=== PATIENT | female | born 1935 | race Caucasian/White ===

== ENCOUNTER 2017-06-12 19:43 | Emergency (ER) | payer MEDICARE, OTHER ==
[2017-06-12 20:36] LABS: #Lymphocytes 1.5 thou/uL (1.20-3.40); #Monocytes 0.6 thou/uL (0.11-0.59); #Neutrophils 10.8 thou/uL (1.40-6.50); %Basophils 0.1 % (0.0-1.0); %Eosinophils 0.3 % (0.0-10.0); %Lymphocytes 11.3 % (21.0-51.0); %Monocytes 4.5 % (0.0-10.0); Hematocrit 43.8 % (36.0-47.0); Mean Platelet Volume 6.4 fL (7.4-10.4); Red Blood Cell (RBC) Count 4.53 mill/uL (4.20-5.40); White Blood Cell (WBC) Count 12.9 thou/uL (4.8-10.8)
[2017-06-12 21:00] LABS: ALT (SGPT) 16 U/L (8-55); AST (SGOT) 16 U/L (5-34); Alkaline Phosphatase 45 U/L (40-150); Anion Gap 13 mmol/L (10-20); BUN (Urea Nitrogen) 22 mg/dL (9.8-20.1); Bilirubin, Total 0.4 mg/dL (0.2-1.2); Calc. Creatinine Clearance 0 mL/min (70-130); Calcium 9.1 mg/dL (7.8-10.44); Carbon Dioxide 25 mmol/L (23-31); Chloride 100 mmol/L (98-107); Estimated GFR-MDRD 70; Globulin 3.4 g/dL (2.4-3.5); Protein, Total 6.5 g/dL (6.0-8.3)
--- NOTE | 2017-06-12 21:33 | RAD ---
PORTABLE CHEST ONE VIEW: Date: 06-12-17 Time: 7:48 p.m. History: Shortness of breath. FINDINGS: Comparison made with exam of 05-11-17. The heart size is prominent and stable. There is continued elevation of the right hemidiaphragm. Chr onic changes in the lung diez are again seen bilaterally. No lobar consolidation, pneumothoraces, edgar pleural edema or large effusions are seen. Dorsal column stimulators leads are again noted. IMPRESSION: No acute process. POS: [facility]
[2017-06-12 22:26] LABS: Bilirubin Negative (Negative); Blood, Urine Negative (Negative); Glucose, Urine (Dipstick) Negative (Negative); Ketone, Urine Negative (Negative); Nitrite Negative (Negative); Protein, Urine (Dipstick) Negative (Neg-Trace); Urobilinogen 0.2 mg/dL (0.2-1.0)
[2017-06-12 22:28] LABS: Bacteria/HPF 4+ HPF (None Seen); Hyaline Casts/LPF 0-3 HYALINE CAST LPF (0-3 Hyaline); RBC/HPF 0-3 HPF (0-3); Squamous Epithelial None Seen HPF (0-3)
[2017-06-12] MEDS ORDERED: Nitrofurantoin Monohyd/M-Cryst 100 MG CAP PO SCH (23:45)
--- NOTE | 2017-06-12 23:48 | CT ---
CT CHEST WITHOUT CONTRAST: History: Dyspnea. Wheezing. FINDINGS: Absence of IV contrast reduces the sensitivity of the exam particularly for evaluation of mediastina l, hilar, and vascular structures. There are vascular calcifications without evidence of aneurysmal dilatation of the thoracic aorta. N o pleural or parenchymal effusions are seen. A hiatal hernia is noted. There are chronic interstitia l changes which are also seen on the exam of 03-01-17. No pneumothorax, focal areas of consolidation, or lung masses identified. The esophagus appears distended. Dorsal stimulator leads are present in the thoracic spinal canal. There are degenerative changes in the spine. There is elevation of the ri ght hemidiaphragm. IMPRESSION: No CT evidence of pneumonia. POS: [facility]
[2017-06-13] MEDS ORDERED: Nitrofurantoin Monohyd/M-Cryst 100 MG CAP PO SCH (00:15)
== END 2017-06-13 01:52 | disposition home or self-care (01) ==
LOC: ERS 19:43
DX: N39.0 Urinary tract infection, site not specified (principal); K21.9 Gastro-esophageal reflux disease without esophagitis; I95.9 Hypotension, unspecified; M19.90 Unspecified osteoarthritis, unspecified site; Z86.711 Personal history of pulmonary embolism; Z86.718 Personal history of other venous thrombosis and embolism; Z87.442 Personal history of urinary calculi
CPT/HCPCS: 36415; 51701; 71010; 71250; 80053; 81003; 81015; 85025; 93005; 96360; A4353

== ENCOUNTER 2017-06-22 13:42 | Outpatient (CLI) | payer MEDICARE, OTHER ==
--- NOTE | 2017-06-22 15:59 | RAD ---
CERVICAL SPINE: History: Follow up cervical spine fracture. Comparison: CT 04-21-17. That exam revealed a right C3 lamina fracture with anterolisthesis. Also com pared to the plain films of 05-19-17. FINDINGS: On the true lateral projection the anterolisthesis at C3-4 is again demonstrated. The degree of list hesis appears to have progressed when compared to 05-19-17. There is anterolisthesis measured up to 9 mm today. Previous measurements were in the 7 mm range. The fusion at C4, C5, and C6 not well evaluated. IMPRESSION: Anterolisthesis at C3-4 appears to have increased when compared to 05-19-17 exam. POS: [facility]
== END 2017-06-22 13:43 | disposition home or self-care (01) ==
LOC: TBSIIMAG 13:42
PROVIDERS: ATTEND Neurological Surgery
DX: S12.9XXD Fracture of neck, unspecified, subsequent encounter (principal)
CPT/HCPCS: 72040

== ENCOUNTER 2017-07-05 11:49 | Inpatient (IN) | payer MEDICARE, OTHER ==
[2017-07-05 12:33] LABS: #Eosinphils 0.1 thou/uL (0.0-0.7); #Lymphocytes 1.8 thou/uL (1.20-3.40); #Monocytes 1.2 thou/uL (0.11-0.59); #Neutrophils 13.7 thou/uL (1.40-6.50); %Basophils 0.1 % (0.0-1.0); %Eosinophils 0.6 % (0.0-10.0); %Lymphocytes 10.7 % (21.0-51.0); %Monocytes 6.9 % (0.0-10.0); Hematocrit 39.1 % (36.0-47.0); Mean Platelet Volume 6.1 fL (7.4-10.4); Red Blood Cell (RBC) Count 3.98 mill/uL (4.20-5.40); White Blood Cell (WBC) Count 16.8 thou/uL (4.8-10.8)
[2017-07-05 12:42] LABS: Prothrombin Time 16.7 SEC (12.0-14.7)
[2017-07-05] MEDS ORDERED: Acetaminophen 500 MG TAB ONE (12:48)
[2017-07-05 12:59] LABS: ALT (SGPT) 10 U/L (8-55); AST (SGOT) 18 U/L (5-34); Alkaline Phosphatase 34 U/L (40-150); Anion Gap 12 mmol/L (10-20); BUN (Urea Nitrogen) 13 mg/dL (9.8-20.1); Bilirubin, Total 0.5 mg/dL (0.2-1.2); Calc. Creatinine Clearance 0 mL/min (70-130); Calcium 7.7 mg/dL (7.8-10.44); Carbon Dioxide 21 mmol/L (23-31); Chloride 109 mmol/L (98-107); Estimated GFR-MDRD Greater than 90; Globulin 2.4 g/dL (2.4-3.5); Protein, Total 4.7 g/dL (6.0-8.3)
--- NOTE | 2017-07-05 13:09 | RAD ---
PORTABLE AP CHEST: Date: 07-05-17 History: Altered mental status, hypotension. Comparison: 06-12-17 FINDINGS: There is persistent elevation of the right hemidiaphragm. Dorsal column stimulator leads overlie the thoracic spine. There is increased interstitial densities bilaterally, overall similar to the prior exam and likely related to chronic interstitial fibrotic lung changes. Cardiac silhouette is magnif ied by projection. There has been no interval change compared to the prior study. IMPRESSION: 1. Stable chest with findings most likely attributable to chronic interstitial fibrotic lung changes . 2. Stable elevation right hemidiaphragm. POS: [facility]
[2017-07-05] MEDS ORDERED: Potassium Chloride 20 MEQ TAB ONE ×2 (13:27→13:37)
[2017-07-05 13:30] LABS: Bilirubin Negative (Negative); Blood, Urine Small (Negative); Glucose, Urine (Dipstick) Negative (Negative); Ketone, Urine Negative (Negative); Nitrite Negative (Negative); Protein, Urine (Dipstick) Trace mg/dL (Neg-Trace)
[2017-07-05 13:33] LABS: Bacteria/HPF 4+ HPF (None Seen); Hyaline Casts/LPF 4-6 HYALINE CAST LPF (0-3 Hyaline); Squamous Epithelial 0-3 HPF (0-3)
[2017-07-05] MEDS ORDERED: Potassium Chloride 40 MEQ, Admixture Fee 1 EACH in Sodium Chloride 0.9% 250 ML 250 ML IVPB SCH (13:45)
--- NOTE | 2017-07-05 13:59 | PDOC.EVN ---
Event Note - Event Note Event Note: [id number] H&P DICTATED 1. Sepsis secondary to UTI 2. Acute diarrhea 3. Hypotension 4. Hypokalemia Plan: see orders
[2017-07-05] MEDS ORDERED: Acetaminophen 325 MG TAB PO PRN (14:00)
[2017-07-05] MEDS ORDERED: Ondansetron HCl/PF 4 MG/2 ML Vial IVP PRN (14:00)
[2017-07-05] MEDS ORDERED: HYDROcodone/Acetaminophen 5/325 mg Tablet PO PRN (14:00)
[2017-07-05] MEDS ORDERED: Potassium Chloride 20 MEQ/100 ML PREMIX BAG ONE (14:26)
[2017-07-05] MEDS ORDERED: cefOXitin Sodium 1 GM, Admixture Fee 1 EACH in Sodium Chloride 0.9% 100 ML IVPB SCH (14:30)
--- NOTE | 2017-07-05 15:22 | HP ---
CHIEF COMPLAINT: Fever, chills, hypotension, and diarrhea. HISTORY OF PRESENT ILLNESS: The patient is an 82-year-old female with past medical history of chron ic recurrent UTIs, hypotension, history of multiple sclerosis, chronic pain, now came to the ER comp laining of low blood pressure and the patient is currently in the [facility] facility. Patient was having diarrhea, intermittent, for the last 1 week and patient was also having foul smelling ur ine. Today, the patient was found to be hypotensive with blood pressures around 70s and also having fever, so patient was brought to the ER. Upon ER, the patient was hypotensive, so patient was give n 2 liters of fluid bolus and blood pressure currently improved to systolic 106. Patient denies any chest pain, denies any nausea, denies any vomiting. Complains of diarrhea, cramping kind, intermit tent, foul smelling, complains of foul smelling urine also, denies any cough, denies any sputum prod uction. Denies any chest pain, denies any trouble breathing, dizziness, or lightheadedness. PAST MEDICAL HISTORY: As per HPI. PAST SURGICAL HISTORY: Hysterectomy, tonsillectomy, cholecystectomy, spinal stimulator. SOCIAL HISTORY: Denies smoking, denies alcohol, denies any drugs. FAMILY HISTORY: Positive for heart problems. REVIEW OF SYSTEMS: CONSTITUTIONAL: Positive for fever and chills. Positive for fatigue. EYES: No vision problems. EARS: No hearing loss. NECK: Denies any neck pain. CARDIOVASCULAR SYSTEM: Denies any chest pain, denies any palpitations. RESPIRATORY SYSTEM: Denies any cough or sputum production. GASTROINTESTINAL: Denies any nausea. Denies any vomiting. GENITOURINARY: Positive for foul-smelling urine. GASTROINTESTINAL: Positive for diarrhea. INTEGUMENTARY: Denies any rash. All other review of systems are reviewed and are negative. PHYSICAL EXAMINATION: CONSTITUTIONAL/VITAL SIGNS: At the time of H\T\P performed, blood pressure is 106/50, heart rate 85 , respiration rate 18. GENERAL: Patient appears tired. HEENT: Anterior naris patent. Nose, normal. Tongue appears dry. NECK: Supple, no JVD. CARDIOVASCULAR SYSTEM: S1, S2 present. Regular rate and rhythm, no murmurs, no rubs, no gallops. RESPIRATORY SYSTEM: Diminished breath sounds present bilaterally. No wheezing, no rhonchi. Normal effort. GASTROINTESTINAL: Abdomen is nontender to palpate. No guarding, no organomegaly, distended. MUSCULOSKELETAL: No edema. CRANIAL NERVE SYSTEM: Cranial nerves intact. Follows commands. Strength intact, sensory intact. PSYCHIATRIC: Mood is appropriate at this time. LABORATORY DATA: At the time of H\T\P performed, urine positive for greater than 52 numerous to cou nt wbcs, 4+ bacteria. CBC showed white count 16.8, hemoglobin 11.9, platelet count 274. PT 6.7, IN R 1.3. BMP showed sodium 140, potassium 2.4, chloride 109, CO2 21, BUN of 13, creatinine 0.59. ASSESSMENT AND PLAN: The patient is an 82-year-old female. 1. Sepsis secondary to urinary tract infection. Plan to start patient on broad spectrum antibiotic s. Plan to do blood cultures and urine culture and sensitivity. We will monitor the patient closel y. 2. Acute diarrhea plus history of clostridium difficile. Plan to start patient on Flagyl 500 mg IV q.8 h. Plan to monitor the patient closely. Plan to consult ID to evaluate the patient. 3. Hypokalemia, severe. We will go ahead and give total of 100 mEq potassium. We will check magne sium level. We will recheck potassium level again this evening. 4. Hypovolemia. Start IV fluids, monitor blood pressure closely. We will get another liter of nor mal saline bolus now. 5. History of multiple sclerosis, stable at this time. The case was discussed in detail with the patient and patient's daughter also and carrier. THE [facility] IS FULL CODE.
[2017-07-05] MEDS: Hydrocortisone Sod Succ/PF 100 mg/2 ml Vial IVP SCH ×2 (16:49→21:38)
[2017-07-05] MEDS: Heparin 5,000 UNITS/ML VIAL SC SCH ×2 (16:49→21:40)
[2017-07-05] MEDS: metroNIDAZOLE 500 MG in Premix Bag 1 BAG IVPB SCH ×2 (16:50→22:15)
--- NOTE | 2017-07-05 17:00 | CT ---
CT ABDOMEN AND PELVIS WITHOUT CONTRAST 07/05/17 HISTORY: Fever, bodyaches, chills, weakness and cough. COMPARISON: None. FINDINGS: There is extensive fibrotic changes in the lung bases. No pericardial effusion. There is abnormal wall thickening of the greater curvature of the stomach. Moderate sized sliding hi atal hernia. There is abnormal air fluid level within the urinary bladder. There appears to be some enhancing tis buddy along the posterolateral right side of the urinary bladder. There is gas within the right superi or renal collecting system. There are numerous calculi throughout the right side of the renal collec ting system. IVC filter is present. There is abnormal stranding of the descending colon and along th e left kidney. There is extensive fecal material throughout the colon. There is a 3 mm calculus in t he distal left ureter with moderate left sided hydronephrosis. Left sided calculus measuring 3 x 4 m m in the left renal pelvis. There is a 5 mm calculus in the right renal pelvis. No definite pneumato sis is appreciated. There is lack of normal haustrations of the transverse colon. Large degenerative change of both hips. Dorsal column stimulator is present. IMPRESSION: 1. 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 2. Left sided perinephric stranding with calculi within the distal left ureter and left renal c ollecting system with mild obstructive uropathy. 3. Abnormal soft dense material within the urinary bladder may represent a mass, hematoma or de bris. Direct visualization recommended. CODE: T POS: [facility]
--- NOTE | 2017-07-05 17:49 | CON ---
DATE OF CONSULTATION: 07/05/2017 REASON FOR CONSULTATION: Diarrhea and possible urinary tract infection. HISTORY OF PRESENT ILLNESS: An 82-year-old with a history of multiple sclerosis , recurrent episodes of urinary tract infection as well as prior episodes of C. difficile colitis, whom I had treated in 2013 for cough and abnormal chest x- ray. At that time, we were not sure that her symptoms were due to a urinary tract infection. Basically, she was then switched to oral Vantin. After that, I saw her until 06/2014, and when I had last seen her, she had only 0-3 wbc's in her urine, but still had colonization and we decided to give her Vantin suppressive therapy to try to decrease the frequency of readmissions for invasive UTIs. She never followed with me after the 06/2014 visit in the clinic and then there was 1 admission in 06/2015 and she was then admitted for \\ \\"pneumonia\\\\" right middle lobe, the organism was unspecified, and she was given Rocephin and Zithromax and then discharged back to the [facility], and Levaquin for 5 days, and then she gets admitted again in 04/2017. This time, she presents with a fall and had a fracture of the cervical spine and tibiofibular fracture. She was managed by Neurosurgery, Dr. hGosh, and Dr. Santillan. The patient underwent open reduction internal fixation of the right tibial plateau fracture, which went uneventful, and she has completely recovered from that. Now, she presents admitted from the long-term at [facility] with intermittent diarrhea, some abdominal distention, and some dysuria like she used to have before. She was found to be hypotensive in the unit with systolics in the 70s with fever, and therefore, she was admitted through the emergency room. She was given IV fluid bolus and broad-spectrum coverage. Currently, she is very pleasant, awake, alert, oriented. No headaches, visual symptoms, sore throat, odynophagia, dysphagia; no cough or sputum production; no chest pain; no abdominal pain. She does have some abdominal cramps and a sensation of dysuria as well as pressure and some mild-to -moderate pain in the suprapubic area. No joint symptoms. She does have some neck pain associated with the recent injury. PAST MEDICAL HISTORY: Includes multiple sclerosis; prior pulmonary embolism with IVC filter; chronic low back pain, treated with opioid medications and then more recently with a spinal cord stimulator; recurrent UTIs; and recurrent C. difficile infection. SOCIAL HISTORY: Never smoker. FAMILY HISTORY: Noncontributory. PAST SURGICAL HISTORY: Includes hysterectomy, tonsillectomy, cholecystectomy, spinal stimulator placement. PHYSICAL EXAMINATION: VITAL SIGNS: T-max 98, blood pressure 98/40, pulse 75, respirations 20, O2 sat 99% on 2 liters nasal cannula. She has no areas of skin breakdown. No Robles catheter, peripheral IV access. No lymphadenopathy. HEENT: Ocular movements are conjugate. Sclerae white. Pupils are 2 mm and reactive. Oral cavity moist. NECK: Supple. She has some stiffness of the neck and some tenderness on mobilization. LUNGS: Clear to auscultation and percussion. HEART: S1, S2, regular rate. ABDOMEN: No abdominal tenderness, but she has some moderate distention. Bowel sounds are present but normal. Some suprapubic tenderness. EXTREMITIES: No joint inflammatory activity. The operative site of the tib/ fib fracture is healed without any inflammatory changes. Pulses are 1+ in dorsalis pedis. Plantar responses are flexure. She moves all extremities equally. NEUROLOGIC: Cognitive function appears to be intact. LABORATORY DATA: White cell count 16.8, hemoglobin 11, platelets 274 with 81% neutrophils. INR 1.3. Sodium 140 with a potassium 2.4 and creatinine 0.59, AST 18, ALT 10, and albumin 2.3. Urinalysis greater than 50 wbcs. Patient has C. difficile antigen and toxin from June, which showed positive antigen, negative toxin. There is an abdomen and pelvis CT done this time, which showed dilated loops of bowel including colon with what appears to be a thickened colon wall. This is yet to be confirmed by the radiologist. She has a chest x- ray from 07/05/2017, which showed stable chest, elevation of right hemidiaphragm. ASSESSMENT: 1. Multiple sclerosis. 2. Recurrent urinary tract infections associated with some element of neurogenic bladder. 3. Previous multiple admissions for the above with prior utilization of suppressive antimicrobial therapy. 4. Episodes of Clostridium difficile in the past. 5. Diarrhea with some abdominal distention and abnormal CT of abdomen findings , which were suggestive of Clostridium difficile colitis. 6. Abnormal urinalysis. DISCUSSION: Differential diagnosis includes a C. difficile colitis with sepsis associated with it versus an invasive UTI. She could also have cystitis without an actual invasive UTI. As in previous encounters, she could have both. We do not have yet an updated urine culture, and she is currently receiving meropenem and vancomycin. She is also on Flagyl q.8 hours. At this point, we will switch her to oral vancomycin. Repeat the C. difficile test and stool, and wait on the results of the CT scan or at least on the report and discontinue Flagyl. Depending on the results of the urine culture, then transition her to a different antimicrobial rather than meropenem, potentially Azactam. She does have an ESBL E. coli from May this year. In view of the sepsis syndrome, we will continue on meropenem for the time being. [facility]
[2017-07-05 18:17] LABS: Anion Gap 12 mmol/L (10-20); BUN (Urea Nitrogen) 12 mg/dL (9.8-20.1); Calc. Creatinine Clearance 57 mL/min (70-130); Calcium 7.7 mg/dL (7.8-10.44); Carbon Dioxide 18 mmol/L (23-31); Chloride 111 mmol/L (98-107); Estimated GFR-MDRD 85
[2017-07-05] MEDS: Atorvastatin Calcium 20 MG TAB PO SCH (21:38)
[2017-07-05] MEDS: Vancomycin HCl 25 MG/ML Oral PO SCH (21:38)
[2017-07-05] MEDS: Oxybutynin 5 MG TAB PO SCH (21:39)
[2017-07-05] MEDS ORDERED: Meropenem 1 GM, Admixture Fee 1 EACH in Sodium Chloride 0.9% 100 ML IVPB SCH (22:00)
[2017-07-05] MEDS: Meropenem 1 GM, Admixture Fee 1 EACH in Sterile Water 20 ML SLOW IVP SCH (22:13)
--- NOTE | 2017-07-06 01:22 | PDOC.EVN ---
Event Note - Event Note Event Note: RN called for low BP, Will start IV fluids after 500 ml bolus
[2017-07-06] MEDS ORDERED: Sodium Chloride 0.9% 500 ML IV SCH (01:30)
[2017-07-06] MEDS: Vancomycin HCl 1.25 GM, Admixture Fee 1 EACH in Sodium Chloride 0.9% 250 ML 250 ML IVPB SCH ×2 (02:00→13:35)
[2017-07-06] MEDS: Sodium Chloride 0.9% 1,000 ML IV SCH ×2 (02:02→19:30)
[2017-07-06] MEDS: Hydrocortisone Sod Succ/PF 100 mg/2 ml Vial IVP SCH ×4 (03:06→21:37)
[2017-07-06 05:37] LABS: #Lymphocytes 1.1 thou/uL (1.20-3.40); #Monocytes 0.4 thou/uL (0.11-0.59); #Neutrophils 14.4 thou/uL (1.40-6.50); %Basophils 0.2 % (0.0-1.0); %Eosinophils 0.3 % (0.0-10.0); %Lymphocytes 6.9 % (21.0-51.0); %Monocytes 2.8 % (0.0-10.0); Hematocrit 36.2 % (36.0-47.0); Mean Platelet Volume 6.5 fL (7.4-10.4); Red Blood Cell (RBC) Count 3.62 mill/uL (4.20-5.40)
[2017-07-06 06:00] LABS: Anion Gap 10 mmol/L (10-20); BUN (Urea Nitrogen) 11 mg/dL (9.8-20.1); Calc. Creatinine Clearance 70 mL/min (70-130); Calcium 7.9 mg/dL (7.8-10.44); Carbon Dioxide 19 mmol/L (23-31); Chloride 114 mmol/L (98-107); Estimated GFR-MDRD Greater than 90; Magnesium 1.3 mg/dL (1.6-2.6); Phosphorus 2.2 mg/dL (2.3-4.7)
[2017-07-06] MEDS: Meropenem 1 GM, Admixture Fee 1 EACH in Sterile Water 20 ML SLOW IVP SCH ×3 (06:18→22:21)
[2017-07-06] MEDS: metroNIDAZOLE 500 MG in Premix Bag 1 BAG IVPB SCH ×2 (06:21→13:34)
[2017-07-06] MEDS ORDERED: Fluticasone Propionate Nasal Spray 16 gm Bottle NASAL SCH (09:00)
[2017-07-06] MEDS ORDERED: Non-Formulary Item 1 EACH (Dexlansoprazole [Dexilant] 60 MG) PO SCH (09:00)
[2017-07-06] MEDS ORDERED: Non-Formulary Item 1 EACH (Fexofenadine Hcl [Allegra Allergy] 180 MG) PO SCH (09:00)
[2017-07-06] MEDS ORDERED: Non-Formulary Item 1 EACH (Fluticasone Propionate [Flonase Allergy Relief] 1 SPRAY) EA NARE SCH ×2 (09:00)
[2017-07-06] MEDS ORDERED: Multivit, Therapeutic 1 TAB PO SCH (09:00)
[2017-07-06] MEDS ORDERED: Non-Formulary Item 1 EACH (Pravastatin Sodium [Pravachol] 80 MG) PO SCH (09:00)
[2017-07-06] MEDS ORDERED: MULTIVITAMINS THERAPEUTIC PO SCH (09:00)
[2017-07-06] MEDS ORDERED: Enoxaparin Sodium 30 MG/0.3 ML SYRINGE SC SCH (09:00)
[2017-07-06] MEDS: Fenofibrate Nanocrystallized 145 MG TAB PO SCH (09:39)
[2017-07-06] MEDS: Heparin 5,000 UNITS/ML VIAL SC SCH ×3 (09:39→21:52)
[2017-07-06] MEDS: Vancomycin HCl 25 MG/ML Oral PO SCH ×4 (09:41→21:37)
[2017-07-06] MEDS: Loratadine 10 MG TAB PO SCH (09:41)
[2017-07-06] MEDS: Oxybutynin 5 MG TAB PO SCH ×2 (09:41→21:40)
--- NOTE | 2017-07-06 12:29 | CON ---
REASON FOR CONSULTATION: 07/06/2017 REASON FOR CONSULTATION: IMCU placement. HISTORY OF PRESENT ILLNESS: This is an 82-year-old female with a long medical history, who was brou ght in yesterday with lethargy, diarrhea, and sepsis syndrome. She was initially found to a have lo w blood pressure, which has been corrected. She was also tachycardic, which has resolved. Symptoms have been present for at least a couple of days. PAST MEDICAL HISTORY: 1. Multiple sclerosis. 2. Pulmonary embolism, requiring inferior vena cava filter placement. 3. Low back pain. 4. Urinary tract infection. 5. C. difficile colitis. SOCIAL HISTORY: Never smoker. Does not consume alcohol. PAST SURGICAL HISTORY: Hysterectomy, tonsillectomy, cholecystectomy, spinal stimulator placement. FAMILY MEDICAL HISTORY: Unremarkable. MEDICATIONS: Prior to admission, prednisone 20 mg b.i.d., sertraline 50 mg daily, Florastor 250 mg b.i.d., Imitrex 100 mg every 12 hours as needed, Pravachol 80 mg daily, potassium chloride 10 mEq b. i.d., Ditropan 5 mg b.i.d., Macrodantin 50 mg daily, morphine, MS Contin 60 mg b.i.d., lidocaine pat ch p.r.n., DuoNeb every 6 hours as needed, Neurontin 800 mg q.i.d., Lasix 40 mg b.i.d., fluticasone nasal spray as needed, Berta 180 mg daily, fenofibrate 145 mg daily, estrogen 0.625 mg daily, Lomo til 1 tablet every 4 hours as needed, Voltaren 2 grams every 6 hours as needed, Dexilant 60 mg daily , colestipol 1 gram b.i.d., Limbrel 500 mg b.i.d. PHYSICAL EXAMINATION: VITAL SIGNS: Temperature 97.5, pulse 53, respirations 20, O2 sat 100% on 2 liters, blood pressure 1 14/47. GENERAL: She is awake and alert, very quiet. HEENT EXAM: Unremarkable. NECK: Without adenopathy or JVD. LUNGS: Clear to auscultation without wheezing. CARDIAC EXAM: Slightly bradycardic without murmur. ABDOMEN: Soft, nontender to palpation. EXTREMITIES: No clubbing or cyanosis. She has severe muscle wasting. LABORATORY DATA: White blood cell count 16, hematocrit 36.2, platelet count 220. Sodium 140, potas sium 3.4, chloride 114, CO2 of 19, BUN 11, creatinine 0.5, glucose 120. Cultures are growing out gr am-negative rods from her urine and her blood. ASSESSMENT: 1. Gram-negative sepsis, likely originating in her urine. 2. Multiple sclerosis. 3. Recent Clostridium difficile colitis. PLAN: 1. She is currently on meropenem and vancomycin for coverage. She is also on Flagyl. Dr. Buchanan is following her antibiotics. 2. She is receiving hydration. 3. We can probably move out to the medical floor at any time from my standpoint. 4. Dr. Grissom has seen her before. I will notify him of her admission.
--- NOTE | 2017-07-06 14:43 | PDOC.PN ---
- Subjective Encounter Start Date: 07/06/17 Encounter Start Time: 14:20 Subjective: f/u for sepsis from E. coli likely bowel source. Hx of c. diff colitis with -: current c. diff negative. c/o multiple bouts of diarrhea. Feels weak and -: tired. - Objective MAR Reviewed: Yes Vital Signs & Weight: Vital Signs (12 hours) Temp Pulse Resp BP Pulse Ox 07/06/17 11:14 97.5 F L 53 L 20 114/47 L 100 07/06/17 08:00 97.5 F L 53 L 20 100 07/06/17 07:20 97.9 F 48 L 20 92/40 L 100 07/06/17 04:00 98.8 F 50 L 20 90/40 L 100 Weight Weight 126 lb 6.4 oz I&O: 07/05/17 07/06/17 07/07/17 06:59 06:59 06:59 Intake Total 1390 Balance 1390 Result Diagrams: 07/06/17 04:54 07/06/17 04:54 Additional Labs: Microbiology 07/05/17 17:45 Stool C. difficile GDH Antigen & Toxins - Final 07/05/17 12:11 Nasal swab Influenza Types A,B Direct EIA - Final 07/05/17 13:11 Urine Straight Catheter Urine Culture - Preliminary Gram Negative Georgi 07/05/17 12:26 Venous blood - Right Hand Blood Culture - Preliminary Escherichia coli 07/05/17 12:26 Venous blood - Left Arm Blood Culture - Preliminary Gram Negative Georgi Laboratory Tests 07/05/17 07/05/17 07/05/17 12:26 12:26 17:57 WBC 16.8 H Neutrophils % 81.8 H Potassium 2.4 L* 3.3 L Magnesium 07/06/17 04:54 WBC Neutrophils % Potassium Magnesium 1.3 L Radiology Reviewed by me: Yes (CT abd/pel - gas/tissue in urinary system, descend colon stranding) EKG Reviewed by me: Yes (Tele - sinus bradycardia in 50's) Phys Exam - Physical Examination ill-appearing, responsive HEENT: PERRLA, oral pharynx no lesions Neck: no JVD, supple Respiratory: no wheezing, clear to auscultation bilateral Cardiovascular: RRR mild, diffuse TTP Gastrointestinal: soft, no distention, positive bowel sounds Musculoskeletal: no edema, pulses present Neurological: normal sensation, moves all 4 limbs Psychiatric: A&O x 3 Skin: normal turgor, cap refill <2 seconds Dx/Plan (1) Sepsis Code(s): A41.9 - SEPSIS, UNSPECIFIED ORGANISM Status: Acute Qualifiers: Sepsis type: Escherichia coli Qualified Code(s): A41.51 - Sepsis due to Escherichia coli [E. coli] Comment: Continue Meropenem and Vancomycin, E. coli in blood/Ucx results, continue sepsis protocol (2) Hypotension Status: Acute Comment: Secondary to sepsis, continue IVF's, avoid antihypertensives (3) Hypokalemia Code(s): E87.6 - HYPOKALEMIA Status: Acute Comment: Improved, continue KCL replacement, repeat K+ level in am (4) E. coli UTI Code(s): N39.0 - URINARY TRACT INFECTION, SITE NOT SPECIFIED; B96.20 - UNSP ESCHERICHIA COLI THE CAUSE OF DISEASES CLASSD ELSWHR Status: Acute Comment: Continue Meropenem 1gm IV q8h, E. coli in blood/Ucx await final sensitivities, continue IVF (5) Clostridium difficile colitis Status: Acute Comment: Continue Vancomycin 125mg po Q6h (6) Lupus (systemic lupus erythematosus) Code(s): M32.9 - SYSTEMIC LUPUS ERYTHEMATOSUS, UNSPECIFIED Status: Chronic (7) Chronic low back pain Code(s): M54.5 - LOW BACK PAIN; G89.29 - OTHER CHRONIC PAIN Status: Chronic Qualifiers: Back pain laterality: bilateral Comment: Resume home Gabapentin and MS contin (8) DVT (deep venous thrombosis) Code(s): I82.409 - ACUTE EMBOLISM AND THOMBOS UNSP DEEP VN UNSP LOWER EXTREMITY Status: Chronic Comment: s/p IVC filter (9) Multiple sclerosis Code(s): G35 - MULTIPLE SCLEROSIS Status: Chronic - Plan continue antibiotics, PT/OT, social work case manager, DVT proph w/SCDs Stable currently -: Continue IVF NS 75ml/h -: Restart home pain medications -: Continue Vancomycin po and Meropenem IV -: KCL 40meq BID * AM lab: BMP, CBC
[2017-07-06] MEDS ORDERED: Saccharomyces boulardii 250 MG CAP PO PRN (14:54)
[2017-07-06] MEDS ORDERED: Lidocaine 2% Jelly 5 ML TUBE TOP PRN (14:54)
[2017-07-06] MEDS ORDERED: Diphenoxylate HCl/Atropine Tablet PO PRN (14:54)
[2017-07-06] MEDS ORDERED: Dicyclomine 20 MG TAB PO PRN (14:54)
[2017-07-06] MEDS: Gabapentin 400 MG CAP PO SCH ×2 (17:35→21:58)
[2017-07-06] MEDS: Potassium Chloride 20 MEQ TAB PO SCH (17:36)
--- NOTE | 2017-07-06 19:41 | PRG ---
DATE OF SERVICE: 07/06/2017 SUBJECTIVE: Ms. Ramos is not as responsive. She opens her eyes, but does not interact nearly as much as she did yesterday, cannot get any replies from her. She did not have much in terms of diarrhea. OBJECTIVE: VITAL SIGNS: The temperature max is 99.7, now 97.7, BP 120/44, pulse 52, respirations 20, O2 sat 100%. SKIN: There is a little bit of periorbital edema. Peripheral IV access. LUNGS: With symmetric clear breath sounds. CARDIOVASCULAR: S1, S2, regular rate. ABDOMEN: Soft and does not have a Robles catheter. LABORATORY DATA: White cell count is 16,000, hemoglobin 11, platelets 220. Creatinine 0.54, sodium 140. 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 Abnormal soft dense material in the urinary bladder. The microbiology with E. coli in 2 sets of blood cultures and urine culture, susceptibility is consistent with extended spectrum beta lactamase resistance marker. ASSESSMENT AND DISCUSSION: Multiple sclerosis and recurrent urinary tract infections with neurogenic bladder, previous various admissions with the above, had been on Vantin and suppressive therapy until 2013 or 2014. Episodes of Clostridium difficile infection in the past, now with sepsis and invasive urinary tract infection again in the similar pattern as previously. This time she has evidence of emphysematous cystitis and right-sided kidney infection. No hydronephrosis. Continue meropenem since this is extended spectrum beta lactamase Escherichia coli. She will need PICC line placement for four weeks of therapy. Discontinue Flagyl. Continue oral vancomycin due to high risk of Clostridium difficile recurrence. [facility]
[2017-07-06] MEDS: Atorvastatin Calcium 20 MG TAB PO SCH (21:40)
[2017-07-06] MEDS: SUMAtriptan Succinate 50 MG TAB PO SCH (22:04)
[2017-07-07 01:48] LABS: Vancomycin, Trough 19.6 ug/mL
[2017-07-07] MEDS: Hydrocortisone Sod Succ/PF 100 mg/2 ml Vial IVP SCH ×2 (03:53→09:59)
[2017-07-07 05:11] LABS: Anion Gap 9 mmol/L (10-20); BUN (Urea Nitrogen) 10 mg/dL (9.8-20.1); Calc. Creatinine Clearance 79 mL/min (70-130); Calcium 8.4 mg/dL (7.8-10.44); Carbon Dioxide 18 mmol/L (23-31); Chloride 117 mmol/L (98-107); Estimated GFR-MDRD Greater than 90
[2017-07-07] MEDS: Gabapentin 400 MG CAP PO SCH ×4 (05:17→21:16)
[2017-07-07] MEDS: Meropenem 1 GM, Admixture Fee 1 EACH in Sterile Water 20 ML SLOW IVP SCH ×3 (05:18→22:05)
[2017-07-07 05:34] LABS: Band 8 % (5-11); Hematocrit 36.2 % (36.0-47.0); Mean Platelet Volume 7.3 fL (7.4-10.4); Neutrophil 81 % (42-75); Red Blood Cell (RBC) Count 3.63 mill/uL (4.20-5.40); White Blood Cell (WBC) Count 14.1 thou/uL (4.8-10.8)
[2017-07-07] MEDS ORDERED: Non-Formulary Item 1 EACH (Dexlansoprazole [Dexilant] 60 MG) PO SCH (09:00)
[2017-07-07] MEDS ORDERED: predniSONE 20 MG TAB PO SCH (09:00)
--- NOTE | 2017-07-07 09:06 | PRG ---
DATE OF SERVICE: 07/07/2017 This morning she is awake, alert, responsive, complaining of neck pain. She says she takes morphine at home, though I do not see anything but [place]. Pulmonary medrano, no shortness of breath, cough. Her urine is growing E. coli sensitive to meropenem. Blood pressure is improved. She presented to the ER with chills, sweats, cough, foul urine odor. This is a recurrent UTI. Her chest x-ray did show a questionable left-sided infiltrate. PHYSICAL EXAMINATION: GENERAL: She is awake, alert, responsive. VITAL SIGNS: Blood pressure is 120/80, pulse 80, O2 saturation 100%, respirations 18. CHEST: Chest reveals decreased breath sounds, no wheezing. CARDIAC: Normal S1, S2, no gallops. ABDOMEN: Unremarkable. Her I's and O's are good. IMPRESSION: 1. Escherichia coli sepsis. 2. Hypertension, resolved. 3. Normal renal function. 4. Chronic pain. PLAN: Infectious Disease has started meropenem and p.o. vancomycin, otherwise I see no evidence of C. diff at this time. Continue PT. Switch over to oral prednisone. It is unclear why she was taking prednisone at home. Continue home pain medication. I will follow.
[2017-07-07] MEDS: SUMAtriptan Succinate 50 MG TAB PO SCH ×2 (09:58→21:17)
[2017-07-07] MEDS: Vancomycin HCl 25 MG/ML Oral PO SCH ×4 (09:59→21:15)
[2017-07-07] MEDS: Heparin 5,000 UNITS/ML VIAL SC SCH ×3 (09:59→21:17)
[2017-07-07] MEDS: Oxybutynin 5 MG TAB PO SCH ×2 (10:00→21:17)
[2017-07-07] MEDS: Potassium Chloride 20 MEQ TAB PO SCH ×2 (10:00→16:39)
[2017-07-07] MEDS: Multivitamin W/ Minerals 1 TAB PO SCH (10:01)
[2017-07-07] MEDS: Fenofibrate Nanocrystallized 145 MG TAB PO SCH (10:02)
[2017-07-07] MEDS: Lidocaine 5% Patch TD SCH (10:02)
[2017-07-07] MEDS: Fluticasone Propionate Nasal Spray 16 gm Bottle NASAL SCH (10:03)
[2017-07-07] MEDS: Loratadine 10 MG TAB PO SCH (10:03)
[2017-07-07] MEDS: Sodium Chloride 0.9% 1,000 ML IV SCH ×2 (10:29→23:21)
--- NOTE | 2017-07-07 11:02 | PDOC.PN ---
- Subjective Encounter Start Date: 07/07/17 Encounter Start Time: 11:00 Ms. Ramos had some concerns about the PICC line. she also says she feels " awful " , mainly due to the diarrhea. - Objective MAR Reviewed: Yes Vital Signs & Weight: Vital Signs (12 hours) Temp Pulse Resp BP Pulse Ox 07/07/17 06:58 97.5 F L 65 18 115/49 L 100 07/07/17 04:00 98.1 F 62 18 136/51 L 99 07/07/17 00:00 98.0 F 56 L 20 113/46 L 100 Weight Weight 124 lb 14.4 oz I&O: 07/06/17 07/07/17 07/08/17 06:59 06:59 06:59 Intake Total 1390 1170 350 Balance 1390 1170 350 Result Diagrams: 07/07/17 04:14 07/07/17 04:14 Phys Exam - Physical Examination HEENT: PERRLA Respiratory: no wheezing, no rales, no rhonchi, clear to auscultation bilateral Cardiovascular: RRR, no significant murmur Gastrointestinal: soft, non-tender, positive bowel sounds Musculoskeletal: no edema Dx/Plan (1) ESBL E. coli carrier Code(s): Z22.39 - CARRIER OF OTHER SPECIFIED BACTERIAL DISEASES Status: Acute (2) E. coli UTI Code(s): N39.0 - URINARY TRACT INFECTION, SITE NOT SPECIFIED; B96.20 - UNSP ESCHERICHIA COLI THE CAUSE OF DISEASES CLASSD ELSWHR Status: Acute Comment: Continue Meropenem 1gm IV q8h, E. coli in blood/Ucx await final sensitivities, continue IVF (3) Sepsis Code(s): A41.9 - SEPSIS, UNSPECIFIED ORGANISM Status: Acute Qualifiers: Sepsis type: Escherichia coli Qualified Code(s): A41.51 - Sepsis due to Escherichia coli [E. coli] Comment: Continue Meropenem and Vancomycin, E. coli in blood/Ucx results, continue sepsis protocol (4) Chronic low back pain Code(s): M54.5 - LOW BACK PAIN; G89.29 - OTHER CHRONIC PAIN Status: Chronic Qualifiers: Back pain laterality: bilateral Comment: Resume home Gabapentin and MS contin (5) HTN (hypertension) Code(s): I10 - ESSENTIAL (PRIMARY) HYPERTENSION Status: Chronic (6) Multiple sclerosis Code(s): G35 - MULTIPLE SCLEROSIS Status: Chronic - Plan * UTI due to ESBL E. Coli- improved- Continue Meropenem. * Diarrhea- C. Diff Antigen and toxin were negative, patient also notes she was on Morpine chronically, and has been taken off on admission due to hypotension. This is likely contributing to her diarrhea * will re-start her Morphine * Multiple Sclerosis- stable * HTN- blood pressure is recovering * Agree with PT
[2017-07-07] MEDS ORDERED: ALPRAZolam 0.25 MG TAB PO SCH (13:00)
[2017-07-07 13:44] VITALS: BMI 22.1
--- NOTE | 2017-07-07 17:12 | SPC ---
SONOGRAPHIC GUIDED LEFT UPPER EXTREMITY PICC PLACEMENT: HISTORY: Sepsis. Urinary tract infection. \H\ \N\FINDINGS: After explaining the procedure and answering all questions, the left upper extremity was prepped and draped in the usual sterile fashion. Sterile technique, buffered local anesthesia, sonographic brijesh dance, and a 22-gauge needle were used to carefully access the left brachial vein. Standard techniq ue was then used to place the tip of a 5-Icelandic single-lumen PICC so that it lies at the level of th e right atrium. The catheter was flushed and secured externally. The patient tolerated the procedu re well and was returned in unchanged condition. Fluoro time = 0 seconds. IMPRESSION: Technically successful left upper extremity PICC placement. Catheter is now ready for use. POS: FARHAN
[2017-07-07] MEDS: Atorvastatin Calcium 20 MG TAB PO SCH (21:16)
[2017-07-07] MEDS: Lidocaine Patch Removal 1 EACH TOP SCH (21:34)
[2017-07-08] MEDS: Meropenem 1 GM, Admixture Fee 1 EACH in Sterile Water 20 ML SLOW IVP SCH ×2 (05:49→13:48)
--- NOTE | 2017-07-08 08:54 | PRG ---
DATE OF SERVICE: 07/08/2017 This morning she is awake, alert, responsive. She is better, less pain. PHYSICAL EXAMINATION: VITAL SIGNS: Sat 100% on 2 liters, respirations 20, temperature 97, blood pressure 95/56. I's and O's have been good. CHEST: Chest reveals decreased breath sounds, no wheezing. CARDIAC: Normal S1, S2. ABDOMEN: Soft, no masses. IMPRESSION: 1. Recurrent urinary tract infection, gram-negative. 2. Advanced age. She is on IV meropenem for urosepsis, vancomycin for presumed C. difficile colitis. PLAN: Continue present treatment and PT. Supportive care. She can probably be transferred out of the [facility].
[2017-07-08] MEDS: Potassium Chloride 20 MEQ TAB PO SCH ×2 (09:26→16:36)
[2017-07-08] MEDS: predniSONE 5 MG TAB PO SCH (09:26)
[2017-07-08] MEDS: Fluticasone Propionate Nasal Spray 16 gm Bottle NASAL SCH (09:27)
[2017-07-08] MEDS: Fenofibrate Nanocrystallized 145 MG TAB PO SCH (09:27)
[2017-07-08] MEDS: Gabapentin 400 MG CAP PO SCH ×4 (09:27→21:30)
[2017-07-08] MEDS: Loratadine 10 MG TAB PO SCH (09:28)
[2017-07-08] MEDS: Heparin 5,000 UNITS/ML VIAL SC SCH ×3 (09:28→21:34)
[2017-07-08] MEDS: Lidocaine 5% Patch TD SCH (09:28)
[2017-07-08] MEDS: Multivitamin W/ Minerals 1 TAB PO SCH (09:29)
[2017-07-08] MEDS: Oxybutynin 5 MG TAB PO SCH ×2 (09:30→21:30)
[2017-07-08] MEDS: SUMAtriptan Succinate 50 MG TAB PO SCH ×2 (09:31→21:34)
[2017-07-08] MEDS: Vancomycin HCl 25 MG/ML Oral PO SCH ×4 (09:31→21:35)
--- NOTE | 2017-07-08 11:22 | PDOC.PN ---
- Subjective Encounter Start Date: 07/08/17 Encounter Start Time: 11:20 Ms. Ramos does not have any complaints this morning. she has not had any diarrhea this morning. - Objective MAR Reviewed: Yes Vital Signs & Weight: Vital Signs (12 hours) Temp Pulse Resp BP Pulse Ox 07/08/17 07:40 97.7 F 55 L 20 99 07/08/17 07:36 97.7 F 55 L 20 95/56 L 100 07/08/17 04:00 98.1 F 66 20 107/55 L 99 07/08/17 00:00 98.7 F 57 L 22 H 110/57 L 100 Weight Admit Weight 126 lb 6.4 oz Weight 125 lb 6.4 oz I&O: 07/07/17 07/08/17 07/09/17 06:59 06:59 06:59 Intake Total 1170 660 Balance 1170 660 Result Diagrams: 07/07/17 04:14 07/07/17 04:14 Phys Exam - Physical Examination HEENT: PERRLA Respiratory: no wheezing, no rales, no rhonchi, clear to auscultation bilateral Cardiovascular: RRR, no significant murmur, no rub Gastrointestinal: soft, non-tender, positive bowel sounds Musculoskeletal: no edema Dx/Plan (1) ESBL E. coli carrier Code(s): Z22.39 - CARRIER OF OTHER SPECIFIED BACTERIAL DISEASES Status: Acute (2) E. coli UTI Code(s): N39.0 - URINARY TRACT INFECTION, SITE NOT SPECIFIED; B96.20 - UNSP ESCHERICHIA COLI THE CAUSE OF DISEASES CLASSD ELSWHR Status: Acute Comment: Continue Meropenem 1gm IV q8h, E. coli in blood/Ucx await final sensitivities, continue IVF (3) Sepsis Code(s): A41.9 - SEPSIS, UNSPECIFIED ORGANISM Status: Acute Qualifiers: Sepsis type: Escherichia coli Qualified Code(s): A41.51 - Sepsis due to Escherichia coli [E. coli] Comment: Continue Meropenem and Vancomycin, E. coli in blood/Ucx results, continue sepsis protocol (4) Chronic low back pain Code(s): M54.5 - LOW BACK PAIN; G89.29 - OTHER CHRONIC PAIN Status: Chronic Qualifiers: Back pain laterality: bilateral Comment: Resume home Gabapentin and MS contin (5) HTN (hypertension) Code(s): I10 - ESSENTIAL (PRIMARY) HYPERTENSION Status: Chronic (6) Multiple sclerosis Code(s): G35 - MULTIPLE SCLEROSIS Status: Chronic - Plan * Sepsis due to E Coli- improving * Discharge recommendations were discussed with Dr. Buchanan * Diarrhea- improved * She can be transitioned out of the IMCU * Need to mobilize with PT * Chronic LBP- stable .
[2017-07-08] MEDS: Sodium Chloride 0.9% 1,000 ML IV SCH ×2 (13:50→23:00)
[2017-07-08 13:58] LABS: #Eosinphils 0.1 thou/uL (0.0-0.7); #Lymphocytes 0.7 thou/uL (1.20-3.40); #Monocytes 0.4 thou/uL (0.11-0.59); #Neutrophils 6.2 thou/uL (1.40-6.50); %Eosinophils 0.9 % (0.0-10.0); %Lymphocytes 9.1 % (21.0-51.0); %Monocytes 5.5 % (0.0-10.0); Hematocrit 37.8 % (36.0-47.0); Mean Platelet Volume 6.6 fL (7.4-10.4); Red Blood Cell (RBC) Count 3.82 mill/uL (4.20-5.40); White Blood Cell (WBC) Count 7.3 thou/uL (4.8-10.8)
[2017-07-08 14:19] LABS: Anion Gap 11 mmol/L (10-20); BUN (Urea Nitrogen) 12 mg/dL (9.8-20.1); Calc. Creatinine Clearance 68 mL/min (70-130); Calcium 9.1 mg/dL (7.8-10.44); Carbon Dioxide 21 mmol/L (23-31); Chloride 111 mmol/L (98-107); Estimated GFR-MDRD Greater than 90; Magnesium 1.6 mg/dL (1.6-2.6)
[2017-07-08] MEDS: Atorvastatin Calcium 20 MG TAB PO SCH (21:30)
[2017-07-08] MEDS: Lidocaine Patch Removal 1 EACH TOP SCH (21:34)
[2017-07-08] MEDS: MEROPENEM 1 GM/50 ML 1 GM in Premix Bag 1 BAG IVPB SCH (22:08)
[2017-07-08] MEDS: [UNRECOGNIZED DRUG - OTHER] PO SCH ×2 (23:52→23:53)
[2017-07-09] MEDS: MEROPENEM 1 GM/50 ML 1 GM in Premix Bag 1 BAG IVPB SCH (06:01)
[2017-07-09] MEDS: Heparin 5,000 UNITS/ML VIAL SC SCH (08:16)
[2017-07-09] MEDS: Vancomycin HCl 25 MG/ML Oral PO SCH (08:17)
[2017-07-09] MEDS: predniSONE 5 MG TAB PO SCH (08:18)
[2017-07-09] MEDS: Gabapentin 400 MG CAP PO SCH (08:18)
[2017-07-09] MEDS: Potassium Chloride 20 MEQ TAB PO SCH (08:18)
[2017-07-09] MEDS: Fenofibrate Nanocrystallized 145 MG TAB PO SCH (08:18)
[2017-07-09] MEDS: Multivitamin W/ Minerals 1 TAB PO SCH (08:18)
[2017-07-09] MEDS: Loratadine 10 MG TAB PO SCH (08:19)
[2017-07-09] MEDS: Oxybutynin 5 MG TAB PO SCH (08:22)
[2017-07-09] MEDS: SUMAtriptan Succinate 50 MG TAB PO SCH (08:23)
[2017-07-09 08:28] VITALS: BP 103/68; TEMP 97.8
[2017-07-09] MEDS ORDERED: Heparin 1,000 UNITS/ML VIAL ONE (08:33)
[2017-07-09] MEDS: Fluticasone Propionate Nasal Spray 16 gm Bottle NASAL SCH (08:34)
[2017-07-09] MEDS: Lidocaine 5% Patch TD SCH (10:34)
--- NOTE | 2017-07-09 12:24 | PRG ---
DATE OF SERVICE: 07/09/2017 She is doing very well today, had no complaints. PHYSICAL EXAMINATION: VITAL SIGNS: Temperature is 97.8, pulse 60, respirations 18, O2 sat 94%, blood pressure 103/68. HEENT: Unremarkable. NECK: No JVD. CHEST: Clear. CARDIAC: S1 and S2 regular. ABDOMEN: Soft. EXTREMITIES: No edema. ASSESSMENT: 1. Recurrent urinary tract infection with Escherichia coli. 2. Advanced age. PLAN: She is likely stable for discharge to home. No further recommendations at this time.
--- NOTE | 2017-07-09 14:42 | DIS ---
DATE OF ADMISISON: 07/05/2017 DATE OF DISCHARGE: 07/09/2017 DISCHARGE DISPOSITION: [facility]. DISCHARGE DIAGNOSES: 1. Urinary tract infection with Escherichia coli with an ESBL susceptibility pattern. 2. Chronic diarrhea. 3. History of multiple sclerosis. 4. History of chronic back pain. DISCHARGE MEDICATIONS: Include prednisone 10 mg daily, vancomycin 125 mg q.i.d. until 08/01/2017, m eropenem 1 gram IV q.8 hours until 08/01/2017, Zoloft 50 mg daily, Florastor 250 mg twice a day as n eeded, Imitrex 100 mg q.12 hours, Pravachol 80 mg at bedtime, potassium chloride 10 mEq twice a day, oxybutynin 5 mg twice a day, multivitamin 1 tablet daily, MS Contin 60 mg twice a day, Lidoderm pat ch to affected area daily, DuoNeb q.i.d. p.r.n., [place] 5/325 q.6 hours as needed, Lasix 40 mg twice daily, Flonase nasal spray daily, Berta 180 mg as needed, TriCor 145 mg daily, Premarin 0.625 mg d aily, dicyclomine 20 mg q.i.d. as needed, diclofenac 2 gram topical as needed, Dexilant 60 mg daily, Colestid 1 tablet twice a day as needed, and Limbrel 500 mg twice a day. PROCEDURES DONE DURING ADMISSION: The patient had a CT scan of the abdomen and pelvis in which ther e was some gas in the urinary bladder, as well as the right renal collecting system concerning for e mphysematous cystitis and pyelonephritis and there is left-sided perinephric stranding. CODE STATUS: FULL CODE. ALLERGIES: To FENTANYL, METHADONE and PENICILLINS. HOSPITAL COURSE: Ms. Ramos is a pleasant 82-year-old female who was sent over from the residential due to hypotension. She was also having diarrhea and cramping abdominal pain and she also did noti ce some foul smelling urine as well. She was admitted to the IMCU and found to be septic, started o n empiric broad spectrum antibiotics and due to the diarrhea and history of previous C. difficile in fection, she was started on oral vancomycin. The patient's urine culture grew E. coli within extend ed beta lactamase producing strain susceptibility profile, she was continued on meropenem. Infectio us Disease was consulted and it was recommended that she continue meropenem for a total of 4 weeks, which would be an end date around about 08/01/2017. Stool studies were negative for C. difficile co litis, but Dr. Buchanan recommended continuing oral vancomycin since she would be on long-term IV antib iotics due to concerns that she would develop recrudescence of the C. difficile infection should the oral vancomycin be stopped. Therefore, she will continue the oral vancomycin until the duration of therapy with the IV meropenem. The patient improved symptomatically. Her diarrhea began to resolv e and she was subsequently discharged to the [facility].
--- NOTE | 2017-07-09 15:20 | EKG ---
Test Reason : Blood Pressure : / mmHG Vent. Rate : 115 BPM Atrial Rate : 115 BPM P-R Int : 142 ms QRS Dur : 082 ms QT Int : 290 ms P-R-T Axes : 031 -39 -14 degrees QTc Int : 401 ms Sinus tachycardia Left axis deviation Possible Anterior infarct , age undetermined Abnormal ECG Confirmed by RAJ MEDINA M.D. ([id number]), editor managing director ZAHEER GOMEZ ([id number]) on 07/09/2017 3:20:37 PM Referred By: Confirmed By:RAJ MEDINA M.D.
--- NOTE | 2017-07-14 13:37 | PQF ---
VERITO RODRIGUES Emery BraxtonMike chandler [id number] [facility]- B04 [id number] CLINICAL DOCUMENTATION CLARIFICATION FORM: POST DISCHARGE Addendum to original discharge summary date: ____ Late entry note date: __ DATE: 07/14/2017 ATTN: DR. FRAZIER Please exercise your independent, professional judgment in responding to the clarification form. Clinical indicators are provided on the bottom of this form for your review Please check appropriate box(s): PLEASE CLARIFY ULCER TYPE [ ] NON-Pressure Ulcer CHECK ALL THAT APPLY Location: [ ] Back [ ] Buttock [ ] Thigh [ ] Lower limb [ ] Calf [ ] Ankle [ ] Heel/ midfoot [ X ] Other SHOULDER 1 Laterality [ ] Left [ X ] Right [ ] Bilateral [ ] Upper [ ] Lower [ ] N/A 2 Depth [ ] Skin only [ ] Fat exposed [ ] Muscle exposed [ ] Bone exposed 3 Type [ ] Diabetic [ ] Vascular due to PVD [ ] Varicose [ ] Atherosclerosis of lower limb [ ] Postphlebitic syndrome [ ] Post thrombotic syndrome [ ] Chronic venous HTN [X ] Other (specify) PARTAL THICKNESS 4 Gangrene [ ] Yes [ X] No [ ] Due to Gas Gangrene [ ] Other (specify) [ ] Other diagnosis [ ] Unable to determine In addition, please specify: Present on Admission (POA): [ X ] Yes [ ] No [ ] Unable to determine For continuity of documentation, please document condition throughout progress notes and discharge summary. Thank You. CLINICAL INDICATORS - SIGNS / SYMPTOMS / LABS 07/06 - WOUND CARE - PARTIAL THICKNESS WOUND R NECK/SHOULDER 07/06 - WOUND CARE - CARE FOR R SUBCLAVIAN, PARTIAL THICKNESS WOUND WOUND FROM C-COLLAR USE 07/07 - WOUND CARE - SLOW BLANCHABLE NURSING ASSESSMENT - STAGE III ULCER R NECK/SHOULDER RISK FACTORS SEPSIS MS C-COLLAR USE TREATMENTS: Wound care consult NURSING CLEANSE WOUND WITH NS AND GAUZE (This form is maintained as a part of the permanent medical record) 2014 [employer]. All Rights Reserved Marina Archiabld, ESTEE, [facility] [email or web address] [phone] MTDD
--- NOTE | 2017-08-07 13:58 | CON ---
DATE OF CONSULTAITON: 08/07/2017 REASON FOR CONSULTATION: Diarrhea, hypotension. HISTORY OF PRESENT ILLNESS: An 82-year-old known to us from prior visits with a history of multiple sclerosis, recurrent UTIs and episodes of C. diff colitis. The last visit to this hospital was in at the end of June, which was diagnosed with ESBL associated pyelonephritis with emphysematous cysti tis and right-sided kidney infection without hydronephrosis. The patient was treated with meropenem and took oral vancomycin during the treatment to prevent recurrence of C. difficile colitis. A C. di ff test was negative at that time. After discharge, she did well until now when she developed fairly rapid onset of diarrhea, which is profuse associated with hypotension and general malaise. No heada ches, visual symptoms, sore throat, odynophagia, dysphagia, a little bit of cough, no dyspnea, no talia st pain, diffuse moderate abdominal tenderness. No dysuria, hematuria, frequency. PAST MEDICAL HISTORY: Multiple sclerosis, recurrent UTIs, C. diff colitis, pulmonary embolism with I VC filter placement, chronic pain. PAST SURGICAL HISTORY: Hysterectomy, IVC filter, tonsillectomy, spinal stimulator placement, cholecy stectomy. ALLERGIES: FENTANYL, METHADONE, PENICILLIN, rashes. MEDICATIONS: Tylenol, DuoNeb, Pepcid, meropenem, Zofran, prednisone 20 mg twice daily, vancomycin or al. FAMILY HISTORY: Noncontributory. SOCIAL HISTORY: Never a smoker. [facility] resident. PHYSICAL EXAMINATION: VITAL SIGNS: Temperature max 98.5, blood pressure 106/51, pulse 57-70, respiratory rate 16, O2 sat 9 4% on 2 liters nasal cannula. GENERAL: Appears awake, oriented, no acute distress. No skin lesions, peripheral IV access. No Fol ey catheter. HEENT: No lymphadenopathy. Ocular movements are conjugate. Oral cavity moist. NECK: Supple. LUNGS: With rhonchi in the right side midlung region anteriorly. HEART: S1, S2, regular rate. No S3 or S4. ABDOMEN: Soft, moderately distended, diffusely tender. Bowel sounds are present. No bladder disten tion. EXTREMITIES: No joint inflammatory activity. Able to move extremities on command. No edema. Pulse s are 1+ in dorsalis pedis. Plantar responses are flexor. Moves all extremities equally. NEUROLOGIC: Cognitive function appears to be intact. LABORATORY DATA AND IMAGING: White cell count 14 and now 11.3, hemoglobin 12, platelets 278, 78% elver trophils down to 69%. INR 1.2. Sodium 138, creatinine 0.55. Urinalysis with 7-10 WBCs. Microbiolo gy with pending C. diff test from this admission. Two sets of blood cultures pending and urine cultu re pending as well. Abdomen and pelvis CT, evidence of colitis, fibrotic changes interstitial area, bronchiectasis in the lung region, right side. ASSESSMENT: 1. Multiple sclerosis. 2. Recurrent urinary tract infections. 3. Recurrent Clostridium difficile colitis. 4. Recent episode of pyelonephritis with emphysematous cystitis, treated to completion. 5. Recurrence of diarrhea. DISCUSSION: At this time, the imaging changes are diagnostic colitis and most likely secondary to Cl ostridium difficile recurrence. Increase dosage of vancomycin to 250 four times daily and monitor cl inical response. Treat for 10 days and if improvement, then taper and then pulse therapy. Discontin ue meropenem.
== END 2017-07-09 11:09 | DRG 872 ==
LOC: ERS 11:49 → IMCU/EMU 14:15 → T4-B 07-08 15:31
PROVIDERS: ADMIT Internal Medicine; ATTEND Internal Medicine
PROC: 02H633Z Insertion of Infusion Device into Right Atrium, Percutaneous Approach (ICD-10-PCS; principal; 2017-07-07)
DX: A41.51 Sepsis due to Escherichia coli [E. coli] (principal); M32.9 Systemic lupus erythematosus, unspecified; G35 Multiple sclerosis; N31.9 Neuromuscular dysfunction of bladder, unspecified; L98.429 Non-pressure chronic ulcer of back with unspecified severity; N39.0 Urinary tract infection, site not specified; E86.1 Hypovolemia; E87.6 Hypokalemia; I10 Essential (primary) hypertension; R19.7 Diarrhea, unspecified; M54.5 Low back pain
CPT/HCPCS: 36415; 36569; 51701; 71010; 74176; 80048; 80053; 80202; 81003; 81015; 83605; 83735; 84100; 85007; 85025; 85027; 85610; 85730; 87040; 87077; 87086; 87149; 87186; 87324; 87449; 93005; 96361; 96365; 96367; A4216; A4353; C1751; G8978-GP-CM; G8979-GP-CL; J0694; J1644; J2185; J2405; J3370; J3480; J7050

== ENCOUNTER 2017-08-03 14:12 | Outpatient (CLI) | payer MEDICARE, OTHER ==
--- NOTE | 2017-08-03 15:14 | RAD ---
RADIOGRAPH CERVICAL SPINE 3 VIEWS: HISTORY: 82-year-old female with S12.9XXD closed fracture or cervical vertebra. TECHNIQUE: Three lateral images in neutral, flexion, and extension performed with patient in wheelchair. COMPARISON: 07-02-17 FINDINGS: The levels inferior to the fused C4-5 level are obscured by the shoulders on 2 of the views. Again no valerie is the grade II anterolisthesis of C3 on C4. Again noted is the multilevel severe degenerative fa cet disease. Mild to moderate disc space narrowing at C2-3, and C3-4. There is no change in the degre e of spondylolisthesis at C3-4 between flexion, extension, and neutral. Mild prevertebral soft tissue swelling. No significant internal change. IMPRESSION: 1. Grade I spondylolisthesis at C3-4. 2. No evidence of instability. 3. 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 JAYLEN POS: FARHAN
--- NOTE | 2017-08-03 15:52 | CT ---
CERVICAL SPINE CT WITHOUT CONTRAST: Date: 08/03/17 HISTORY: Follow-up exam. Evaluate for cervical stability. Patient has a right laminar fracture and extensive s pondylolisthesis. COMPARISON: 04/21/17. TECHNIQUE: Cervical spine CT is performed without contrast. Reformatted images are submitted for interpretation. FINDINGS: Soft tissue neck structures are essentially unchanged. There is mass effect of the posterior hypophar ynx due to medial deviation of both carotid arteries. There is ectasia of the visualized esophagus. Chronic changes in the lung apices are noted. There is stable anterolisthesis and retrolisthesis throughout the lumbar spine. There is stable 6.0 m m of anterolisthesis of C3 upon C4, 3.0 mm of retrolisthesis of C4 upon C5, 3.0 mm of anterolisthesis of C6 upon C7, and 3.0 mm anterolisthesis of C7 upon T1. Acute fractures are not appreciated. Extens sanam degenerative changes throughout the facets are redemonstrated. Previously noted right laminar fra cture at C3 is redemonstrated. Changes of healing are noted. There is still separation of the lamina at this level. Additional fractures are not identified. There are stable degenerative changes. IMPRESSION: 1. Redemonstration of a right laminar fracture at C3. 2. Redemonstration of spondylolisthesis and degenerative changes. POS: HOLLIE
== END 2017-08-03 14:13 | disposition home or self-care (01) ==
LOC: TBSIIMAG 14:12
PROVIDERS: ATTEND Neurological Surgery
DX: M53.2X2 Spinal instabilities, cervical region (principal); M47.892 Other spondylosis, cervical region; M43.22 Fusion of spine, cervical region
CPT/HCPCS: 72040; 72125

== ENCOUNTER 2017-08-06 20:52 | Inpatient (IN) | payer MEDICARE, OTHER ==
[~2017-08-06 20:52] MED LIST: ISOVUE-370 76%-LOCM 1 ML ONE
[2017-08-06 22:25] LABS: #Eosinphils 0.1 thou/uL (0.0-0.7); #Monocytes 0.9 thou/uL (0.11-0.59); %Basophils 0.2 % (0.0-1.0); %Eosinophils 0.8 % (0.0-10.0); %Lymphocytes 14.6 % (21.0-51.0); Hematocrit 36.5 % (36.0-47.0); Mean Platelet Volume 6.8 fL (7.4-10.4); Red Blood Cell (RBC) Count 3.85 mill/uL (4.20-5.40)
--- NOTE | 2017-08-06 22:29 | CT ---
CT OF THE ABDOMEN AND PELVIS WITH IV CONTRAST 08/06/17 INDICATION: History of dizziness, diarrhea, abdominal pain and fever. COMPARISON: Prior CT of the abdomen and pelvis dated 07/05/17. FINDINGS: There is bronchiectasis and interstitial fibrotic change involving both lung bases which appears mindy lar to the comparison. There is mild intrahepatic biliary ductal dilatation which is stable. The gall bladder is surgically absent. There is some fatty atrophy involving the pancreatic head which is mindy lar appearing. There is a small hiatal hernia. The spleen appears within normal limits. Multiple ston es are again seen involving the right renal collecting system with stones present within the right re nal pelvis as seen on the prior exam. The previously seen distal left ureteral calculus is no longer demonstrated. There are numerous calcification and wall thickening involving the posterior aspect of the bladder wall which is new from the prior examination. There is a right ureteral diverticulum whi ch is stable. There is prominent wall thickening involving the rectum and colon suspicious for procto colitis. Small bowel appears within normal limits. No drainable fluid collection is evident. IVC filt er is again seen right of midline at L3. Levoscoliosis is similar. Scattered degenerative and osteoar thritic change is similar. Osteonecrosis of both femoral heads is similar appearing. Dorsal column st imulator is again seen overlying the right lower quadrant of the abdomen. IMPRESSION: 1. Proctocolitis. 2. Interval development of soft tissue density and calcifications involving the posterior aspect of the bladder. This is nonspecific and may reflect sequela of prior infection or inflammation. Sarah gnancy is not entirely excluded. The layered debris seen within the posterior aspect of the bladder o n the prior exam is no longer seen. 3. Right ureteral diverticulum is similar appearing. 4. Stable right nephrolithiasis. Interval passage of the previously seen left distal ureteral ca lculus. 5. Stable bronchiectasis and bibasilar interstitial fibrotic change. 6. Other findings as above. POS: [facility]
[2017-08-06] MEDS ORDERED: Meropenem 1 GM in Sodium Chloride 0.9% 100 ML IVPB SCH (22:30)
[2017-08-06 22:31] LABS: Prothrombin Time 15.9 SEC (12.0-14.7)
--- NOTE | 2017-08-06 22:33 | RAD ---
AP VIEW OF THE CHEST 08/06/17 INDICATION: Sepsis. COMPARISON: Prior exam dated 07/05/17. FINDINGS: Chronic lung changes are similar. Dorsal column stimulator overlies the lower thoracic spine is uncha nged. Heart size is within normal limits. No pleural effusion or pneumothorax is evident. No acute os seous abnormality is evident. IMPRESSION: No acute abnormality. Stable chronic lung changes. POS: [facility]
[2017-08-06 22:41] LABS: Lactic Acid - Sepsis 0.9 mmol/L (0.5-2.2)
[2017-08-06 22:42] LABS: Bilirubin Negative (Negative); Blood, Urine Negative (Negative); Glucose, Urine (Dipstick) Negative (Negative); Ketone, Urine Negative (Negative); Nitrite Negative (Negative); Protein, Urine (Dipstick) Negative (Neg-Trace); Urobilinogen 0.2 mg/dL (0.2-1.0)
[2017-08-06 22:47] LABS: ALT (SGPT) 11 U/L (8-55); AST (SGOT) 19 U/L (5-34); Alkaline Phosphatase 40 U/L (40-150); Anion Gap 9 mmol/L (10-20); BUN (Urea Nitrogen) 14 mg/dL (9.8-20.1); Bilirubin, Total 0.6 mg/dL (0.2-1.2); CK (CPK) Less than 9 U/L (29-168); Calc. Creatinine Clearance 0 mL/min (70-130); Calcium 8.6 mg/dL (7.8-10.44); Carbon Dioxide 25 mmol/L (23-31); Chloride 101 mmol/L (98-107); Estimated GFR-MDRD Greater than 90; Globulin 2.8 g/dL (2.4-3.5); Lipase 4 U/L (8-78); Protein, Total 5.4 g/dL (6.0-8.3)
[2017-08-06 22:50] LABS: Troponin I Less than 0.010 ng/mL (< 0.028)
[2017-08-06 22:53] LABS: Bacteria/HPF 3+ HPF (None Seen); RBC/HPF 0-3 HPF (0-3); Squamous Epithelial 0-3 HPF (0-3)
[2017-08-06 22:54] LABS: Yeast-All Forms 1+ HPF (None Seen)
[2017-08-06 22:58] LABS: Hyaline Casts/LPF NONE SEEN LPF (0-3 Hyaline)
[2017-08-06] MEDS ORDERED: metroNIDAZOLE 500 MG in Premix Bag 1 BAG IVPB SCH (23:15)
[2017-08-07 00:01] LABS: Magnesium 1.7 mg/dL (1.6-2.6); Phosphorus 3.7 mg/dL (2.3-4.7)
[2017-08-07] MEDS ORDERED: Sodium Chloride 0.9% 1,000 ML IV SCH (00:44)
[2017-08-07] MEDS ORDERED: Acetaminophen 325 MG TAB PO PRN (00:44)
[2017-08-07] MEDS ORDERED: Ondansetron ODT 4 MG TAB SL PRN (00:44)
[2017-08-07] MEDS ORDERED: Ondansetron HCl/PF 4 MG/2 ML Vial IVP PRN ×2 (00:44→01:46)
--- NOTE | 2017-08-07 02:26 | HP ---
DATE OF ADMISSION: 08/06/2017 CHIEF COMPLAINT: Fever, nausea, vomiting, diarrhea with abdominal discomfort. CODE STATUS: FULL CODE. SURROGATE DECISION MAKER: The patient's daughter. HISTORY OF PRESENT ILLNESS: The patient is an 82-year-old female with recent Escherichia coli urinar y tract infection with diarrhea, presented to the emergency room from [facility] with above com plaints. The patient was admitted at this facility from 07/05/2017 to 07/09/2017. She was diagnose d with ESBL E. coli. She completed meropenem on 08/01/2017. Due to chronic diarrhea, she was also s tarted on vancomycin 125 mg 4 times daily, which she completed on 08/01/2017. She was, however, nega tive for C. diff colitis. She did well post-discharge. However, over the last couple of days she started feeling generally wea k. She became nauseous and threw up 4 to 5 times in the last 24 hours. She also had several diarrhe a over the last 24 hours. She had generalized abdominal discomfort mainly in the right lower quadran t. She also felt feverish; however, did not record her temperature. She also felt generally weak, l ightheaded, fatigued with some shortness of breath. In the emergency room, initial vital signs showed temperature 99.1, respirations 20, pulse rate of 72 with a blood pressure of 83/67 with O2 saturation of 88% on room air. She received IV fluids with m eropenem and Flagyl in the emergency room. EKG showed sinus rhythm with poor R-wave progression and left axis deviation. Chest x-ray showed chronic findings. CT scan of the abdomen and pelvis was con sistent with proctocolitis. PAST MEDICAL HISTORY: 1. Recent ESBL Escherichia coli urinary tract infection. 2. History of Clostridium difficile colitis. 3. Recurrent urinary tract infections. 4. Multiple sclerosis. 5. History of pulmonary embolism, status post IVC filter. 6. Chronic pain syndrome. 7. Physical deconditioning. PAST SURGICAL HISTORY: 1. Hysterectomy. 2. IVC filter. 3. Tonsillectomy. 4. Spinal stimulator. 5. Cholecystectomy. ALLERGIES: The patient is allergic to FENTANYL, METHADONE, and PENICILLIN. CURRENT HOME MEDICATIONS: To be verified with [facility]. She does not remember any of her [facility]'s [facility] medications. Please note that patient was also on 10 mg of prednisone from review of recent [facility] medications record. SOCIAL HISTORY: Currently, resides at [facility]. No smoking, alcohol or drug use. She is FULL CODE . FAMILY HISTORY: Positive for heart disease. REVIEW OF SYSTEMS: The following complete review of systems was negative, unless otherwise mentioned in the HPI or below: Constitutional: Weight loss or gain, ability to conduct usual activities. Skin: Rash, itching. Eyes: Double vision, pain. ENT/Mouth: Nose bleeding, neck stiffness, pain, tenderness. Cardiovascular: Palpitations, dyspnea on exertion, orthopnea. Respiratory: Shortness of breath, wheezing, cough, hemoptysis, fever or night sweats. Gastrointestinal: Poor appetite, abdominal pain, heartburn, nausea, vomiting, constipation, or diarr hea. Genitourinary: Urgency, frequency, dysuria, nocturia. Musculoskeletal: Pain, swelling. Neurologic/Psychiatric: Anxiety, depression. Allergy/Immunologic: Skin rash, bleeding tendency. PHYSICAL EXAMINATION: VITAL SIGNS: As discussed above. GENERAL: An 82-year-old female, ill appearing, feels somewhat better after IV fluids. HEENT: Head atraumatic, normocephalic. Sclerae are anicteric. Dry mucous membranes. No oral lesio n. NECK: Supple, no JVD appreciated. No carotid bruit. LUNGS: Showed diminished air entry at bases with scattered rales. HEART: S1, S2 present. Regular rate and rhythm. No rubs or gallops appreciated. ABDOMEN: Soft, mild generalized tenderness mainly on the right side. No rebound, guarding, no costo vertebral angle tenderness. EXTREMITIES: No edema or calf tenderness. NEUROLOGIC: Grossly nonfocal, moves all four extremities. PSYCHIATRY: Alert, awake, oriented x3. SKIN: Warm and dry. LYMPH NODES: No palpable lymph nodes in the neck. PERIPHERAL VASCULAR: Radial pulses palpable bilaterally. MUSCULOSKELETAL: No joint swelling or tenderness. LABORATORY FINDINGS: CBC showed WBC of 14,000 with 78.4% neutrophils. Sodium was 132 with potassium 3.4, chloride 101, bicarbonate 25, BUN 14, creatinine 0.55. Lactic acid was normal. Phosphorus, ma gnesium in normal range. Albumin 2.6. Urinalysis showed specific gravity 1.053 with 7 to 10% wbc, 3 + bacteria. Influenza testing was negative. Chest x-ray and EKG by my review as discussed above. Germaine English scan of the abdomen and pelvis as discussed above. IMPRESSION: 1. Severe sepsis with acute organ dysfunction. 2. Proctocolitis suspected secondary to Clostridium difficile. 3. Generalized weakness, multifactorial. 4. Hypotension secondary to dehydration. Other possibility includes relative adrenal insufficiency due to chronic steroid use. 5. Dehydration. 6. Hyponatremia. 7. Hypokalemia. 8. Recent extended-spectrum beta-lactamase urinary tract infection. 9. History of Clostridium difficile colitis. 10. Multiple sclerosis. 11. History of pulmonary embolism, status post inferior vena cava filter. 12. History of recurrent urinary tract infection. Urinalysis is consistent with urinary tract infec tion this admission as well. 13. Chronic pain syndrome, status post spinal stimulator, which is currently turned off per patient report. 14. Chronic diarrhea. 15. PENICILLIN, METHADONE, FENTANYL allergy. 16. Moderate protein calorie malnutrition. PLAN: The patient will be monitored on the telemetry unit. We will continue with gentle IV hydratio n. We will replace electrolytes. We will continue meropenem. We will start her on oral vancomycin. We will increase the steroid dose due to possible relative adrenal insufficiency. We will confirm medications from [facility]. Consult Physical Therapy, Occupation Therapy. We will consult ny haddad for moderate protein calorie malnutrition. We will repeat labs on a daily basis. Plan of care was discussed with the patient. She stated understanding. The patient will require 3 to 4 days for stabilization. Blood and urine cultures have been sent. Stool studies will be ordered.
[2017-08-07 02:37] LABS: #Eosinphils 0.2 thou/uL (0.0-0.7); #Lymphocytes 2.5 thou/uL (1.20-3.40); #Monocytes 0.7 thou/uL (0.11-0.59); #Neutrophils 7.9 thou/uL (1.40-6.50); %Basophils 0.1 % (0.0-1.0); %Eosinophils 1.6 % (0.0-10.0); %Lymphocytes 21.8 % (21.0-51.0); %Monocytes 6.6 % (0.0-10.0); Mean Platelet Volume 6.7 fL (7.4-10.4); Red Blood Cell (RBC) Count 3.87 mill/uL (4.20-5.40); White Blood Cell (WBC) Count 11.3 thou/uL (4.8-10.8)
[2017-08-07] MEDS: NS 0.9% w/ 20 MEQ KCL 1,000 ML IV SCH ×2 (02:53→13:07)
[2017-08-07 03:02] LABS: Troponin I Less than 0.010 ng/mL (< 0.028)
[2017-08-07 03:16] LABS: Anion Gap 9 mmol/L (10-20); BUN (Urea Nitrogen) 12 mg/dL (9.8-20.1); BUN/Creatinine Ratio 21.82; Calc. Creatinine Clearance 63 mL/min (70-130); Calcium 8.6 mg/dL (7.8-10.44); Carbon Dioxide 27 mmol/L (23-31); Chloride 105 mmol/L (98-107); Estimated GFR-MDRD Greater than 90; Phosphorus 3.7 mg/dL (2.3-4.7)
[2017-08-07 05:31] LABS: Troponin I Less than 0.010 ng/mL (< 0.028)
[2017-08-07] MEDS ORDERED: Meropenem 1 GM in Sodium Chloride 0.9% 100 ML IVPB SCH (08:00)
[2017-08-07] MEDS ORDERED: metroNIDAZOLE 500 MG in Premix Bag 1 BAG IVPB SCH (08:00)
[2017-08-07] MEDS: predniSONE 20 MG TAB PO SCH ×2 (09:56→17:43)
[2017-08-07] MEDS: Heparin 5,000 UNITS/ML VIAL SC SCH ×2 (09:56→20:40)
[2017-08-07] MEDS: Famotidine 20 MG TAB PO SCH ×2 (09:56→20:39)
[2017-08-07] MEDS: Vancomycin HCl 25 MG/ML Oral PO SCH ×4 (10:40→20:39)
--- NOTE | 2017-08-07 12:13 | PDOC.PN ---
- Subjective Encounter Start Date: 08/07/17 Encounter Start Time: 12:12 Subjective: feels better, diarrhea improved - Objective Resuscitation Status: Resuscitation Status FULL:Full Resuscitation MAR Reviewed: Yes Vital Signs & Weight: Vital Signs (12 hours) Temp Pulse Resp BP Pulse Ox 08/07/17 01:52 96 08/07/17 01:46 96 08/07/17 00:40 96.8 F L 61 18 96 08/07/17 00:30 96.8 F L 61 18 114/49 L 96 Weight Weight 115 lb 4.8 oz I&O: 08/06/17 08/07/17 08/08/17 06:59 06:59 06:59 Intake Total 700 Balance 700 Result Diagrams: 08/07/17 02:29 08/07/17 02:29 Phys Exam - Physical Examination Constitutional: NAD HEENT: PERRLA, moist MMs Neck: full ROM Respiratory: clear to auscultation bilateral Cardiovascular: RRR Gastrointestinal: soft, non-tender Musculoskeletal: no edema Neurological: moves all 4 limbs Psychiatric: normal affect Dx/Plan (1) E. coli UTI Code(s): N39.0 - URINARY TRACT INFECTION, SITE NOT SPECIFIED; B96.20 - UNSP ESCHERICHIA COLI THE CAUSE OF DISEASES CLASSD ELSWHR Status: Acute Comment: Continue Meropenem 1gm IV q8h, E. coli in blood/Ucx await final sensitivities, continue IVF (2) ESBL E. coli carrier Code(s): Z22.39 - CARRIER OF OTHER SPECIFIED BACTERIAL DISEASES Status: Acute (3) Hypokalemia Code(s): E87.6 - HYPOKALEMIA Status: Acute Comment: Improved, continue KCL replacement, repeat K+ level in am (4) Hypotension Status: Acute Comment: Secondary to sepsis, continue IVF's, avoid antihypertensives (5) Sepsis Code(s): A41.9 - SEPSIS, UNSPECIFIED ORGANISM Status: Acute Qualifiers: Comment: Continue Meropenem and Vancomycin, E. coli in blood/Ucx results, continue sepsis protocol (6) Chronic low back pain Code(s): M54.5 - LOW BACK PAIN; G89.29 - OTHER CHRONIC PAIN Status: Chronic Comment: Resume home Gabapentin and MS contin - Plan cont current plan of care, continue antibiotics * .
--- NOTE | 2017-08-07 15:51 | CON ---
DATE OF CONSULTATION: 08/07/2017 HISTORY OF PRESENT ILLNESS: The patient is an 82-year-old female who was admitted with acu te onset of diarrhea for the last 24 hours. Reviewing the previous records, it looks like she had be en seen by Dr. Sandoval in the past initially in 08/2011. She has chronic diarrhea usually a few loose bowel movements every day up until 24 hours ago when she said became profuse, also with associated a bdominal pain which she does not typically have with her chronic diarrhea. She does report some weig ht loss, but cannot quantify how much. She has had no nausea or vomiting. On reviewing previous sto ol studies, all her C. diffs in the hospital have been negative except for one that was antigen posit sanam and toxin negative. She has been on multiple antibiotics for recurrent urinary tract infections. She denies any fever or chills. PAST MEDICAL HISTORY: Includes C. diff colitis, multiple sclerosis, recurrent urinary tract infectio ns, pulmonary embolism with IVC filter, and chronic pain syndrome. PAST MEDICAL HISTORY: Includes a hysterectomy, IVC filter, spinal cord stimulator, cholecystectomy. ALLERGIES: Include FENTANYL, METHADONE and PENICILLIN. MEDICATIONS: Include Nystatin swish and swallow 5 mL q.i.d., colestipol 1 tablet p.o. b.i.d. p.r.n., fenofibrate 145 mg p.o. daily, Premarin 0.625 mg p.o. daily, Flonase 1 spray each nostril daily, All egra 180 mg p.o. daily p.r.n., gabapentin 800 mg p.o. q.i.d., Lasix 40 mg p.o. b.i.d., morphine 60 mg p.o. b.i.d., Pravastatin 80 mg p.o. at bedtime, potassium chloride 20 mEq p.o. b.i.d., oxybutynin 5 mg p.o. b.i.d., multivitamin 1 p.o. daily, Zoloft 50 mg p.o. daily, prednisone 10 mg p.o. daily. SOCIAL HISTORY: She lives in a nursing facility. FAMILY HISTORY: Negative. REVIEW OF SYSTEMS: Ten systems were reviewed and were negative except for above. PHYSICAL EXAMINATION: GENERAL: Shows an elderly white female in no acute distress. VITAL SIGNS: Temperature 98, pulse of 56, respiratory rate 16, blood pressure 106/51. HEENT: Unremarkable. Mucosa is moist. NECK: Supple. CHEST: Clear. CARDIOVASCULAR: Regular rate and rhythm. ABDOMEN: Soft, nontender, without organomegaly or masses. Bowel sounds are present and normoactive. RECTAL: Deferred. EXTREMITIES: Normal. LABORATORY: Shows a white blood cell count of 11.3, hemoglobin 12.1, hematocrit 37.0. PT is 59 with an INR of 1.2. Chemistries show sodium of 132, potassium 3.4, creatinine 0.55. CK less than 9, tot al protein 5.4, albumin 2.6. Abdominal and pelvic CT showed proctocolitis, interval development of s oft tissue density and calcifications involving the posterior aspect of the bladder, right ureteral d iverticulum, stable right nephrolithiasis, stable bronchiectasis and bibasilar interstitial fibrotic change. ASSESSMENT: 1. Acute exacerbation of chronic diarrhea -- suspect recurrent Clostridium difficile. 2. Recurrent urinary tract infections. 3. Bronchiectasis. 4. Abnormal CT of the urinary bladder. 5. Multiple sclerosis. RECOMMENDATIONS: 1. Stool studies. 2. Consider empiric treatment for Clostridium difficile. 3. We will follow with you.
[2017-08-07] MEDS: Acetaminophen 325 MG TAB PO PRN (20:38)
[2017-08-07] MEDS: Ondansetron ODT 4 MG TAB PO PRN (20:39)
[2017-08-08] MEDS: NS 0.9% w/ 20 MEQ KCL 1,000 ML IV SCH ×3 (01:56→23:27)
[2017-08-08 05:25] LABS: #Lymphocytes 1.2 thou/uL (1.20-3.40); #Monocytes 0.4 thou/uL (0.11-0.59); #Neutrophils 7.5 thou/uL (1.40-6.50); %Basophils 0.4 % (0.0-1.0); %Eosinophils 0.2 % (0.0-10.0); %Monocytes 4.2 % (0.0-10.0); Hematocrit 38.1 % (36.0-47.0); Mean Platelet Volume 7.1 fL (7.4-10.4); Red Blood Cell (RBC) Count 3.95 mill/uL (4.20-5.40); White Blood Cell (WBC) Count 9.1 thou/uL (4.8-10.8)
[2017-08-08 05:42] LABS: Anion Gap 12 mmol/L (10-20); BUN (Urea Nitrogen) 9 mg/dL (9.8-20.1); BUN/Creatinine Ratio 16.98; Calc. Creatinine Clearance 67 mL/min (70-130); Calcium 8.9 mg/dL (7.8-10.44); Carbon Dioxide 19 mmol/L (23-31); Chloride 112 mmol/L (98-107); Estimated GFR-MDRD Greater than 90; Phosphorus 2.1 mg/dL (2.3-4.7)
[2017-08-08] MEDS: Acetaminophen 325 MG TAB PO PRN ×2 (05:42→09:18)
[2017-08-08] MEDS: Ondansetron ODT 4 MG TAB PO PRN (05:43)
[2017-08-08] MEDS: Vancomycin HCl 25 MG/ML Oral PO SCH ×3 (08:25→17:31)
[2017-08-08] MEDS: predniSONE 20 MG TAB PO SCH (08:25)
[2017-08-08] MEDS: Famotidine 20 MG TAB PO SCH ×2 (08:25→22:02)
[2017-08-08] MEDS: Heparin 5,000 UNITS/ML VIAL SC SCH ×2 (08:26→22:02)
[2017-08-08] MEDS ORDERED: Non-Formulary Item 1 EACH (Sumatriptan Succinate [Imitrex] 100 MG) PO PRN (09:18)
[2017-08-08] MEDS ORDERED: Diphenoxylate HCl/Atropine Tablet PO PRN (09:18)
[2017-08-08] MEDS ORDERED: Dicyclomine 20 MG TAB PO PRN (09:18)
[2017-08-08] MEDS ORDERED: Saccharomyces boulardii 250 MG CAP PO PRN (09:18)
[2017-08-08] MEDS ORDERED: Non-Formulary Item 1 EACH (Diclofenac Sodium [Diclofenac Sodium 1% Gel] 2 GM) TOP PRN (09:18)
[2017-08-08] MEDS ORDERED: HYDROcodone/Acetaminophen 5/325 mg Tablet PO PRN (09:18)
[2017-08-08] MEDS ORDERED: Non-Formulary Item 1 EACH (Fexofenadine Hcl [Allegra Allergy] 180 MG) PO PRN (09:18)
[2017-08-08] MEDS ORDERED: Lidocaine 5% Patch TD PRN (09:18)
[2017-08-08] MEDS ORDERED: DICLOFENAC SODIUM 1% TOP PRN (09:40)
[2017-08-08] MEDS ORDERED: Loratadine 10 MG TAB PO PRN (09:41)
--- NOTE | 2017-08-08 09:41 | PDOC.PN ---
- Subjective Encounter Start Date: 08/08/17 Encounter Start Time: 07:20 -: old records requested/rev pt's diarrhoea improving, no fever, asking for her home meds - Objective Resuscitation Status: Resuscitation Status FULL:Full Resuscitation MAR Reviewed: Yes Vital Signs & Weight: Vital Signs (12 hours) Temp Pulse Resp BP Pulse Ox 08/08/17 04:00 97.2 F L 60 18 142/66 H 94 L 08/08/17 01:20 96 08/08/17 00:00 96.7 F L 65 20 143/70 H 96 Weight Weight 118 lb 4.8 oz I&O: 08/07/17 08/08/17 08/09/17 06:59 06:59 06:59 Intake Total 700 2620 Balance 700 2620 Result Diagrams: 08/08/17 05:02 08/08/17 05:02 EKG Reviewed by me: Yes (NSR) Phys Exam - Physical Examination Constitutional: NAD HEENT: PERRLA, moist MMs, sclera anicteric Neck: no JVD, supple Respiratory: no wheezing, no rales, no rhonchi Cardiovascular: RRR, no significant murmur, no rub Gastrointestinal: soft, non-tender, no distention, positive bowel sounds Musculoskeletal: no edema, pulses present Neurological: moves all 4 limbs Lymphatic: no nodes Psychiatric: normal affect, A&O x 3 Skin: no rash, normal turgor Dx/Plan (1) Acute diarrhea Code(s): R19.7 - DIARRHEA, UNSPECIFIED Status: Acute (2) Sepsis Code(s): A41.9 - SEPSIS, UNSPECIFIED ORGANISM Status: Acute Qualifiers: Comment: (3) UTI (urinary tract infection) Status: Suspected (4) Chronic low back pain Code(s): M54.5 - LOW BACK PAIN; G89.29 - OTHER CHRONIC PAIN Status: Chronic Comment: Resume home Gabapentin and MS contin (5) DVT (deep venous thrombosis) Code(s): I82.409 - ACUTE EMBOLISM AND THOMBOS UNSP DEEP VN UNSP LOWER EXTREMITY Status: Chronic Comment: s/p IVC filter (6) GERD (gastroesophageal reflux disease) Code(s): K21.9 - GASTRO-ESOPHAGEAL REFLUX DISEASE WITHOUT ESOPHAGITIS Status: Chronic (7) HTN (hypertension) Code(s): I10 - ESSENTIAL (PRIMARY) HYPERTENSION Status: Chronic (8) Lupus (systemic lupus erythematosus) Code(s): M32.9 - SYSTEMIC LUPUS ERYTHEMATOSUS, UNSPECIFIED Status: Chronic (9) Multiple sclerosis Code(s): G35 - MULTIPLE SCLEROSIS Status: Chronic (10) Protein-calorie malnutrition, moderate Code(s): E44.0 - MODERATE PROTEIN-CALORIE MALNUTRITION Status: Chronic (11) Hypokalemia Code(s): E87.6 - HYPOKALEMIA Status: Resolved (12) Hypotension Status: Resolved - Plan cont current plan of care, continue antibiotics * will resume selected home medication * medication reviewed as below * symptomatic treatment * doubt pt has true UTI, but rather likley colonization, will avoid antibiotics. * will dc tele * transfer to medical * follow culture * GI recommendation noted and ID on case Review of Systems - Review of Systems Constitutional: negative: Fever, Chills, Sweats, Weakness, Malaise, Other Eyes: negative: Pain, Vision Change, Conjunctivae Inflammation, Eyelid Inflammation, Redness, Other ENT: negative: Ear Pain, Ear Discharge, Nose Pain, Nose Discharge, Nose Congestion, Mouth Pain, Mouth Swelling, Throat Pain, Throat Swelling, Other Respiratory: negative: Cough, Dry, Shortness of Breath, Hemoptysis, SOB with Excertion, Pleuritic Pain, Sputum, Wheezing Cardiovascular: negative: Chest Pain, Palpitations, Orthopnea, Paroxysmal Noc. Dyspnea, Edema, Light Headedness, Other Gastrointestinal: Diarrhea. negative: Nausea, Vomiting, Abdominal Pain, Constipation, Melena, Hematochezia, Other Genitourinary: negative: Dysuria, Frequency, Incontinence, Hematuria, Retention , Other Musculoskeletal: negative: Neck Pain, Shoulder Pain, Arm Pain, Back Pain, Hand Pain, Leg Pain, Foot Pain, Other Skin: negative: Rash, Lesions, Aníbal, Bruising, Other - Medications/Allergies Allergies/Adverse Reactions: Allergies Allergy/AdvReac Type Severity Reaction Status Date / Time Penicillins Allergy Intermediate Verified 08/07/17 04:41 fentanyl Allergy Verified 08/07/17 04:41 methadone HCl Allergy Verified 08/07/17 04:41 [From Methadose] Medications: Current Medications Acetaminophen (Tylenol) 650 mg PO Q4H PRN PRN Reason: Headache/Fever or Pain Last Admin: 08/08/17 09:18 Dose: 650 mg Hydrocodone Bitart/Acetaminophen ([place] 5/325) 1 tab PO Q6H PRN PRN Reason: Pain Albuterol/Ipratropium (Duoneb) 3 ml NEB Q4H PRN PRN Reason: SOB &/or Wheezing Albuterol/Ipratropium (Duoneb) 3 ml NEB QIDPRN PRN PRN Reason: Dyspnea Colestipol HCl (Colestid) 1 gm PO BID PRN PRN Reason: loose stools Dicyclomine HCl (Bentyl) 20 mg PO QID PRN PRN Reason: Diarrhea/Loose Stools Diphenoxylate HCl/Atropine (Lomotil) 1 tab PO QID PRN PRN Reason: Loose Stools Estrogens Conjugated (Premarin) 0.625 mg PO DAILY [facility] Famotidine (Pepcid) 20 mg PO BID [facility] Last Admin: 08/08/17 08:25 Dose: 20 mg Fenofibrate (Tricor) 145 mg PO DAILY [facility] Fluticasone Propionate (Flonase Nasal [place]) 0 gm NASAL DAILY [facility] Gabapentin (Neurontin) 800 mg PO QID [facility] Heparin Sodium (Porcine) (Heparin) 5,000 units SC BID [facility] Last Admin: 08/08/17 08:26 Dose: 5,000 units Potassium Chloride/Sodium Chloride (Ns 0.9% W/ 20 Meq Kcl) 1,000 mls @ 100 mls/ hr IV .Q10H [facility] Last Admin: 08/08/17 09:18 Dose: 1,000 mls Iron/Minerals/Multivitamins (Theragran M) 1 tab PO DAILY [facility] Lidocaine (Lidoderm 5% Patch) 1 patch TD Q12H PRN PRN Reason: Pain Lidocaine HCl (Lidocaine Jelly 2%) 5 ml TOP ASDIR PRN PRN Reason: Oral Ulcers Loratadine (Claritin) 10 mg PO DAILYPRN PRN PRN Reason: Allergies Miscellaneous Medication (Pharmacy To Dose) 0 each IVPB PRN PRN PRN Reason: RENAL Pharmacy to dose Morphine Sulfate (Ms Contin) 60 mg PO BID [facility] Non-Formulary Medication (Pravastatin Sodium [Pravachol]) 80 mg PO HS [facility] Non-Formulary Medication (Prednisone [Prednisone]) 10 mg PO DAILY [facility] Non-Formulary Medication (Sertraline Hcl [Sertraline Hcl]) 50 mg PO DAILY [facility] Non-Formulary Medication (Sumatriptan Succinate [Imitrex]) 100 mg PO Q12HR PRN PRN Reason: Headache Nystatin (Nystatin 100,000 Units/Ml) 5 ml SSW QID [facility] Ondansetron HCl (Zofran Odt) 4 mg PO Q6H PRN PRN Reason: Nausea/Vomiting Last Admin: 08/08/17 05:43 Dose: 4 mg Ondansetron HCl (Zofran) 4 mg IVP Q6H PRN PRN Reason: Nausea/Vomiting Oxybutynin Chloride (Ditropan) 5 mg PO BID [facility] Diclofenac Sodium 1% (Gel] 2 Gm) 0 each TOP QIDPRN PRN PRN Reason: KNEE PAIN [Cranberry] 400 Mg 0 each PO BID [facility] Potassium Chloride (K-Dur) 20 meq PO BID [facility] Saccharomyces Boulardii (Florastor) 250 mg PO BID PRN PRN Reason: Diarrhea Sodium Chloride (Flush - Normal Saline) 10 ml IVF Q12HR [facility] Last Admin: 08/08/17 08:26 Dose: Not Given Sodium Chloride (Flush - Normal Saline) 10 ml IVF PRN PRN PRN Reason: Saline Flush Vancomycin HCl (First Vancomycin) 250 mg PO QID [facility] Last Admin: 08/08/17 08:25 Dose: 250 mg
[2017-08-08] MEDS ORDERED: SUMAtriptan Succinate 50 MG TAB PO PRN (09:48)
[2017-08-08] MEDS: Fenofibrate Nanocrystallized 145 MG TAB PO SCH (10:16)
[2017-08-08] MEDS: Nystatin 500,000 UNITS/5 ML UDCUP SSW SCH ×3 (12:23→22:01)
[2017-08-08] MEDS: Gabapentin 400 MG CAP PO SCH ×3 (12:26→22:01)
[2017-08-08] MEDS ORDERED: Non-Formulary Item 1 EACH (Gabapentin [Gabapentin] 800 MG) PO SCH (13:00)
[2017-08-08] MEDS ORDERED: Nystatin 100,000 Units/mL UDCUP SSW SCH (13:00)
[2017-08-08 15:20] VITALS: BMI 20.2
--- NOTE | 2017-08-08 19:11 | PRG ---
DATE OF SERVICE: 08/08/2017 SUBJECTIVE: Still having quite profuse liquid stool usually after eating. No respiratory symptoms. No abdominal pain. OBJECTIVE: VITAL SIGNS: The temperature has been normal. Blood pressure 115/56, pulse 58, respirations 15, O2 sat 92%. Appears to be in no distress. LUNGS: Clear. HEART: S1, S2 with regular rate. GENITOURINARY: Bladder is not distended. GASTROINTESTINAL: Bowel sounds are somewhat increased. LABORATORY DATA: White cell count down to 9.1, hemoglobin 12, platelets 311 and lactic acid 0.9. Mi crobiology with a negative C. diff in stool. There is elevated fecal lactoferrin though. ASSESSMENT AND DISCUSSION: Multiple sclerosis, recurrent urinary tract infections, recurrent Clostri dium difficile colitis, recurrence of diarrhea following a long course of meropenem. Clostridium dif ficile is negative with a PCR test which is very sensitive probably the most sensitive overall of dif ferent tests available and this pretty much rules out Clostridium difficile colitis. We will conside r holding vancomycin orally in view of the negative Clostridium difficile test. The Enterococcus amos cium isolated from the catheter. It is probably colonization rather than an acute infectious process .
[2017-08-08] MEDS ORDERED: Non-Formulary Item 1 EACH (Oxybutynin Chloride [Oxybutynin Chloride] 5 MG) PO SCH (21:00)
[2017-08-08] MEDS ORDERED: Non-Formulary Item 1 EACH (Potassium Chloride [Potassium Chloride] 20 MEQ) PO SCH (21:00)
[2017-08-08] MEDS ORDERED: Non-Formulary Item 1 EACH (Pravastatin Sodium [Pravachol] 80 MG) PO SCH (21:00)
[2017-08-08] MEDS ORDERED: CRANBERRY 400 MG PO SCH ×2 (21:00)
[2017-08-08] MEDS: Potassium Chloride 20 MEQ TAB PO SCH (22:01)
[2017-08-08] MEDS: Atorvastatin Calcium 20 MG TAB PO SCH (22:01)
[2017-08-08] MEDS: Oxybutynin 5 MG TAB PO SCH (23:26)
[2017-08-09 06:09] LABS: #Eosinphils 0.1 thou/uL (0.0-0.7); #Monocytes 0.5 thou/uL (0.11-0.59); #Neutrophils 5.1 thou/uL (1.40-6.50); %Basophils 0.5 % (0.0-1.0); %Eosinophils 1.2 % (0.0-10.0); %Lymphocytes 25.9 % (21.0-51.0); %Monocytes 6.9 % (0.0-10.0); Hematocrit 31.1 % (36.0-47.0); Mean Platelet Volume 6.8 fL (7.4-10.4); Red Blood Cell (RBC) Count 3.22 mill/uL (4.20-5.40); White Blood Cell (WBC) Count 7.8 thou/uL (4.8-10.8)
--- NOTE | 2017-08-09 06:16 | PRG ---
DATE OF SERVICE: 08/08/2017 SUBJECTIVE: Ms. Ramos is still having some diarrhea, although she is not having cramps anymore. She has had some issues with chronic diarrhea in the past which were felt to be related to chronic antib iotic use for recurrent UTIs and also regular NSAID and steroid use. In the past at one time, she kapadia d been on etodolac. She had diclofenac and misoprostol caused quite a bit of diarrhea for her. In a ny event, she was admitted and placed on broad-spectrum antibiotics and p.o. vancomycin for possible recurrent C. diff. She had a CAT scan showing some inflammation of the rectosigmoid colon. However, her stool for C. diff came back negative. Dr. Buchanan stopped her vancomycin earlier today. OBJECTIVE: GENERAL: Presently she feels okay. She is doing a little bit better. VITAL SIGNS: Temperature 98, pulse 58, respirations 15, O2 sat 93%, blood pressure 115/56. LUNGS: Clear. ABDOMEN: Soft, nontender. There is no rebound. There is no guarding. LABORATORY STUDIES: White count 9.1, hemoglobin 12, platelet count 311. Sodium 139, potassium 3.8, chloride is 121, bicarbonate 19, BUN and creatinine are 9 and 0.53. Microbiology: Urine has Enteroc occus, C. diff was negative antigen and toxin, culture negative, Campylobacter negative, lactoferrin positive. ASSESSMENT AND PLAN: 1. Mild colitis, acute onset, this could be viral or bacterial. She has had recurrent urinary tract infections, on recurrent antibiotics, although now she is on cranberry juice and probiotics, which t ry to help her not get any recurrent urinary tract infections, this could be antibiotic associated di arrhea without Clostridium difficile or it could be an acute viral infection. There has been quite a bit of viral gastritis in the past week or so. Overall, she is doing a little bit better. Agree wi th holding antibiotics. We will watch and see how she does. 2. Chronic steroid use, watch for signs of adrenal insufficiency, although she has been rehydrated n ow and is doing better and this is unlikely to occur. 3. History of chronic NSAID use in the past, will minimize if possible. 4. Lactose-free diet. We will follow along with you during this hospitalization. If I can be of any further assistance in patient's care, please do not hesitate to contact me.
[2017-08-09 06:28] LABS: Anion Gap 7 mmol/L (10-20); BUN (Urea Nitrogen) 6 mg/dL (9.8-20.1); Calc. Creatinine Clearance 76 mL/min (70-130); Calcium 8.5 mg/dL (7.8-10.44); Carbon Dioxide 21 mmol/L (23-31); Chloride 116 mmol/L (98-107); Estimated GFR-MDRD Greater than 90
[2017-08-09] MEDS: Heparin 5,000 UNITS/ML VIAL SC SCH ×2 (08:34→20:48)
[2017-08-09] MEDS: Gabapentin 400 MG CAP PO SCH ×4 (08:35→20:47)
[2017-08-09] MEDS: Multivitamin W/ Minerals 1 TAB PO SCH (08:35)
[2017-08-09] MEDS: Nystatin 500,000 UNITS/5 ML UDCUP SSW SCH ×4 (08:35→20:47)
[2017-08-09] MEDS: Oxybutynin 5 MG TAB PO SCH ×2 (08:35→20:47)
[2017-08-09] MEDS: Fenofibrate Nanocrystallized 145 MG TAB PO SCH (08:35)
[2017-08-09] MEDS: Potassium Chloride 20 MEQ TAB PO SCH ×2 (08:36→20:47)
[2017-08-09] MEDS: predniSONE 5 MG TAB PO SCH (08:36)
[2017-08-09] MEDS: Famotidine 20 MG TAB PO SCH ×2 (08:36→20:48)
[2017-08-09] MEDS ORDERED: Non-Formulary Item 1 EACH (Sertraline Hcl [Sertraline Hcl] 50 MG) PO SCH (09:00)
[2017-08-09] MEDS ORDERED: MULTIVITS TH W FE OTHER MIN PO SCH (09:00)
[2017-08-09] MEDS ORDERED: Non-Formulary Item 1 EACH (Fluticasone Propionate [Flonase Allergy Relief] 1 SPRAY) EA NARE SCH (09:00)
[2017-08-09] MEDS ORDERED: Non-Formulary Item 1 EACH (Prednisone [Prednisone] 10 MG) PO SCH (09:00)
[2017-08-09] MEDS: NS 0.9% w/ 20 MEQ KCL 1,000 ML IV SCH ×3 (09:39→18:41)
--- NOTE | 2017-08-09 12:33 | PDOC.PN ---
- Subjective Encounter Start Date: 08/09/17 Encounter Start Time: 09:15 Patient seen and examined. No new complaints. No overnight events, diarrhoea improving - Objective Resuscitation Status: Resuscitation Status FULL:Full Resuscitation MAR Reviewed: Yes Vital Signs & Weight: Vital Signs (12 hours) Temp Pulse Resp BP Pulse Ox 08/09/17 11:18 96.5 F L 70 18 97/62 92 L 08/09/17 08:00 97.3 F L 62 20 104/54 L 94 L 08/09/17 06:00 97.6 F 56 L 16 122/74 97 Weight Admit Weight 115 lb 3.2 oz Weight 129 lb 2 oz I&O: 08/08/17 08/09/17 08/10/17 06:59 06:59 06:59 Intake Total 2620 1350 Balance 2620 1350 Result Diagrams: 08/09/17 05:09 08/09/17 05:09 Phys Exam - Physical Examination Constitutional: NAD HEENT: PERRLA, moist MMs, sclera anicteric Neck: no JVD, supple Respiratory: no wheezing, no rales, no rhonchi Cardiovascular: RRR, no significant murmur, no rub Gastrointestinal: soft, non-tender, no distention, positive bowel sounds Musculoskeletal: no edema, pulses present Neurological: moves all 4 limbs Lymphatic: no nodes Psychiatric: normal affect, A&O x 3 Skin: no rash, normal turgor Dx/Plan (1) Acute diarrhea Code(s): R19.7 - DIARRHEA, UNSPECIFIED Status: Acute (2) Sepsis Code(s): A41.9 - SEPSIS, UNSPECIFIED ORGANISM Status: Acute Qualifiers: Comment: (3) UTI (urinary tract infection) Status: Suspected (4) Chronic low back pain Code(s): M54.5 - LOW BACK PAIN; G89.29 - OTHER CHRONIC PAIN Status: Chronic Comment: Resume home Gabapentin and MS contin (5) DVT (deep venous thrombosis) Code(s): I82.409 - ACUTE EMBOLISM AND THOMBOS UNSP DEEP VN UNSP LOWER EXTREMITY Status: Chronic Comment: s/p IVC filter (6) GERD (gastroesophageal reflux disease) Code(s): K21.9 - GASTRO-ESOPHAGEAL REFLUX DISEASE WITHOUT ESOPHAGITIS Status: Chronic (7) HTN (hypertension) Code(s): I10 - ESSENTIAL (PRIMARY) HYPERTENSION Status: Chronic (8) Lupus (systemic lupus erythematosus) Code(s): M32.9 - SYSTEMIC LUPUS ERYTHEMATOSUS, UNSPECIFIED Status: Chronic (9) Multiple sclerosis Code(s): G35 - MULTIPLE SCLEROSIS Status: Chronic (10) Protein-calorie malnutrition, moderate Code(s): E44.0 - MODERATE PROTEIN-CALORIE MALNUTRITION Status: Chronic (11) Hypokalemia Code(s): E87.6 - HYPOKALEMIA Status: Resolved (12) Hypotension Status: Resolved - Plan cont current plan of care, plan discussed w/ family * medication reviewed as below * symptomatic treatment * today will control diarrhoea with meds * as per ID, no need of antibiotics at this point and agree with colonization rather than true bacteria in urine. Review of Systems - Review of Systems Constitutional: negative: Fever, Chills, Sweats, Weakness, Malaise, Other Eyes: negative: Pain, Vision Change, Conjunctivae Inflammation, Eyelid Inflammation, Redness, Other ENT: negative: Ear Pain, Ear Discharge, Nose Pain, Nose Discharge, Nose Congestion, Mouth Pain, Mouth Swelling, Throat Pain, Throat Swelling, Other Respiratory: negative: Cough, Dry, Shortness of Breath, Hemoptysis, SOB with Excertion, Pleuritic Pain, Sputum, Wheezing Cardiovascular: negative: Chest Pain, Palpitations, Orthopnea, Paroxysmal Noc. Dyspnea, Edema, Light Headedness, Other Gastrointestinal: Diarrhea. negative: Nausea, Vomiting, Abdominal Pain, Constipation, Melena, Hematochezia, Other Genitourinary: negative: Dysuria, Frequency, Incontinence, Hematuria, Retention , Other Musculoskeletal: negative: Neck Pain, Shoulder Pain, Arm Pain, Back Pain, Hand Pain, Leg Pain, Foot Pain, Other Skin: negative: Rash, Lesions, Aníbal, Bruising, Other - Medications/Allergies Allergies/Adverse Reactions: Allergies Allergy/AdvReac Type Severity Reaction Status Date / Time Penicillins Allergy Intermediate Verified 08/07/17 04:41 fentanyl Allergy Verified 08/07/17 04:41 methadone HCl Allergy Verified 08/07/17 04:41 [From Methadose] Medications: Current Medications Acetaminophen (Tylenol) 650 mg PO Q4H PRN PRN Reason: Headache/Fever or Pain Last Admin: 08/08/17 09:18 Dose: 650 mg Hydrocodone Bitart/Acetaminophen (Anderson 5/325) 1 tab PO Q6H PRN PRN Reason: Pain Albuterol/Ipratropium (Duoneb) 3 ml NEB Q4H PRN PRN Reason: SOB &/or Wheezing Albuterol/Ipratropium (Duoneb) 3 ml NEB QIDPRN PRN PRN Reason: Dyspnea Atorvastatin Calcium (Lipitor) 20 mg PO HS [facility] Last Admin: 08/08/17 22:01 Dose: 20 mg Colestipol HCl (Colestid) 1 gm PO BID PRN PRN Reason: loose stools Dicyclomine HCl (Bentyl) 20 mg PO QID PRN PRN Reason: Diarrhea/Loose Stools Diphenoxylate HCl/Atropine (Lomotil) 1 tab PO QID PRN PRN Reason: Loose Stools Last Admin: 08/08/17 12:26 Dose: 1 tab Estrogens Conjugated (Premarin) 0.625 mg PO DAILY [facility] Last Admin: 08/09/17 11:01 Dose: 0.625 mg Famotidine (Pepcid) 20 mg PO BID [facility] Last Admin: 08/09/17 08:36 Dose: 20 mg Fenofibrate (Tricor) 145 mg PO DAILY [facility] Last Admin: 08/09/17 08:35 Dose: 145 mg Fluticasone Propionate (Flonase Nasal [place]) 0 gm NASAL DAILY [facility] Gabapentin (Neurontin) 800 mg PO QID [facility] Last Admin: 08/09/17 08:35 Dose: 800 mg Heparin Sodium (Porcine) (Heparin) 5,000 units SC BID [facility] Last Admin: 08/09/17 08:34 Dose: 5,000 units Potassium Chloride/Sodium Chloride (Ns 0.9% W/ 20 Meq Kcl) 1,000 mls @ 100 mls/ hr IV .Q10H [facility] Last Admin: 08/09/17 09:39 Dose: 1,000 mls Iron/Minerals/Multivitamins (Theragran M) 1 tab PO DAILY [facility] Last Admin: 08/09/17 08:35 Dose: 1 tab Lidocaine (Lidoderm 5% Patch) 1 patch TD Q12H PRN PRN Reason: Pain Lidocaine HCl (Lidocaine Jelly 2%) 5 ml TOP ASDIR PRN PRN Reason: Oral Ulcers Loratadine (Claritin) 10 mg PO DAILYPRN PRN PRN Reason: Allergies Miscellaneous Medication (Pharmacy To Dose) 0 each IVPB PRN PRN PRN Reason: RENAL Pharmacy to dose Morphine Sulfate (Ms Contin) 60 mg PO BID [facility] Last Admin: 08/09/17 09:39 Dose: 60 mg Nystatin (Mycostatin) 500,000 units SSW QID [facility] Last Admin: 08/09/17 08:35 Dose: 500,000 units Ondansetron HCl (Zofran Odt) 4 mg PO Q6H PRN PRN Reason: Nausea/Vomiting Last Admin: 08/08/17 05:43 Dose: 4 mg Ondansetron HCl (Zofran) 4 mg IVP Q6H PRN PRN Reason: Nausea/Vomiting Last Admin: 08/08/17 10:16 Dose: 4 mg Oxybutynin Chloride (Ditropan) 5 mg PO BID [facility] Last Admin: 08/09/17 08:35 Dose: 5 mg Diclofenac Sodium 1% (Gel] 2 Gm) 0 each TOP QIDPRN PRN PRN Reason: KNEE PAIN Potassium Chloride (K-Dur) 20 meq PO BID [facility] Last Admin: 08/09/17 08:36 Dose: 20 meq Prednisone (Prednisone) 10 mg PO DAILY [facility] Last Admin: 08/09/17 08:36 Dose: 10 mg Saccharomyces Boulardii (Florastor) 250 mg PO BID PRN PRN Reason: Diarrhea/Loose Stools Sertraline HCl (Zoloft) 50 mg PO DAILY [facility] Last Admin: 08/09/17 08:35 Dose: 50 mg Sodium Chloride (Flush - Normal Saline) 10 ml IVF Q12HR [facility] Last Admin: 08/09/17 09:43 Dose: Not Given Sodium Chloride (Flush - Normal Saline) 10 ml IVF PRN PRN PRN Reason: Saline Flush Sumatriptan Succinate (Imitrex) 100 mg PO Q12H PRN PRN Reason: Headache
[2017-08-09] MEDS: Fluticasone Propionate Nasal Spray 16 gm Bottle NASAL SCH (15:46)
--- NOTE | 2017-08-09 16:29 | PRG ---
DATE OF SERVICE: 08/09/2017 SUBJECTIVE: She is feeling better. Diarrhea is settling down. No respiratory symptoms or abdominal pain. OBJECTIVE: VITAL SIGNS: T-max 97.3, blood pressure 101/61, pulse 70 and respiration 16. GENERAL: Awake, alert, oriented and appears well. LUNGS: Clear. HEART: S1 and S2, regular rate. ABDOMEN: Soft. Bowel sounds are present and normal. LABORATORY DATA: White cell count 7.8, hemoglobin 9.9 and platelets 283. Creatinine is 0.51. ASSESSMENT AND DISCUSSION: Multiple sclerosis, recurrent urinary tract infections. Recurrent Clostridium difficile, now admission with severe dysarthria, but Clostridium difficile negative. Diarrhea has subsided after discontinuation of all the antimicrobials including vancomycin. He should be able to go home tomorrow off antimicrobial therapy. SUKUMAR
[2017-08-09] MEDS: Atorvastatin Calcium 20 MG TAB PO SCH (20:47)
[2017-08-10] MEDS: NS 0.9% w/ 20 MEQ KCL 1,000 ML IV SCH (03:42)
--- NOTE | 2017-08-10 07:16 | PRG ---
DATE OF SERVICE: 08/09/2017 SUBJECTIVE: Ms. Ramos is having only had 2 bowel movements today. She is eating. She feels much be tter. OBJECTIVE: VITAL SIGNS: Temperature is 97, pulse 56, blood pressure 112/52. ABDOMEN: Soft and nontender. LABORATORY STUDIES: White count 7.8, hemoglobin 9.9, platelet count 283. This is a drop from hemogl obin of 12 when she came in; however, hemoglobin on her last admission in July was around 10.9. Sodium 143, potassium 3.9, BUN and creatinine are 6 and 0.5, phosphorus was 2.1. This has been repla josé miguel. Magnesium is 1.7. Stool antigen toxin negative. ASSESSMENT AND PLAN: 1. Acute diarrheal illness, does not seem to be Clostridium difficile, it could be antibiotic associ ated or more likely viral and is getting better very quickly. Agree with Dr. Buchanan. We will try to avoid further antibiotics and give her probiotic therapy. She seems to be improving and hopefully ca n go home tomorrow. 2. Further drop in hemoglobin, this is probably dilutional, with hydration, she probably had an elev ated hemoglobin 12 in excess her normal hemoglobin based on dehydration from diarrhea on presentation . I would be happy to see her back in a week or so in the office for followup if she cannot get in t o see her PCP.
[2017-08-10 08:23] VITALS: BP 100/58; TEMP 97.3
[2017-08-10] MEDS: predniSONE 5 MG TAB PO SCH (09:30)
[2017-08-10] MEDS: Nystatin 500,000 UNITS/5 ML UDCUP SSW SCH (09:30)
[2017-08-10] MEDS: Oxybutynin 5 MG TAB PO SCH (09:31)
[2017-08-10] MEDS: Gabapentin 400 MG CAP PO SCH (09:31)
[2017-08-10] MEDS: Heparin 5,000 UNITS/ML VIAL SC SCH (09:31)
[2017-08-10] MEDS: Potassium Chloride 20 MEQ TAB PO SCH (09:31)
[2017-08-10] MEDS: Famotidine 20 MG TAB PO SCH (09:31)
[2017-08-10] MEDS: Multivitamin W/ Minerals 1 TAB PO SCH (09:31)
[2017-08-10] MEDS: Fenofibrate Nanocrystallized 145 MG TAB PO SCH (09:31)
[2017-08-10] MEDS: Fluticasone Propionate Nasal Spray 16 gm Bottle NASAL SCH (09:32)
--- NOTE | 2017-08-10 10:54 | DIS ---
DATE OF ADMISISON: 08/06/2017 DATE OF DISCHARGE: 08/10/2017 PRIMARY CARE PHYSICIAN: Dr. Manjeet Pandey. DISCHARGE DISPOSITION: senior care home. PRIMARY DISCHARGE DIAGNOSES: 1. Acute diarrhea noninfectious, resolved. 2. Sepsis, resolved and ruled out. 3. Hypotension, resolved with IV fluid. 4. Hypokalemia, corrected. SECONDARY DISCHARGE DIAGNOSES: 1. Moderate protein calorie malnutrition. 2. Multiple sclerosis. 3. History of lupus. 4. Hypertension. 5. Gastroesophageal reflux disease. 6. History of deep venous thrombosis. 7. Chronic low back pain. PRIMARY PROCEDURE/OPERATION: None. RADIOLOGICAL INVESTIGATION: Abdomen and pelvis CT scan on admission showed proctocolitis, interval d evelopment of soft tissue density and calcification in the posterior aspect of the bladder, right ure teral diverticulum, right nephrolithiasis, bronchiectasis. Chest x-ray on admission showed no acute process. SIGNIFICANT LABORATORY DATA: WBC 7.8, hemoglobin 9.9, platelet 283. INR 1.2. Sodium 140, potassium 3.9, BUN 6, creatinine 0.51, calcium 8.5, phosphorus 2.1, albumin 2.7. Cardiac enzymes negative. R andom cortisol 6.6. Liver enzymes normal. Urinalysis suggestive of UTI. Urine culture grew VRE, wh ich was appeared to be colonized, stool for infection study negative, blood culture negative, influen za negative. DISCHARGE MEDICATIONS: Colestid one tablet p.o. b.i.d. p.r.n., cranberry 400 mg p.o. b.i.d., diclofe nac gel topical application q.i.d. p.r.n., ciclopirox topical application b.i.d., Bentyl 20 mg q.i.d. p.r.n., Lomotil 1 capsule p.o. q.i.d. p.r.n. Premarin 0.625 mg p.o. daily, TriCor 145 mg p.o. daily, Berta 180 mg daily p.r.n., Flonase nasal spray daily, Lasix 40 mg p.o. daily, gabapentin 800 mg p. o. q.i.d., [place] 1 or 2 tablets q.6 hours p.r.n., DuoNeb nebulization q.i.d. p.r.n., Xylocaine topica l application b.i.d. p.r.n., Lidoderm patch q.12 hours p.r.n., MS Contin 60 mg p.o. b.i.d., multivita min 1 tablet p.o. daily, Mycostatin oral suspension q.i.d. p.r.n., oxybutynin 5 mg p.o. b.i.d., potas sium chloride 20 mEq p.o. b.i.d., pravastatin 80 mg p.o. at bedtime, prednisone 10 mg p.o. daily, Clarence rastor 250 mg p.o. b.i.d. p.r.n., Zoloft 50 mg p.o. daily, Imitrex 100 mg p.o. q.12 hourly p.r.n. CONTRAINDICATIONS: None. CODE STATUS: FULL CODE. INPATIENT CONSULTANTS: 1. Dr. Mitchell and Dr. Sandoval was following for diarrhea and they recommended no specific treatment. T he patient's diarrhea improved after stopping antibiotic therapy and infectious etiology ruled out. 2. Dr. Buchanan was consulted for urine culture positive for VRE, but he was attributing that to be the colonized infection rather than true infection and he recommended to stop all antibiotic therapy. TEST RESULTS PENDING ON DISCHARGE: None. ALLERGIES: PENICILLIN, FENTANYL, METHADONE. DISCHARGE PLAN: Post hospital, the patient is discharged back to [facility] where she will follow up with primary care physician. HOSPITAL COURSE: An 82-year-old female who was admitted by Dr. Noel Briceño. Please see his H&P for further detail. [facility] fever, nausea, vomiting, diarrhea, and ab dominal pain. The patient was diagnosed with sepsis with acute organ dysfunction. She had CT of the abdomen and pelvis done, which found proctocolitis. Patient was clinically appeared dehydrated. e was hypotensive. She was hyponatremic and hypokalemic. She required telemetry admission. She was hydrated with IV fluid. Her abnormal electrolytes were replaced. Initially, she was started on bro ad spectrum antibiotic therapy with meropenem as well as oral vancomycin for C. diff, but when we fou nd that her stool study came back negative for all kind of infection, at that point, we discontinued oral vancomycin after Dr. Buchanan consultation. IV antibiotic therapy was making her diarrhea worse and that is why antibiotic therapy was also disco ntinued. She had positive urine culture, but she never had any fever while in hospital and Dr. Buchanan was thinking that this patient has most likely colonized bacteria rather than true infection and mary beth t is why he recommended to discontinue all antibiotic therapy. After stopping all antibiotic therapy , we observed in the hospital for a couple of days and she was doing very well. At this point, her w ishan count improved. She does not have any fever. Abnormal electrolytes were corrected and replaced . Her blood pressure is stabilized. We are not making any change in her previous hospital medicatio n. The patient is seen and examined at bedside today. All review of systems reviewed with her and negat sanam. PHYSICAL EXAMINAITON: VITAL SIGNS: Currently, temperature 97.3, pulse 53, respiratory rate 18, saturation 96%, blood press ure 154/73. Weight 129 pounds. GENERAL: The patient is currently alert, awake, no obvious acute distress. HEAD: Normocephalic, atraumatic. EYES: Pupils round, reactive to light. Extraocular muscles intact. ENT: Oropharynx within normal limits. Moist mucous membranes. No oral lesions. No pharyngeal eryt shelly, no exudate. NECK: Supple, no JVD, no thyromegaly, no carotid bruit. LUNGS: Clear to auscultation. CARDIAC: S1, S2 regular, without any murmurs. ABDOMEN: Soft and benign without any tenderness. EXTREMITIES: No edema. NEUROLOGIC: Nonfocal examination. She is moving all 4 limbs. Paper work for discharge done. Discharge medication reconciliation done. Because the patient's blood pressure runs little bit lower side, so we discontinued Lasix therapy on discharge. She does not need any diuretic therapy. Total time spent on discharge day 31 minutes.
--- NOTE | 2017-08-16 14:08 | PQF ---
VERITO RODRIGUES MALIK MD [id number] CLINICAL DOCUMENTATION CLARIFICATION FORM: POST DISCHARGE VERITO RODRIGUES [id number] LEE BRICEÑO MD PLEASE DOCUMENT YOUR RESPONSE BELOW PLEASE FAX RESPONSE BACK TO YOUR INPUT IS NEEDED TO CORRECTLY CODE A DIAGNOSIS FOR YOUR PATIENT. DATE: 08/16/17 ATTN: Dr. Briceño Please exercise your independent, professional judgment in responding to the clarification form. Clinical indicators are provided on the bottom of this form for your review Please check appropriate box(s) to clarify if the following diagnosis has been ruled in our ruled out: Sepsis (CDI/Coding list diagnosis here) [ ] Ruled in diagnosis [ ] Continue to treat [ ] Resolved [ x ] Ruled out diagnosis [ ] Cannot rule out diagnosis [ ] Other diagnosis [ ] Unable to determine In addition, please specify: Present on Admission (POA): [ x ] Yes [ ] No [ ] Unable to determine For continuity of documentation, please document condition throughout progress notes and discharge summary. Thank You. CLINICAL INDICATORS - SIGNS / SYMPTOMS / LABS Discharge summary states: Sepsis resolved and ruled out. (This form is maintained as a part of the permanent medical record) 2014 [employer] All Rights Reserved Araseli [email or web address] [phone] MTDD
--- NOTE | 2017-08-27 14:20 | EKG ---
Test Reason : NATALIO Blood Pressure : / mmHG Vent. Rate : 071 BPM Atrial Rate : 071 BPM P-R Int : 134 ms QRS Dur : 074 ms QT Int : 398 ms P-R-T Axes : 018 -27 013 degrees QTc Int : 432 ms Normal sinus rhythm Poor precordial transition Confirmed by FRANK PICKERING DO ([id number]), website/blog editor ZAHEER GOMEZ ([id number]) on 08/27/2017 2:20:36 PM Referred By: Confirmed By:FRANK PICKERING DO
== END 2017-08-10 11:40 | DRG 392 ==
LOC: ERS 20:52 → 2NO 23:10 → T4-B 08-08 20:27
PROVIDERS: ADMIT Internal Medicine; ATTEND Internal Medicine
DX: K52.9 Noninfective gastroenteritis and colitis, unspecified (principal); E44.0 Moderate protein-calorie malnutrition; M32.9 Systemic lupus erythematosus, unspecified; G35 Multiple sclerosis; E86.0 Dehydration; E87.1 Hypo-osmolality and hyponatremia; K51.30 Ulcerative (chronic) rectosigmoiditis without complications; Z86.711 Personal history of pulmonary embolism; Z95.828 Presence of other vascular implants and grafts; Z88.5 Allergy status to narcotic agent; Z88.0 Allergy status to penicillin; E87.6 Hypokalemia; Z68.22 Body mass index [BMI] 22.0-22.9, adult; T36.95XA Adverse effect of unspecified systemic antibiotic, initial encounter; Z79.2 Long term (current) use of antibiotics; Z79.52 Long term (current) use of systemic steroids; I10 Essential (primary) hypertension; K21.9 Gastro-esophageal reflux disease without esophagitis; G89.29 Other chronic pain; M54.5 Low back pain; J47.9 Bronchiectasis, uncomplicated; Z22.39 Carrier of other specified bacterial diseases
CPT/HCPCS: 36415; 51701; 71010; 72040; 72125; 74177; 80048; 80053; 80069; 81003; 81015; 82533; 82553; 83605; 83630; 83690; 83735; 84100; 84484; 85025; 85610; 85730; 87015; 87040; 87045; 87046; 87077; 87086; 87186; 87324; 87449; 87899; 93005; 94760; 96361; 96365; A4216; A4353; G8978-GP-CN; G8979-GP-CL; G8987-GO-CL; G8988-GO-CK; J1644; J2185; J2405; J3480; J7050; J7506; Q0162

== ENCOUNTER 2017-08-13 11:31 | Inpatient (IN) | payer MEDICARE, OTHER ==
[2017-08-13 12:19] LABS: Band 20 % (5-11); Hematocrit 41.4 % (36.0-47.0); Mean Platelet Volume 6.8 fL (7.4-10.4); Neutrophil 64 % (42-75); Red Blood Cell (RBC) Count 4.33 mill/uL (4.20-5.40); White Blood Cell (WBC) Count 17.4 thou/uL (4.8-10.8)
[2017-08-13 12:25] LABS: Lactic Acid - Sepsis 2.2 mmol/L (0.5-2.2)
[2017-08-13 12:29] LABS: ALT (SGPT) 8 U/L (8-55); AST (SGOT) 16 U/L (5-34); Alkaline Phosphatase 42 U/L (40-150); Anion Gap 12 mmol/L (10-20); BUN (Urea Nitrogen) 14 mg/dL (9.8-20.1); Bilirubin, Total 0.6 mg/dL (0.2-1.2); Calc. Creatinine Clearance 0 mL/min (70-130); Calcium 9.5 mg/dL (7.8-10.44); Carbon Dioxide 26 mmol/L (23-31); Chloride 105 mmol/L (98-107); Estimated GFR-MDRD 90; Globulin 3.1 g/dL (2.4-3.5); Lipase 12 U/L (8-78); Protein, Total 6.3 g/dL (6.0-8.3)
[2017-08-13] MEDS ORDERED: Vancomycin HCl 750 MG in Sodium Chloride 0.9% 250 ML 250 ML IVPB SCH (12:30)
[2017-08-13 12:36] LABS: Bilirubin Negative (Negative); Blood, Urine Negative (Negative); Glucose, Urine (Dipstick) Negative (Negative); Ketone, Urine Negative (Negative); Nitrite Negative (Negative); Protein, Urine (Dipstick) Negative (Neg-Trace); Urobilinogen 0.2 mg/dL (0.2-1.0)
[2017-08-13 12:39] LABS: Bacteria/HPF 3+ HPF (None Seen); Hyaline Casts/LPF 0-3 HYALINE CAST LPF (0-3 Hyaline); RBC/HPF 0-3 HPF (0-3); Squamous Epithelial 0-3 HPF (0-3); WBC/HPF 0-3 HPF (0-3)
[2017-08-13 12:40] LABS: Prothrombin Time 14.4 SEC (12.0-14.7)
--- NOTE | 2017-08-13 14:40 | RAD ---
RADIOGRAPH OF CHEST SINGLE VIEW: Date: 08/13/17 COMPARISON: 08/06/17. INDICATION: Emergency exam, hypotension. FINDINGS: There is abnormal interstitial opacification of each lung. There are bilateral small pleural effusion s. Cardiac silhouette and pulmonary vasculature are enlarged. Chest is otherwise similar appearing. IMPRESSION: Findings most consistent with decompensated CHF. Continued follow-up is recommended. POS: FARHAN
[2017-08-13] MEDS ORDERED: Diabetic Tussin 200 MG/10 ML UDCUP PO PRN (14:46)
[2017-08-13] MEDS ORDERED: Mag-Al 1200 mg/1200 mg/30 ML UDCUP PO PRN (14:46)
[2017-08-13] MEDS ORDERED: Zolpidem Tartrate 5 MG TAB PO PRN (14:46)
[2017-08-13] MEDS ORDERED: Chloraseptic Spray 180 ml Bottle PO PRN (14:46)
[2017-08-13] MEDS ORDERED: Dicyclomine 20 MG TAB PO PRN (14:46)
[2017-08-13] MEDS ORDERED: HYDROcodone/Acetaminophen 5/325 mg Tablet PO PRN (14:46)
[2017-08-13] MEDS ORDERED: Diphenoxylate HCl/Atropine Tablet PO PRN (14:46)
[2017-08-13] MEDS ORDERED: Loratadine 10 MG TAB PO PRN (14:46)
[2017-08-13] MEDS ORDERED: Acetaminophen 325 MG TAB PO PRN (14:46)
[2017-08-13] MEDS ORDERED: Ondansetron ODT 4 MG TAB PO PRN (14:46)
[2017-08-13] MEDS ORDERED: Eucerin (Mineral Oil/Petrolatum,White) 30 gm Jar TOP PRN (14:46)
[2017-08-13] MEDS ORDERED: Artificial Tears 18 DROP/0.9 ML EA EYE PRN (14:46)
[2017-08-13] MEDS ORDERED: Ondansetron HCl/PF 4 MG/2 ML Vial IVP PRN (14:46)
[2017-08-13] MEDS ORDERED: Sodium Chloride 0.65% Nasal 44 ML BOT EA NARE PRN (14:46)
--- NOTE | 2017-08-13 15:08 | HP ---
PRIMARY CARE PHYSICIAN: Manjeet Pandey M.D. REASON FOR ADMISSION: Sepsis, hypotension. HISTORY OF PRESENT ILLNESS: An 82-year-old female who lives at [facility]. She has a history of multiple sclerosis. She was recently admitted in our hospital on 08/06/2017. At that time, she was having fever, nausea, vomiting, diarrhea, and abdominal discomfort. At that time, CT abdomen and pelvis showed findings suggestive of proctocolitis. She had stool for infection workup. At that time, stool study came back completely normal. Her urinalysis was suggestive of UTI and at that time, urine culture grew VRE. We consulted Dr. Buchanan and Dr. Buchanan recommended that this is colonization rather than true infection and patient was not treated with antibiotic therapy and C. diff treatment was also discontinued given negative C. diff. The patient was hydrated with IV fluid and subsequently she was discharged to [facility] on . After going to [facility], patient was doing okay, but this morning she was not feeling good. She was having 103 fever. She had diarrhea and she was having dysuria and that is why she was sent to emergency room. When she presented to emergency room, her lowest blood pressure was 84/42, she was tachycardic with pulse 108. She was afebrile in the emergency room. She clinically appeared significantly dehydrated. Her routine workup showed leukocytosis with bandemia and her urinalysis showed bacteria 3+. In the emergency room, patient was given IV fluid and she was given vancomycin and levofloxacin. Subsequently, we are deciding to admit this patient in the hospital for further evaluation and treatment. This patient denies any flu- like illness. She denies any runny nose, sore throat, headache, body ache. She denies any cough, chest pain, pleuritic chest pain. She denies any lower extremity edema or skin rash. She denies any melena or hematochezia. She denies any pain anywhere in her body. The patient reports that since discharged from the hospital, she has not done any therapy at [facility] and pretty much she is in bed. ALLERGIES: FENTANYL, METHADONE, and PENICILLIN. CURRENT HOME MEDICATIONS: Ciclopirox olamine topical application b.i.d., Colestid 1 gram b.i.d., cranberry 400 mg p.o. b.i.d., diclofenac gel topical q.i.d., Bentyl 20 mg p.o. q.i.d. p.r.n., Lomotil 1 capsule q.i.d. p.r.n., Premarin 0.625 mg p.o. daily, TriCor 145 mg p.o. daily, Berta 180 mg p.o. daily p.r.n., Flonase nasal spray daily, gabapentin 800 mg p.o. q.i.d., [place] 5 one or two tablets q.6 hourly p.r.n., DuoNeb q.6 hourly p.r.n., Xylocaine topical application as directed p.r.n., Lidoderm patch topical application b.i.d. p.r.n., MS Contin 60 mg p.o. b.i.d., multivitamin 1 tablet p.o. daily, Mycostatin suspension p.r.n., oxybutynin 5 mg p.o. b.i.d., potassium chloride 20 mEq p.o. b.i.d., pravastatin 80 mg p.o. at bedtime, prednisone 10 mg p.o. daily, Florastor 250 mg p.o. b.i.d. p.r.n., Zoloft 50 mg p.o. daily, and Imitrex 100 mg twice daily p.r.n. PAST MEDICAL HISTORY: History of ESBL positive E. coli as well as history of VRE UTI, history of C. diff colitis, history of recurrent UTI, multiple sclerosis, history of pulmonary embolism with IVC filter, chronic pain disorder , chronic physical deconditioning, dyslipidemia, migraine headache, recurrent diarrhea. PAST SURGICAL HISTORY: Hysterectomy, IVC filter, tonsillectomy, spinal stimulator, cholecystectomy. PAST PSYCHIATRY HISTORY: Anxiety and Depression SOCIAL HISTORY: The patient lives at [facility]. No history of tobacco, alcohol or illicit drug abuse. She only ambulates with a walker. CODE STATUS: The patient is FULL CODE. Patient's daughter is surrogate decision maker. REVIEW OF SYSTEMS: The following complete review of systems was negative, unless otherwise mentioned in the HPI or below: Constitutional: Weight loss or gain, ability to conduct usual activities. Skin: Rash, itching. Eyes: Double vision, pain. ENT/Mouth: Nose bleeding, neck stiffness, pain, tenderness. Cardiovascular: Palpitations, dyspnea on exertion, orthopnea. Respiratory: Shortness of breath, wheezing, cough, hemoptysis, fever or night sweats. Gastrointestinal: Poor appetite, abdominal pain, heartburn, nausea, vomiting, constipation, or diarrhea. Genitourinary: Urgency, frequency, dysuria, nocturia. Musculoskeletal: Pain, swelling. Neurologic/Psychiatric: Anxiety, depression. Allergy/Immunologic: Skin rash, bleeding tendency. Please see my HPI for pertinent positives and negatives. All other review of systems reviewed and negative except as mentioned in the HPI. FAMILY HISTORY: Positive for coronary artery disease among several family members. EMERGENCY ROOM COURSE: Patient has received vancomycin, Levaquin, and IV fluid. PHYSICAL EXAMINATION: VITAL SIGNS: Currently, blood pressure 84/42, pulse 108, respiratory rate 19, temperature 98.9, saturation 94% on room air, and weight 54.4 kilograms. GENERAL: Patient is clinically very weak and hypotensive. HEAD: Normocephalic, atraumatic. EYES: Pupils are round and reactive to light. Extraocular muscles intact. ENT: Dry mucous membranes, no oral lesions, no pharyngeal erythema, no exudate. NECK: Supple, no JVD, no thyromegaly, no carotid bruit, no meningeal signs of irritation. LUNGS: Clear to auscultation without any rhonchi or rales. Air entry reduced at base. CARDIAC: S1, S2 regular, slight tachycardia, no murmur, no gallop, no rub. ABDOMEN: Soft. No Barragan's sign, no epigastric tenderness, no organomegaly, no peritoneal signs, no suprapubic tenderness. BACK: Examination unremarkable. No CVA tenderness. EXTREMITIES: Upper extremity; passive movement of all joints are normal. ER physician attributed joint fluid collection in right elbow, but clinically, I could not elicit that fluid collection in her right elbow at all. Lower extremity, no edema. Good peripheral pulsation. SKIN: No skin rash. Old bruits from IV site noted. NEUROLOGIC: Patient is able to move all four limbs. Speech normal. Cranial nerve normal. Reflexes and sensation normal. PSYCHIATRIC: Normal affect. IMAGING AND SIGNIFICANT LABORATORY DATA: 1. EKG showing sinus tachycardia. 2. Chest x-ray showing right lower lobe infiltration. 3. CBC: WBC 17.4, hemoglobin 13.3, platelets 309 with bandemia. INR 1.1. 4. BMP: Sodium 139, potassium 3.8, chloride 105, carbon dioxide 26, BUN 14, creatinine 0.63, glucose 109, calcium 9.5. 5. Lactic acid 2.2, magnesium 1.7. 6. LFT: AST 16, ALT 8, alkaline phosphatase 42. Albumin 3.2, lipase 12, BNP 58.5. 7. Urinalysis: Leukocyte esterase trace and bacteria 3+. Influenza A and B negative. ASSESSMENT AND PLAN/IMPRESSION: 1. Sepsis with hypotension. Source of infection is most likely right lower lobe pneumonia as well as possible urinary tract infection. Looking at her chest x-ray, she has dense consolidation in right lower lobe. Surprisingly, this patient does not have any respiratory symptoms at this point and her influenza screen is negative. Given her bedbound status, aspiration is also a possibility. The patient will require admission. We will closely monitor her vitals. Patient will be given IV fluids and broad-spectrum antibiotic therapy. At this point, given her previous recent history of VRE, we will treat with Zyvox and for pneumonia we will cover with meropenem. We will consult Dr. Buchanan for his opinion to decide antibiotic therapy. We will give her probiotics , Florastor 250 mg twice daily. Given this patient is at risk for Clostridium difficile diarrhea, we will check stool for infection workup and will also consider adding oral vancomycin therapy. 2. Right lower lobe pneumonia, healthcare associated. This patient was recently hospitalized in hospital as well as she lives at [facility]. This is new infiltration. The patient will be treated with Zyvox and meropenem. We will do DuoNeb therapy 6 hourly and Mucinex 600 mg twice daily. Clinically she does not have CHF, but will do Echo cardiograph. Pulmonary consulted. 3. Urinary tract infection. Recent urine culture grew VRE, may be colonization , but underlying sepsis and that is why we will consider treating her with Zyvox and we will consult Dr. Buchanan for his opinion. Patient also has dysuria clinically. We will send repeat urine culture. 4. Diarrhea. The patient is at risk for Clostridium difficile diarrhea and that is why we will treat empirically with vancomycin. We will check stool for Clostridium difficile again and we will provide probiotic therapy. We will continue Colestid 1 g p.o. b.i.d. and if Clostridium difficile is negative, then we will control diabetes with Lomotil as needed basis. 5. Dyslipidemia. We will continue pravastatin 80 mg p.o. at bedtime. 6. Anxiety and depression. We will continue Zoloft 50 mg p.o. daily. 7. Hypotension. We will check random cortisol to rule out adrenal insufficiency. We will continue prednisone 10 mg p.o. daily. 8. Chronic pain disorder. We will continue gabapentin 800 mg p.o. q.i.d. and [place] 5 one tablet q.6 hourly p.r.n., along with MS Contin 60 mg p.o. b.i.d. 9. Physical deconditioning. Patient will need PT, OT evaluation while in hospital. 10. Severe dehydration. Patient will be given IV fluid with NS with KCl at 125 mL per hour. 11. Deep venous thrombosis prophylaxis, Lovenox 40 mg subcu daily. 12. Gastrointestinal prophylaxis, Pepcid 20 mg IV b.i.d. 13. Moderate protein calorie malnutrition. The patient will be given nutritional support with Ensure t.i.d. Disposition plan based on clinical course. We are expecting patient's stay in hospital again more than 2 midnights. Plan of care discussed with the patient in detail. JOSD
[2017-08-13] MEDS ORDERED: Vancomycin HCl 25 MG/ML Oral PO SCH ×2 (18:00→21:00)
[2017-08-13] MEDS: Gabapentin 400 MG CAP PO SCH ×2 (18:27→20:47)
[2017-08-13] MEDS: NS 0.9% w/ 20 MEQ KCL 1,000 ML/1,000 ML BAG IV SCH ×2 (18:27→23:10)
[2017-08-13 18:36] VITALS: BMI 20.2
[2017-08-13] MEDS: Linezolid 600 MG in Premix Bag 1 BAG IVPB SCH (19:41)
[2017-08-13] MEDS: Famotidine/PF 20 mg/2ml Vial SLOW IVP SCH (20:46)
[2017-08-13] MEDS: Pravastatin Sodium 40 MG TAB PO SCH (20:47)
[2017-08-13] MEDS: guaiFENesin ER 600 MG TAB PO SCH (20:47)
[2017-08-13] MEDS: MEROPENEM 1 GM/50 ML 1 GM in Premix Bag 1 BAG IVPB SCH (20:50)
[2017-08-13] MEDS ORDERED: Meropenem 1 GM in Sodium Chloride 0.9% 100 ML IVPB SCH (22:00)
--- NOTE | 2017-08-14 01:15 | CON ---
DATE OF CONSULTATION: 08/13/2017 SERVICE: Pulmonary Medicine. REASON FOR CONSULTATION: IMCU patient. HISTORY OF PRESENT ILLNESS: The patient is a very pleasant 82-year-old white female with past medica l history significant for multiple recent infections. She was in her usual state of health until a c ouple of weeks ago at which point she had low blood pressures, fevers, and chills. She was pancultur ed. Enterococcus was discovered in her urine. She was initially treated for colitis. Ultimately, a ll antibiotic therapy was discontinued and the patient was discharged home. It was thought that thes e bugs that were identified represented colonization. Either way, the patient returned to her usual state of health and was doing quite well until one day prior to admission when she started having ons et weakness, nausea without any vomiting, and fever. She had a maximum temperature of 101. She was subsequently sent back to the Emergency Department. Her blood pressures were fairly marginal. She g ot a couple of liters of blood and they firmed up slightly. She has been given some empiric antibiot ics and bullard culture has been once again obtained. She feels much improved and is starting to tolerat e a little bit of p.o. Her nausea has cleared. Overall, she is pretty happy about the way things ar e going so far. PAST MEDICAL HISTORY: 1. Multiple sclerosis. 2. History of pulmonary embolism, status post inferior vena cava filter placement. 3. Chronic pain. 4. Deconditioning. 5. Dyslipidemia. 6. Migraine headache. 7. Recurrent diarrhea with history of Clostridium difficile infection. 8. Recurring urinary tract infections. PAST SURGICAL HISTORY: 1. Hysterectomy. 2. IVC filter. 3. Tonsillectomy. 4. Spinal stimulator. 5. Cholecystectomy. SOCIAL HISTORY: The patient lives at [facility]. She denies any alcohol, tobacco or illicit drug use. She ambulates with a walker. She is not exposed to chemicals, dust or asbestos. FAMILY HISTORY: Noncontributory. ALLERGIES: PENICILLIN, FENTANYL, METHADONE. MEDICATIONS: List of her inpatient medications were reviewed. No updates were made at this time. PHYSICAL EXAMINATION: VITAL SIGNS: Afebrile, pulse 91, blood pressure 112/40, respirations 16, saturation 99% on 2 liters nasal cannula. GENERAL: Patient is awake, alert, in no apparent distress. LUNGS: Excellent air entry. There is no prolonged expiratory phase. Dependently there are minimal crackles present. No wheezing or rhonchi are appreciated. HEART: Normal rate, regular. ABDOMEN: Soft, nontender, nondistended. Bowel sounds positive. MUSCULOSKELETAL: No cyanosis or clubbing. No pitting in the bilateral lower extremities. NEUROLOGIC: Grossly nonfocal. LABORATORY DATA: WBC 17.4 with 20% bands. INR 1.1. Basic metabolic profile and liver function stud ies are unremarkable. BNP is normal. Magnesium and lactate are normal. Cortisol level is normal. Urinalysis is unremarkable. Influenza A and B are also unremarkable. IMAGING: Chest x-ray demonstrates interstitial opacifications. The right hemidiaphragm is elevated relative to the left. Otherwise, there is no acute . Spinal stimulator is identified on the po sterior aspect of the patient. ASSESSMENT: 1. Acute hypoxic respiratory failure. 2. Severe sepsis. 3. Urinary tract infection. 4. Chronic pain. 5. Dehydration, moderate. PLAN: I agree with the meropenem, and linezolid. The patient is really not having any diarrhea, and does not have any significant belly discomfort. As such, I am going to discontinue the p.o. vancomy radha for the time being. Bullard cultures once again pending. We will direct our antibiotics toward anyt corie that we discover along the way. I do not believe there is any acute lung issue going on, though she does have fairly advanced interstitial changes bordering on pulmonary fibrosis with traction bro nchiectasis, possibly consistent with early pulmonary fibrosis. Hopefully, by tomorrow, blood pressu res will firm up and she will transition to the floor. I will continue to follow while she remains i nhouse.
[2017-08-14] MEDS: NS 0.9% w/ 20 MEQ KCL 1,000 ML/1,000 ML BAG IV SCH (02:40)
[2017-08-14] MEDS: MEROPENEM 1 GM/50 ML 1 GM in Premix Bag 1 BAG IVPB SCH ×3 (04:12→19:32)
[2017-08-14 05:32] LABS: ALT (SGPT) 8 U/L (8-55); AST (SGOT) 19 U/L (5-34); Alkaline Phosphatase 28 U/L (40-150); Anion Gap 9 mmol/L (10-20); BUN (Urea Nitrogen) 8 mg/dL (9.8-20.1); Bilirubin, Total 0.4 mg/dL (0.2-1.2); Calc. Creatinine Clearance 79 mL/min (70-130); Calcium 7.6 mg/dL (7.8-10.44); Carbon Dioxide 18 mmol/L (23-31); Chloride 116 mmol/L (98-107); Estimated GFR-MDRD Greater than 90; Globulin 2.5 g/dL (2.4-3.5); Protein, Total 4.8 g/dL (6.0-8.3)
[2017-08-14 05:41] LABS: #Eosinphils 0.1 thou/uL (0.0-0.7); #Lymphocytes 1.4 thou/uL (1.20-3.40); #Monocytes 0.5 thou/uL (0.11-0.59); #Neutrophils 5.1 thou/uL (1.40-6.50); %Lymphocytes 19.6 % (21.0-51.0); %Monocytes 7.3 % (0.0-10.0); Hematocrit 31.6 % (36.0-47.0); Mean Platelet Volume 6.9 fL (7.4-10.4); Red Blood Cell (RBC) Count 3.22 mill/uL (4.20-5.40); White Blood Cell (WBC) Count 7.2 thou/uL (4.8-10.8)
[2017-08-14] MEDS: D5 1/2 NS w/20 mEq KCL 1,000 ML IV SCH ×2 (07:19→16:07)
--- NOTE | 2017-08-14 07:39 | PDOC.PN ---
- Subjective Encounter Start Date: 08/14/17 Encounter Start Time: 07:00 -: old records requested/rev pt had only one BM, no diarrhoea, no fever, BP is improved, she slept well, - Objective Resuscitation Status: Resuscitation Status FULL:Full Resuscitation MAR Reviewed: Yes Vital Signs & Weight: Vital Signs (12 hours) Temp Pulse Resp BP Pulse Ox 08/14/17 04:00 97.2 F L 58 L 22 H 101/40 L 99 08/14/17 00:28 61 16 94 L 08/14/17 00:00 97.1 F L 65 20 93/40 L 94 L 08/13/17 20:00 98.0 F 91 18 97 Weight Weight 121 lb 6.4 oz I&O: 08/13/17 08/14/17 08/15/17 06:59 06:59 06:59 Intake Total 1670 Balance 1670 Result Diagrams: 08/14/17 04:33 08/14/17 04:33 EKG Reviewed by me: Yes (NSR) Phys Exam - Physical Examination Constitutional: NAD HEENT: PERRLA, moist MMs, sclera anicteric Neck: no JVD, supple Respiratory: no wheezing, no rales, no rhonchi Cardiovascular: RRR, no significant murmur, no rub Gastrointestinal: soft, non-tender, no distention, positive bowel sounds Musculoskeletal: no edema, pulses present Neurological: moves all 4 limbs Lymphatic: no nodes Psychiatric: normal affect, A&O x 3 Skin: no rash, normal turgor Dx/Plan (1) Acute diarrhea Code(s): R19.7 - DIARRHEA, UNSPECIFIED Status: Acute (2) Hypotension Status: Acute (3) Sepsis Code(s): A41.9 - SEPSIS, UNSPECIFIED ORGANISM Status: Acute Qualifiers: Comment: (4) UTI (urinary tract infection) Status: Acute (5) Anxiety and depression Code(s): F41.8 - OTHER SPECIFIED ANXIETY DISORDERS Status: Chronic (6) Chronic low back pain Code(s): M54.5 - LOW BACK PAIN; G89.29 - OTHER CHRONIC PAIN Status: Chronic Comment: Resume home Gabapentin and MS contin (7) Dyslipidemia Code(s): E78.5 - HYPERLIPIDEMIA, UNSPECIFIED Status: Chronic (8) GERD (gastroesophageal reflux disease) Code(s): K21.9 - GASTRO-ESOPHAGEAL REFLUX DISEASE WITHOUT ESOPHAGITIS Status: Chronic (9) HTN (hypertension) Code(s): I10 - ESSENTIAL (PRIMARY) HYPERTENSION Status: Chronic (10) History of pulmonary embolism Code(s): Z86.711 - PERSONAL HISTORY OF PULMONARY EMBOLISM Status: Chronic (11) Lupus (systemic lupus erythematosus) Code(s): M32.9 - SYSTEMIC LUPUS ERYTHEMATOSUS, UNSPECIFIED Status: Chronic (12) Migraine Code(s): G43.909 - MIGRAINE, UNSP, NOT INTRACTABLE, WITHOUT STATUS MIGRAINOSUS Status: Chronic (13) Multiple sclerosis Code(s): G35 - MULTIPLE SCLEROSIS Status: Chronic (14) Physical deconditioning Code(s): R53.81 - OTHER MALAISE Status: Chronic (15) Protein-calorie malnutrition, moderate Code(s): E44.0 - MODERATE PROTEIN-CALORIE MALNUTRITION Status: Chronic - Plan cont current plan of care, continue antibiotics, PT/OT * continue empiric zyvox and meropenam * follow culture * to prevent hyperchloromic acidosis, will change IVF to Dex 1/2 NS with KCL at 125 ml per hour * if BP remains stable today, will transfer to medical later today * medication reviewed as below * symptomatic treatment * ID consulted to decide about antibiotics * await stool studies * start PT as tolerated. Review of Systems - Review of Systems Eyes: negative: Pain, Vision Change, Conjunctivae Inflammation, Eyelid Inflammation, Redness, Other ENT: negative: Ear Pain, Ear Discharge, Nose Pain, Nose Discharge, Nose Congestion, Mouth Pain, Mouth Swelling, Throat Pain, Throat Swelling, Other Respiratory: negative: Cough, Dry, Shortness of Breath, Hemoptysis, SOB with Excertion, Pleuritic Pain, Sputum, Wheezing Cardiovascular: negative: Chest Pain, Palpitations, Orthopnea, Paroxysmal Noc. Dyspnea, Edema, Light Headedness, Other Gastrointestinal: negative: Nausea, Vomiting, Abdominal Pain, Diarrhea, Constipation, Melena, Hematochezia, Other Genitourinary: negative: Dysuria, Frequency, Incontinence, Hematuria, Retention , Other Musculoskeletal: negative: Neck Pain, Shoulder Pain, Arm Pain, Back Pain, Hand Pain, Leg Pain, Foot Pain, Other Skin: negative: Rash, Lesions, Aníbal, Bruising, Other - Medications/Allergies Allergies/Adverse Reactions: Allergies Allergy/AdvReac Type Severity Reaction Status Date / Time Penicillins Allergy Intermediate Verified 08/07/17 04:41 fentanyl Allergy Verified 08/07/17 04:41 methadone HCl Allergy Verified 08/07/17 04:41 [From [facility]] Medications: Current Medications Acetaminophen (Tylenol) 650 mg PO Q4H PRN PRN Reason: Headache/Fever or Pain Hydrocodone Bitart/Acetaminophen ([place] 5/325) 1 tab PO Q4H PRN PRN Reason: Moderate Pain (4-6) Al Hydroxide/Mg Hydroxide (Maalox) 30 ml PO Q6H PRN PRN Reason: Heartburn or Indigestion Albuterol/Ipratropium (Duoneb) 3 ml NEB [id number] [facility] Last Admin: 08/14/17 00:28 Dose: 3 ml Artificial Tears (Tears Naturale) 0 drop EA EYE PRN PRN PRN Reason: Dry Eyes Colestipol HCl (Colestid) 1 gm PO BID@1000,2200 [facility] Last Admin: 08/13/17 22:32 Dose: 1 gm Dicyclomine HCl (Bentyl) 20 mg PO QID PRN PRN Reason: GI Cramping Diphenoxylate HCl/Atropine (Lomotil) 1 tab PO QIDPRN PRN PRN Reason: Diarrhea/Loose Stools Enoxaparin Sodium (Lovenox) 40 mg SC 0900 [facility] Estrogens Conjugated (Premarin) 0.625 mg PO DAILY [facility] Famotidine (Pepcid) 20 mg SLOW IVP Q12HR [facility] Last Admin: 08/13/17 20:46 Dose: 20 mg Fenofibrate (Tricor) 145 mg PO DAILY [facility] Fluticasone Propionate (Flonase Nasal [place]) 0 gm NASAL DAILY [facility] Gabapentin (Neurontin) 800 mg PO QID [facility] Last Admin: 08/13/17 20:47 Dose: 800 mg Guaifenesin (Robitussin Sf) 200 mg PO Q4H PRN PRN Reason: Cough Guaifenesin (Mucinex) 600 mg PO Q12HR [facility] Last Admin: 08/13/17 20:47 Dose: 600 mg Linezolid 600 mg/ Device 300 mls @ 150 mls/hr IVPB 0800,2000 [facility] Last Admin: 08/13/17 19:41 Dose: 300 mls Meropenem 1 gm/ Device 50 mls @ 100 mls/hr IVPB 0400,1200,2000 [facility] Last Admin: 08/14/17 04:12 Dose: 50 mls Potassium Chloride/Dextrose/Sod Cl (D5 1/2 Ns W/20 Meq Kcl) 1,000 mls @ 100 mls /hr IV .Q10H [facility] Last Admin: 08/14/17 07:19 Dose: 1,000 mls Iron/Minerals/Multivitamins (Theragran M) 1 tab PO DAILY [facility] Loratadine (Claritin) 10 mg PO DAILYPRN PRN PRN Reason: Sinus Symptoms Mineral Oil/White Petrolatum (Eucerin Cream) 0 gm TOP BIDPRN PRN PRN Reason: Dry Skin Morphine Sulfate (Ms Contin) 60 mg PO Q12HR [facility] Last Admin: 08/13/17 20:58 Dose: Not Given Ondansetron HCl (Zofran Odt) 4 mg PO Q6H PRN PRN Reason: Nausea/Vomiting Ondansetron HCl (Zofran) 4 mg IVP Q6H PRN PRN Reason: Nausea/Vomiting Phenol (Chloraseptic [place] 180 Ml Bot) 0 ml PO PRN PRN PRN Reason: Sore Throat Pravastatin Sodium (Pravachol) 80 mg PO HS [facility] Last Admin: 08/13/17 20:47 Dose: 80 mg Prednisone (Prednisone) 10 mg PO QA-[facility] Saccharomyces Boulardii (Florastor) 250 mg PO DAILY [facility] Sertraline HCl (Zoloft) 50 mg PO DAILY [facility] Sodium Chloride ([place] Nasal [place] 0.65%) 0 ml EA NARE QIDPRN PRN PRN Reason: Nasal Congestion Zolpidem Tartrate (Ambien) 5 mg PO HSPRN PRN PRN Reason: Insomnia
[2017-08-14] MEDS: Gabapentin 400 MG CAP PO SCH ×4 (09:04→21:25)
[2017-08-14] MEDS: Enoxaparin Sodium 40 MG/0.4 ML SYRINGE SC SCH (09:04)
[2017-08-14] MEDS: Linezolid 600 MG in Premix Bag 1 BAG IVPB SCH ×2 (09:04→21:23)
[2017-08-14] MEDS: predniSONE 5 MG TAB PO SCH (09:05)
[2017-08-14] MEDS: Multivitamin W/ Minerals 1 TAB PO SCH (09:05)
[2017-08-14] MEDS: guaiFENesin ER 600 MG TAB PO SCH ×2 (09:05→21:26)
[2017-08-14] MEDS: Famotidine/PF 20 mg/2ml Vial SLOW IVP SCH ×2 (09:06→21:26)
[2017-08-14] MEDS: Fenofibrate Nanocrystallized 145 MG TAB PO SCH (09:06)
[2017-08-14] MEDS: Saccharomyces boulardii 250 MG CAP PO SCH (09:06)
[2017-08-14] MEDS: Fluticasone Propionate Nasal Spray 16 gm Bottle NASAL SCH (10:21)
--- NOTE | 2017-08-14 14:52 | CON ---
DATE OF CONSULTATION: 08/14/2017 HISTORY OF PRESENT ILLNESS: An 82-year-old who was readmitted shortly after recent discharge and as previously noted has a longstanding history of multiple sclerosis with recurrent UTIs as well as episodes of C. difficile colitis and more recently recurrent episodes of diarrhea with negative C. diff test. She has had documented pyelonephritis, emphysematous cystitis treated with antimicrobial therapy including meropenem. She was readmitted on 08/07/2017 with diarrhea and hypotension. CT of abdomen and pelvis was consistent with colitis and proctitis; however, C. diff was negative. The urine culture revealed VRE as well as Klebsiella Enterobacter, which was not susceptibility tested. This was a straight cath sample; VRE was greater than 100,000 CFUs per mL and Klebsiella Enterobacter less than 5000 CFUs per mL. Urinalysis showed 7- 10 wbc's. Previous UA from 07/05/2017 about a month before was greater than 50 wbc's. The decision was made not to treat her with antimicrobials and try to withhold antimicrobial therapy in view of the diarrhea is the main symptom that led to admission. At home, patient immediately developed what the drug clerk describes as lower abdominal pain, anorexia, fever, and hypotension again and is readmitted at this time unfortunately. The initial findings included BP 84/ 42, pulse 108, respirations 19, temperature 98.9, and O2 sat 94%. The overall exam was not remarkable. Imaging studies included abdomen and pelvis CT from last time, but this time only a chest x-ray and consistent with decompensated CHF. Last venogram was quite a few years ago and has not been repeated since. Currently, Ms. Ramos is receiving antimicrobial therapy with meropenem and Zyvox. She is somewhat drowsy, but arousable. Denies headaches, no respiratory symptoms, no abdominal pain anymore. She is voiding spontaneously when in a diaper. No change in neurological symptoms. PAST MEDICAL HISTORY: Includes multiple sclerosis, recurrent UTI, C. diff colitis, pulmonary embolism with IVC filter placement, chronic pain. PAST SURGICAL HISTORY: Hysterectomy, tonsillectomy, spinal stimulator. ALLERGIES: FENTANYL, METHADONE, PENICILLIN with rashes. MEDICATIONS: Currently receiving Stitzer, Maalox, DuoNeb, Colestid, Lomotil, Lovenox, Premarin, TriCor, linezolid, meropenem, prednisone, Saccharomyces. PHYSICAL EXAMINATION: VITAL SIGNS: T-max 98, currently 97.4, BP 106/55, pulse 67, respirations 18, O2 sat 96%, drowsy, but arousable, chronically ill appearing. SKIN: With no areas of skin breakdown. Peripheral IV access. No Robles catheter. No lymphadenopathy. HEENT: Ocular movements are conjugate. LUNGS: With symmetric clear breath sounds. HEART: S1 and S2, regular rate. No S3 or S4. ABDOMEN: Soft, without distention or tenderness, question of bladder distention , paraparesis. NEUROLOGIC: Cognitive function appears to be intact, although patient is drowsy. LABORATORY DATA: Urinalysis reveals 0-3 wbc's. White cell count down from 17.4 -7.2, hemoglobin 10, platelets 233, 71% neutrophils, creatinine 0.46. Transaminases normal, alkaline phosphatase 28, albumin 2.3. Microbiology with alpha hemolytic strep from the straight catheter urine obtained C. diff negative. ASSESSMENT: 1. Multiple sclerosis with neurogenic bladder. 2. Recurrent urinary tract infections. 3. Prior episode of Clostridium difficile. 4. Chronic recurrent diarrhea. 5. Chronic recurrent episodes of hypotension with fever. DISCUSSION: Differential diagnosis includes invasive UTI versus thromboembolism. Patient has had an IVC filter for a while now. Sometimes, patients with IVCs can develop collateral veins and may developed recurrence of PE, although this is less likely. Urinalysis does not have pyuria, which would decrease the likelihood of invasive urinary tract infection process. She may have urinary retention leading to recurring admissions with invasive UTI. Check postvoid residual and check duplex ultrasound of lower extremities. This is somewhat pressing problem; if she is demonstrated to have significant residual urine, then we will have to figure out some management either in and out straight catheterization at home or a suprapubic catheter. SUKUMAR
--- NOTE | 2017-08-14 15:46 | ULT ---
ULTRASOUND WITH DOPPLER DUPLEX VENOUS LOWER EXTREMITY BILATERAL: CPT: 71222 ICD-10-PCS: B54D INDICATION: Fever. Paraparesis. History of deep venous thrombosis and hypotension. TECHNIQUE: Color flow Doppler, spectral waveform analysis of pulsed Doppler, and guardado-scale imaging with marlyn maia and augmentation, were used to evaluate the bilateral common femoral, femoral, popliteal, sap bw architect ior tibial, and superficial femoral, veins; and the proximal portions of the profunda femoral and gre ater saphenous, veins. FINDINGS: Appropriate compressibility and flow within the imaged deep vein system of each lower extremity. IMPRESSION: 1. No deep venous thrombosis. 2. Mild soft tissue edema. Correlate clinically. POS: [facility]
--- NOTE | 2017-08-14 20:20 | PRG ---
DATE OF SERVICE: 08/14/2017 SERVICE: Pulmonary Medicine. INTERVAL HISTORY: The patient doing outstanding from a respiratory standpoint. She is breathing com fortably. She is resting at this point. I woke her up from sleep and she woke up easily. She has n o specific complaints right now of chest pain, nausea, vomiting or diarrhea. PHYSICAL EXAMINATION: VITAL SIGNS: Afebrile, pulse 67, blood pressure 106/55, respirations 18, saturation 96% on 2 liters nasal cannula. GENERAL: The patient is awake and alert, in no apparent distress. LUNGS: Decent air entry. There is no prolonged expiratory phase or wheezing. HEART: Normal rate, regular. ABDOMEN: Soft, nontender, nondistended. Bowel sounds positive. MUSCULOSKELETAL: No cyanosis or clubbing. No pitting in the bilateral lower extremities. NEUROLOGIC: Grossly nonfocal. LABORATORY DATA: WBC 7.2, hemoglobin 10.0, platelets 233,000. INR 1.1. Chloride is 116 and up tren ding. Sodium is 139 and stable. Potassium is also stable. Creatinine 0.46, has dramatically improv ed. Basic metabolic profile is otherwise unremarkable. Liver function studies are normal. Cortisol was normal this morning. Magnesium 1.7, lactate is clear to 0.8. Urine culture is growing alpha he molytic streptococcus. Outside of that, C. diff antigen and toxin was unremarkable. Stool studies a re also unremarkable. Blood cultures x2 and influenza are negative. IMAGING: Ultrasound of the bilateral lower extremities demonstrates no evidence of DVT with mild sof t tissue edema bilaterally. ASSESSMENT: 1. Acute hypoxic respiratory failure. 2. Severe sepsis. 3. Urinary tract infection. 4. Chronic pain. 5. Dehydration, moderate. 6. Interstitial lung disease, likely early idiopathic pulmonary fibrosis. PLAN: We are awaiting culture results while we continue empiric antibiotics per ID direction. [facility] will continue to follow for the time being. Her regular catering director will follow starting tomorrow.
[2017-08-14] MEDS: Pravastatin Sodium 40 MG TAB PO SCH (21:25)
[2017-08-15] MEDS: D5 1/2 NS w/20 mEq KCL 1,000 ML IV SCH ×3 (03:46→20:15)
[2017-08-15] MEDS: MEROPENEM 1 GM/50 ML 1 GM in Premix Bag 1 BAG IVPB SCH ×2 (03:46→13:29)
[2017-08-15 04:59] LABS: Anion Gap 8 mmol/L (10-20); BUN (Urea Nitrogen) 5 mg/dL (9.8-20.1); Calc. Creatinine Clearance 70 mL/min (70-130); Calcium 8.1 mg/dL (7.8-10.44); Carbon Dioxide 18 mmol/L (23-31); Chloride 117 mmol/L (98-107); Estimated GFR-MDRD Greater than 90
[2017-08-15 05:39] LABS: #Eosinphils 0.1 thou/uL (0.0-0.7); #Lymphocytes 1.1 thou/uL (1.20-3.40); #Monocytes 0.4 thou/uL (0.11-0.59); #Neutrophils 5.1 thou/uL (1.40-6.50); %Basophils 0.4 % (0.0-1.0); %Eosinophils 1.3 % (0.0-10.0); %Lymphocytes 16.1 % (21.0-51.0); %Monocytes 6.6 % (0.0-10.0); Hematocrit 31.8 % (36.0-47.0); Red Blood Cell (RBC) Count 3.26 mill/uL (4.20-5.40); White Blood Cell (WBC) Count 6.7 thou/uL (4.8-10.8)
[2017-08-15] MEDS: Linezolid 600 MG in Premix Bag 1 BAG IVPB SCH (09:12)
[2017-08-15] MEDS: Famotidine/PF 20 mg/2ml Vial SLOW IVP SCH ×2 (09:16→20:06)
[2017-08-15] MEDS: Fenofibrate Nanocrystallized 145 MG TAB PO SCH (09:18)
[2017-08-15] MEDS: Saccharomyces boulardii 250 MG CAP PO SCH (09:18)
[2017-08-15] MEDS: Multivitamin W/ Minerals 1 TAB PO SCH (09:18)
[2017-08-15] MEDS: guaiFENesin ER 600 MG TAB PO SCH ×2 (09:18→20:06)
[2017-08-15] MEDS: Enoxaparin Sodium 40 MG/0.4 ML SYRINGE SC SCH (09:18)
[2017-08-15] MEDS: predniSONE 5 MG TAB PO SCH (09:24)
[2017-08-15] MEDS: Gabapentin 400 MG CAP PO SCH ×4 (09:25→20:04)
[2017-08-15] MEDS: Fluticasone Propionate Nasal Spray 16 gm Bottle NASAL SCH (09:25)
[2017-08-15] MEDS ORDERED: Nystatin Powder 15 GM BOT TOP PRN (11:06)
--- NOTE | 2017-08-15 12:54 | PDOC.PN ---
- Subjective Encounter Start Date: 08/15/17 Encounter Start Time: 08:30 Patient seen and examined. No new complaints. No overnight events, no fever, no more diarrhoea, - Objective Resuscitation Status: Resuscitation Status FULL:Full Resuscitation MAR Reviewed: Yes Vital Signs & Weight: Vital Signs (12 hours) Temp Pulse Resp BP Pulse Ox 08/15/17 11:30 97.3 F L 87 22 H 121/73 92 L 08/15/17 09:00 95 108/68 93 L 08/15/17 08:48 93 L 08/15/17 08:45 76 16 93 L 08/15/17 08:00 98.1 F 95 16 98/61 94 L 08/15/17 04:00 97.9 F 83 20 92/55 L Weight Weight 121 lb 6.4 oz I&O: 08/14/17 08/15/17 08/16/17 06:59 06:59 06:59 Intake Total 1670 2260 Output Total 3 Balance 1670 2257 Result Diagrams: 08/15/17 05:17 08/15/17 04:04 Radiology Reviewed by me: Yes (US leg no DVT) Phys Exam - Physical Examination Constitutional: NAD HEENT: PERRLA, moist MMs, sclera anicteric Neck: no JVD, supple Respiratory: no wheezing, no rhonchi right base rales Cardiovascular: RRR, no significant murmur, no rub Gastrointestinal: soft, non-tender, no distention, positive bowel sounds Musculoskeletal: no edema, pulses present Neurological: non-focal, normal sensation Lymphatic: no nodes Psychiatric: normal affect Skin: no rash, normal turgor Dx/Plan (1) Acute diarrhea Code(s): R19.7 - DIARRHEA, UNSPECIFIED Status: Resolved (2) Hypotension Status: Resolved (3) Sepsis Code(s): A41.9 - SEPSIS, UNSPECIFIED ORGANISM Status: Acute Qualifiers: Comment: (4) UTI (urinary tract infection) Status: Acute (5) Anxiety and depression Code(s): F41.8 - OTHER SPECIFIED ANXIETY DISORDERS Status: Chronic (6) Chronic low back pain Code(s): M54.5 - LOW BACK PAIN; G89.29 - OTHER CHRONIC PAIN Status: Chronic Comment: Resume home Gabapentin and MS contin (7) Dyslipidemia Code(s): E78.5 - HYPERLIPIDEMIA, UNSPECIFIED Status: Chronic (8) GERD (gastroesophageal reflux disease) Code(s): K21.9 - GASTRO-ESOPHAGEAL REFLUX DISEASE WITHOUT ESOPHAGITIS Status: Chronic (9) HTN (hypertension) Code(s): I10 - ESSENTIAL (PRIMARY) HYPERTENSION Status: Chronic (10) History of pulmonary embolism Code(s): Z86.711 - PERSONAL HISTORY OF PULMONARY EMBOLISM Status: Chronic (11) Lupus (systemic lupus erythematosus) Code(s): M32.9 - SYSTEMIC LUPUS ERYTHEMATOSUS, UNSPECIFIED Status: Chronic (12) Migraine Code(s): G43.909 - MIGRAINE, UNSP, NOT INTRACTABLE, WITHOUT STATUS MIGRAINOSUS Status: Chronic (13) Multiple sclerosis Code(s): G35 - MULTIPLE SCLEROSIS Status: Chronic (14) Physical deconditioning Code(s): R53.81 - OTHER MALAISE Status: Chronic (15) Protein-calorie malnutrition, moderate Code(s): E44.0 - MODERATE PROTEIN-CALORIE MALNUTRITION Status: Chronic (16) Healthcare associated bacterial pneumonia Code(s): J15.9 - UNSPECIFIED BACTERIAL PNEUMONIA Status: Acute (17) Pulmonary hypertension Code(s): I27.20 - PULMONARY HYPERTENSION, UNSPECIFIED Status: Chronic - Plan cont current plan of care, continue antibiotics * continue IVF * continue meropenam and zyvox * medication reviewed as below * symptomatic treatment * ID following * will repeat chest xray * follow culture * stool negative for infection * continue PT. Review of Systems - Review of Systems Constitutional: Weakness. negative: Fever, Chills, Sweats, Malaise, Other ENT: negative: Ear Pain, Ear Discharge, Nose Pain, Nose Discharge, Nose Congestion, Mouth Pain, Mouth Swelling, Throat Pain, Throat Swelling, Other Respiratory: negative: Cough, Dry, Shortness of Breath, Hemoptysis, SOB with Excertion, Pleuritic Pain, Sputum, Wheezing Cardiovascular: negative: Chest Pain, Palpitations, Orthopnea, Paroxysmal Noc. Dyspnea, Edema, Light Headedness, Other Gastrointestinal: negative: Nausea, Vomiting, Abdominal Pain, Diarrhea, Constipation, Melena, Hematochezia, Other Genitourinary: negative: Dysuria, Frequency, Incontinence, Hematuria, Retention , Other Musculoskeletal: negative: Neck Pain, Shoulder Pain, Arm Pain, Back Pain, Hand Pain, Leg Pain, Foot Pain, Other Skin: negative: Rash, Lesions, Aníbal, Bruising, Other - Medications/Allergies Allergies/Adverse Reactions: Allergies Allergy/AdvReac Type Severity Reaction Status Date / Time Penicillins Allergy Intermediate Verified 08/07/17 04:41 fentanyl Allergy Verified 08/07/17 04:41 methadone HCl Allergy Verified 08/07/17 04:41 [From [facility]] Medications: Current Medications Acetaminophen (Tylenol) 650 mg PO Q4H PRN PRN Reason: Headache/Fever or Pain Hydrocodone Bitart/Acetaminophen ([place] 5/325) 1 tab PO Q4H PRN PRN Reason: Moderate Pain (4-6) Al Hydroxide/Mg Hydroxide (Maalox) 30 ml PO Q6H PRN PRN Reason: Heartburn or Indigestion Albuterol/Ipratropium (Duoneb) 3 ml NEB [id number] [facility] Last Admin: 08/15/17 08:45 Dose: 3 ml Artificial Tears (Tears Naturale) 0 drop EA EYE PRN PRN PRN Reason: Dry Eyes Colestipol HCl (Colestid) 1 gm PO BID@1000,2200 [facility] Last Admin: 08/15/17 12:01 Dose: 1 gm Dicyclomine HCl (Bentyl) 20 mg PO QID PRN PRN Reason: GI Cramping Diphenoxylate HCl/Atropine (Lomotil) 1 tab PO QIDPRN PRN PRN Reason: Diarrhea/Loose Stools Enoxaparin Sodium (Lovenox) 40 mg SC 0900 [facility] Last Admin: 08/15/17 09:18 Dose: 40 mg Estrogens Conjugated (Premarin) 0.625 mg PO DAILY [facility] Last Admin: 08/15/17 09:16 Dose: 0.625 mg Famotidine (Pepcid) 20 mg SLOW IVP Q12HR [facility] Last Admin: 08/15/17 09:16 Dose: 20 mg Fenofibrate (Tricor) 145 mg PO DAILY [facility] Last Admin: 08/15/17 09:18 Dose: 145 mg Fluticasone Propionate (Flonase Nasal [place]) 0 gm NASAL DAILY [facility] Last Admin: 08/15/17 09:25 Dose: 2 spr Gabapentin (Neurontin) 800 mg PO QID [facility] Last Admin: 08/15/17 09:25 Dose: 800 mg Guaifenesin (Robitussin Sf) 200 mg PO Q4H PRN PRN Reason: Cough Guaifenesin (Mucinex) 600 mg PO Q12HR [facility] Last Admin: 08/15/17 09:18 Dose: 600 mg Linezolid 600 mg/ Device 300 mls @ 150 mls/hr IVPB 0800,1999 [facility] Last Admin: 08/15/17 09:12 Dose: 300 mls Meropenem 1 gm/ Device 50 mls @ 100 mls/hr IVPB 0400,1200,1999 [facility] Last Admin: 08/15/17 03:46 Dose: 50 mls Potassium Chloride/Dextrose/Sod Cl (D5 1/2 Ns W/20 Meq Kcl) 1,000 mls @ 100 mls /hr IV .Q10H [facility] Last Admin: 08/15/17 09:25 Dose: 1,000 mls Iron/Minerals/Multivitamins (Theragran M) 1 tab PO DAILY [facility] Last Admin: 08/15/17 09:18 Dose: 1 tab Loratadine (Claritin) 10 mg PO DAILYPRN PRN PRN Reason: Sinus Symptoms Mineral Oil/White Petrolatum (Eucerin Cream) 0 gm TOP BIDPRN PRN PRN Reason: Dry Skin Morphine Sulfate (Ms Contin) 60 mg PO Q12HR [facility] Last Admin: 08/15/17 09:18 Dose: 60 mg Nystatin (Mycostatin Powder) 0 gm TOP BID PRN PRN Reason: Topical Irritations Ondansetron HCl (Zofran Odt) 4 mg PO Q6H PRN PRN Reason: Nausea/Vomiting Ondansetron HCl (Zofran) 4 mg IVP Q6H PRN PRN Reason: Nausea/Vomiting Phenol (Chloraseptic [place] 180 Ml Bot) 0 ml PO PRN PRN PRN Reason: Sore Throat Pravastatin Sodium (Pravachol) 80 mg PO HS [facility] Last Admin: 08/14/17 21:25 Dose: 80 mg Prednisone (Prednisone) 10 mg PO [facility] Last Admin: 08/15/17 09:24 Dose: 10 mg Saccharomyces Boulardii (Florastor) 250 mg PO DAILY [facility] Last Admin: 08/15/17 09:18 Dose: 250 mg Sertraline HCl (Zoloft) 50 mg PO DAILY [facility] Last Admin: 08/15/17 09:17 Dose: 50 mg Sodium Chloride ([place] Nasal [place] 0.65%) 0 ml EA NARE QIDPRN PRN PRN Reason: Nasal Congestion Sodium Chloride (Flush - Normal Saline) 10 ml IVF Q12HR [facility] Last Admin: 08/15/17 09:16 Dose: 10 ml Sodium Chloride (Flush - Normal Saline) 10 ml IVF PRN PRN PRN Reason: Saline Flush Zolpidem Tartrate (Ambien) 5 mg PO HSPRN PRN PRN Reason: Insomnia
--- NOTE | 2017-08-15 13:52 | PRG ---
DATE OF SERVICE: 08/15/2017 SUBJECTIVE: Ms. Ramos was admitted over the weekend. This morning, she says she is better, less amy rt of breath, less coughing. She was at [facility]. She has a history of multiple sclerosis and PE. Respiratory failure appears to have improved. OBJECTIVE: VITAL SIGNS: Sats are 94% on room air, pulse 80, temperature 98, respirations 18. CHEST: Revealed bilateral rhonchi. CARDIAC: Normal S1, S2. ABDOMEN: Soft, no masses. IMPRESSION: 1. Sepsis. Antibiotics as per Infectious Disease. 2. Urinary tract infection, which is resistant to multiple antibiotics. Clostridium difficile negat sanam. 3. Severe deconditioning. PLAN: Appears to be stable. Continue aggressive PT and supportive care. We will follow.
--- NOTE | 2017-08-15 16:39 | RAD ---
PORTABLE CHEST: History: Malaise. Shortness of breath. Comparison: 08-13-17 FINDINGS: There are bilateral effusions and bibasilar infiltrates and/or atelectasis which are more prominent t leslie. Mild vascular congestion with interstitial prominence suggests mild interstitial edema. Mild ca rdiomegaly. IMPRESSION: Bilateral effusions and bibasilar infiltrates and atelectasis, more prominent in the right lung base. Evidence of mild congestion. POS: [facility]
[2017-08-15] MEDS: Pravastatin Sodium 40 MG TAB PO SCH (20:04)
[2017-08-15] MEDS: Linezolid 600 MG TAB PO SCH (20:05)
--- NOTE | 2017-08-15 22:08 | PRG ---
DATE OF SERVICE: 08/15/2017 SUBJECTIVE: Ms. Ramos is eating and feeling much better. No headaches, no respiratory symptoms, no abdominal pain. She is voiding spontaneously, but her postvoid are elevated as noted below. Diarrhe a has ceased. PHYSICAL EXAMINATION: VITAL SIGNS: She has been afebrile during the hospital stay. Other vital signs are normal. O2 sats 91%-92%. GENERAL: Awake and alert. HEART: S1 and S2, regular rate, symmetric air entry with few basilar crackles. ABDOMEN: Soft. The postvoid residuals have been anywhere from 250-260, this is after spontaneous vo iding. NEUROLOGIC: The exam is unchanged. LABORATORY DATA: White cell count 6.7, hemoglobin 10.3, platelets 221, and creatinine 0.52. Liver p rofile is unremarkable. Albumin 2.3. Microbiology with yeast faecium. ASSESSMENT AND DISCUSSION: In retrospect, it appears that despite the absence of pyuria in view of t he large residual due to her neurogenic bladder, it is likely that she is having invasive urinary tra ct infection associated with . She has responded to the antimicrobial therapy most likely due t o linezolid component and we will discontinue meropenem. We will have to discuss with Urology regard ing the options of either in and out catheterization or a suprapubic catheter placement. Patient hiral espraza had a suprapubic catheter few years ago which has been recommended by Dr. Kermit Singh in the past , but he is retired and she still has yet to have an evaluation by a newly urologist. Lung findings appeared to be secondary to chronic interstitial fibrosis as noted in the abdomen CT and discussed by Dr. Nicolas in the recent past. The duplex ultrasound showed no evidence of clot in lower extremiti es. We will discontinue meropenem and continue with linezolid via oral route and have Urology to timothy mesa look at her and see if she needs a suprapubic or just in and out cath.
[2017-08-16] MEDS: D5 1/2 NS w/20 mEq KCL 1,000 ML IV SCH (06:23)
[2017-08-16] MEDS: Famotidine 20 MG TAB PO SCH ×2 (08:18→20:32)
[2017-08-16] MEDS: Gabapentin 400 MG CAP PO SCH ×4 (08:18→20:31)
[2017-08-16] MEDS: Multivitamin W/ Minerals 1 TAB PO SCH (08:19)
[2017-08-16] MEDS: Fenofibrate Nanocrystallized 145 MG TAB PO SCH (08:19)
[2017-08-16] MEDS: Linezolid 600 MG TAB PO SCH ×2 (08:19→20:31)
[2017-08-16] MEDS: Saccharomyces boulardii 250 MG CAP PO SCH (08:19)
[2017-08-16] MEDS: guaiFENesin ER 600 MG TAB PO SCH ×2 (08:19→20:31)
[2017-08-16] MEDS: predniSONE 5 MG TAB PO SCH (08:19)
[2017-08-16] MEDS: Enoxaparin Sodium 40 MG/0.4 ML SYRINGE SC SCH (08:20)
[2017-08-16] MEDS: Fluticasone Propionate Nasal Spray 16 gm Bottle NASAL SCH (08:20)
--- NOTE | 2017-08-16 10:34 | PRG ---
DATE OF SERVICE: 08/16/2017 Domi Ramos is doing better this morning. She is weak. PHYSICAL EXAMINATION: VITAL SIGNS: Blood pressure 147/76, sats are 90%, temperature 98. GENERAL: She is ambulating some. CHEST: Chest reveals decreased breath sounds, no wheezing. CARDIAC: Normal S1. ABDOMEN: Soft, no masses. Urine is growing Enterococcus. IMPRESSION: 1. Severe deconditioning. 2. Bilateral pleural effusion. 3. Pneumonia. 4. Chronic pain. PLAN: From a pulmonary standpoint of view, at this stage continue antibiotics as per Infectious Dise ase. X-ray findings are stable. Continue prednisone, supportive care and PT. I will follow.
--- NOTE | 2017-08-16 10:51 | PDOC.PN ---
- Subjective Encounter Start Date: 08/16/17 Encounter Start Time: 08:35 Patient seen and examined. No new complaints. No overnight events - Objective Resuscitation Status: Resuscitation Status FULL:Full Resuscitation MAR Reviewed: Yes Vital Signs & Weight: Vital Signs (12 hours) Temp Pulse Resp BP Pulse Ox 08/16/17 08:14 98.0 F 95 16 108/71 93 L 08/16/17 08:00 98.0 F 95 16 08/16/17 07:00 75 16 08/16/17 04:00 97.9 F 75 20 141/76 H 93 L 08/16/17 00:00 97.7 F 92 18 116/72 92 L 08/15/17 23:41 78 16 95 Weight Weight 121 lb 6.4 oz I&O: 08/15/17 08/16/17 08/17/17 06:59 06:59 06:59 Intake Total 2260 1999 Output Total 3 Balance 2257 1999 Result Diagrams: 08/15/17 05:17 08/15/17 04:04 Phys Exam - Physical Examination Constitutional: NAD HEENT: PERRLA, moist MMs, sclera anicteric Neck: no JVD, supple Respiratory: no wheezing, no rhonchi right base rales, 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 Cardiovascular: RRR, no significant murmur, no rub Gastrointestinal: soft, non-tender, no distention, positive bowel sounds Musculoskeletal: no edema, pulses present Neurological: moves all 4 limbs Psychiatric: normal affect, A&O x 3 Skin: no rash, normal turgor Dx/Plan (1) Acute diarrhea Code(s): R19.7 - DIARRHEA, UNSPECIFIED Status: Resolved (2) Hypotension Status: Resolved (3) Sepsis Code(s): A41.9 - SEPSIS, UNSPECIFIED ORGANISM Status: Acute Qualifiers: Comment: (4) UTI (urinary tract infection) Status: Acute (5) Anxiety and depression Code(s): F41.8 - OTHER SPECIFIED ANXIETY DISORDERS Status: Chronic (6) Chronic low back pain Code(s): M54.5 - LOW BACK PAIN; G89.29 - OTHER CHRONIC PAIN Status: Chronic Comment: Resume home Gabapentin and MS contin (7) Dyslipidemia Code(s): E78.5 - HYPERLIPIDEMIA, UNSPECIFIED Status: Chronic (8) GERD (gastroesophageal reflux disease) Code(s): K21.9 - GASTRO-ESOPHAGEAL REFLUX DISEASE WITHOUT ESOPHAGITIS Status: Chronic (9) HTN (hypertension) Code(s): I10 - ESSENTIAL (PRIMARY) HYPERTENSION Status: Chronic (10) History of pulmonary embolism Code(s): Z86.711 - PERSONAL HISTORY OF PULMONARY EMBOLISM Status: Chronic (11) Lupus (systemic lupus erythematosus) Code(s): M32.9 - SYSTEMIC LUPUS ERYTHEMATOSUS, UNSPECIFIED Status: Chronic (12) Migraine Code(s): G43.909 - MIGRAINE, UNSP, NOT INTRACTABLE, WITHOUT STATUS MIGRAINOSUS Status: Chronic (13) Multiple sclerosis Code(s): G35 - MULTIPLE SCLEROSIS Status: Chronic (14) Physical deconditioning Code(s): R53.81 - OTHER MALAISE Status: Chronic (15) Protein-calorie malnutrition, moderate Code(s): E44.0 - MODERATE PROTEIN-CALORIE MALNUTRITION Status: Chronic (16) Healthcare associated bacterial pneumonia Code(s): J15.9 - UNSPECIFIED BACTERIAL PNEUMONIA Status: Acute (17) Pulmonary hypertension Code(s): I27.20 - PULMONARY HYPERTENSION, UNSPECIFIED Status: Chronic - Plan cont current plan of care, continue antibiotics, psychotherapist social worker * DC IVF today * monitor for low BP today * continue Zyvox * medication reviewed as below * symptomatic treatment * expecting discharge tomorrow * will consult urology for recurrent UTI. Review of Systems - Review of Systems ENT: negative: Ear Pain, Ear Discharge, Nose Pain, Nose Discharge, Nose Congestion, Mouth Pain, Mouth Swelling, Throat Pain, Throat Swelling, Other Respiratory: negative: Cough, Dry, Shortness of Breath, Hemoptysis, SOB with Excertion, Pleuritic Pain, Sputum, Wheezing Cardiovascular: negative: Chest Pain, Palpitations, Orthopnea, Paroxysmal Noc. Dyspnea, Edema, Light Headedness, Other Gastrointestinal: negative: Nausea, Vomiting, Abdominal Pain, Diarrhea, Constipation, Melena, Hematochezia, Other Genitourinary: negative: Dysuria, Frequency, Incontinence, Hematuria, Retention , Other Musculoskeletal: negative: Neck Pain, Shoulder Pain, Arm Pain, Back Pain, Hand Pain, Leg Pain, Foot Pain, Other Skin: negative: Rash, Lesions, Aníbal, Bruising, Other - Medications/Allergies Allergies/Adverse Reactions: Allergies Allergy/AdvReac Type Severity Reaction Status Date / Time Penicillins Allergy Intermediate Verified 08/07/17 04:41 fentanyl Allergy Verified 08/07/17 04:41 methadone HCl Allergy Verified 08/07/17 04:41 [From [facility]] Medications: Current Medications Acetaminophen (Tylenol) 650 mg PO Q4H PRN PRN Reason: Headache/Fever or Pain Hydrocodone Bitart/Acetaminophen ([place] 5/325) 1 tab PO Q4H PRN PRN Reason: Moderate Pain (4-6) Al Hydroxide/Mg Hydroxide (Maalox) 30 ml PO Q6H PRN PRN Reason: Heartburn or Indigestion Albuterol/Ipratropium (Duoneb) 3 ml NEB [id number] Last Admin: 08/16/17 07:00 Dose: 3 ml Artificial Tears (Tears Naturale) 0 drop EA EYE PRN PRN PRN Reason: Dry Eyes Colestipol HCl (Colestid) 1 gm PO BID@1000,2200 [facility] Last Admin: 08/15/17 20:04 Dose: 1 gm Dicyclomine HCl (Bentyl) 20 mg PO QID PRN PRN Reason: GI Cramping Diphenoxylate HCl/Atropine (Lomotil) 1 tab PO QIDPRN PRN PRN Reason: Diarrhea/Loose Stools Enoxaparin Sodium (Lovenox) 40 mg SC 0900 [facility] Last Admin: 08/16/17 08:20 Dose: 40 mg Estrogens Conjugated (Premarin) 0.625 mg PO DAILY [facility] Last Admin: 08/16/17 08:19 Dose: 0.625 mg Famotidine (Pepcid) 20 mg PO BID [facility] Last Admin: 08/16/17 08:18 Dose: 20 mg Fenofibrate (Tricor) 145 mg PO DAILY [facility] Last Admin: 08/16/17 08:19 Dose: 145 mg Fluticasone Propionate (Flonase Nasal [place]) 0 gm NASAL DAILY [facility] Last Admin: 08/16/17 08:20 Dose: 2 spr Gabapentin (Neurontin) 800 mg PO QID [facility] Last Admin: 08/16/17 08:18 Dose: 800 mg Guaifenesin (Robitussin Sf) 200 mg PO Q4H PRN PRN Reason: Cough Guaifenesin (Mucinex) 600 mg PO Q12HR [facility] Last Admin: 08/16/17 08:19 Dose: 600 mg Iron/Minerals/Multivitamins (Theragran M) 1 tab PO DAILY [facility] Last Admin: 08/16/17 08:19 Dose: 1 tab Linezolid (Zyvox) 600 mg PO Q12HR [facility] Last Admin: 08/16/17 08:19 Dose: 600 mg Loratadine (Claritin) 10 mg PO DAILYPRN PRN PRN Reason: Sinus Symptoms Mineral Oil/White Petrolatum (Eucerin Cream) 0 gm TOP BIDPRN PRN PRN Reason: Dry Skin Morphine Sulfate (Ms Contin) 60 mg PO Q12HR [facility] Last Admin: 08/16/17 09:01 Dose: 60 mg Nystatin (Mycostatin Powder) 0 gm TOP BID PRN PRN Reason: Topical Irritations Ondansetron HCl (Zofran Odt) 4 mg PO Q6H PRN PRN Reason: Nausea/Vomiting Ondansetron HCl (Zofran) 4 mg IVP Q6H PRN PRN Reason: Nausea/Vomiting Phenol (Chloraseptic [place] 180 Ml Bot) 0 ml PO PRN PRN PRN Reason: Sore Throat Pravastatin Sodium (Pravachol) 80 mg PO [facility] Last Admin: 08/15/17 20:04 Dose: 80 mg Prednisone (Prednisone) 10 mg PO QA-[facility] Last Admin: 08/16/17 08:19 Dose: 10 mg Saccharomyces Boulardii (Florastor) 250 mg PO DAILY [facility] Last Admin: 08/16/17 08:19 Dose: 250 mg Sertraline HCl (Zoloft) 50 mg PO DAILY [facility] Last Admin: 08/16/17 08:19 Dose: 50 mg Sodium Chloride ([place] Nasal [place] 0.65%) 0 ml EA NARE QIDPRN PRN PRN Reason: Nasal Congestion Sodium Chloride (Flush - Normal Saline) 10 ml IVF Q12HR [facility] Last Admin: 08/16/17 08:21 Dose: 10 ml Sodium Chloride (Flush - Normal Saline) 10 ml IVF PRN PRN PRN Reason: Saline Flush Zolpidem Tartrate (Ambien) 5 mg PO HSPRN PRN PRN Reason: Insomnia
[2017-08-16] MEDS ORDERED: Lidocaine 5% Patch TD SCH (12:00)
[2017-08-16] MEDS ORDERED: Nystatin 100,000 Units/mL UDCUP SSW SCH (13:00)
[2017-08-16] MEDS: Nystatin 500,000 UNITS/5 ML UDCUP PO SCH ×3 (13:07→20:32)
--- NOTE | 2017-08-16 18:16 | PRG ---
DATE OF SERVICE: 08/16/2017 SUBJECTIVE: She is feeling much better. No diarrhea, no respiratory symptoms or abdominal pain. St ill voiding very frequently and most likely due to her urinary retention. OBJECTIVE: VITAL SIGNS: Normal. GENERAL: Awake, alert, oriented, in no distress. LUNGS: Clear. HEART: S1, S2, regular rate. ABDOMEN: Soft, question of bladder distention. LABORATORY: White cell count has not been repeated and no changes in the microbiology data. ASSESSMENT AND DISCUSSION: Multiple sclerosis with urinary retention and recurring episodes of invas sanam urinary tract infection due to the urinary retention despite the absence of pyuria. The patient has had clearcut and improvement following initiation of antimicrobial therapy. At this point, would recommend in and out catheterization at least 4 times a day to decrease the postvoid residuals and i n that way reduce the risk of recurrence of the symptoms that have led to her current recurring admis sions. The other option would be a suprapubic catheter, but I believe we should try to less invasive option first.
[2017-08-16] MEDS: Pravastatin Sodium 40 MG TAB PO SCH (20:31)
[2017-08-16] MEDS ORDERED: Lidocaine Patch Removal 1 EACH TOP SCH (23:59)
[2017-08-17] MEDS: Fluticasone Propionate Nasal Spray 16 gm Bottle NASAL SCH (07:53)
[2017-08-17] MEDS: Enoxaparin Sodium 40 MG/0.4 ML SYRINGE SC SCH (07:54)
[2017-08-17] MEDS: Nystatin 500,000 UNITS/5 ML UDCUP PO SCH ×4 (07:54→22:11)
[2017-08-17] MEDS: Saccharomyces boulardii 250 MG CAP PO SCH (07:56)
[2017-08-17] MEDS: predniSONE 5 MG TAB PO SCH (07:58)
[2017-08-17] MEDS: Famotidine 20 MG TAB PO SCH ×2 (07:58→22:10)
[2017-08-17] MEDS: Fenofibrate Nanocrystallized 145 MG TAB PO SCH (07:58)
[2017-08-17] MEDS: guaiFENesin ER 600 MG TAB PO SCH ×2 (07:59→22:09)
[2017-08-17] MEDS: Gabapentin 400 MG CAP PO SCH ×4 (08:01→22:10)
[2017-08-17] MEDS: Multivitamin W/ Minerals 1 TAB PO SCH (08:02)
[2017-08-17] MEDS: Lidocaine 5% Patch TD SCH (12:05)
[2017-08-17] MEDS: Linezolid 600 MG TAB PO SCH ×2 (12:07→22:10)
--- NOTE | 2017-08-17 12:45 | PDOC.PN ---
- Subjective Encounter Start Date: 08/17/17 Encounter Start Time: 08:15 Patient seen and examined. No new complaints. No overnight events - Objective Resuscitation Status: Resuscitation Status FULL:Full Resuscitation MAR Reviewed: Yes Vital Signs & Weight: Vital Signs (12 hours) Temp Pulse Resp BP Pulse Ox 08/17/17 12:29 97.2 F L 70 18 124/76 90 L 08/17/17 08:00 98.1 F 78 16 123/73 94 L 08/17/17 06:33 80 16 92 L Weight Weight 121 lb 6.4 oz I&O: 08/16/17 08/17/17 08/18/17 06:59 06:59 06:59 Intake Total 1999 1450 Output Total 3 Balance 1999 1447 Result Diagrams: 08/15/17 05:17 08/15/17 04:04 Phys Exam - Physical Examination Constitutional: NAD HEENT: PERRLA, moist MMs, sclera anicteric Neck: no JVD, supple Respiratory: no wheezing, no rhonchi right base rales Cardiovascular: RRR, no significant murmur, no rub Gastrointestinal: soft, non-tender, no distention, positive bowel sounds Musculoskeletal: no edema, pulses present Neurological: moves all 4 limbs Lymphatic: no nodes Psychiatric: normal affect Skin: no rash, normal turgor Dx/Plan (1) Acute diarrhea Code(s): R19.7 - DIARRHEA, UNSPECIFIED Status: Resolved (2) Hypotension Status: Resolved (3) Sepsis Code(s): A41.9 - SEPSIS, UNSPECIFIED ORGANISM Status: Acute Qualifiers: Comment: (4) UTI (urinary tract infection) Status: Acute (5) Anxiety and depression Code(s): F41.8 - OTHER SPECIFIED ANXIETY DISORDERS Status: Chronic (6) Chronic low back pain Code(s): M54.5 - LOW BACK PAIN; G89.29 - OTHER CHRONIC PAIN Status: Chronic Comment: Resume home Gabapentin and MS contin (7) Dyslipidemia Code(s): E78.5 - HYPERLIPIDEMIA, UNSPECIFIED Status: Chronic (8) GERD (gastroesophageal reflux disease) Code(s): K21.9 - GASTRO-ESOPHAGEAL REFLUX DISEASE WITHOUT ESOPHAGITIS Status: Chronic (9) HTN (hypertension) Code(s): I10 - ESSENTIAL (PRIMARY) HYPERTENSION Status: Chronic (10) History of pulmonary embolism Code(s): Z86.711 - PERSONAL HISTORY OF PULMONARY EMBOLISM Status: Chronic (11) Lupus (systemic lupus erythematosus) Code(s): M32.9 - SYSTEMIC LUPUS ERYTHEMATOSUS, UNSPECIFIED Status: Chronic (12) Migraine Code(s): G43.909 - MIGRAINE, UNSP, NOT INTRACTABLE, WITHOUT STATUS MIGRAINOSUS Status: Chronic (13) Multiple sclerosis Code(s): G35 - MULTIPLE SCLEROSIS Status: Chronic (14) Physical deconditioning Code(s): R53.81 - OTHER MALAISE Status: Chronic (15) Protein-calorie malnutrition, moderate Code(s): E44.0 - MODERATE PROTEIN-CALORIE MALNUTRITION Status: Chronic (16) Healthcare associated bacterial pneumonia Code(s): J15.9 - UNSPECIFIED BACTERIAL PNEUMONIA Status: Acute (17) Pulmonary hypertension Code(s): I27.20 - PULMONARY HYPERTENSION, UNSPECIFIED Status: Chronic - Plan cont current plan of care, plan discussed w/ family, continue antibiotics, PT/OT , psych social worker * pt and pt's daughter was concerend about recurrent UTI and both expressed interest in suprapubic catheter and urology evaluation before discharge * as per ID atleast she will need In and out catheter at [facility] if no suprapubic * continue zyvox as per ID * will consult urology today * medication reviewed as below * symptomatic treatment * discussed at length with daughter and pt * medically stable. Review of Systems - Review of Systems Constitutional: Weakness. negative: Fever, Chills, Sweats, Malaise, Other ENT: negative: Ear Pain, Ear Discharge, Nose Pain, Nose Discharge, Nose Congestion, Mouth Pain, Mouth Swelling, Throat Pain, Throat Swelling, Other Respiratory: Cough. negative: Dry, Shortness of Breath, Hemoptysis, SOB with Excertion, Pleuritic Pain, Sputum, Wheezing Cardiovascular: negative: Chest Pain, Palpitations, Orthopnea, Paroxysmal Noc. Dyspnea, Edema, Light Headedness, Other Gastrointestinal: negative: Nausea, Vomiting, Abdominal Pain, Diarrhea, Constipation, Melena, Hematochezia, Other Genitourinary: negative: Dysuria, Frequency, Incontinence, Hematuria, Retention , Other Musculoskeletal: negative: Neck Pain, Shoulder Pain, Arm Pain, Back Pain, Hand Pain, Leg Pain, Foot Pain, Other Skin: negative: Rash, Lesions, Aníbal, Bruising, Other - Medications/Allergies Allergies/Adverse Reactions: Allergies Allergy/AdvReac Type Severity Reaction Status Date / Time Penicillins Allergy Intermediate Verified 08/07/17 04:41 fentanyl Allergy Verified 08/07/17 04:41 methadone HCl Allergy Verified 08/07/17 04:41 [From [facility]] Medications: Current Medications Acetaminophen (Tylenol) 650 mg PO Q4H PRN PRN Reason: Headache/Fever or Pain Hydrocodone Bitart/Acetaminophen ([place] 5/325) 1 tab PO Q4H PRN PRN Reason: Moderate Pain (4-6) Al Hydroxide/Mg Hydroxide (Maalox) 30 ml PO Q6H PRN PRN Reason: Heartburn or Indigestion Albuterol/Ipratropium (Duoneb) 3 ml NEB [id number] [facility] Last Admin: 08/17/17 06:33 Dose: 3 ml Artificial Tears (Tears Naturale) 0 drop EA EYE PRN PRN PRN Reason: Dry Eyes Colestipol HCl (Colestid) 1 gm PO BID@1000,2200 [facility] Last Admin: 08/17/17 07:55 Dose: 1 gm Dicyclomine HCl (Bentyl) 20 mg PO QID PRN PRN Reason: GI Cramping Diphenoxylate HCl/Atropine (Lomotil) 1 tab PO QIDPRN PRN PRN Reason: Diarrhea/Loose Stools Enoxaparin Sodium (Lovenox) [address] [facility] Last Admin: 08/17/17 07:54 Dose: 40 mg Estrogens Conjugated (Premarin) 0.[address] [facility] Last Admin: 08/17/17 07:54 Dose: 0.625 mg Famotidine (Pepcid) [address] [facility] Last Admin: 08/17/17 07:58 Dose: 20 mg Fenofibrate (Tricor) [address] [facility] Last Admin: 08/17/17 07:58 Dose: 145 mg Fluticasone Propionate (Flonase Nasal [place]) [address] [facility] Last Admin: 08/17/17 07:53 Dose: 2 spr Gabapentin (Neurontin) [address] [facility] Last Admin: 08/17/17 12:06 Dose: 800 mg Guaifenesin (Robitussin Sf) 200 mg PO Q4H PRN PRN Reason: Cough Guaifenesin (Mucinex) [address] [facility] Last Admin: 08/17/17 07:59 Dose: 600 mg Iron/Minerals/Multivitamins (Theragran M) [address] [facility] Last Admin: 08/17/17 08:02 Dose: 1 tab Lidocaine (Lidoderm 5% Patch) [address] [facility] Last Admin: 08/17/17 12:05 Dose: 1 patch Linezolid (Zyvox) [address] [facility] Last Admin: 08/17/17 12:07 Dose: 600 mg Loratadine (Claritin) 10 mg PO DAILYPRN PRN PRN Reason: Sinus Symptoms Mineral Oil/White Petrolatum (Eucerin Cream) 0 gm TOP BIDPRN PRN PRN Reason: Dry Skin Miscellaneous Medication (Lidocaine Patch Removal) [address] [facility] Morphine Sulfate (Ms Contin) [address] [facility] Last Admin: 08/17/17 10:49 Dose: 60 mg Nystatin (Mycostatin Powder) 0 gm TOP BID PRN PRN Reason: Topical Irritations Nystatin (Mycostatin) 500,[address] [facility] Last Admin: 08/17/17 12:06 Dose: 500,000 units Ondansetron HCl (Zofran Odt) 4 mg PO Q6H PRN PRN Reason: Nausea/Vomiting Last Admin: 08/16/17 13:44 Dose: 4 mg Ondansetron HCl (Zofran) 4 mg IVP Q6H PRN PRN Reason: Nausea/Vomiting Phenol (Chloraseptic [place] 180 Ml Bot) 0 ml PO PRN PRN PRN Reason: Sore Throat Pravastatin Sodium (Pravachol) 80 mg PO [facility] Last Admin: 08/16/17 20:31 Dose: 80 mg Prednisone (Prednisone) 10 mg PO QAM-[facility] Last Admin: 08/17/17 07:58 Dose: 10 mg Saccharomyces Boulardii (Florastor) [address] [facility] Last Admin: 08/17/17 07:56 Dose: 250 mg Sertraline HCl (Zoloft) [address] [facility] Last Admin: 08/17/17 07:56 Dose: 50 mg Sodium Chloride ([place] Nasal [place] 0.65%) 0 ml EA NARE QIDPRN PRN PRN Reason: Nasal Congestion Sodium Chloride (Flush - Normal Saline) [address] [facility] Last Admin: 08/17/17 07:55 Dose: 10 ml Sodium Chloride (Flush - Normal Saline) 10 ml IVF PRN PRN PRN Reason: Saline Flush Zolpidem Tartrate (Ambien) 5 mg PO HSPRN PRN PRN Reason: Insomnia
--- NOTE | 2017-08-17 15:09 | PRG ---
DATE OF SERVICE: 08/17/2017 SUBJECTIVE: She is better. She is weak. OBJECTIVE: VITAL SIGNS: Temperature is 97, pulse 78, sat 92%, and blood pressure 123/73. CHEST: Decreased breath sounds, no wheezing. CARDIAC: Normal S1 and S2. No gallops. ABDOMEN: Soft. No masses. Urine shows vancomycin-resistant Enterococcus. ASSESSMENT: 1. Urinary tract infection, on Zyvox. 2. Severe deconditioning. 3. History of deep venous thrombosis. 4. Pulmonary embolism, filter placed. 5. Chronic fibrotic changes. PLAN: 1. She can be discharged back to the [facility] on oral antibiotics. 2. Low dose prednisone.
[2017-08-17] MEDS: Pravastatin Sodium 40 MG TAB PO SCH (22:10)
[2017-08-17] MEDS: Lidocaine Patch Removal 1 EACH TOP SCH ×2 (22:12→22:23)
--- NOTE | 2017-08-18 01:00 | CON ---
DATE OF CONSULTATION: 08/17/2017 REASONS FOR CONSULTATION: 1. Urinary retention and incomplete bladder emptying. 2. Recurrent urinary tract infection. 3. Possible desire for suprapubic tube. HISTORY OF PRESENT ILLNESS: Ms. Domi Ramos is a pleasant 82-year-old white female who [facility]. She has a presentation on this admission for sepsis and hypertension. She has a pas t history of multiple sclerosis and has had a recent hospitalization here at the [facility]. The patient's urine grew VRE on her last hospitalization here on 08/06/2017. The pat ient was originally to be performing intermittent catheterization due to incomplete bladder emptying in the past. The patient reports that she was not performing intermittent catheterization at her [facility] home. She was not having this performed either. The patient described a procedure of a suprapubic tube, which she self reports that she previously kapadia d many years ago. She is interested in having a suprapubic tube placed. ALLERGIES: Include FENTANYL, METHADONE and PENICILLIN. HOME MEDICATIONS: Include; 1. Colestid 1 gram b.i.d. 2. Cranberry 400 mg p.o. b.i.d. 3. Diclofenac topical gel q.i.d. 4. Bentyl 20 mg q.i.d. 5. Lomotil 1 capsule q.i.d. p.r.n. 6. Premarin 0.625 mg p.o. q. day. 7. TriCor 145 mg p.o. q. day. 8. Berta 180 mg p.o. daily. 9. Flonase spray use daily. 10. Gabapentin 800 mg q.i.d. 11. [place] 5/325 one 1 or 2 tablets q.6 hours p.r.n. pain. 12. DuoNebs 1 q.6 hours p.r.n. 13. Xylocaine application as required. 14. Lidoderm patch topically b.i.d. p.r.n. 15. MS Contin 60 mg p.o. b.i.d. 16. Multivitamin tablet taken daily. 17. Mycostatin suspension. 18. Oxybutynin 5 mg p.o. b.i.d. 19. Potassium chloride 20 mEq p.o. b.i.d. 20. Pravastatin 80 mg p.o. at bedtime. 21. Prednisone 10 mg p.o. q. day. 22. Florastor 250 mg p.o. b.i.d. 23. Zoloft 50 mg p.o. q. day. 24. Imitrex 100 mg twice daily. PAST MEDICAL HISTORY: 1. ESBL positive E. coli. 2. VRE UTI. 3. History of C. diff colitis. 4. Recurrent urinary tract infection. 5. Multiple sclerosis. 6. History of pulmonary embolism with IVC filter. 7. Chronic pain disorder. 8. Chronic physical deconditioning. 9. Dyslipidemia. 10. Migraine headache. 11. Recurrent diarrhea. PAST SURGICAL HISTORY: The patient had menopause at age 38 and underwent hysterectomy. She has an I VC filter, had a previous tonsillectomy, a spinal stimulator and an open cholecystectomy. PAST PSYCHIATRIC HISTORY: Anxiety and depression as well as a chronic pain syndrome. SOCIAL HISTORY: The patient resides in [facility]. She does not report tobacco, alcohol or dr ug abuse. She was ambulatory with a walker prior to hospital admission. REVIEW OF SYSTEMS: Constitutional: No complaints of weight loss or weight gain. Skin: No complain ts. Eyes: No current complaints. Head, Ears, Nose and Throat: Negative. Cardiovascular: The pat ient reports some dyspnea with exertion as well as orthopnea. Respiratory: The patient reports some shortness of breath, wheezing and cough. Gastrointestinal: She reports decreased appetite. Does n ot report current abdominal pain. No complaints currently of constipation or diarrhea. Genitourinar y: The patient reports she has had recent urgency and frequency as well as dysuria. Does not report performing intermittent catheterization as previously recommended. Musculoskeletal: Positive for c hronic pain and swelling. Review of systems is otherwise negative. PHYSICAL EXAMINATION: VITAL SIGNS: Temperature is 98.0, pulse 97, respirations 16, O2 saturations 98% on room air and bloo d pressure is 97/66. GENERAL: This is a pleasant, awake and alert, white female in no apparent distress. She does have s ome difficulty recalling details of her history. HEENT: Extraocular movements are intact. Sclerae are anicteric. Oropharynx is clear. NECK: Supple. LUNGS: Clear to auscultation bilaterally. CARDIAC: Regular rate and rhythm without murmur, rub or gallop. ABDOMEN: Soft, obese and nontender. There is a right-sided subcostal surgical incisional scar, charo h is well-healed, consistent with the patient's known history of previous cholecystectomy performed i n an open manner. There is a right lower abdomen apparent access 0.4 a pain pump. PELVIC: Examination was performed and finds a large amount of powder and diaper material adherent to the patient's labia minora and majora. Pelvic examination finds a low estrogen type changes present . The urethra was beefy red with periurethral pallor. RECTAL: Digital rectal examination was not performed. EXTREMITIES: No current clubbing, cyanosis or edema. There are minimal arthritic changes to the pat ient's joints of her fingers. LABORATORY STUDIES: The patient's white [place] on admission was 72[address] down to 6700 on 08/15/2017, a b andemia has apparently resolved. Serum chemistry showed the patient's blood urea nitrogen at 5 with a creatinine of 0.52. Estimated glomerular infiltration, right greater than 90%. Microbiological evaluation shows the patient's urine culture on 08/13/2017, grew vancomycin resistant Enterococcus. C. diff toxin panel was negative on 08/14/2017. The patient's VRE culture was sensitive only to LINEZOLID, QUINUPRISTIN and DALFOPRISTIN as well as h igh level STREPTOMYCIN. ASSESSMENT AND PLAN: 1. Intermittent catheterization. The patient is either not performing this at home where it is not be performed by his [facility] and due to this, patient apparently has some degree of retention and incomplete bladder emptying. She has been on a large number of muscle relaxing medications as well as bladder spasm medications, which are not helpful as for her adequate bladder emptying. The questi on of this patient should be what is the cause of her incomplete bladder emptying. This could be sec ondary to outlet obstruction or neurologic difficulties with her bladder. I would not necessarily tr uck this up to multiple sclerosis without a formal evaluation. 2. Low estrogen status. The patient on oral estrogen at home and I would recommend continuing that. Patient may also benefit from topical Premarin cream applied to the urethra on a daily basis. 3. Perineal hygiene. The patient has a relatively poor perineal hygiene at the present time, would not recommend washing this patient aggressively with soap as the recurrent soiling is really signific ant in the perineal area and I would agree that catheterization at this point is probably not going t o result in complete resolution of the patient's difficulties. 4. Possible desire for suprapubic tube placement. This patient has undergone previous abdominal zarina mc including hysterectomy and a cholecystectomy. This patient should undergo suprapubic tube place ment in a controlled setting such as in office with ultrasound guidance. The patient may follow up i n my office at [facility] for cystoscopic assessment and ultrasound-guided suprapubic tub e placement. 5. Recurrent urinary tract infection. This is likely due to the combination of low estrogen status and incomplete bladder emptying. At the present time, the exact causes of her outlet obstruction or incomplete bladder emptying are not wholly clear, although there are many candidates including multip le sclerosis, chronic pain medication use and bladder spasm medication use. I would recommend discon tinuing as much pain medicine as this is possible in this patient discontinuing the bladder spasm med ication and having her undergo cystoscopic assessment for possible urethral stricture as outlet obstr uction.
[2017-08-18 08:23] VITALS: BP 113/60; TEMP 97.6
[2017-08-18] MEDS: Fluticasone Propionate Nasal Spray 16 gm Bottle NASAL SCH (09:41)
[2017-08-18] MEDS: Gabapentin 400 MG CAP PO SCH (09:43)
[2017-08-18] MEDS: Saccharomyces boulardii 250 MG CAP PO SCH (09:43)
[2017-08-18] MEDS: Fenofibrate Nanocrystallized 145 MG TAB PO SCH (09:43)
[2017-08-18] MEDS: Linezolid 600 MG TAB PO SCH (09:44)
[2017-08-18] MEDS: Multivitamin W/ Minerals 1 TAB PO SCH (09:44)
[2017-08-18] MEDS: Famotidine 20 MG TAB PO SCH (09:44)
[2017-08-18] MEDS: predniSONE 5 MG TAB PO SCH (09:45)
[2017-08-18] MEDS: guaiFENesin ER 600 MG TAB PO SCH (09:45)
[2017-08-18] MEDS: Enoxaparin Sodium 40 MG/0.4 ML SYRINGE SC SCH (09:45)
[2017-08-18] MEDS: Lidocaine 5% Patch TD SCH (09:46)
--- NOTE | 2017-08-18 10:26 | PDOC.PN ---
- Subjective Encounter Start Date: 08/18/17 Encounter Start Time: 08:30 Patient seen and examined. No new complaints. No overnight events - Objective Resuscitation Status: Resuscitation Status FULL:Full Resuscitation MAR Reviewed: Yes Vital Signs & Weight: Vital Signs (12 hours) Temp Pulse Resp BP Pulse Ox 08/18/17 08:00 97.6 F 70 16 113/60 97 08/18/17 06:39 94 16 98 Weight Weight 121 lb 6.4 oz I&O: 08/17/17 08/18/17 08/19/17 06:59 06:59 06:59 Intake Total 1450 1380 Output Total 3 Balance 1447 1380 Result Diagrams: 08/15/17 05:17 08/15/17 04:04 Phys Exam - Physical Examination Constitutional: NAD HEENT: PERRLA, moist MMs, sclera anicteric Neck: no JVD, supple Respiratory: no wheezing, no rhonchi basilar rales Cardiovascular: RRR, no significant murmur, no rub Gastrointestinal: soft, non-tender, no distention, positive bowel sounds Musculoskeletal: no edema, pulses present Neurological: moves all 4 limbs Psychiatric: normal affect Skin: no rash, normal turgor Dx/Plan (1) Acute diarrhea Code(s): R19.7 - DIARRHEA, UNSPECIFIED Status: Resolved (2) Hypotension Status: Resolved (3) Sepsis Code(s): A41.9 - SEPSIS, UNSPECIFIED ORGANISM Status: Acute Qualifiers: Comment: (4) UTI (urinary tract infection) Status: Acute (5) Anxiety and depression Code(s): F41.8 - OTHER SPECIFIED ANXIETY DISORDERS Status: Chronic (6) Chronic low back pain Code(s): M54.5 - LOW BACK PAIN; G89.29 - OTHER CHRONIC PAIN Status: Chronic Comment: Resume home Gabapentin and MS contin (7) Dyslipidemia Code(s): E78.5 - HYPERLIPIDEMIA, UNSPECIFIED Status: Chronic (8) GERD (gastroesophageal reflux disease) Code(s): K21.9 - GASTRO-ESOPHAGEAL REFLUX DISEASE WITHOUT ESOPHAGITIS Status: Chronic (9) HTN (hypertension) Code(s): I10 - ESSENTIAL (PRIMARY) HYPERTENSION Status: Chronic (10) History of pulmonary embolism Code(s): Z86.711 - PERSONAL HISTORY OF PULMONARY EMBOLISM Status: Chronic (11) Lupus (systemic lupus erythematosus) Code(s): M32.9 - SYSTEMIC LUPUS ERYTHEMATOSUS, UNSPECIFIED Status: Chronic (12) Migraine Code(s): G43.909 - MIGRAINE, UNSP, NOT INTRACTABLE, WITHOUT STATUS MIGRAINOSUS Status: Chronic (13) Multiple sclerosis Code(s): G35 - MULTIPLE SCLEROSIS Status: Chronic (14) Physical deconditioning Code(s): R53.81 - OTHER MALAISE Status: Chronic (15) Protein-calorie malnutrition, moderate Code(s): E44.0 - MODERATE PROTEIN-CALORIE MALNUTRITION Status: Chronic (16) Healthcare associated bacterial pneumonia Code(s): J15.9 - UNSPECIFIED BACTERIAL PNEUMONIA Status: Acute (17) Pulmonary hypertension Code(s): I27.20 - PULMONARY HYPERTENSION, UNSPECIFIED Status: Chronic - Plan cont current plan of care, continue antibiotics, social services designee * continue In and out cath 4 times per day * outpt suprapubic catheter placement. * medication reviewed as below * symptomatic treatment Review of Systems - Review of Systems ENT: negative: Ear Pain, Ear Discharge, Nose Pain, Nose Discharge, Nose Congestion, Mouth Pain, Mouth Swelling, Throat Pain, Throat Swelling, Other Respiratory: negative: Cough, Dry, Shortness of Breath, Hemoptysis, SOB with Excertion, Pleuritic Pain, Sputum, Wheezing Cardiovascular: negative: Chest Pain, Palpitations, Orthopnea, Paroxysmal Noc. Dyspnea, Edema, Light Headedness, Other Gastrointestinal: negative: Nausea, Vomiting, Abdominal Pain, Diarrhea, Constipation, Melena, Hematochezia, Other Genitourinary: negative: Dysuria, Frequency, Incontinence, Hematuria, Retention , Other Musculoskeletal: negative: Neck Pain, Shoulder Pain, Arm Pain, Back Pain, Hand Pain, Leg Pain, Foot Pain, Other Skin: negative: Rash, Lesions, Aníbal, Bruising, Other - Medications/Allergies Allergies/Adverse Reactions: Allergies Allergy/AdvReac Type Severity Reaction Status Date / Time Penicillins Allergy Intermediate Verified 08/07/17 04:41 fentanyl Allergy Verified 08/07/17 04:41 methadone HCl Allergy Verified 08/07/17 04:41 [From Methadose] Medications: Current Medications Acetaminophen (Tylenol) 650 mg PO Q4H PRN PRN Reason: Headache/Fever or Pain Hydrocodone Bitart/Acetaminophen ([place] 5/325) 1 tab PO Q4H PRN PRN Reason: Moderate Pain (4-6) Al Hydroxide/Mg Hydroxide (Maalox) 30 ml PO Q6H PRN PRN Reason: Heartburn or Indigestion Albuterol/Ipratropium (Duoneb) 3 ml NEB [id number] [facility] Last Admin: 08/18/17 06:39 Dose: 3 ml Artificial Tears (Tears Naturale) 0 drop EA EYE PRN PRN PRN Reason: Dry Eyes Colestipol HCl (Colestid) 1 gm PO BID@1000,2200 [facility] Last Admin: 08/18/17 09:44 Dose: 1 gm Dicyclomine HCl (Bentyl) 20 mg PO QID PRN PRN Reason: GI Cramping Diphenoxylate HCl/Atropine (Lomotil) 1 tab PO QIDPRN PRN PRN Reason: Diarrhea/Loose Stools Enoxaparin Sodium (Lovenox) 40 mg SC 0900 [facility] Last Admin: 08/18/17 09:45 Dose: 40 mg Estrogens Conjugated (Premarin) 0.625 mg PO DAILY [facility] Last Admin: 08/18/17 09:45 Dose: 0.625 mg Famotidine (Pepcid) 20 mg PO BID [facility] Last Admin: 08/18/17 09:44 Dose: 20 mg Fenofibrate (Tricor) 145 mg PO DAILY [facility] Last Admin: 08/18/17 09:43 Dose: 145 mg Fluticasone Propionate (Flonase Nasal [place]) 0 gm NASAL DAILY [facility] Last Admin: 08/18/17 09:41 Dose: 1 spr Gabapentin (Neurontin) 800 mg PO QID [facility] Last Admin: 08/18/17 09:43 Dose: 800 mg Guaifenesin (Robitussin Sf) 200 mg PO Q4H PRN PRN Reason: Cough Guaifenesin (Mucinex) 600 mg PO Q12HR [facility] Last Admin: 08/18/17 09:45 Dose: 600 mg Iron/Minerals/Multivitamins (Theragran M) 1 tab PO DAILY [facility] Last Admin: 08/18/17 09:44 Dose: 1 tab Lidocaine (Lidoderm 5% Patch) 1 patch TD DAILY [facility] Last Admin: 08/18/17 09:46 Dose: 1 patch Linezolid (Zyvox) 600 mg PO Q12HR [facility] Last Admin: 08/18/17 09:44 Dose: 600 mg Loratadine (Claritin) 10 mg PO DAILYPRN PRN PRN Reason: Sinus Symptoms Mineral Oil/White Petrolatum (Eucerin Cream) 0 gm TOP BIDPRN PRN PRN Reason: Dry Skin Miscellaneous Medication (Lidocaine Patch Removal) 1 each TOP 2100 [facility] Last Admin: 08/17/17 22:23 Dose: Not Given Morphine Sulfate (Ms Contin) 60 mg PO Q12HR [facility] Last Admin: 08/17/17 22:34 Dose: 60 mg Nystatin (Mycostatin Powder) 0 gm TOP BID PRN PRN Reason: Topical Irritations Last Admin: 08/18/17 09:41 Dose: 1 gm Nystatin (Mycostatin) 500,000 units PO QID [facility] Last Admin: 08/17/17 22:11 Dose: 500,000 units Ondansetron HCl (Zofran Odt) 4 mg PO Q6H PRN PRN Reason: Nausea/Vomiting Last Admin: 08/16/17 13:44 Dose: 4 mg Ondansetron HCl (Zofran) 4 mg IVP Q6H PRN PRN Reason: Nausea/Vomiting Phenol (Chloraseptic [place] 180 Ml Bot) 0 ml PO PRN PRN PRN Reason: Sore Throat Pravastatin Sodium (Pravachol) 80 mg PO HS [facility] Last Admin: 08/17/17 22:10 Dose: 80 mg Prednisone (Prednisone) 10 mg PO QAM-[facility] Last Admin: 08/18/17 09:45 Dose: 10 mg Saccharomyces Boulardii (Florastor) 250 mg PO DAILY [facility] Last Admin: 08/18/17 09:43 Dose: 250 mg Sertraline HCl (Zoloft) 50 mg PO DAILY [facility] Last Admin: 08/18/17 09:43 Dose: 50 mg Sodium Chloride ([place] Nasal [place] 0.65%) 0 ml EA NARE QIDPRN PRN PRN Reason: Nasal Congestion Sodium Chloride (Flush - Normal Saline) 10 ml IVF Q12HR [facility] Last Admin: 08/17/17 22:12 Dose: 10 ml Sodium Chloride (Flush - Normal Saline) 10 ml IVF PRN PRN PRN Reason: Saline Flush Zolpidem Tartrate (Ambien) 5 mg PO HSPRN PRN PRN Reason: Insomnia
[2017-08-18] MEDS: Nystatin 500,000 UNITS/5 ML UDCUP PO SCH (12:09)
--- NOTE | 2017-08-18 12:24 | DIS ---
PRIMARY CARE PHYSICIAN: Manjeet Pandey M.D. DATE OF ADMISSION: 08/13/2017 DATE OF DISCHARGE: 08/18/2017 DISCHARGE DISPOSITION: snf home. PRIMARY DISCHARGE DIAGNOSES: 1. Vancomycin-resistant enterococcal urinary tract infection. 2. Sepsis with hypotension. 3. Healthcare associated with bacterial pneumonia. 4. Recurrent diarrhea. SECONDARY DISCHARGE DIAGNOSES: Pulmonary hypertension, moderate; protein calorie malnutrition, chron ic physical deconditioning and multiple sclerosis, migraine headache, history of lupus, history of ch ronic interstitial lung disease, hypertension, history of pulmonary embolism, gastroesophageal reflux disease, dyslipidemia, chronic low back pain, anxiety, and depression, recurrent urinary tract infec tion. PRIMARY PROCEDURE/OPERATION: None. RADIOLOGICAL INVESTIGATION: Echocardiography showed pulmonary hypertension and normal EF. Chest x-r ay showed bibasilar infiltration more on the right side with a pleural effusion. Ultrasound was nega tive for any DVT. SIGNIFICANT LABS: WBC 6.7, hemoglobin 10.3, platelet 221. INR 1.1. Sodium 139, potassium 4.1, BUN 5, creatinine 0.52, calcium 8.1. Liver enzymes normal. Cortisol 14.70. Urinalysis suggestive of UT I. Urine culture grew VRE. Blood culture negative. Stool for infection workup came back negative. Influenza negative. DISCHARGE MEDICATIONS: Zyvox 600 mg twice daily for 10 days, Florastor 250 mg p.o. daily, Mucinex 60 0 mg twice daily. Continue following medications. Imitrex 100 mg twice daily p.r.n., Zoloft 50 mg p.o. daily, predniso ne 10 mg p.o. daily, pravastatin 80 mg p.o. at bedtime, potassium chloride 20 mEq p.o. b.i.d., oxybut ynin 5 mg p.o. b.i.d., Mycostatin oral suspension 5 mL q.i.d., multivitamin 1 tablet p.o. daily, MS C ontin 60 mg p.o. b.i.d., Lidoderm patch q.12 hourly p.r.n., DuoNeb q.6 hourly p.r.n., [place] 5 one or two tablets q.6 hourly p.r.n., Robitussin-DM 10 mL q.6 hourly p.r.n., gabapentin 800 mg p.o. q.i.d., Flonase nasal spray daily, Berta 180 mg p.o. daily p.r.n., Tricor 145 mg p.o. daily, Premarin 0.625 mg p.o. daily, Lomotil 1 capsule q.i.d. p.r.n., Bentyl 20 mg q.i.d. p.r.n., diclofenac topical appli cation q.i.d. p.r.n., cranberry 400 mg p.o. b.i.d., Colestid 1 gram p.o. b.i.d. CONTRAINDICATIONS: None. CODE STATUS: FULL CODE. INPATIENT CONSULTANTS: Dr. Buchanan was consulted while in hospital and he recommended to treat with Zy vox. Dr. Grissom and was following for healthcare associated pneumonia. Dr. Pedroza, urologist, [facility] consulted for recurrent UTI. TEST RESULTS PENDING ON DISCHARGE: None. ALLERGIES: PENICILLIN, FENTANYL, and METHADONE. DISCHARGE PLAN: Post hospital, the [facility] Subsequently , patient will follow up with Urology for outpatient basis of probably catheter evaluation. HOSPITAL COURSE: An 82-year-old female who has recently back and forth hospitalizations. She was re cently admitted in our hospital. At that time she was having diarrhea and urinary tract infection, b ut Dr. Buchanan recommended not to treat for urinary tract infection because we attributed to be due to colonization. She was discharged from hospital and she stayed in a half-way for 2or 3 days and she was having a gain diarrhea and hypotension. She was not feeling good and that is why [facility] Initially, the patient was having sepsis. She was having hypotension. Her urinalysis was consistent with UTI. Her chest x-ray was showing more infiltration in the right lower lobe. We suspected healt hcare associated bacterial pneumonia. She was admitted to [facility] and we treated her with IV fluid, meropenem, Zyvox and Dr. Grissom and sa w this patient. Next day with IV fluid, her blood pressure improved. She did not require any vasopr essor and we were able to transfer her to medical floor. We also consulted Dr. Buchanan for IV antibiotic therapy and this time because of invasive nature of UTI he decided to treat with Zyvox. Her urine culture grew VRE. As patient was having recurrent UTI and that is why family member was concerned about and that is why they wanted to see Urology, we consulted Urology and Urology recommended that this patient needs in and out catheterization for incomplete bladder emptying from urological issue. We recommended nursin g home to do at least 3-4 times in and out catheter. Patient and family member also interested in th e suprapubic catheter that can be done as an outpatient basis at urology office. Patient's blood pressure stabilized and she does not have anymore hypotension. She does not have any more diarrhea. We also ruled out infection etiology for diarrhea during this admission. We disconti nued Lasix therapy because of recurrent hypotension. The patient is seen and examined at bedside today. Please see my progress note from today for furthe r details. Paper work for discharge done. Discharge medication reconciliation done. Total time spent on discharge day 31 minutes.
== END 2017-08-18 12:37 | DRG 871 ==
LOC: ERS 11:31 → ERHOLD 14:36 → IMCU/EMU 17:38 → T4-A 08-14 11:22
PROVIDERS: ADMIT Emergency Medicine; ATTEND Emergency Medicine
DX: A41.9 Sepsis, unspecified organism (principal); J96.01 Acute respiratory failure with hypoxia; J90 Pleural effusion, not elsewhere classified; E44.0 Moderate protein-calorie malnutrition; J15.9 Unspecified bacterial pneumonia; J84.112 Idiopathic pulmonary fibrosis; M32.9 Systemic lupus erythematosus, unspecified; N39.0 Urinary tract infection, site not specified; I27.20 Pulmonary hypertension, unspecified; G35 Multiple sclerosis; G43.909 Migraine, unspecified, not intractable, without status migrainosus; E78.5 Hyperlipidemia, unspecified; K21.9 Gastro-esophageal reflux disease without esophagitis; J47.9 Bronchiectasis, uncomplicated; M54.5 Low back pain; G89.29 Other chronic pain; F32.9 Major depressive disorder, single episode, unspecified; F41.9 Anxiety disorder, unspecified; R33.9 Retention of urine, unspecified; R65.20 Severe sepsis without septic shock; R19.7 Diarrhea, unspecified; Z16.21 Resistance to vancomycin; Z68.20 Body mass index [BMI] 20.0-20.9, adult; Z86.718 Personal history of other venous thrombosis and embolism; Z86.711 Personal history of pulmonary embolism; Z88.0 Allergy status to penicillin; Z88.5 Allergy status to narcotic agent; Z82.49 Family history of ischemic heart disease and other diseases of the circulatory system
CPT/HCPCS: 36415; 51701; 71010; 80048; 80053; 81003; 81015; 82533; 83605; 83690; 83735; 83880; 85025; 85610; 87015; 87040; 87045; 87046; 87086; 87186; 87324; 87328; 87329; 87449; 87899; 93005; 93306; 93970; 94640; 94760; 96365; 96366; A4216; A4353; G8981-GP-CL; G8982-GP-CJ; G8987-GO-CK; G8988-GO-CJ; J1650; J1956; J2020; J2185; J3370; J7050; J7620; Q0162; S0028

== ENCOUNTER 2017-09-04 11:47 | Inpatient (IN) | payer MEDICARE, OTHER ==
[2017-09-04 12:33] LABS: Bilirubin Negative (Negative); Blood, Urine Small (Negative); Clarity CLOUDY (Clear); Glucose, Urine (Dipstick) Negative (Negative); Leukocyte Large (Negative); Nitrite Negative (Negative); Protein, Urine (Dipstick) 30 mg/dL (Neg-Trace); Specific Gravity, Urine 1.018 (1.002-1.036); Urobilinogen 0.2 mg/dL (0.2-1.0); pH, Urine 6.5 (5.0-9.0)
[2017-09-04 12:35] LABS: Bacteria/HPF 4+ HPF (None Seen); Hyaline Casts/LPF 4-6 HYALINE CAST LPF (0-3 Hyaline); Pathc Cast-AUWi Flag 1.08 (0-2.49); Squamous Epithelial 0-3 HPF (0-3)
[2017-09-04 12:47] LABS: Crystals/HPF 1+ CA OXALATE HPF (Negative)
[2017-09-04 12:53] LABS: #Eosinphils 0.2 thou/uL (0.0-0.7); #Lymphocytes 2.9 thou/uL (1.20-3.40); #Monocytes 1.4 thou/uL (0.11-0.59); #Neutrophils 7.8 thou/uL (1.40-6.50); %Basophils 0.4 % (0.0-1.0); %Eosinophils 1.7 % (0.0-10.0); %Lymphocytes 23.3 % (21.0-51.0); %Neutrophils 63.7 % (42.0-75.0); Mean Corpuscular HGB CONC 33.2 g/dL (32.0-36.0); Mean Corpuscular Hemoglobin 30.9 pg (27.0-31.0); Mean Platelet Volume 7.9 fL (7.4-10.4); Platelet Count 189 thou/uL (130-400); RBC Distribution Width 12.9 % (11.5-14.5); Red Blood Cell (RBC) Count 3.24 mill/uL (4.20-5.40); White Blood Cell (WBC) Count 12.3 thou/uL (4.8-10.8)
[2017-09-04 13:15] LABS: ALT (SGPT) 11 U/L (8-55); AST (SGOT) 17 U/L (5-34); Alkaline Phosphatase 33 U/L (40-150); Anion Gap 11 mmol/L (10-20); BUN (Urea Nitrogen) 10 mg/dL (9.8-20.1); Bilirubin, Total 0.3 mg/dL (0.2-1.2); Calc. Creatinine Clearance 0 mL/min (70-130); Calcium 8.6 mg/dL (7.8-10.44); Carbon Dioxide 24 mmol/L (23-31); Chloride 104 mmol/L (98-107); Estimated GFR-MDRD Greater than 90; Globulin 2.6 g/dL (2.4-3.5); Glucose 93 mg/dL (83-110); Potassium 4.1 mmol/L (3.5-5.1); Protein, Total 5.6 g/dL (6.0-8.3); Sodium 135 mmol/L (136-145)
[2017-09-04] MEDS ORDERED: Gentamicin Sulfate 240 MG in Sodium Chloride 0.9% 100 ML IVPB ONE (13:30)
[2017-09-04] MEDS ORDERED: cefTRIAXone\\ROCEPHIN 2 GM in Sodium Chloride 0.9% 100 ML IVPB SCH (13:30)
--- NOTE | 2017-09-04 15:10 | RAD ---
PORTABLE CHEST 1 VIEW: DATE: 09/04/17. TIME: 1:37 p.m. HISTORY: Altered mental status. FINDINGS: Comparison is made to the exam of 09/02/17. The heart size is borderline. Chronic changes in the lung diez are again seen. No lobar consolida tion, pneumothoraces, edgar pulmonary edema, or large effusions are noted. Intraspinal leads are aga in noted. POS: [facility]
--- NOTE | 2017-09-04 16:43 | HP ---
PRIMARY CARE PHYSICIAN: Dr. Manjeet Pandey. REASON FOR ADMISSION: Encephalopathy, sepsis, UTI. HISTORY OF PRESENT ILLNESS: An 82-year-old female, who has underlying history of multiple sclerosis and she has neurogenic bladder and lately she has recurrent admission for sepsis with UTI. Recently, she was first time admitted on 08/07/2017, at that time, her urine culture was positive for VRE and when we discharge without antibiotic therapy. She bounced back very quickly on 2016, at that time, patient was septic, required IMCU admission and she was treated with broad spectrum antibiotic therapy and her culture came back positive for VRE. She was discharged on 08/18/2017, at that time, she was given 10 days of Zyvox therapy. The patient has finished Zyvox therapy, at that time, we also consulted Urology for suprapubic catheter evaluation. The patient required Robles catheterization at half-way about a week ago. The patient was not able to get in and out catheter at half-way and that is why she had indwelling Robles catheter. After antibiotic finished, the patient started feeling again gradually worsening confusion. Yesterday, the patient was hypotensive. She was more weak and more confused. Her blood pressure was low 78/38. She had low urine output. Patient started feeling symptoms of UTI and again. She was appearing more weak and that is why daughter requested to transfer to hospital. This patient has chronic hypoxic respiratory failure, she does have pulmonary hypertension and chronic lung changes on x-ray, requiring oxygen. In the emergency room, this patient's lowest blood pressure was 87/51. After IV fluid , her blood pressure improved to 110/52. She is afebrile, but appears slightly confused and weak. At this point, we are readmitting this patient for similar problem. The patient's family member reports that she has not made any appointment with the urologist. Before they make appointment with urologist, patient started feeling UTI symptoms. Family member reports that normally she does not get any high grade fever, but she has low grade fever with chills and weakness with UTI and she becomes more confused. REVIEW OF SYSTEMS: The following complete review of systems was negative, unless otherwise mentioned in the HPI or below: Constitutional: Weight loss or gain, ability to conduct usual activities. Skin: Rash, itching. Eyes: Double vision, pain. ENT/Mouth: Nose bleeding, neck stiffness, pain, tenderness. Cardiovascular: Palpitations, dyspnea on exertion, orthopnea. Respiratory: Shortness of breath, wheezing, cough, hemoptysis, fever or night sweats. Gastrointestinal: Poor appetite, abdominal pain, heartburn, nausea, vomiting, constipation, or diarrhea. Genitourinary: Urgency, frequency, dysuria, nocturia. Musculoskeletal: Pain, swelling. Neurologic/Psychiatric: Anxiety, depression. Allergy/Immunologic: Skin rash, bleeding tendency. Please see my HPI for pertinent positives and negatives. All other review of system reviewed and negative except as mentioned in the HPI. ALLERGY: FENTANYL, METHADONE, and PENICILLIN. PAST MEDICAL HISTORY: Vancomycin-resistant UTI, history of Clostridium difficile colitis, history of recurrent UTI, multiple sclerosis, neurogenic bladder, history of pulmonary embolism with IVC filter, pulmonary hypertension, chronic physical deconditioning, chronic pain disorder, dyslipidemia, and migraine headache. PAST SURGICAL HISTORY: Hysterectomy, tonsillectomy, spinal stimulator, cholecystectomy, and IVC filter. PAST PSYCHIATRIC HISTORY: Anxiety and depression. SOCIAL HISTORY: The patient lives at [facility]. No history of tobacco, alcohol, or illicit drug abuse. FAMILY HISTORY: No strong family history of premature CAD, CVA or cancer. CODE STATUS: The patient is FULL CODE. Patient's daughter is surrogate decision maker. EMERGENCY ROOM COURSE: Patient is receiving gentamicin and Zyvox. The patient has also received IV fluid. CURRENT HOME MEDICATIONS: Colestid one tablet p.o. b.i.d. p.r.n., cranberry 400 mg p.o. b.i.d., diclofenac topical application q.i.d. p.r.n., Bentyl 20 mg p.o. q.i.d. p.r.n., Lomotil one tablet q.i.d. p.r.n., Premarin 0.625 mg p.o. daily, Tricor 145 mg p.o. daily, Berta 180 mg p.o. daily p.r.n., Flonase nasal spray daily, gabapentin 800 mg p.o. q.i.d., Mucinex 600 mg twice daily, Robitussin p.r.n., [place] 5 one tablet q.6 hourly p.r.n., DuoNeb q.i.d. p.r.n., lidocaine jelly topical p.r.n., Lidoderm patch q.12 hourly p.r.n., MS Contin 60 mg p.o. b.i.d., Thera M 1 tablet p.o. daily, nystatin topical SSW q.i.d., omeprazole 40 mg p.o. daily, oxybutynin 5 mg p.o. b.i.d., potassium chloride 20 mEq p.o. b.i.d., pravastatin 80 mg p.o. at bedtime, prednisone 10 mg p.o. daily , Zoloft 50 mg p.o. daily, and Imitrex 100 mg q.12 hourly p.r.n. PHYSICAL EXAMINATION: VITAL SIGNS: Currently, blood pressure 87/57, pulse 85, respiratory rate 20, temperature 98.0, saturation 94% on room air, and weight 48.08 kilograms. GENERAL: Patient is currently hypotensive, chronically ill. HEENT: Head is normocephalic, atraumatic. Eyes: Pupils round, reactive to light. Extraocular muscles intact. ENT: Oropharynx within normal limits. Moist mucous membranes. No pharyngeal erythema, no exudates, no oral thrush. NECK: Supple, no JVD, no thyromegaly, no carotid bruit, no jugular venous distention. LUNGS: Bibasilar coarse rales noted. No wheezing. Air entry reduced at base. CARDIAC: S1 and S2, regular. No murmur elicited, no gallop, no rub. ABDOMEN: Soft, bowel sounds present, nontender, nondistended. No organomegaly , no mass, no suprapubic discomfort. BACK: Unremarkable, no CVA tenderness. EXTREMITIES: Upper extremity passive movement of all joints are normal. Lower extremity passive movement of all joints are normal. GENITALIA: Robles catheter in place. NEUROLOGIC: Patient is able to move all four limbs, but she cannot stand by herself. She has underlying multiple sclerosis and bed bound status. PSYCHIATRIC: Normal affect. SIGNIFICANT LABORATORY DATA: 1. CBC: WBC 12.3, hemoglobin 10.0, platelets 189 with left shift. BMP: Sodium 135, potassium 4.1, chloride 104, carbon dioxide 24, anion gap 11, BUN 10 , creatinine 0.54, glucose 93, and calcium 8.6. 2. LFT: AST 17, ALT 11, alkaline phosphatase 33, albumin 3.0, lactic acid 1.2. Urinalysis suggestive of urinary tract infection. Influenza A and B negative. Chest x-ray based on my review, chronic changes without any new process. ASSESSMENT AND PLAN: 1. Sepsis due to urinary tract infection secondary to indwelling Robles catheter. 2. Urinary tract infection due to indwelling Robles catheter, most likely due to vancomycin-resistant enterococci precipitated by her underlying history of a neurogenic bladder. 3. Neurogenic bladder, requiring in and out catheter versus indwelling Robles catheter. This time, she will need suprapubic catheter. 4. Hypotension, likely related with sepsis. The patient will need IV fluid and we will monitor vitals. 5. Intermittent hypoxia related with chronic interstitial lung changes, bibasilar. 6. Chronic disease anemia, normocytic, normochromic. 7. Recurrent urinary tract infection due to neurogenic bladder secondary to multiple sclerosis and poor estrogen status. 8. Chronic pain disorder on narcotics. 9. Dyslipidemia. 10. Anxiety and depression. 11. Migraine headache. 12. Chronic physical deconditioning. 13. Gastroesophageal reflux disease. 14. Moderate protein calorie malnutrition. PLAN: 1. Full admission to medical floor. Currently, patient's vitals stabilized with IV fluid. Patient will be given gentamicin as per pharmacy adjusted dose and Zyvox 600 mg twice daily. We will follow up on culture result. Given the patient has recurrent history of VRE, patient will need Zyvox and gentamicin based on previous culture result. Patient will continue IV fluid. Patient will continue DuoNeb therapy and Pulmicort nebulization therapy twice daily. Selected home medication will be continued. Today we will hold on antihypertensive medication. 2. Deep venous thrombosis prophylaxis. Lovenox 30 mg subcutaneously daily. 3. Gastrointestinal prophylaxis, Pepcid 20 mg p.o. b.i.d. 4. Code status: The patient is FULL CODE. Patient's daughter is surrogate decision maker. Disposition plan based on clinical course. We are expecting patient's stay in hospital more than 2 midnights. Plan of care discussed with the patient and family member at bedside in the emergency room. [facility]
[2017-09-04 16:54] VITALS: BMI 22.7
[2017-09-04] MEDS ORDERED: Acetaminophen 325 MG TAB PO PRN ×2 (17:00→19:49)
[2017-09-04] MEDS ORDERED: Ondansetron ODT 4 MG TAB SL PRN (17:00)
[2017-09-04] MEDS ORDERED: Ondansetron HCl/PF 4 MG/2 ML Vial IVP PRN ×2 (17:00→19:49)
[2017-09-04] MEDS ORDERED: Sodium Chloride 0.9% 1,000 ML IV SCH (17:15)
[2017-09-04] MEDS ORDERED: Linezolid 600 MG in Premix Bag 1 BAG IVPB SCH (18:00)
[2017-09-04] MEDS ORDERED: Chloraseptic Spray 180 ml Bottle PO PRN (19:49)
[2017-09-04] MEDS ORDERED: Loratadine 10 MG TAB PO PRN (19:49)
[2017-09-04] MEDS ORDERED: Zolpidem Tartrate 5 MG TAB PO PRN (19:49)
[2017-09-04] MEDS ORDERED: GENTAMICIN IVPB PRN (19:49)
[2017-09-04] MEDS ORDERED: Nystatin Powder 15 GM BOT TOP PRN (19:49)
[2017-09-04] MEDS ORDERED: Mag-Al 1200 mg/1200 mg/30 ML UDCUP PO PRN (19:49)
[2017-09-04] MEDS ORDERED: LINEZOLID IVPB PRN (19:49)
[2017-09-04] MEDS ORDERED: HYDROcodone/Acetaminophen 5/325 mg Tablet PO PRN (19:49)
[2017-09-04] MEDS ORDERED: Nystatin 100,000 Units/mL UDCUP SSW PRN (19:49)
[2017-09-04] MEDS ORDERED: Ondansetron ODT 4 MG TAB PO PRN (19:49)
[2017-09-04] MEDS ORDERED: Milk Of Magnesia 30 ML UDCUP PO PRN (19:49)
[2017-09-04] MEDS ORDERED: Eucerin (Mineral Oil/Petrolatum,White) 30 gm Jar TOP PRN (19:49)
[2017-09-04] MEDS ORDERED: hydrALAZINE 20 MG/ML VIAL SLOW IVP PRN (19:49)
[2017-09-04] MEDS ORDERED: Diphenoxylate HCl/Atropine Tablet PO PRN (19:49)
[2017-09-04] MEDS ORDERED: Sodium Chloride 0.65% Nasal 44 ML BOT EA NARE PRN (19:49)
[2017-09-04] MEDS ORDERED: Senokot 8.6 MG TAB PO PRN (19:49)
[2017-09-04] MEDS ORDERED: Diabetic Tussin 200 MG/10 ML UDCUP PO PRN (19:49)
[2017-09-04] MEDS ORDERED: Loperamide HCl 2 MG CAP PO PRN (19:49)
[2017-09-04] MEDS ORDERED: Artificial Tears 18 DROP/0.9 ML EA EYE PRN (19:49)
[2017-09-04] MEDS ORDERED: Budesonide 0.5 MG/2 ML NEB INH SCH (20:15)
[2017-09-04] MEDS ORDERED: Gabapentin 100 MG CAP PO SCH (20:15)
[2017-09-04] MEDS ORDERED: Nystatin 500,000 UNITS/5 ML UDCUP SSW PRN (20:30)
[2017-09-04] MEDS: Sodium Chloride 0.9% 1,000 ML IV SCH (21:53)
[2017-09-04] MEDS: guaiFENesin ER 600 MG TAB PO SCH (21:54)
[2017-09-04] MEDS: Famotidine 20 MG TAB PO SCH (21:55)
[2017-09-04] MEDS: Oxybutynin 5 MG TAB PO SCH (22:04)
[2017-09-04] MEDS: Pravastatin Sodium 40 MG TAB PO SCH (22:04)
[2017-09-05 02:21] LABS: #Eosinphils 0.1 thou/uL (0.0-0.7); #Lymphocytes 2.8 thou/uL (1.20-3.40); #Monocytes 0.8 thou/uL (0.11-0.59); #Neutrophils 5.1 thou/uL (1.40-6.50); %Basophils 0.2 % (0.0-1.0); %Eosinophils 1.5 % (0.0-10.0); %Monocytes 9.3 % (0.0-10.0); Hemoglobin 9.1 g/dL (12.0-16.0); Mean Corpuscular Hemoglobin 30.8 pg (27.0-31.0); Mean Corpuscular Volume 93.5 fl (81.0-99.0); Mean Platelet Volume 8.1 fL (7.4-10.4); Platelet Count 175 thou/uL (130-400); RBC Distribution Width 12.9 % (11.5-14.5); Red Blood Cell (RBC) Count 2.95 mill/uL (4.20-5.40); White Blood Cell (WBC) Count 8.9 thou/uL (4.8-10.8)
[2017-09-05 02:57] LABS: ALT (SGPT) 11 U/L (8-55); AST (SGOT) 18 U/L (5-34); Albumin 2.6 g/dL (3.4-4.8); Alkaline Phosphatase 27 U/L (40-150); Anion Gap 10 mmol/L (10-20); BUN (Urea Nitrogen) 6 mg/dL (9.8-20.1); Bilirubin, Total 0.2 mg/dL (0.2-1.2); Calc. Creatinine Clearance 73 mL/min (70-130); Calcium 8.4 mg/dL (7.8-10.44); Carbon Dioxide 23 mmol/L (23-31); Chloride 113 mmol/L (98-107); Estimated GFR-MDRD Greater than 90; Globulin 2.2 g/dL (2.4-3.5); Glucose 83 mg/dL (83-110); Protein, Total 4.8 g/dL (6.0-8.3); Sodium 142 mmol/L (136-145)
[2017-09-05] MEDS: Linezolid 600 MG in Premix Bag 1 BAG IVPB SCH ×2 (05:24→18:41)
[2017-09-05] MEDS: Sodium Chloride 0.9% 1,000 ML IV SCH (05:30)
[2017-09-05] MEDS: Budesonide 0.5 MG/2 ML NEB INH SCH ×2 (07:22→19:00)
--- NOTE | 2017-09-05 10:26 | PDOC.PN ---
- Subjective Encounter Start Date: 09/05/17 Encounter Start Time: 10:00 -: old records requested/rev Patient seen and examined. No new complaints. No overnight events - Objective Resuscitation Status: Resuscitation Status FULL:Full Resuscitation MAR Reviewed: Yes Vital Signs & Weight: Vital Signs (12 hours) Temp Pulse Resp BP Pulse Ox 09/05/17 07:23 70 14 09/05/17 04:24 97.5 F L 69 20 124/77 97 09/05/17 01:16 68 16 98 09/05/17 00:00 97.7 F 68 20 120/74 98 I&O: 09/04/17 09/05/17 09/06/17 06:59 06:59 06:59 Output Total 1300 Balance -1300 Result Diagrams: 09/05/17 01:58 09/05/17 01:58 Phys Exam - Physical Examination Constitutional: NAD HEENT: PERRLA, moist MMs, sclera anicteric Neck: no JVD, supple Respiratory: no wheezing, no rhonchi coarse rales+ Cardiovascular: RRR, no significant murmur, no rub Gastrointestinal: soft, non-tender, no distention, positive bowel sounds yang+ Musculoskeletal: no edema, pulses present Neurological: moves all 4 limbs Psychiatric: normal affect, A&O x 3 Skin: no rash, normal turgor Dx/Plan (1) UTI (urinary tract infection) due to urinary indwelling catheter Code(s): T83.511A - I/I REACT D/T INDWELLING URETHRAL CATHETER, INIT; N39.0 - URINARY TRACT INFECTION, SITE NOT SPECIFIED Status: Acute Qualifiers: Indwelling urinary catheter type: indwelling urethral catheter (2) Sepsis Code(s): A41.9 - SEPSIS, UNSPECIFIED ORGANISM Status: Acute Qualifiers: Comment: (3) Neurogenic bladder Code(s): N31.9 - NEUROMUSCULAR DYSFUNCTION OF BLADDER, UNSPECIFIED Status: Chronic (4) Anxiety and depression Code(s): F41.8 - OTHER SPECIFIED ANXIETY DISORDERS Status: Chronic (5) Chronic low back pain Code(s): M54.5 - LOW BACK PAIN; G89.29 - OTHER CHRONIC PAIN Status: Chronic Comment: (6) Dyslipidemia Code(s): E78.5 - HYPERLIPIDEMIA, UNSPECIFIED Status: Chronic (7) GERD (gastroesophageal reflux disease) Code(s): K21.9 - GASTRO-ESOPHAGEAL REFLUX DISEASE WITHOUT ESOPHAGITIS Status: Chronic (8) HTN (hypertension) Code(s): I10 - ESSENTIAL (PRIMARY) HYPERTENSION Status: Chronic (9) History of pulmonary embolism Code(s): Z86.711 - PERSONAL HISTORY OF PULMONARY EMBOLISM Status: Chronic (10) Lupus (systemic lupus erythematosus) Code(s): M32.9 - SYSTEMIC LUPUS ERYTHEMATOSUS, UNSPECIFIED Status: Chronic Qualifiers: Systemic lupus erythematosus organ involvement: lung involvement (11) Migraine Code(s): G43.909 - MIGRAINE, UNSP, NOT INTRACTABLE, WITHOUT STATUS MIGRAINOSUS Status: Chronic (12) Multiple sclerosis Code(s): G35 - MULTIPLE SCLEROSIS Status: Chronic (13) Physical deconditioning Code(s): R53.81 - OTHER MALAISE Status: Chronic (14) Protein-calorie malnutrition, moderate Code(s): E44.0 - MODERATE PROTEIN-CALORIE MALNUTRITION Status: Chronic (15) Pulmonary hypertension Code(s): I27.20 - PULMONARY HYPERTENSION, UNSPECIFIED Status: Chronic (16) Hypotension Status: Resolved - Plan cont current plan of care, continue antibiotics * given recurrent UTI and sepsis, and not able to handle in and out catheter, pt will benefit from suprapubic catheter * urology consulted * medication reviewed as below * symptomatic treatment * tried to reach daughter on phone but not bale to reach * follow culture * DC IVF * continue zyvox, gentamicin. Review of Systems - Review of Systems ENT: negative: Ear Pain, Ear Discharge, Nose Pain, Nose Discharge, Nose Congestion, Mouth Pain, Mouth Swelling, Throat Pain, Throat Swelling, Other Respiratory: negative: Cough, Dry, Shortness of Breath, Hemoptysis, SOB with Excertion, Pleuritic Pain, Sputum, Wheezing Cardiovascular: negative: chest pain, palpitations, orthopnea, paroxysmal nocturnal dyspnea, edema, light headedness, other Gastrointestinal: negative: Nausea, Vomiting, Abdominal Pain, Diarrhea, Constipation, Melena, Hematochezia, Other Genitourinary: negative: Dysuria, Frequency, Incontinence, Hematuria, Retention , Other Musculoskeletal: negative: Neck Pain, Shoulder Pain, Arm Pain, Back Pain, Hand Pain, Leg Pain, Foot Pain, Other Skin: negative: Rash, Lesions, Aníbal, Bruising, Other - Medications/Allergies Allergies/Adverse Reactions: Allergies Allergy/AdvReac Type Severity Reaction Status Date / Time Penicillins Allergy Intermediate Verified 08/07/17 04:41 fentanyl Allergy Verified 08/07/17 04:41 methadone HCl Allergy Verified 08/07/17 04:41 [From Methadose] Medications: Current Medications Acetaminophen (Tylenol) 650 mg PO Q4H PRN PRN Reason: Headache/Fever or Pain Hydrocodone Bitart/Acetaminophen ([place] 5/325) 1 tab PO Q4H PRN PRN Reason: Moderate Pain (4-6) Al Hydroxide/Mg Hydroxide (Maalox) 30 ml PO Q6H PRN PRN Reason: Heartburn or Indigestion Albuterol/Ipratropium (Duoneb) 3 ml NEB [id number] [facility] Last Admin: 09/05/17 07:23 Dose: 3 ml Artificial Tears (Tears Naturale) 0 drop EA EYE PRN PRN PRN Reason: Dry Eyes Budesonide (Pulmicort Neb Solution) 0.5 mg INH BID-RT [facility] Last Admin: 09/05/17 07:22 Dose: 0.5 mg Diphenoxylate HCl/Atropine (Lomotil) 1 tab PO Q6H PRN PRN Reason: Diarrhea/Loose Stools Enoxaparin Sodium (Lovenox) 30 mg SC 0900 [facility] Estrogens Conjugated (Premarin) 0.625 mg PO DAILY [facility] Famotidine (Pepcid) 20 mg PO BID [facility] Last Admin: 09/04/17 21:55 Dose: 20 mg Fenofibrate (Tricor) 145 mg PO DAILY [facility] Ferrous Sulfate (Feosol) 325 mg PO QAM-[facility] Fluticasone Propionate (Flonase Nasal [place]) 0 gm NASAL DAILY [facility] Gabapentin (Neurontin) 100 mg PO TID [facility] Guaifenesin (Robitussin Sf) 200 mg PO Q4H PRN PRN Reason: Cough Guaifenesin (Mucinex) 600 mg PO Q12HR [facility] Last Admin: 09/04/17 21:54 Dose: 600 mg Hydralazine HCl (Apresoline) 10 mg SLOW IVP Q4H PRN PRN Reason: Systolic BP > 180 Linezolid 600 mg/ Device 300 mls @ 150 mls/hr IVPB 0600,1800 [facility] Last Admin: 09/05/17 05:24 Dose: 300 mls Gentamicin Sulfate 240 mg/ (Sodium Chloride) 106 mls @ 106 mls/hr IVPB 1400 [facility] Iron/Minerals/Multivitamins (Theragran M) 1 tab PO DAILY [facility] Loperamide HCl (Imodium) 2 mg PO PRN PRN PRN Reason: Diarrhea/Loose Stools Loratadine (Claritin) 10 mg PO DAILYPRN PRN PRN Reason: Sinus Symptoms Magnesium Hydroxide (Milk Of Magnesium) 30 ml PO DAILYPRN PRN PRN Reason: Constipation Mineral Oil/White Petrolatum (Eucerin Cream) 0 gm TOP BIDPRN PRN PRN Reason: Dry Skin Miscellaneous Medication (Pharmacy To Dose) 1 each IVPB PRN PRN PRN Reason: Pharmacy to dose Nystatin (Mycostatin Powder) 1 gm TOP BIDPRN PRN PRN Reason: Rash/Topical Irritation Nystatin (Mycostatin) 5 units SSW QIDPRN PRN PRN Reason: THRUSH Ondansetron HCl (Zofran Odt) 4 mg PO Q6H PRN PRN Reason: Nausea/Vomiting Ondansetron HCl (Zofran) 4 mg IVP Q6H PRN PRN Reason: Nausea/Vomiting Oxybutynin Chloride (Ditropan) 5 mg PO BID [facility] Last Admin: 09/04/17 22:04 Dose: 5 mg Phenol (Chloraseptic [place] 180 Ml Bot) 0 ml PO PRN PRN PRN Reason: Sore Throat Pravastatin Sodium (Pravachol) 80 mg PO HS [facility] Last Admin: 09/04/17 22:04 Dose: 80 mg Prednisone (Prednisone) 10 mg PO QA-[facility] Saccharomyces Boulardii (Florastor) 250 mg PO DAILY [facility] Senna (Senokot) 2 tab PO HSPRN PRN PRN Reason: Constipation Sertraline HCl (Zoloft) 50 mg PO DAILY [facility] Sodium Chloride (Leonardo Nasal [place] 0.65%) 0 ml EA NARE QIDPRN PRN PRN Reason: Nasal Congestion Sodium Chloride (Flush - Normal Saline) 10 ml IVF Q12HR [facility] Last Admin: 09/04/17 22:10 Dose: 10 ml Sodium Chloride (Flush - Normal Saline) 10 ml IVF PRN PRN PRN Reason: Saline Flush Zolpidem Tartrate (Ambien) 5 mg PO HSPRN PRN PRN Reason: Insomnia
[2017-09-05] MEDS: Ferrous Sulfate 325 MG TAB PO SCH (11:14)
[2017-09-05] MEDS: predniSONE 20 MG TAB PO SCH (11:18)
[2017-09-05] MEDS: Gabapentin 100 MG CAP PO SCH ×3 (11:19→22:14)
[2017-09-05] MEDS: Famotidine 20 MG TAB PO SCH ×2 (11:19→22:15)
[2017-09-05] MEDS: Fenofibrate Nanocrystallized 145 MG TAB PO SCH (11:20)
[2017-09-05] MEDS: Multivitamin W/ Minerals 1 TAB PO SCH (11:21)
[2017-09-05] MEDS: Enoxaparin Sodium 30 MG/0.3 ML SYRINGE SC SCH (11:21)
[2017-09-05] MEDS: Fluticasone Propionate Nasal Spray 16 gm Bottle NASAL SCH (11:21)
[2017-09-05] MEDS: Oxybutynin 5 MG TAB PO SCH ×2 (11:32→22:15)
[2017-09-05] MEDS: guaiFENesin ER 600 MG TAB PO SCH ×2 (11:32→22:14)
[2017-09-05] MEDS: Saccharomyces boulardii 250 MG CAP PO SCH (11:37)
[2017-09-05] MEDS: Gentamicin Sulfate 240 MG in Sodium Chloride 0.9% 100 ML IVPB SCH (15:39)
[2017-09-05] MEDS: Lidocaine Viscous Sol 2% 15 ml UD Cup SSW PRN (17:40)
[2017-09-05] MEDS ORDERED: Dicyclomine 20 MG TAB PO PRN (18:36)
[2017-09-05] MEDS: Pravastatin Sodium 40 MG TAB PO SCH (22:15)
[2017-09-06] MEDS: Linezolid 600 MG in Premix Bag 1 BAG IVPB SCH (06:41)
[2017-09-06] MEDS ORDERED: Lidocaine 5% Patch TD PRN ×2 (07:35→12:40)
[2017-09-06] MEDS ORDERED: Non-Formulary Item 1 EACH (Fexofenadine Hcl [Allegra Allergy] 180 MG) PO PRN (07:35)
[2017-09-06] MEDS: Budesonide 0.5 MG/2 ML NEB INH SCH ×2 (07:55→19:36)
[2017-09-06] MEDS: Famotidine 20 MG TAB PO SCH ×2 (08:02→21:45)
[2017-09-06] MEDS: Fenofibrate Nanocrystallized 145 MG TAB PO SCH (08:02)
[2017-09-06] MEDS: Gabapentin 100 MG CAP PO SCH ×3 (08:02→21:44)
[2017-09-06] MEDS: Saccharomyces boulardii 250 MG CAP PO SCH (08:02)
[2017-09-06] MEDS: guaiFENesin ER 600 MG TAB PO SCH ×2 (08:02→21:44)
[2017-09-06] MEDS: Morphine ER 30 MG TAB PO SCH ×2 (08:03→21:43)
[2017-09-06] MEDS: predniSONE 20 MG TAB PO SCH (08:05)
[2017-09-06] MEDS: Oxybutynin 5 MG TAB PO SCH ×2 (08:06→21:45)
[2017-09-06] MEDS: Ferrous Sulfate 325 MG TAB PO SCH (08:06)
[2017-09-06] MEDS: Fluticasone Propionate Nasal Spray 16 gm Bottle NASAL SCH (08:07)
[2017-09-06] MEDS: Enoxaparin Sodium 30 MG/0.3 ML SYRINGE SC SCH (08:07)
[2017-09-06] MEDS: Multivitamin W/ Minerals 1 TAB PO SCH (08:07)
--- NOTE | 2017-09-06 10:44 | PDOC.PN ---
- Subjective Encounter Start Date: 09/06/17 Encounter Start Time: 09:50 Patient seen and examined. No new complaints. No overnight events has diarrhoea, no fever - Objective Resuscitation Status: Resuscitation Status FULL:Full Resuscitation MAR Reviewed: Yes Vital Signs & Weight: Vital Signs (12 hours) Temp Pulse Resp BP Pulse Ox 09/06/17 08:00 97.9 F 58 L 16 113/70 94 L 09/06/17 04:00 98.3 F 69 16 113/63 98 09/06/17 01:53 77 16 95 09/06/17 00:00 98.7 F 77 16 122/69 97 Weight Admit Weight 128 lb 8 oz Weight 128 lb 8 oz I&O: 09/05/17 09/06/17 09/07/17 06:59 06:59 06:59 Intake Total 1650 780 Output Total 1300 2000 Balance -1300 -350 780 Result Diagrams: 09/05/17 01:58 09/05/17 01:58 Phys Exam - Physical Examination Constitutional: NAD HEENT: PERRLA, moist MMs, sclera anicteric Neck: no JVD, supple Respiratory: no wheezing, no rhonchi coarse basal sound+ Cardiovascular: RRR, no significant murmur, no rub Gastrointestinal: soft, non-tender, no distention, positive bowel sounds Musculoskeletal: no edema, pulses present Neurological: moves all 4 limbs Lymphatic: no nodes Psychiatric: normal affect, A&O x 3 Skin: no rash, normal turgor Dx/Plan (1) UTI (urinary tract infection) due to urinary indwelling catheter Code(s): T83.511A - I/I REACT D/T INDWELLING URETHRAL CATHETER, INIT; N39.0 - URINARY TRACT INFECTION, SITE NOT SPECIFIED Status: Acute Qualifiers: Indwelling urinary catheter type: indwelling urethral catheter (2) Sepsis Code(s): A41.9 - SEPSIS, UNSPECIFIED ORGANISM Status: Acute Qualifiers: Comment: (3) Neurogenic bladder Code(s): N31.9 - NEUROMUSCULAR DYSFUNCTION OF BLADDER, UNSPECIFIED Status: Chronic (4) Anxiety and depression Code(s): F41.8 - OTHER SPECIFIED ANXIETY DISORDERS Status: Chronic (5) Chronic low back pain Code(s): M54.5 - LOW BACK PAIN; G89.29 - OTHER CHRONIC PAIN Status: Chronic Comment: (6) Dyslipidemia Code(s): E78.5 - HYPERLIPIDEMIA, UNSPECIFIED Status: Chronic (7) GERD (gastroesophageal reflux disease) Code(s): K21.9 - GASTRO-ESOPHAGEAL REFLUX DISEASE WITHOUT ESOPHAGITIS Status: Chronic (8) HTN (hypertension) Code(s): I10 - ESSENTIAL (PRIMARY) HYPERTENSION Status: Chronic (9) History of pulmonary embolism Code(s): Z86.711 - PERSONAL HISTORY OF PULMONARY EMBOLISM Status: Chronic (10) Lupus (systemic lupus erythematosus) Code(s): M32.9 - SYSTEMIC LUPUS ERYTHEMATOSUS, UNSPECIFIED Status: Chronic Qualifiers: Systemic lupus erythematosus organ involvement: lung involvement (11) Migraine Code(s): G43.909 - MIGRAINE, UNSP, NOT INTRACTABLE, WITHOUT STATUS MIGRAINOSUS Status: Chronic (12) Multiple sclerosis Code(s): G35 - MULTIPLE SCLEROSIS Status: Chronic (13) Physical deconditioning Code(s): R53.81 - OTHER MALAISE Status: Chronic (14) Protein-calorie malnutrition, moderate Code(s): E44.0 - MODERATE PROTEIN-CALORIE MALNUTRITION Status: Chronic (15) Pulmonary hypertension Code(s): I27.20 - PULMONARY HYPERTENSION, UNSPECIFIED Status: Chronic (16) Hypotension Status: Resolved - Plan cont current plan of care, continue antibiotics * will continue iv antibiotics for now * this time different bacteria and only with IV meds possible to treat. * will consult ID for his opinion * urology input for suprapubic catheter * medication reviewed as below * symptomatic treatment Review of Systems - Review of Systems ENT: negative: Ear Pain, Ear Discharge, Nose Pain, Nose Discharge, Nose Congestion, Mouth Pain, Mouth Swelling, Throat Pain, Throat Swelling, Other Respiratory: negative: Cough, Dry, Shortness of Breath, Hemoptysis, SOB with Excertion, Pleuritic Pain, Sputum, Wheezing Cardiovascular: negative: chest pain, palpitations, orthopnea, paroxysmal nocturnal dyspnea, edema, light headedness, other Gastrointestinal: negative: Nausea, Vomiting, Abdominal Pain, Diarrhea, Constipation, Melena, Hematochezia, Other Genitourinary: negative: Dysuria, Frequency, Incontinence, Hematuria, Retention , Other Musculoskeletal: negative: Neck Pain, Shoulder Pain, Arm Pain, Back Pain, Hand Pain, Leg Pain, Foot Pain, Other Skin: negative: Rash, Lesions, Aníbal, Bruising, Other - Medications/Allergies Allergies/Adverse Reactions: Allergies Allergy/AdvReac Type Severity Reaction Status Date / Time Penicillins Allergy Intermediate Verified 08/07/17 04:41 fentanyl Allergy Verified 08/07/17 04:41 methadone HCl Allergy Verified 08/07/17 04:41 [From Methadose] Medications: Current Medications Acetaminophen (Tylenol) 650 mg PO Q4H PRN PRN Reason: Headache/Fever or Pain Hydrocodone Bitart/Acetaminophen ([place] 5/325) 1 tab PO Q4H PRN PRN Reason: Moderate Pain (4-6) Last Admin: 09/06/17 02:45 Dose: 1 tab Al Hydroxide/Mg Hydroxide (Maalox) 30 ml PO Q6H PRN PRN Reason: Heartburn or Indigestion Albuterol/Ipratropium (Duoneb) 3 ml NEB [id number] [facility] Last Admin: 09/06/17 08:02 Dose: Not Given Artificial Tears (Tears Naturale) 0 drop EA EYE PRN PRN PRN Reason: Dry Eyes Budesonide (Pulmicort Neb Solution) 0.5 mg INH BID-RT [facility] Last Admin: 09/06/17 07:55 Dose: Not Given Dicyclomine HCl (Bentyl) 20 mg PO QIDPRN PRN PRN Reason: . Last Admin: 09/05/17 18:50 Dose: 20 mg Diphenoxylate HCl/Atropine (Lomotil) 1 tab PO Q6H PRN PRN Reason: Diarrhea/Loose Stools Enoxaparin Sodium (Lovenox) 30 mg SC 0900 [facility] Last Admin: 09/06/17 08:07 Dose: 30 mg Estrogens Conjugated (Premarin) 0.625 mg PO DAILY [facility] Last Admin: 09/06/17 09:53 Dose: 0.625 mg Famotidine (Pepcid) 20 mg PO BID [facility] Last Admin: 09/06/17 08:02 Dose: 20 mg Fenofibrate (Tricor) 145 mg PO DAILY [facility] Last Admin: 09/06/17 08:02 Dose: 145 mg Ferrous Sulfate (Feosol) 325 [facility] Last Admin: 09/06/17 08:06 Dose: 325 mg Fluticasone Propionate (Flonase Nasal [place]) 0 gm NASAL DAILY [facility] Last Admin: 09/06/17 08:07 Dose: 1 spr Gabapentin (Neurontin) 100 mg PO TID [facility] Last Admin: 09/06/17 08:02 Dose: 100 mg Guaifenesin (Robitussin Sf) 200 mg PO Q4H PRN PRN Reason: Cough Guaifenesin (Mucinex) 600 mg PO Q12HR [facility] Last Admin: 09/06/17 08:02 Dose: 600 mg Hydralazine HCl (Apresoline) 10 mg SLOW IVP Q4H PRN PRN Reason: Systolic BP > 180 Linezolid 600 mg/ Device 300 mls @ 150 mls/hr IVPB 0600,1800 [facility] Last Admin: 09/06/17 06:41 Dose: 300 mls Gentamicin Sulfate 240 mg/ (Sodium Chloride) 106 mls @ 106 mls/hr IVPB 1400 [facility] Last Admin: 09/05/17 15:39 Dose: 106 mls Iron/Minerals/Multivitamins (Theragran M) 1 tab PO DAILY [facility] Last Admin: 09/06/17 08:07 Dose: 1 tab Lidocaine (Lidoderm 5% Patch) 1 patch TD Q12H PRN PRN Reason: Pain Lidocaine HCl (Xylocaine 2% Viscous) 10 ml SSW Q4H PRN PRN Reason: . Last Admin: 09/05/17 17:40 Dose: 10 ml Loperamide HCl (Imodium) 2 mg PO PRN PRN PRN Reason: Diarrhea/Loose Stools Loratadine (Claritin) 10 mg PO DAILYPRN PRN PRN Reason: Sinus Symptoms Magnesium Hydroxide (Milk Of Magnesium) 30 ml PO DAILYPRN PRN PRN Reason: Constipation Mineral Oil/White Petrolatum (Eucerin Cream) 0 gm TOP BIDPRN PRN PRN Reason: Dry Skin Miscellaneous Medication (Pharmacy To Dose) 1 each IVPB PRN PRN PRN Reason: Pharmacy to dose Morphine Sulfate (Ms Contin) 60 mg PO BID [facility] Last Admin: 09/06/17 08:03 Dose: 60 mg Nystatin (Mycostatin Powder) 1 gm TOP BIDPRN PRN PRN Reason: Rash/Topical Irritation Nystatin (Mycostatin) 5 units SSW QIDPRN PRN PRN Reason: THRUSH Ondansetron HCl (Zofran Odt) 4 mg PO Q6H PRN PRN Reason: Nausea/Vomiting Ondansetron HCl (Zofran) 4 mg IVP Q6H PRN PRN Reason: Nausea/Vomiting Oxybutynin Chloride (Ditropan) 5 mg PO BID [facility] Last Admin: 09/06/17 08:06 Dose: 5 mg Phenol (Chloraseptic [place] 180 Ml Bot) 0 ml PO PRN PRN PRN Reason: Sore Throat Pravastatin Sodium (Pravachol) 80 mg PO [facility] Last Admin: 09/05/17 22:15 Dose: 80 mg Prednisone (Prednisone) 10 mg PO QAM-WM [facility] Last Admin: 09/06/17 08:05 Dose: 10 mg Saccharomyces Boulardii (Florastor) 250 mg PO DAILY [facility] Last Admin: 09/06/17 08:02 Dose: 250 mg Senna (Senokot) 2 tab PO HSPRN PRN PRN Reason: Constipation Sertraline HCl (Zoloft) 50 mg PO DAILY [facility] Last Admin: 09/06/17 08:07 Dose: 50 mg Sodium Chloride ([place] Nasal [place] 0.65%) 0 ml EA NARE QIDPRN PRN PRN Reason: Nasal Congestion Sodium Chloride (Flush - Normal Saline) 10 ml IVF Q12HR [facility] Last Admin: 09/06/17 09:53 Dose: 10 ml Sodium Chloride (Flush - Normal Saline) 10 ml IVF PRN PRN PRN Reason: Saline Flush Zolpidem Tartrate (Ambien) 5 mg PO HSPRN PRN PRN Reason: Insomnia
[2017-09-06] MEDS: Gentamicin Sulfate 240 MG in Sodium Chloride 0.9% 100 ML IVPB SCH (14:55)
[2017-09-06] MEDS: Lidocaine Viscous Sol 2% 15 ml UD Cup SSW PRN (14:55)
--- NOTE | 2017-09-06 15:48 | CON ---
DATE OF CONSULTATION: 09/06/2017 HISTORY OF PRESENT ILLNESS: An 82-year-old patient known to me from multiple prior visits. Last time I saw her was in August. History of multiple sclerosis; recurrent UTIs; episodes of Clostridium difficile colitis; and then diarrhea with negative C. difficile test; documented episodes of pyelonephritis ; emphysematous cystitis, treated with antimicrobial therapy including meropenem , more recently Zyvox. On 08/07/2017, she had a CT of abdomen and pelvis, which demonstrated colitis and proctitis. The C. difficile was negative. Urine culture revealed VRE as well as Klebsiella and Enterobacter. Urinalysis with 7-10 wbcs. A decision was made not to treat; in fact, withhold antimicrobial therapy in view of diarrhea. Subsequently, she developed lower abdominal pain, anorexia, fever, hypotension, and was readmitted, and chest x- ray showed decompensated CHF and there was clearcut improvement after initiation of antimicrobial therapy. We discussed the possibility of placement of a suprapubic catheter. Consultation with Dr. Jr Pedroza was completed, and Dr. Pedroza recommended suprapubic placement with ultrasound guidance, but now she developed some respiratory symptoms of fever and was readmitted. She has no headaches. A little bit of sore throat in the anterior portion of her mouth related to some sores. This developed with this illness. Some cough, but no sputum production. No chest pain, no dyspnea. No back pain, no abdominal pain. Has a Robles catheter inserted since last discharge. PAST MEDICAL HISTORY: Multiple sclerosis, recurrent UTIs, C. difficile colitis , pulmonary embolism with IVC filter placement. ALLERGIES: FENTANYL, METHADONE, PENICILLIN. CURRENT MEDICATIONS: Tylenol, Maalox, DuoNeb, Lovenox, Lomotil, Premarin, Pepcid, gentamicin, linezolid, ondansetron, pravastatin. SOCIAL HISTORY: assisted resident. Never a smoker. PHYSICAL EXAMINATION: VITAL SIGNS: Temperature 98.1, blood pressure 111/52, pulse 67, respirations 18 , O2 sat 99% on 2 liters nasal cannula. SKIN: No areas of skin breakdown. Peripheral IV access. Robles catheter in place. GENERAL: Awake, in no distress. HEENT: Ocular movements are conjugate. Oral cavity with a little flat shallow ulcerations in the anterior segment and tip of the tongue. LUNGS: With symmetric clear breath sounds. HEART: S1, S2, regular rate. No murmurs. ABDOMEN: Soft. Not distended. No ascites. No bladder distention. EXTREMITIES: No joint inflammatory activity. NEUROLOGIC EXAMINATION: Unchanged. Cognitive function appears to be intact. LABORATORY DATA: Sodium 142, creatinine 0.53. Liver profile normal. Albumin 3.0 and 2.6. White cell count 12.3 and 8.9, hemoglobin 10, platelets 189, 63% neutrophils. Urinalysis with greater than 50 wbcs. Cultures with Klebsiella pneumoniae and Pseudomonas aeruginosa. Pseudomonas strain is very sensitive. Two sets of blood cultures, no growth at 48 hours. C. difficile negative. Influenza A and B antigen testing negative. ASSESSMENT: 1. Multiple sclerosis with usual complications. 2. Neurogenic bladder versus outlet obstruction and recurrent urinary tract infections. 3. New onset of fever after completion of recent treatment. 4. Indwelling Robles catheter. DISCUSSION: Differential diagnosis includes influenza, which is not yet ruled out and the possibility of an invasive UTI is another concern. Findings in urinalysis and cultures may reflect an indwelling Robles catheter or could actually be responsible for the patient's symptoms. We will have to continue treating with antimicrobials. Wait for the culture results. Switch her to Merrem. Discontinue gentamicin and Zyvox until final results of cultures. Check respiratory virus PCR panel. Probably we will need to place a suprapubic catheter here in the hospital, but Dr. Pedroza would like to do it in the office. We will talk to him about it. SUKUMAR
[2017-09-06] MEDS: Meropenem 1 GM in Sterile Water 20 ML SLOW IVP SCH (18:56)
[2017-09-06] MEDS: Pravastatin Sodium 40 MG TAB PO SCH (21:43)
[2017-09-06] MEDS ORDERED: Meropenem 1 GM in Sodium Chloride 0.9% 100 ML IVPB SCH (22:00)
[2017-09-07] MEDS: Meropenem 1 GM in Sterile Water 20 ML SLOW IVP SCH ×3 (02:14→18:25)
[2017-09-07] MEDS: Lidocaine Viscous Sol 2% 15 ml UD Cup SSW PRN (09:05)
[2017-09-07] MEDS: guaiFENesin ER 600 MG TAB PO SCH ×2 (09:06→20:53)
[2017-09-07] MEDS: Enoxaparin Sodium 30 MG/0.3 ML SYRINGE SC SCH (09:06)
[2017-09-07] MEDS: Multivitamin W/ Minerals 1 TAB PO SCH (09:07)
[2017-09-07] MEDS: predniSONE 20 MG TAB PO SCH (09:07)
[2017-09-07] MEDS: Oxybutynin 5 MG TAB PO SCH ×2 (09:07→20:55)
[2017-09-07] MEDS: Famotidine 20 MG TAB PO SCH ×2 (09:07→20:53)
[2017-09-07] MEDS: Gabapentin 100 MG CAP PO SCH ×3 (09:08→20:53)
[2017-09-07] MEDS: Ferrous Sulfate 325 MG TAB PO SCH (09:08)
[2017-09-07] MEDS: Saccharomyces boulardii 250 MG CAP PO SCH (09:08)
[2017-09-07] MEDS: Morphine ER 30 MG TAB PO SCH ×2 (09:08→20:54)
[2017-09-07] MEDS: Fenofibrate Nanocrystallized 145 MG TAB PO SCH (09:09)
[2017-09-07] MEDS: Fluticasone Propionate Nasal Spray 16 gm Bottle NASAL SCH (09:09)
[2017-09-07] MEDS: Budesonide 0.5 MG/2 ML NEB INH SCH ×2 (09:15→20:02)
--- NOTE | 2017-09-07 10:04 | PDOC.PN ---
- Subjective Encounter Start Date: 09/07/17 Encounter Start Time: 07:05 Patient seen and examined. No new complaints. No overnight events - Objective Resuscitation Status: Resuscitation Status FULL:Full Resuscitation MAR Reviewed: Yes Vital Signs & Weight: Vital Signs (12 hours) Temp Pulse Resp BP Pulse Ox 09/07/17 08:00 97.7 F 72 20 112/69 97 09/07/17 00:26 96 Weight Admit Weight 128 lb 8 oz Weight 128 lb 8 oz I&O: 09/06/17 09/07/17 09/08/17 06:59 06:59 06:59 Intake Total 1650 1080 Output Total 2000 1200 Balance -350 -120 Result Diagrams: 09/05/17 01:58 09/05/17 01:58 Phys Exam - Physical Examination Constitutional: NAD HEENT: PERRLA, moist MMs, sclera anicteric Neck: no JVD, supple Respiratory: no wheezing, no rhonchi coarse basal sound Cardiovascular: RRR, no significant murmur, no rub Gastrointestinal: soft, non-tender, no distention yang+ Musculoskeletal: no edema, pulses present Neurological: moves all 4 limbs Psychiatric: normal affect, A&O x 3 Skin: no rash, normal turgor Dx/Plan (1) UTI (urinary tract infection) due to urinary indwelling catheter Code(s): T83.511A - I/I REACT D/T INDWELLING URETHRAL CATHETER, INIT; N39.0 - URINARY TRACT INFECTION, SITE NOT SPECIFIED Status: Acute Qualifiers: Indwelling urinary catheter type: indwelling urethral catheter (2) Sepsis Code(s): A41.9 - SEPSIS, UNSPECIFIED ORGANISM Status: Acute Qualifiers: Comment: (3) Neurogenic bladder Code(s): N31.9 - NEUROMUSCULAR DYSFUNCTION OF BLADDER, UNSPECIFIED Status: Chronic (4) Anxiety and depression Code(s): F41.8 - OTHER SPECIFIED ANXIETY DISORDERS Status: Chronic (5) Chronic low back pain Code(s): M54.5 - LOW BACK PAIN; G89.29 - OTHER CHRONIC PAIN Status: Chronic Comment: (6) Dyslipidemia Code(s): E78.5 - HYPERLIPIDEMIA, UNSPECIFIED Status: Chronic (7) GERD (gastroesophageal reflux disease) Code(s): K21.9 - GASTRO-ESOPHAGEAL REFLUX DISEASE WITHOUT ESOPHAGITIS Status: Chronic (8) HTN (hypertension) Code(s): I10 - ESSENTIAL (PRIMARY) HYPERTENSION Status: Chronic (9) History of pulmonary embolism Code(s): Z86.711 - PERSONAL HISTORY OF PULMONARY EMBOLISM Status: Chronic (10) Lupus (systemic lupus erythematosus) Code(s): M32.9 - SYSTEMIC LUPUS ERYTHEMATOSUS, UNSPECIFIED Status: Chronic Qualifiers: Systemic lupus erythematosus organ involvement: lung involvement (11) Migraine Code(s): G43.909 - MIGRAINE, UNSP, NOT INTRACTABLE, WITHOUT STATUS MIGRAINOSUS Status: Chronic (12) Multiple sclerosis Code(s): G35 - MULTIPLE SCLEROSIS Status: Chronic (13) Physical deconditioning Code(s): R53.81 - OTHER MALAISE Status: Chronic (14) Protein-calorie malnutrition, moderate Code(s): E44.0 - MODERATE PROTEIN-CALORIE MALNUTRITION Status: Chronic (15) Pulmonary hypertension Code(s): I27.20 - PULMONARY HYPERTENSION, UNSPECIFIED Status: Chronic (16) Hypotension Status: Resolved - Plan cont current plan of care, continue antibiotics * continue antibiotics as per dr levy * urology has not seen yet * family prefer suprapubic to be done this admission * medication reviewed as below * symptomatic treatment. Review of Systems - Review of Systems ENT: negative: Ear Pain, Ear Discharge, Nose Pain, Nose Discharge, Nose Congestion, Mouth Pain, Mouth Swelling, Throat Pain, Throat Swelling, Other Respiratory: negative: Cough, Dry, Shortness of Breath, Hemoptysis, SOB with Excertion, Pleuritic Pain, Sputum, Wheezing Cardiovascular: negative: chest pain, palpitations, orthopnea, paroxysmal nocturnal dyspnea, edema, light headedness, other Gastrointestinal: negative: Nausea, Vomiting, Abdominal Pain, Diarrhea, Constipation, Melena, Hematochezia, Other Genitourinary: negative: Dysuria, Frequency, Incontinence, Hematuria, Retention , Other Musculoskeletal: negative: Neck Pain, Shoulder Pain, Arm Pain, Back Pain, Hand Pain, Leg Pain, Foot Pain, Other Skin: negative: Rash, Lesions, Aníbal, Bruising, Other - Medications/Allergies Allergies/Adverse Reactions: Allergies Allergy/AdvReac Type Severity Reaction Status Date / Time Penicillins Allergy Intermediate Verified 08/07/17 04:41 fentanyl Allergy Verified 08/07/17 04:41 methadone HCl Allergy Verified 08/07/17 04:41 [From Methadose] Medications: Current Medications Acetaminophen (Tylenol) 650 mg PO Q4H PRN PRN Reason: Headache/Fever or Pain Hydrocodone Bitart/Acetaminophen ([place] 5/325) 1 tab PO Q4H PRN PRN Reason: Moderate Pain (4-6) Last Admin: 09/06/17 02:45 Dose: 1 tab Al Hydroxide/Mg Hydroxide (Maalox) 30 ml PO Q6H PRN PRN Reason: Heartburn or Indigestion Albuterol/Ipratropium (Duoneb) 3 ml NEB [id number] [facility] Last Admin: 09/07/17 09:14 Dose: Not Given Artificial Tears (Tears Naturale) 0 drop EA EYE PRN PRN PRN Reason: Dry Eyes Budesonide (Pulmicort Neb Solution) 0.5 mg INH BID-RT [facility] Last Admin: 09/07/17 09:15 Dose: Not Given Dicyclomine HCl (Bentyl) 20 mg PO QIDPRN PRN PRN Reason: . Last Admin: 09/05/17 18:50 Dose: 20 mg Diphenoxylate HCl/Atropine (Lomotil) 1 tab PO Q6H PRN PRN Reason: Diarrhea/Loose Stools Enoxaparin Sodium (Lovenox) 30 mg SC 0900 [facility] Last Admin: 09/07/17 09:06 Dose: 30 mg Estrogens Conjugated (Premarin) 0.625 mg PO DAILY [facility] Last Admin: 09/06/17 09:53 Dose: 0.625 mg Famotidine (Pepcid) 20 mg PO BID [facility] Last Admin: 09/07/17 09:07 Dose: 20 mg Fenofibrate (Tricor) 145 mg PO DAILY [facility] Last Admin: 09/07/17 09:09 Dose: 145 mg Ferrous Sulfate (Feosol) 325 mg PO QA-[facility] Last Admin: 09/07/17 09:08 Dose: 325 mg Fluticasone Propionate (Flonase Nasal [place]) 0 gm NASAL DAILY [facility] Last Admin: 09/07/17 09:09 Dose: 1 spr Gabapentin (Neurontin) 100 mg PO TID [facility] Last Admin: 09/07/17 09:08 Dose: 100 mg Guaifenesin (Robitussin Sf) 200 mg PO Q4H PRN PRN Reason: Cough Guaifenesin (Mucinex) 600 mg PO Q12HR [facility] Last Admin: 09/07/17 09:06 Dose: 600 mg Hydralazine HCl (Apresoline) 10 mg SLOW IVP Q4H PRN PRN Reason: Systolic BP > 180 Meropenem 1 gm/ Sterile Water 20 mls @ 240 mls/hr SLOW IVP 0200,1000,1800 [facility] Last Admin: 09/07/17 02:14 Dose: 20 mls Iron/Minerals/Multivitamins (Theragran M) 1 tab PO DAILY [facility] Last Admin: 09/07/17 09:07 Dose: 1 tab Lidocaine (Lidoderm 5% Patch) 1 patch TD Q12H PRN PRN Reason: Pain Last Admin: 09/06/17 12:43 Dose: 1 patch Lidocaine HCl (Xylocaine 2% Viscous) 10 ml SSW Q4H PRN PRN Reason: . Last Admin: 09/07/17 09:05 Dose: 10 ml Loperamide HCl (Imodium) 2 mg PO PRN PRN PRN Reason: Diarrhea/Loose Stools Loratadine (Claritin) 10 mg PO DAILYPRN PRN PRN Reason: Sinus Symptoms Magnesium Hydroxide (Milk Of Magnesium) 30 ml PO DAILYPRN PRN PRN Reason: Constipation Mineral Oil/White Petrolatum (Eucerin Cream) 0 gm TOP BIDPRN PRN PRN Reason: Dry Skin Morphine Sulfate (Ms Contin) 60 mg PO BID [facility] Last Admin: 09/07/17 09:08 Dose: 60 mg Nystatin (Mycostatin Powder) 1 gm TOP BIDPRN PRN PRN Reason: Rash/Topical Irritation Nystatin (Mycostatin) 5 units SSW QIDPRN PRN PRN Reason: THRUSH Ondansetron HCl (Zofran Odt) 4 mg PO Q6H PRN PRN Reason: Nausea/Vomiting Ondansetron HCl (Zofran) 4 mg IVP Q6H PRN PRN Reason: Nausea/Vomiting Oxybutynin Chloride (Ditropan) 5 mg PO BID [facility] Last Admin: 09/07/17 09:07 Dose: 5 mg Phenol (Chloraseptic [place] 180 Ml Bot) 0 ml PO PRN PRN PRN Reason: Sore Throat Pravastatin Sodium (Pravachol) 80 mg PO HS [facility] Last Admin: 09/06/17 21:43 Dose: 80 mg Prednisone (Prednisone) 10 mg PO QAM-WM [facility] Last Admin: 09/07/17 09:07 Dose: 10 mg Saccharomyces Boulardii (Florastor) 250 mg PO DAILY [facility] Last Admin: 09/07/17 09:08 Dose: 250 mg Senna (Senokot) 2 tab PO HSPRN PRN PRN Reason: Constipation Sertraline HCl (Zoloft) 50 mg PO DAILY [facility] Last Admin: 09/07/17 09:06 Dose: 50 mg Sodium Chloride ([place] Nasal [place] 0.65%) 0 ml EA NARE QIDPRN PRN PRN Reason: Nasal Congestion Sodium Chloride (Flush - Normal Saline) 10 ml IVF Q12HR [facility] Last Admin: 09/07/17 09:09 Dose: 10 ml Sodium Chloride (Flush - Normal Saline) 10 ml IVF PRN PRN PRN Reason: Saline Flush Zolpidem Tartrate (Ambien) 5 mg PO HSPRN PRN PRN Reason: Insomnia
[2017-09-07] MEDS: Acyclovir 400 mg Tablet PO SCH (20:53)
[2017-09-07] MEDS: Pravastatin Sodium 40 MG TAB PO SCH (20:55)
[2017-09-08] MEDS: Meropenem 1 GM in Sterile Water 20 ML SLOW IVP SCH ×2 (02:21→10:25)
[2017-09-08] MEDS: Acyclovir 400 mg Tablet PO SCH ×3 (10:22→20:58)
[2017-09-08] MEDS: Morphine ER 30 MG TAB PO SCH ×2 (10:23→20:57)
[2017-09-08] MEDS: Ferrous Sulfate 325 MG TAB PO SCH (10:23)
[2017-09-08] MEDS: Fenofibrate Nanocrystallized 145 MG TAB PO SCH (10:24)
[2017-09-08] MEDS: guaiFENesin ER 600 MG TAB PO SCH ×2 (10:24→20:58)
[2017-09-08] MEDS: predniSONE 20 MG TAB PO SCH (10:24)
[2017-09-08] MEDS: Gabapentin 100 MG CAP PO SCH ×3 (10:24→20:58)
[2017-09-08] MEDS: Famotidine 20 MG TAB PO SCH ×2 (10:24→20:58)
[2017-09-08] MEDS: Saccharomyces boulardii 250 MG CAP PO SCH (10:24)
[2017-09-08] MEDS: Oxybutynin 5 MG TAB PO SCH ×2 (10:24→20:58)
[2017-09-08] MEDS: Multivitamin W/ Minerals 1 TAB PO SCH (10:24)
[2017-09-08] MEDS: Enoxaparin Sodium 30 MG/0.3 ML SYRINGE SC SCH (10:25)
[2017-09-08] MEDS: Fluticasone Propionate Nasal Spray 16 gm Bottle NASAL SCH (10:28)
--- NOTE | 2017-09-08 10:28 | PDOC.PN ---
- Subjective Encounter Start Date: 09/08/17 Encounter Start Time: 09:50 Patient seen and examined. No new complaints. No overnight events - Objective Resuscitation Status: Resuscitation Status FULL:Full Resuscitation MAR Reviewed: Yes Vital Signs & Weight: Vital Signs (12 hours) Temp Pulse Resp BP Pulse Ox 09/08/17 08:00 98.1 F 103 H 16 113/71 94 L 09/08/17 00:55 87 18 97 Weight Admit Weight 128 lb 8 oz Weight 128 lb 8 oz I&O: 09/07/17 09/08/17 09/09/17 06:59 06:59 06:59 Intake Total 1080 450 Output Total 1200 2150 Balance -120 -1700 Result Diagrams: 09/05/17 01:58 09/05/17 01:58 Phys Exam - Physical Examination Constitutional: NAD HEENT: moist MMs, sclera anicteric Neck: no JVD, supple Respiratory: no wheezing, no rhonchi Cardiovascular: RRR, no significant murmur, no rub Gastrointestinal: soft, non-tender, no distention, positive bowel sounds Musculoskeletal: no edema, pulses present Neurological: moves all 4 limbs Lymphatic: no nodes Psychiatric: normal affect Skin: no rash, normal turgor Dx/Plan (1) UTI (urinary tract infection) due to urinary indwelling catheter Code(s): T83.511A - I/I REACT D/T INDWELLING URETHRAL CATHETER, INIT; N39.0 - URINARY TRACT INFECTION, SITE NOT SPECIFIED Status: Acute Qualifiers: Indwelling urinary catheter type: indwelling urethral catheter (2) Sepsis Code(s): A41.9 - SEPSIS, UNSPECIFIED ORGANISM Status: Acute Qualifiers: Comment: (3) Neurogenic bladder Code(s): N31.9 - NEUROMUSCULAR DYSFUNCTION OF BLADDER, UNSPECIFIED Status: Chronic (4) Anxiety and depression Code(s): F41.8 - OTHER SPECIFIED ANXIETY DISORDERS Status: Chronic (5) Chronic low back pain Code(s): M54.5 - LOW BACK PAIN; G89.29 - OTHER CHRONIC PAIN Status: Chronic Comment: (6) Dyslipidemia Code(s): E78.5 - HYPERLIPIDEMIA, UNSPECIFIED Status: Chronic (7) GERD (gastroesophageal reflux disease) Code(s): K21.9 - GASTRO-ESOPHAGEAL REFLUX DISEASE WITHOUT ESOPHAGITIS Status: Chronic (8) HTN (hypertension) Code(s): I10 - ESSENTIAL (PRIMARY) HYPERTENSION Status: Chronic (9) History of pulmonary embolism Code(s): Z86.711 - PERSONAL HISTORY OF PULMONARY EMBOLISM Status: Chronic (10) Lupus (systemic lupus erythematosus) Code(s): M32.9 - SYSTEMIC LUPUS ERYTHEMATOSUS, UNSPECIFIED Status: Chronic Qualifiers: Systemic lupus erythematosus organ involvement: lung involvement (11) Migraine Code(s): G43.909 - MIGRAINE, UNSP, NOT INTRACTABLE, WITHOUT STATUS MIGRAINOSUS Status: Chronic (12) Multiple sclerosis Code(s): G35 - MULTIPLE SCLEROSIS Status: Chronic (13) Physical deconditioning Code(s): R53.81 - OTHER MALAISE Status: Chronic (14) Protein-calorie malnutrition, moderate Code(s): E44.0 - MODERATE PROTEIN-CALORIE MALNUTRITION Status: Chronic (15) Pulmonary hypertension Code(s): I27.20 - PULMONARY HYPERTENSION, UNSPECIFIED Status: Chronic (16) Hypotension Status: Resolved - Plan cont current plan of care, continue antibiotics * continue current iv antibiotics as per ID * urology to do suprapubic catheter * medication reviewed as below * symptomatic treatment. Review of Systems - Review of Systems ENT: negative: Ear Pain, Ear Discharge, Nose Pain, Nose Discharge, Nose Congestion, Mouth Pain, Mouth Swelling, Throat Pain, Throat Swelling, Other Respiratory: negative: Cough, Dry, Shortness of Breath, Hemoptysis, SOB with Excertion, Pleuritic Pain, Sputum, Wheezing Cardiovascular: negative: chest pain, palpitations, orthopnea, paroxysmal nocturnal dyspnea, edema, light headedness, other Gastrointestinal: negative: Nausea, Vomiting, Abdominal Pain, Diarrhea, Constipation, Melena, Hematochezia, Other Genitourinary: negative: Dysuria, Frequency, Incontinence, Hematuria, Retention , Other Musculoskeletal: negative: Neck Pain, Shoulder Pain, Arm Pain, Back Pain, Hand Pain, Leg Pain, Foot Pain, Other Skin: negative: Rash, Lesions, Aníbal, Bruising, Other - Medications/Allergies Allergies/Adverse Reactions: Allergies Allergy/AdvReac Type Severity Reaction Status Date / Time Penicillins Allergy Intermediate Verified 08/07/17 04:41 fentanyl Allergy Verified 08/07/17 04:41 methadone HCl Allergy Verified 08/07/17 04:41 [From Methadose] Medications: Current Medications Acetaminophen (Tylenol) 650 mg PO Q4H PRN PRN Reason: Headache/Fever or Pain Hydrocodone Bitart/Acetaminophen ([place] 5/325) 1 tab PO Q4H PRN PRN Reason: Moderate Pain (4-6) Last Admin: 09/06/17 02:45 Dose: 1 tab Acyclovir (Zovirax) 400 mg PO TID [facility] Last Admin: 09/07/17 20:53 Dose: 400 mg Al Hydroxide/Mg Hydroxide (Maalox) 30 ml PO Q6H PRN PRN Reason: Heartburn or Indigestion Last Admin: 09/07/17 11:13 Dose: 30 ml Albuterol/Ipratropium (Duoneb) 3 ml NEB [id number] [facility] Last Admin: 09/08/17 07:46 Dose: Not Given Artificial Tears (Tears Naturale) 0 drop EA EYE PRN PRN PRN Reason: Dry Eyes Budesonide (Pulmicort Neb Solution) 0.5 mg INH BID-RT [facility] Last Admin: 09/07/17 20:02 Dose: 0.5 mg Dicyclomine HCl (Bentyl) 20 mg PO QIDPRN PRN PRN Reason: . Last Admin: 09/05/17 18:50 Dose: 20 mg Diphenoxylate HCl/Atropine (Lomotil) 1 tab PO Q6H PRN PRN Reason: Diarrhea/Loose Stools Enoxaparin Sodium (Lovenox) 30 mg SC 0900 [facility] Last Admin: 09/07/17 09:06 Dose: 30 mg Estrogens Conjugated (Premarin) 0.625 mg PO DAILY [facility] Last Admin: 09/07/17 11:15 Dose: 0.625 mg Famotidine (Pepcid) 20 mg PO BID [facility] Last Admin: 09/07/17 20:53 Dose: 20 mg Fenofibrate (Tricor) 145 mg PO DAILY [facility] Last Admin: 09/07/17 09:09 Dose: 145 mg Ferrous Sulfate (Feosol) 325 mg PO QA-[facility] Last Admin: 09/07/17 09:08 Dose: 325 mg Fluticasone Propionate (Flonase Nasal [place]) 0 gm NASAL DAILY [facility] Last Admin: 09/07/17 09:09 Dose: 1 spr Gabapentin (Neurontin) 100 mg PO TID [facility] Last Admin: 09/07/17 20:53 Dose: 100 mg Guaifenesin (Robitussin Sf) 200 mg PO Q4H PRN PRN Reason: Cough Guaifenesin (Mucinex) 600 mg PO Q12HR [facility] Last Admin: 09/07/17 20:53 Dose: 600 mg Hydralazine HCl (Apresoline) 10 mg SLOW IVP Q4H PRN PRN Reason: Systolic BP > 180 Meropenem 1 gm/ Sterile Water 20 mls @ 240 mls/hr SLOW IVP 0200,1000,1800 [facility] Last Admin: 09/08/17 02:21 Dose: 20 mls Iron/Minerals/Multivitamins (Theragran M) 1 tab PO DAILY [facility] Last Admin: 09/07/17 09:07 Dose: 1 tab Lidocaine (Lidoderm 5% Patch) 1 patch TD Q12H PRN PRN Reason: Pain Last Admin: 09/06/17 12:43 Dose: 1 patch Lidocaine HCl (Xylocaine 2% Viscous) 10 ml SSW Q4H PRN PRN Reason: . Last Admin: 09/07/17 09:05 Dose: 10 ml Loperamide HCl (Imodium) 2 mg PO PRN PRN PRN Reason: Diarrhea/Loose Stools Loratadine (Claritin) 10 mg PO DAILYPRN PRN PRN Reason: Sinus Symptoms Magnesium Hydroxide (Milk Of Magnesium) 30 ml PO DAILYPRN PRN PRN Reason: Constipation Mineral Oil/White Petrolatum (Eucerin Cream) 0 gm TOP BIDPRN PRN PRN Reason: Dry Skin Morphine Sulfate (Ms Contin) 60 mg PO BID [facility] Last Admin: 09/07/17 20:54 Dose: 60 mg Nystatin (Mycostatin Powder) 1 gm TOP BIDPRN PRN PRN Reason: Rash/Topical Irritation Nystatin (Mycostatin) 5 units SSW QIDPRN PRN PRN Reason: THRUSH Ondansetron HCl (Zofran Odt) 4 mg PO Q6H PRN PRN Reason: Nausea/Vomiting Ondansetron HCl (Zofran) 4 mg IVP Q6H PRN PRN Reason: Nausea/Vomiting Oxybutynin Chloride (Ditropan) 5 mg PO BID [facility] Last Admin: 09/07/17 20:55 Dose: 5 mg Phenol (Chloraseptic [place] 180 Ml Bot) 0 ml PO PRN PRN PRN Reason: Sore Throat Pravastatin Sodium (Pravachol) 80 mg PO HS [facility] Last Admin: 09/07/17 20:55 Dose: 80 mg Prednisone (Prednisone) 10 mg PO QAM-WM [facility] Last Admin: 09/07/17 09:07 Dose: 10 mg Saccharomyces Boulardii (Florastor) 250 mg PO DAILY [facility] Last Admin: 09/07/17 09:08 Dose: 250 mg Senna (Senokot) 2 tab PO HSPRN PRN PRN Reason: Constipation Sertraline HCl (Zoloft) 50 mg PO DAILY [facility] Last Admin: 09/07/17 09:06 Dose: 50 mg Sodium Chloride ([place] Nasal [place] 0.65%) 0 ml EA NARE QIDPRN PRN PRN Reason: Nasal Congestion Sodium Chloride (Flush - Normal Saline) 10 ml IVF Q12HR [facility] Last Admin: 09/07/17 21:00 Dose: 10 ml Sodium Chloride (Flush - Normal Saline) 10 ml IVF PRN PRN PRN Reason: Saline Flush Zolpidem Tartrate (Ambien) 5 mg PO HSPRN PRN PRN Reason: Insomnia
[2017-09-08] MEDS: Budesonide 0.5 MG/2 ML NEB INH SCH ×2 (10:44→19:51)
[2017-09-08] MEDS: Lidocaine Viscous Sol 2% 15 ml UD Cup SSW PRN (14:55)
[2017-09-08] MEDS: Cefepime 2 GM, Syringe 2.5 ML in Sterile Water 10 ML SLOW IVP SCH (19:29)
[2017-09-08] MEDS: Pravastatin Sodium 40 MG TAB PO SCH (20:58)
[2017-09-08] MEDS ORDERED: Cefepime 2 GM in Sodium Chloride 0.9% 100 ML IVPB SCH (21:00)
[2017-09-09] MEDS: Cefepime 2 GM, Syringe 2.5 ML in Sterile Water 10 ML SLOW IVP SCH ×2 (05:13→20:40)
[2017-09-09 05:51] LABS: INR-International Normal Ratio 1.2; Prothrombin Time 15.4 SEC (12.0-14.7)
[2017-09-09] MEDS: Budesonide 0.5 MG/2 ML NEB INH SCH ×2 (07:50→20:13)
--- NOTE | 2017-09-09 09:35 | SPC ---
LEFT UPPER EXTREMITY PICC LINE ULTRASOUND AND FLUOROSCOPIC GUIDANCE: PROCEDURE: After informed consent had been obtained, the patient was placed on the interventional suite table in a supine position. The left arm was prepped and draped in a standard sterile fashion. Topical anes thesia was achieved utilizing 1% Lidocaine and sodium bicarbonate. Under real-time sonography, the b asilic vein of the left upper extremity was accessed with a small caliber needle with venous flash pr esent at the needle hub. A guidewire was then advanced in to the needle, and under real-time fluoros copy, the guidewire was advanced to the level of the inferior vena cava to confirm appropriate venous placement. A small skin incision was made and the needle was removed. Over the guidewire, a single lumen PICC line was cut to 44 cm. The PICC line was advanced under real-time fluoroscopy over the g uidewire to the level of the cavoatrial junction. The guidewire and peelaway sheath were then remove d. PICC line flushed and aspirated appropriately and was secured to the left upper extremity. There were no procedural complications. Fluoroscopy data: 0 minutes. Intermittent fluoroscopy 246 mGy*cm^2. IMPRESSION: Technically successful ultrasound and fluoroscopic-guided left PICC line placement, as above. POS: HOLLIE
--- NOTE | 2017-09-09 10:31 | PDOC.PN ---
- Subjective Encounter Start Date: 09/09/17 Encounter Start Time: 08:20 Patient seen and examined. No new complaints. No overnight events - Objective Resuscitation Status: Resuscitation Status FULL:Full Resuscitation MAR Reviewed: Yes Vital Signs & Weight: Vital Signs (12 hours) Temp Pulse Resp BP BP Pulse Ox 09/09/17 08:00 97.9 F 66 20 130/62 09/09/17 07:50 73 15 93 L 09/09/17 04:00 98.0 F 77 20 115/58 L 94 L Weight Admit Weight 128 lb 8 oz Weight 128 lb 8 oz I&O: 09/08/17 09/09/17 09/10/17 06:59 06:59 06:59 Intake Total 450 600 Output Total 2150 1700 Balance -1700 -1100 Result Diagrams: 09/05/17 01:58 09/05/17 01:58 Phys Exam - Physical Examination Constitutional: NAD HEENT: PERRLA, moist MMs, sclera anicteric Neck: no JVD, supple Respiratory: no wheezing, no rales, no rhonchi Cardiovascular: RRR, no significant murmur, no rub Gastrointestinal: soft, non-tender, no distention, positive bowel sounds Musculoskeletal: no edema, pulses present yang+ Neurological: moves all 4 limbs Psychiatric: normal affect, A&O x 3 Skin: no rash, normal turgor Dx/Plan (1) UTI (urinary tract infection) due to urinary indwelling catheter Code(s): T83.511A - I/I REACT D/T INDWELLING URETHRAL CATHETER, INIT; N39.0 - URINARY TRACT INFECTION, SITE NOT SPECIFIED Status: Acute Qualifiers: Indwelling urinary catheter type: indwelling urethral catheter (2) Sepsis Code(s): A41.9 - SEPSIS, UNSPECIFIED ORGANISM Status: Acute Qualifiers: Comment: (3) Neurogenic bladder Code(s): N31.9 - NEUROMUSCULAR DYSFUNCTION OF BLADDER, UNSPECIFIED Status: Chronic (4) Anxiety and depression Code(s): F41.8 - OTHER SPECIFIED ANXIETY DISORDERS Status: Chronic (5) Chronic low back pain Code(s): M54.5 - LOW BACK PAIN; G89.29 - OTHER CHRONIC PAIN Status: Chronic Comment: (6) Dyslipidemia Code(s): E78.5 - HYPERLIPIDEMIA, UNSPECIFIED Status: Chronic (7) GERD (gastroesophageal reflux disease) Code(s): K21.9 - GASTRO-ESOPHAGEAL REFLUX DISEASE WITHOUT ESOPHAGITIS Status: Chronic (8) HTN (hypertension) Code(s): I10 - ESSENTIAL (PRIMARY) HYPERTENSION Status: Chronic (9) History of pulmonary embolism Code(s): Z86.711 - PERSONAL HISTORY OF PULMONARY EMBOLISM Status: Chronic (10) Lupus (systemic lupus erythematosus) Code(s): M32.9 - SYSTEMIC LUPUS ERYTHEMATOSUS, UNSPECIFIED Status: Chronic Qualifiers: Systemic lupus erythematosus organ involvement: lung involvement (11) Migraine Code(s): G43.909 - MIGRAINE, UNSP, NOT INTRACTABLE, WITHOUT STATUS MIGRAINOSUS Status: Chronic (12) Multiple sclerosis Code(s): G35 - MULTIPLE SCLEROSIS Status: Chronic (13) Physical deconditioning Code(s): R53.81 - OTHER MALAISE Status: Chronic (14) Protein-calorie malnutrition, moderate Code(s): E44.0 - MODERATE PROTEIN-CALORIE MALNUTRITION Status: Chronic (15) Pulmonary hypertension Code(s): I27.20 - PULMONARY HYPERTENSION, UNSPECIFIED Status: Chronic (16) Hypotension Status: Resolved - Plan cont current plan of care, continue antibiotics * continue iv antibiotics as per dr levy * medication reviewed as below * symptomatic treatment * ? urology has not seen yet. Review of Systems - Review of Systems ENT: negative: Ear Pain, Ear Discharge, Nose Pain, Nose Discharge, Nose Congestion, Mouth Pain, Mouth Swelling, Throat Pain, Throat Swelling, Other Respiratory: negative: Cough, Dry, Shortness of Breath, Hemoptysis, SOB with Excertion, Pleuritic Pain, Sputum, Wheezing Cardiovascular: negative: chest pain, palpitations, orthopnea, paroxysmal nocturnal dyspnea, edema, light headedness, other Gastrointestinal: negative: Nausea, Vomiting, Abdominal Pain, Diarrhea, Constipation, Melena, Hematochezia, Other Genitourinary: negative: Dysuria, Frequency, Incontinence, Hematuria, Retention , Other Musculoskeletal: negative: Neck Pain, Shoulder Pain, Arm Pain, Back Pain, Hand Pain, Leg Pain, Foot Pain, Other Skin: negative: Rash, Lesions, Aníbal, Bruising, Other - Medications/Allergies Allergies/Adverse Reactions: Allergies Allergy/AdvReac Type Severity Reaction Status Date / Time Penicillins Allergy Intermediate Verified 08/07/17 04:41 fentanyl Allergy Verified 08/07/17 04:41 methadone HCl Allergy Verified 08/07/17 04:41 [From Methadose] Medications: Current Medications Acetaminophen (Tylenol) 650 mg PO Q4H PRN PRN Reason: Headache/Fever or Pain Hydrocodone Bitart/Acetaminophen ([place] 5/325) 1 tab PO Q4H PRN PRN Reason: Moderate Pain (4-6) Last Admin: 09/06/17 02:45 Dose: 1 tab Acyclovir (Zovirax) 400 mg PO TID [facility] Last Admin: 09/08/17 20:58 Dose: 400 mg Al Hydroxide/Mg Hydroxide (Maalox) 30 ml PO Q6H PRN PRN Reason: Heartburn or Indigestion Last Admin: 09/07/17 11:13 Dose: 30 ml Albuterol/Ipratropium (Duoneb) 3 ml NEB [id number] [facility] Last Admin: 09/09/17 07:50 Dose: 3 ml Artificial Tears (Tears Naturale) 0 drop EA EYE PRN PRN PRN Reason: Dry Eyes Budesonide (Pulmicort Neb Solution) 0.5 mg INH BID-RT [facility] Last Admin: 09/09/17 07:50 Dose: 0.5 mg Dicyclomine HCl (Bentyl) 20 mg PO QIDPRN PRN PRN Reason: . Last Admin: 09/05/17 18:50 Dose: 20 mg Diphenoxylate HCl/Atropine (Lomotil) 1 tab PO Q6H PRN PRN Reason: Diarrhea/Loose Stools Enoxaparin Sodium (Lovenox) 30 mg SC 0900 [facility] Last Admin: 09/08/17 10:25 Dose: 30 mg Estrogens Conjugated (Premarin) 0.625 mg PO DAILY [facility] Last Admin: 09/08/17 10:22 Dose: 0.625 mg Famotidine (Pepcid) 20 mg PO BID [facility] Last Admin: 09/08/17 20:58 Dose: 20 mg Fenofibrate (Tricor) 145 mg PO DAILY [facility] Last Admin: 09/08/17 10:24 Dose: 145 mg Ferrous Sulfate (Feosol) 325 mg PO QA-[facility] Last Admin: 09/08/17 10:23 Dose: 325 mg Fluticasone Propionate (Flonase Nasal [place]) 0 gm NASAL DAILY [facility] Last Admin: 09/08/17 10:28 Dose: 1 spr Gabapentin (Neurontin) 100 mg PO TID [facility] Last Admin: 09/08/17 20:58 Dose: 100 mg Guaifenesin (Robitussin Sf) 200 mg PO Q4H PRN PRN Reason: Cough Guaifenesin (Mucinex) 600 mg PO Q12HR [facility] Last Admin: 09/08/17 20:58 Dose: 600 mg Hydralazine HCl (Apresoline) 10 mg SLOW IVP Q4H PRN PRN Reason: Systolic BP > 180 Cefepime HCl 2 gm/ Syringe 2.5 (ml/ Sterile Water) 12.5 mls @ 150 mls/hr SLOW IVP 0600,1800 [facility] Last Admin: 09/09/17 05:13 Dose: 12.5 mls Iron/Minerals/Multivitamins (Theragran M) 1 tab PO DAILY [facility] Last Admin: 09/08/17 10:24 Dose: 1 tab Lidocaine (Lidoderm 5% Patch) 1 patch TD Q12H PRN PRN Reason: Pain Last Admin: 09/06/17 12:43 Dose: 1 patch Lidocaine HCl (Xylocaine 2% Viscous) 10 ml SSW Q4H PRN PRN Reason: . Last Admin: 09/08/17 14:55 Dose: 10 ml Loperamide HCl (Imodium) 2 mg PO PRN PRN PRN Reason: Diarrhea/Loose Stools Loratadine (Claritin) 10 mg PO DAILYPRN PRN PRN Reason: Sinus Symptoms Magnesium Hydroxide (Milk Of Magnesium) 30 ml PO DAILYPRN PRN PRN Reason: Constipation Mineral Oil/White Petrolatum (Eucerin Cream) 0 gm TOP BIDPRN PRN PRN Reason: Dry Skin Morphine Sulfate (Ms Contin) 60 mg PO BID [facility] Last Admin: 09/08/17 20:57 Dose: 60 mg Nystatin (Mycostatin Powder) 1 gm TOP BIDPRN PRN PRN Reason: Rash/Topical Irritation Nystatin (Mycostatin) 5 units SSW QIDPRN PRN PRN Reason: THRUSH Ondansetron HCl (Zofran Odt) 4 mg PO Q6H PRN PRN Reason: Nausea/Vomiting Last Admin: 09/08/17 18:12 Dose: 4 mg Ondansetron HCl (Zofran) 4 mg IVP Q6H PRN PRN Reason: Nausea/Vomiting Oxybutynin Chloride (Ditropan) 5 mg PO BID [facility] Last Admin: 09/08/17 20:58 Dose: 5 mg Phenol (Chloraseptic [place] 180 Ml Bot) 0 ml PO PRN PRN PRN Reason: Sore Throat Pravastatin Sodium (Pravachol) 80 mg PO HS [facility] Last Admin: 09/08/17 20:58 Dose: 80 mg Prednisone (Prednisone) 10 mg PO QAM-WM [facility] Last Admin: 09/08/17 10:24 Dose: 10 mg Saccharomyces Boulardii (Florastor) 250 mg PO DAILY [facility] Last Admin: 09/08/17 10:24 Dose: 250 mg Senna (Senokot) 2 tab PO HSPRN PRN PRN Reason: Constipation Sertraline HCl (Zoloft) 50 mg PO DAILY [facility] Last Admin: 09/08/17 10:22 Dose: 50 mg Sodium Chloride ([place] Nasal [place] 0.65%) 0 ml EA NARE QIDPRN PRN PRN Reason: Nasal Congestion Sodium Chloride (Flush - Normal Saline) 10 ml IVF Q12HR [facility] Last Admin: 09/08/17 20:59 Dose: 10 ml Sodium Chloride (Flush - Normal Saline) 10 ml IVF PRN PRN PRN Reason: Saline Flush Zolpidem Tartrate (Ambien) 5 mg PO HSPRN PRN PRN Reason: Insomnia
[2017-09-09] MEDS: Gabapentin 100 MG CAP PO SCH ×3 (11:21→20:33)
[2017-09-09] MEDS: Multivitamin W/ Minerals 1 TAB PO SCH (11:21)
[2017-09-09] MEDS: Saccharomyces boulardii 250 MG CAP PO SCH (11:22)
[2017-09-09] MEDS: Morphine ER 30 MG TAB PO SCH ×2 (11:22→20:33)
[2017-09-09] MEDS: Acyclovir 400 mg Tablet PO SCH ×3 (11:22→20:33)
[2017-09-09] MEDS: Famotidine 20 MG TAB PO SCH ×2 (11:22→20:33)
[2017-09-09] MEDS: guaiFENesin ER 600 MG TAB PO SCH ×2 (11:23→20:33)
[2017-09-09] MEDS: predniSONE 20 MG TAB PO SCH (11:23)
[2017-09-09] MEDS: Fluticasone Propionate Nasal Spray 16 gm Bottle NASAL SCH (11:25)
[2017-09-09] MEDS: Oxybutynin 5 MG TAB PO SCH ×2 (11:25→20:40)
[2017-09-09] MEDS: Fenofibrate Nanocrystallized 145 MG TAB PO SCH (11:25)
[2017-09-09] MEDS: Ferrous Sulfate 325 MG TAB PO SCH (11:25)
[2017-09-09] MEDS: Enoxaparin Sodium 30 MG/0.3 ML SYRINGE SC SCH (11:25)
[2017-09-09] MEDS ORDERED: Heparin 1,000 UNITS/ML VIAL ONE (15:21)
[2017-09-09] MEDS: Pravastatin Sodium 40 MG TAB PO SCH (20:33)
[2017-09-10] MEDS: Cefepime 2 GM, Syringe 2.5 ML in Sterile Water 10 ML SLOW IVP SCH ×2 (05:22→18:00)
--- NOTE | 2017-09-10 07:32 | PRG ---
DATE OF SERVICE: 09/09/2017 SUBJECTIVE: Feeling better. No chest pain, no dyspnea. Still catheterized. No diarrhea. OBJECTIVE: VITAL SIGNS: T-max 98.1. Other vital signs are stable. GENERAL: She is in no distress, awake, alert. LUNGS: Clear. HEART: S1, S2, regular rate. ABDOMEN: Soft. Robles catheter. Peripheral IV access. LABORATORY DATA: White cell count, last time I checked was 8.9 on 09/05/2017, hemoglobin 9.1 and cre atinine 0.53. MEDICATIONS: The patient has been started on acyclovir and switched to cefepime. ASSESSMENT AND DISCUSSION: Multiple sclerosis with usual complications, neurogenic bladder with urin aiden retention and new onset of fever with likely recurrence of invasive urinary tract infection. Thi s time with 2 different organisms including Pseudomonas aeruginosa, fairly susceptible phenotype and E. coli. Discussed with Dr. Pedroza and he will schedule, but the thing is suprapubic catheter done in his office on September 13, and PICC line placement and continue cefepime for 2 weeks.
[2017-09-10] MEDS: Lidocaine Viscous Sol 2% 15 ml UD Cup SSW PRN (07:39)
[2017-09-10] MEDS: Morphine ER 30 MG TAB PO SCH ×2 (07:41→21:40)
[2017-09-10] MEDS: Saccharomyces boulardii 250 MG CAP PO SCH (07:41)
[2017-09-10] MEDS: guaiFENesin ER 600 MG TAB PO SCH ×2 (07:43→21:41)
[2017-09-10] MEDS: Multivitamin W/ Minerals 1 TAB PO SCH (07:44)
[2017-09-10] MEDS: Famotidine 20 MG TAB PO SCH ×2 (07:44→21:43)
[2017-09-10] MEDS: Fenofibrate Nanocrystallized 145 MG TAB PO SCH (07:44)
[2017-09-10] MEDS: predniSONE 20 MG TAB PO SCH (07:44)
[2017-09-10] MEDS: Ferrous Sulfate 325 MG TAB PO SCH (07:45)
[2017-09-10] MEDS: Oxybutynin 5 MG TAB PO SCH ×2 (07:45→21:43)
[2017-09-10] MEDS: Acyclovir 400 mg Tablet PO SCH ×3 (07:45→21:54)
[2017-09-10] MEDS: Gabapentin 100 MG CAP PO SCH ×3 (07:45→21:40)
[2017-09-10] MEDS: Enoxaparin Sodium 30 MG/0.3 ML SYRINGE SC SCH (07:49)
[2017-09-10] MEDS: Budesonide 0.5 MG/2 ML NEB INH SCH ×2 (08:08→19:20)
--- NOTE | 2017-09-10 11:37 | PDOC.PN ---
- Subjective Encounter Start Date: 09/10/17 Encounter Start Time: 11:35 Patient seen and examined, no new issues, all questions answered. - Objective Resuscitation Status: Resuscitation Status FULL:Full Resuscitation Vital Signs & Weight: Vital Signs (12 hours) Temp Pulse Resp BP Pulse Ox 09/10/17 08:53 97.9 F 84 18 182/69 H 94 L 09/10/17 04:00 98.0 F 87 18 112/56 L 94 L Weight Admit Weight 128 lb 8 oz Weight 128 lb 8 oz I&O: 09/09/17 09/10/17 09/11/17 06:59 06:59 06:59 Intake Total 600 1500 Output Total 1700 525 Balance -1100 975 Result Diagrams: 09/05/17 01:58 09/05/17 01:58 Phys Exam - Physical Examination Constitutional: NAD HEENT: PERRLA, moist MMs Neck: no nodes, no JVD Respiratory: no wheezing, no rales Cardiovascular: RRR, no significant murmur Gastrointestinal: soft, non-tender Musculoskeletal: no edema, pulses present Neurological: non-focal, normal sensation Lymphatic: no nodes Psychiatric: normal affect, A&O x 3 Skin: no rash Dx/Plan (1) UTI (urinary tract infection) due to urinary indwelling catheter Code(s): T83.511A - I/I REACT D/T INDWELLING URETHRAL CATHETER, INIT; N39.0 - URINARY TRACT INFECTION, SITE NOT SPECIFIED Status: Acute Qualifiers: Indwelling urinary catheter type: indwelling urethral catheter (2) Chronic low back pain Code(s): M54.5 - LOW BACK PAIN; G89.29 - OTHER CHRONIC PAIN Status: Chronic Comment: (3) Dyslipidemia Code(s): E78.5 - HYPERLIPIDEMIA, UNSPECIFIED Status: Chronic (4) Physical deconditioning Code(s): R53.81 - OTHER MALAISE Status: Chronic (5) Protein-calorie malnutrition, moderate Code(s): E44.0 - MODERATE PROTEIN-CALORIE MALNUTRITION Status: Chronic (6) Hypotension Status: Resolved - Plan * Patient feels better, daughter at bedside * patient states she does not feel like she is fully back to baseline * will monitor for 24 more hours, if stable in am than will discharge * continue all other current plan of care * case and plan d/w patient and daughter at length, they understand and agree with this plan
[2017-09-10] MEDS: Fluticasone Propionate Nasal Spray 16 gm Bottle NASAL SCH (13:33)
[2017-09-10] MEDS: Pravastatin Sodium 40 MG TAB PO SCH (21:39)
[2017-09-11] MEDS: Cefepime 2 GM, Syringe 2.5 ML in Sterile Water 10 ML SLOW IVP SCH ×2 (05:33→17:49)
[2017-09-11] MEDS: Budesonide 0.5 MG/2 ML NEB INH SCH ×2 (06:16→19:43)
[2017-09-11] MEDS: predniSONE 20 MG TAB PO SCH (08:15)
[2017-09-11] MEDS: Morphine ER 30 MG TAB PO SCH ×2 (08:16→19:48)
[2017-09-11] MEDS: Oxybutynin 5 MG TAB PO SCH ×2 (08:18→19:50)
[2017-09-11] MEDS: Gabapentin 100 MG CAP PO SCH ×3 (08:24→19:51)
[2017-09-11] MEDS: Ferrous Sulfate 325 MG TAB PO SCH (08:24)
[2017-09-11] MEDS: Famotidine 20 MG TAB PO SCH ×2 (08:24→19:51)
[2017-09-11] MEDS: guaiFENesin ER 600 MG TAB PO SCH ×2 (08:25→19:48)
[2017-09-11] MEDS: Fluticasone Propionate Nasal Spray 16 gm Bottle NASAL SCH (08:25)
[2017-09-11] MEDS: Multivitamin W/ Minerals 1 TAB PO SCH (08:26)
[2017-09-11] MEDS: Saccharomyces boulardii 250 MG CAP PO SCH (08:26)
[2017-09-11] MEDS: Fenofibrate Nanocrystallized 145 MG TAB PO SCH (08:26)
[2017-09-11] MEDS: Enoxaparin Sodium 30 MG/0.3 ML SYRINGE SC SCH (08:27)
[2017-09-11] MEDS: Acyclovir 400 mg Tablet PO SCH ×3 (12:39→19:50)
[2017-09-11] MEDS: Pravastatin Sodium 40 MG TAB PO SCH (19:50)
[2017-09-12] MEDS: Cefepime 2 GM, Syringe 2.5 ML in Sterile Water 10 ML SLOW IVP SCH (05:45)
[2017-09-12] MEDS: Budesonide 0.5 MG/2 ML NEB INH SCH (07:29)
[2017-09-12] MEDS: Morphine ER 30 MG TAB PO SCH (08:13)
[2017-09-12] MEDS: guaiFENesin ER 600 MG TAB PO SCH (08:13)
[2017-09-12] MEDS: Multivitamin W/ Minerals 1 TAB PO SCH (08:13)
[2017-09-12] MEDS: Ferrous Sulfate 325 MG TAB PO SCH (08:13)
[2017-09-12] MEDS: Gabapentin 100 MG CAP PO SCH (08:14)
[2017-09-12] MEDS: predniSONE 20 MG TAB PO SCH (08:14)
[2017-09-12] MEDS: Fenofibrate Nanocrystallized 145 MG TAB PO SCH (08:14)
[2017-09-12] MEDS: Oxybutynin 5 MG TAB PO SCH (08:15)
[2017-09-12] MEDS: Saccharomyces boulardii 250 MG CAP PO SCH (08:15)
[2017-09-12] MEDS: Famotidine 20 MG TAB PO SCH (08:15)
[2017-09-12] MEDS: Enoxaparin Sodium 30 MG/0.3 ML SYRINGE SC SCH (08:15)
[2017-09-12] MEDS: Fluticasone Propionate Nasal Spray 16 gm Bottle NASAL SCH (08:24)
[2017-09-12] MEDS ORDERED: Acyclovir 200 mg Capsule PO SCH (09:00)
[2017-09-12 11:26] VITALS: BP 129/60; TEMP 97.9
--- NOTE | 2017-09-12 11:41 | DIS ---
DATE OF ADMISSION: 09/04/2017 DATE OF DISCHARGE: 09/12/2017 DISCHARGE DISPOSITION: To custodial facility. ALLERGIES: PENICILLIN, FENTANYL, and METHADONE. DISCHARGE MEDICATIONS: 1. Cefepime 2 grams every 12 hourly until October 01. Please note that the patient will need a re peat urinalysis and urine culture at the end of the treatment. 2. Acyclovir 400 mg three times daily for 7 days. 3. Dicyclomine 20 mg 4 times a day. 4. Berta 180 mg daily as needed. 5. Lasix 40 mg b.i.d. 6. Gabapentin 800 mg 4 times a day. 7. [place] as needed. 8. Lidocaine topical as needed. 9. Lidocaine patch as needed. 10. MS Contin 60 mg b.i.d. 11. Potassium chloride 20 mEq b.i.d. 12. Prednisone 10 mg daily. INPATIENT CONSULTANTS: Infectious Disease, Dr. Buchanan. BRIEF HOSPITAL COURSE: The patient is an 82-year-old female with recurrent urinary tract infection s econdary to neurogenic bladder, presented to the emergency room with hypotension along with urinary s ymptoms. Her workup was consistent with sepsis secondary to urinary tract infection from indwelling Robles catheter. Urine culture showed E. coli and Pseudomonas sensitive to cefepime. She will comple te cefepime until October 01 per Infectious Disease recommendation. She will follow up with Dr. Cullen steele tomorrow for suprapubic catheter placement. A PICC line has been placed. Plan of care was discussed with the patient in detail. She stated understanding. FINAL DIAGNOSES: 1. Sepsis secondary to urinary tract infection due to the urinary indwelling catheter. 2. Neurogenic bladder. 3. Anxiety and depression. 4. Chronic pain syndrome. 5. Dyslipidemia. 6. Gastroesophageal reflux disease. 7. Hypertension. 8. Systemic lupus erythematosus. 9. Multiple sclerosis. 10. Moderate protein calorie malnutrition. 11. History of Clostridium difficile colitis in the past. 12. History of recurrent urinary tract infections. 13. Status post IVC filter. 14. Chronic diarrhea. 15. PENICILLIN, METHADONE, and FENTANYL allergy. Plan of care was discussed with the patient in detail. She stated understanding. Total time coordinating the discharge of this patient was 35 minutes.
[2017-09-12] MEDS: Lidocaine Viscous Sol 2% 15 ml UD Cup SSW PRN (11:55)
== END 2017-09-12 14:16 | DRG 698 ==
LOC: ERS 11:47 → T4-B 16:44
PROVIDERS: ADMIT Internal Medicine; ATTEND Internal Medicine
PROC: 02HV33Z Insertion of Infusion Device into Superior Vena Cava, Percutaneous Approach (ICD-10-PCS; principal; 2017-09-09)
DX: T83.511A Infection and inflammatory reaction due to indwelling urethral catheter, initial encounter (principal); A41.9 Sepsis, unspecified organism; J96.11 Chronic respiratory failure with hypoxia; E44.0 Moderate protein-calorie malnutrition; I27.20 Pulmonary hypertension, unspecified; G35 Multiple sclerosis; N31.9 Neuromuscular dysfunction of bladder, unspecified; N39.0 Urinary tract infection, site not specified; Y84.6 Urinary catheterization as the cause of abnormal reaction of the patient, or of later complication, without mention of misadventure at the time of the procedure; Z16.21 Resistance to vancomycin; E78.5 Hyperlipidemia, unspecified; F41.8 Other specified anxiety disorders; D64.9 Anemia, unspecified; G89.29 Other chronic pain; G43.909 Migraine, unspecified, not intractable, without status migrainosus; K21.9 Gastro-esophageal reflux disease without esophagitis; Z23 Encounter for immunization; B96.5 Pseudomonas (aeruginosa) (mallei) (pseudomallei) as the cause of diseases classified elsewhere; B96.20 Unspecified Escherichia coli [E. coli] as the cause of diseases classified elsewhere; Z88.6 Allergy status to analgesic agent; Z88.0 Allergy status to penicillin; M32.9 Systemic lupus erythematosus, unspecified; I10 Essential (primary) hypertension; K52.9 Noninfective gastroenteritis and colitis, unspecified; Z86.711 Personal history of pulmonary embolism; Z68.22 Body mass index [BMI] 22.0-22.9, adult
CPT/HCPCS: 36415; 36569; 71010; 80053; 80170; 81003; 81015; 83605; 85025; 85610; 87040; 87077; 87086; 87186; 87324; 87449; 87633; 90471; 90732; 93005; 94640; 96360; 96361; 96365; A4216; C1751; G0009; J0692; J0696; J1580; J1644; J1650; J2020; J2185; J3370; J7050; J7506; J7620; J7626; Q0162

== ENCOUNTER 2017-11-10 09:03 | Outpatient (CLI) | payer MEDICARE, OTHER ==
--- NOTE | 2017-11-11 16:22 | RAD ---
MODIFIED BARIUM SWALLOW PERFORMED WITH SPEECH THERAPIST: HISTORY: Dysphagia, multiple sclerosis, gastroesophageal reflux. FINDINGS: The patient was given a variety of consistencies. These included puree, thin by cup and straw, regul ar texture solid. There is some oral residue and some premature spillage to the vallecula and pirifo rm sinus regions. I do not see any episodes of aspiration or penetration. IMPRESSION: No signs of aspiration or penetration. POS: [facility]
== END 2017-11-10 09:04 | disposition home or self-care (01) ==
PROVIDERS: ATTEND Family Medicine
DX: R13.10 Dysphagia, unspecified (principal)
CPT/HCPCS: 74230

== ENCOUNTER 2017-11-23 10:06 | Day surgery (SDC) | payer MEDICARE, OTHER ==
[2017-11-22 14:16] VITALS: BMI 19.3
--- NOTE | 2017-11-23 12:24 | OP ---
DATE OF PROCEDURE: 11/23/2017 SURGEON: Yves Sandoval M.D. PROCEDURE: Esophagogastroduodenoscopy. PREOPERATIVE DIAGNOSES: 1. Dysphagia. 2. Modified barium swallow recently normal except for the speech pathologist thought possibly she kapadia d something going on lower in the esophagus causing dysphagia. 3. The patient has intermittent reflux, no overt dysphagia for solids, some cervical dysphagia for l iquids. There was no aspiration on her modified swallow. POSTOPERATIVE DIAGNOSES: 1. Mild Madhavi esophagitis, biopsied. 2. Presbyesophagus. 3. Reflux esophagitis, LA grade A distal esophagus. 4. Hiatal hernia. RECOMMENDATIONS: 1. Stop Pepcid, start omeprazole 40 mg daily. 2. Diflucan 100 mg day for 10 days. 3. Recommend the patient start a bowel regimen. She is on daily, morphine and has been chronically only has 1 bowel movement a day. Probably she gets constipated and that may cause some abdominal drew n, too. She said in the past she has done fine with MiraLax. MiraLax once daily would be sufficient . If that is not sufficient then Senokot could be added to the regimen daily. If that does not work , she could go on one of the newer medicines for constipation and those on chronic narcotics such as Relistor. 4. Follow up in my office on 12/07/2017 at 2:30. ANESTHESIA: TIVA. PROCEDURE IN DETAIL: After the patient was informed of the risks, benefits, possible complications o f endoscopy including perforation, bleeding, reactions to medication, aspiration, informed consent wa s obtained. The patient was brought to endoscopy suite where she was sedated in a gradual fashion. Once she was comfortable, a bite block was placed in the incisor orifice. The endoscope was advanced through the esophagus, stomach, second and third portion of the duodenum and was removed. The stoma ch and duodenum were normal. Retroflexed views in the stomach notable for a hiatal hernia. In the f orward views there was erosion at the GE junction consistent with reflux esophagitis, this was LA gra de A to B, more closer to A, this was not biopsied. The esophagus was noted to be tortuous consisten t with presbyesophagus. Contractility was somewhat poor probably related to her chronic medications and narcotics and MS and age. There were few areas of adherent white plaques suggestive of mild Cand willian esophagitis. Biopsies were obtained and will go ahead and treat this empirically. The scope was removed. The patient tolerated the procedure well without complications.
[2017-11-23] MEDS ORDERED: PROPOFOL 200 MG/20 ML VIAL ONE (15:51)
[2017-11-23] MEDS ORDERED: Lidocaine 1% PF 5 ML VIAL ONE (15:51)
== END 2017-11-23 12:50 | disposition home or self-care (01) ==
LOC: SDC 10:06
PROVIDERS: ATTEND Internal Medicine Gastroenterology
PROC: 0DB58ZX Excision of Esophagus, Via Natural or Artificial Opening Endoscopic, Diagnostic (ICD-10-PCS; principal; 2017-11-23)
DX: B37.81 Candidal esophagitis (principal); K22.8 Other specified diseases of esophagus; K21.0 Gastro-esophageal reflux disease with esophagitis; K44.9 Diaphragmatic hernia without obstruction or gangrene; K58.9 Irritable bowel syndrome, unspecified; M19.90 Unspecified osteoarthritis, unspecified site; E78.00 Pure hypercholesterolemia, unspecified; F32.9 Major depressive disorder, single episode, unspecified; G35 Multiple sclerosis; E78.5 Hyperlipidemia, unspecified; F41.9 Anxiety disorder, unspecified; G89.4 Chronic pain syndrome; Z88.0 Allergy status to penicillin; Z88.5 Allergy status to narcotic agent; Z88.8 Allergy status to other drugs, medicaments and biological substances; Z79.890 Hormone replacement therapy; Z79.891 Long term (current) use of opiate analgesic; Z79.899 Other long term (current) drug therapy
CPT/HCPCS: 88305; 88312; 88313; J2001; J2704

== ENCOUNTER 2017-12-26 15:46 | Inpatient (IN) | payer MEDICARE, OTHER ==
--- NOTE | 2017-12-26 16:41 | RAD ---
CHEST ONE VIEW: HISTORY: Sepsis. COMPARISON: 09/04/2017 FINDINGS: The cardiac silhouette is magnified by projection. The pulmonary vasculature is at the upper limits of normal and accentuated by shallow inspiration. Patchy bibasilar parenchymal opacities are similar in appearance to the prior study and are favored to be chronic. No lobar consolidation or evidence of pneumothorax. Dorsal column stimulator leads overly the mid thoracic spine. IMPRESSION: Borderline pulmonary vascular congestion. No lobar consolidation is evident. Chronic type findings are stable. POS: [facility]
[2017-12-26 16:52] LABS: Hemoglobin 14.1 g/dL (12.0-16.0); Mean Corpuscular Hemoglobin 30.5 pg (27.0-31.0); Mean Corpuscular Volume 92.6 fl (81.0-99.0); Platelet Count 195 thou/uL (130-400); RBC Distribution Width 12.5 % (11.5-14.5); Red Blood Cell (RBC) Count 4.61 mill/uL (4.20-5.40); White Blood Cell (WBC) Count 16.5 thou/uL (4.8-10.8)
[2017-12-26 16:56] LABS: Lactate 2.64 mmol/L (0.50-2.20)
[2017-12-26 17:09] LABS: Band 29 % (5-11); Lymphocytes 2 % (21-51); MDiff Complete? YES; Monocytes 6 % (0-10); Neutrophil 63 % (42-75); PLT Morphology Comment Appears Adequate; RBC Morphology Normal
[2017-12-26 17:12] LABS: ALT (SGPT) 18 U/L (8-55); AST (SGOT) 20 U/L (5-34); Alkaline Phosphatase 69 U/L (40-150); Anion Gap 13 mmol/L (10-20); BUN (Urea Nitrogen) 36 mg/dL (9.8-20.1); Bilirubin, Total 0.5 mg/dL (0.2-1.2); Calc. Creatinine Clearance 0 mL/min (70-130); Calcium 9.5 mg/dL (7.8-10.44); Carbon Dioxide 25 mmol/L (23-31); Chloride 101 mmol/L (98-107); Estimated GFR-MDRD 37; Globulin 3.4 g/dL (2.4-3.5); Glucose 228 mg/dL (83-110); Potassium 3.4 mmol/L (3.5-5.1); Protein, Total 6.4 g/dL (6.0-8.3); Sodium 136 mmol/L (136-145)
[2017-12-26 17:23] LABS: Bilirubin Negative (Negative); Blood, Urine Moderate (Negative); Clarity TURBID (Clear); Glucose, Urine (Dipstick) Negative (Negative); Leukocyte Large (Negative); Nitrite Negative (Negative); Protein, Urine (Dipstick) 30 mg/dL (Neg-Trace); Specific Gravity, Urine 1.016 (1.002-1.036); Urobilinogen 0.2 mg/dL (0.2-1.0)
[2017-12-26 17:24] LABS: Bacteria/HPF 4+ HPF (None Seen); Hyaline Casts/LPF 4-6 HYALINE CAST LPF (0-3 Hyaline); Pathc Cast-AUWi Flag 1.22 (0-2.49)
[2017-12-26 17:31] LABS: Yeast-AUWi Flag 114.7 (0-25.0)
[2017-12-26 17:33] LABS: Crystals/HPF RARE CA OXALATE HPF (Negative); Yeast-All Forms None Seen HPF (None Seen)
--- NOTE | 2017-12-26 20:02 | HP ---
DATE OF ADMISSION: 12/26/2017 CHIEF COMPLAINT: Altered mental status. HISTORY OF PRESENT ILLNESS: This is an 82-year-old white female, she is a resident of [facility] facility following recurrent admissions for UTI in the past. She was put on suprapubic catheter an d for the past 3 months, she has been in the custodial facility and today, the patient was chec ked by nurse practitioner who saw the patient was disoriented and had low blood pressure, so the lynn ent was immediately brought to the ER for further evaluation. It was noted that the patient had very cloudy urine and signs suggestive of a urinary tract infection and the patient had low blood pressur es even after 1 liter of IV fluids. The patient had elevated white count which is a sign of sepsis w ith elevated lactic acid. The patient is also on daily steroids. She is known to have lupus and was diagnosed recently. She denies having any chest pain, no nausea, no vomiting, no diarrhea, no const ipation. Most of the history is given by the patient's daughter at the bedside and granddaughter. I discussed about the code status in length with the patient and the daughter, they came to decision a bout not to intubate at this time, but they still want to discuss more on the CPR at a later time. HOME MEDICATIONS: 1. Estrogen 0.625 mg p.o. daily. 2. Lasix 40 mg p.o. daily. 3. Gabapentin 800 mg p.o. q.i.d. 4. Morphine 60 mg p.o. b.i.d. 5. Prednisone 10 mg p.o. daily. 6. Bactrim 1 tablet p.o. b.i.d. PAST MEDICAL HISTORY: 1. History of lupus. 2. History of recurrent urinary tract infections. 3. History of Clostridium difficile colitis in the past. 4. History of multiple sclerosis. 5. Neurogenic bladder. 6. History of pulmonary embolism with IVC filter. 7. Pulmonary hypertension. 8. Chronic physical deconditioning. 9. Chronic pain disorder. 10. Dyslipidemia. 11. Migraine headaches. PAST SURGICAL HISTORY: 1. Hysterectomy. 2. Tonsillectomy. 3. Spinal stimulator. 4. Cholecystectomy. 5. History of IVC filter placement. SOCIAL HISTORY: The patient lives at [facility]. No history of tobacco. No history of alcoho l. No history of illicit drug use. FAMILY HISTORY: No significant family history of coronary artery disease. No history of cancers. ALLERGIES: PENICILLIN, FENTANYL, and METHADONE. REVIEW OF SYSTEMS: All 12 systems are reviewed with the patient thoroughly and found to be negative at this time. Systems reviewed HEENT, CVS, SET DECORATOR, respiratory, GI, , musculoskeletal, skin and integ umentary, psychiatric. PHYSICAL EXAMINATION: VITAL SIGNS: Blood pressures are 110/75, heart rate is 88, respirations 18, saturation 98%. GENERAL: The patient is moderately built and moderately nourished, does not appear to be in acute di stress at this time. Alert and oriented x3. HEENT: Atraumatic, normocephalic. PERRLA. Extraocular movements were intact. Oral mucosa is pink and moist. CARDIOVASCULAR: S1, S2 normal. No murmurs, rubs or gallops. LUNGS: Bilateral air entry was equal. No wheezing, no crackles. ABDOMEN: Soft, nontender, no guarding, no rebound tenderness. Bowel sounds normal. MUSCULOSKELETAL: No calf tenderness. No pedal edema. No joint tenderness. No joint swelling. PSYCHIATRIC: No signs of suicidal ideation. No signs of salina was noted. LABORATORY DATA: WBC 16.5, hemoglobin is 14.1, hematocrit 42.7, platelets is 195. Sodium 136, potassium 3.4, chloride 101, bicarbonate 25, BUN 36, creatinine 1.36, blood sugar is 228, lactic acid 2.9. His UA was strongly positive for urinary tract infection. Chest x-ray was done showing no evidence of any infiltrate was noted. Bilateral pulmonary vascular c ongestion was noted. ASSESSMENT AND PLAN: 1. Severe sepsis. 2. Septic shock. 3. Acute pyelonephritis. 4. History of lupus, on chronic steroids. 5. Hypertension. 6. Hyperlipidemia. 7. Type 2 diabetes mellitus. PLAN: 1. Plan is to closely monitor this patient in the IMCU. At this time, the patient received 2 liters of IV fluid boluses and stabilize her blood pressure, it is currently in the 110/75. The patient kapadia s a possible adrenal insufficiency with chronic steroids. At this time, we will start the patient on hydrocortisone 50 mg IV q.8 hours. 2. We will start the patient on IV antibiotics, on levofloxacin 750 mg IV daily, vancomycin 1 gram I V b.i.d. 3. The patient has worsening renal functions, likely from severe hypotension, dehydration. We will start the patient on IV fluids at 100 mL hour and will closely monitor urine output. 4. The patient has a history of lupus as described above. We will continue the patient on IV steroi ds at this time. 5. The patient has a history of neurogenic bladder and she is on indwelling catheter suprapubic. We will continue to monitor and the patient sees Dr. Pedroza as his urologist. 6. DVT prophylaxis. Lovenox 40 mg subcutaneous. I spent 75 minutes with this patient.
[2017-12-26] MEDS ORDERED: HYDROcodone/Acetaminophen 5/325 mg Tablet PO PRN (20:04)
[2017-12-26 20:24] VITALS: BMI 20.1
[2017-12-26 20:44] LABS: Lactic Acid 3.8 mmol/L (0.5-2.2)
[2017-12-26] MEDS: Sodium Chloride 0.9% 1,000 ML IV SCH (20:48)
[2017-12-26] MEDS: Famotidine 40 MG/4 ML VIAL SLOW IVP SCH (20:54)
[2017-12-26] MEDS: Docusate 100 MG CAP PO SCH (20:54)
[2017-12-26] MEDS ORDERED: Vancomycin HCl 1 GM in Sodium Chloride 0.9% 250 ML 250 ML IVPB SCH (21:00)
[2017-12-26] MEDS: Hydrocortisone Sod Succ/PF 100 mg/2 ml Vial IVP SCH (21:35)
[2017-12-27 05:00] LABS: Anion Gap 13 mmol/L (10-20); BUN (Urea Nitrogen) 26 mg/dL (9.8-20.1); Calc. Creatinine Clearance 45 mL/min (70-130); Calcium 8.6 mg/dL (7.8-10.44); Carbon Dioxide 22 mmol/L (23-31); Chloride 104 mmol/L (98-107); Estimated GFR-MDRD 69; Glucose 148 mg/dL (83-110); Sodium 136 mmol/L (136-145)
[2017-12-27 05:02] LABS: Band 21 % (5-11); Hemoglobin 11.7 g/dL (12.0-16.0); Lymphocytes 9 % (21-51); MDiff Complete? YES; Mean Corpuscular HGB CONC 32.6 g/dL (32.0-36.0); Mean Corpuscular Hemoglobin 30.5 pg (27.0-31.0); Mean Corpuscular Volume 93.5 fl (81.0-99.0); Mean Platelet Volume 7.1 fL (7.4-10.4); Monocytes 4 % (0-10); Neutrophil 66 % (42-75); PLT Morphology Comment Appears Adequate; Platelet Count 164 thou/uL (130-400); RBC Distribution Width 12.5 % (11.5-14.5); Red Blood Cell (RBC) Count 3.83 mill/uL (4.20-5.40)
[2017-12-27 05:12] LABS: Potassium 2.9 mmol/L (3.5-5.1)
[2017-12-27] MEDS ORDERED: Potassium Chloride 40 MEQ in Sodium Chloride 0.9% 250 ML 250 ML IVPB SCH (05:30)
[2017-12-27] MEDS ORDERED: Potassium Chloride 20 MEQ TAB PO SCH (05:30)
[2017-12-27] MEDS: Hydrocortisone Sod Succ/PF 100 mg/2 ml Vial IVP SCH ×3 (05:38→22:23)
[2017-12-27] MEDS: Sodium Chloride 0.9% 1,000 ML IV SCH ×2 (06:05→13:23)
[2017-12-27] MEDS: Docusate 100 MG CAP PO SCH ×2 (08:27→21:18)
[2017-12-27] MEDS: Enoxaparin Sodium 40 MG/0.4 ML SYRINGE SC SCH (08:27)
[2017-12-27] MEDS ORDERED: Cefepime 1 GM in Sodium Chloride 0.9% 100 ML IVPB SCH (09:00)
[2017-12-27] MEDS: Cefepime 1 GM, Admixture Fee 1 EACH in Sodium Chloride 0.9% 10 ML SLOW IVP SCH ×2 (09:39→21:16)
--- NOTE | 2017-12-27 10:20 | CON ---
DATE OF CONSULTATION: 12/27/2017 HISTORY OF PRESENT ILLNESS: Domi Ramos is an 82-year-old female who was brought to the hospital from the shelter hypertensive, recurrent UTI. Apparently, she has a suprapubic catheter inserted. She is in the nursing unit here. This morning she says she is feeling better. She denies any loose stools, dysuria or hematuria, pain, discomfort, shortness of breath. Apparently she was confused last night. PAST MEDICAL HISTORY: Extensively and well outlined, pertinent for presumed lupus, reflux, arthritis, multiple sclerosis, kidney stones, PE, DVT, dementia. PAST SURGICAL HISTORY: Include hysterectomy, tonsillectomy, pain stimulator in the back. Multiple fractures. PRISON MEDICATIONS: Voltaren, VESIcare 10, omeprazole 40, estrogen, prednisone 10, potassium, Nystatin, guaifenesin, hydrocodone, morphine 60 twice a day, Lidoderm 5% patch, gabapentin 300 4 times a day, Lasix 40 twice a day, nebulizer several times a day, Bentyl. Since admission, she was started on vancomycin, hydrocortisone, Levaquin. Her previous cultures are noted, had shown multi-resistant organism sensitive to gentamicin and Zosyn. ALLERGIES: PENICILLIN and METHADONE. REVIEW OF SYSTEMS: Otherwise remarkable. To note echocardiogram done shows normal EF. Previous filter in place for PE. PHYSICAL EXAMINATION: GENERAL: She is awake, alert, responsive, does not appear to be encephalopathic. VITAL SIGNS: Sats are 100% on 2 liters, blood pressure 100/42, temperature 97, pulse 70, respirations 18. NEURO: She is awake, alert and responsive. EXTREMITIES: No edema. CHEST: Chest revealed decreased breath sounds, no wheezing. CARDIAC: Normal S1, S2, no gallops. ABDOMEN: Soft. No masses. LABORATORY: White count 12,000, H&H 11 and 33, platelet count 164, potassium 2.9. Electrolytes are normal. Urine shows greater than 50 WBCs. So far E. coli growing. IMPRESSION: 1. Recurrent urinary tract infection, Escherichia coli. 2. Sepsis. 3. Hypertension. 4. Advanced age. 5 History of pulmonary embolus with filter in place. PLAN: Previous E. coli was sensitive to ceftriaxone, ceftazidime and cefepime. I will probably deescalate the antibiotics once we have the final sensitivities. I gave her a stress dose of steroids. Aggressive PT and nutrition. We will follow. This is a consultation, 70 minutes of which 50% spent in direct patient care. SUKUMAR
--- NOTE | 2017-12-27 12:28 | PQF ---
DATE: 12-27-17 ATTN: DR. BELLA FRANCIS Please exercise your independent, professional judgment in responding to the clarification form. Clinical indicators are provided on the bottom of this form for your review Please check appropriate box(s): [ x ] Acute Renal Failure (ARF) / Acute Kidney Injury (ZOE) [ ] Acute on Chronic Renal Failure please specify Stage of CKD (see below) [ ] CKD without ARF/ZOE please specify Stage of CKD [ ] Other diagnosis [ ] Unable to determine In addition, please specify: Present on Admission (POA): [ x ] Yes [ ] No [ ] Unable to determine National Kidney Foundation Guidelines for CKD Staging Stage I Kidney damage with normal or increased GFR GFR > 90 Stage II Kidney damage with mildly decreased GFR GFR 60-89 Stage III Kidney damage with moderately decreased GFR GFR 30-59 Stage IV Kidney damage with severely decreased GFR GFR 16-29 Stage V Kidney failure GFR< 15 ESRD End Stage Renal Disease On dialysis Acute Renal Failure/Acute Kidney Failure defined as: Increases in SCr by (>) 0.3 mg/dl within 48 hours OR- Increases in SCr by (>) 1.5 times baseline, known or presumed to have occurred within the prior 7 days OR- Urine volume < 0.5 ml/kg/hour for 6 hours (KDIGO supplement 2012 for RIFLE/CAMERON criteria) For continuity of documentation, please document condition throughout progress notes and discharge summary. Thank You. CLINICAL INDICATORS - SIGNS / SYMPTOMS / LABS GFR: 12-26-17: 37 12-27-17: 69 CREATININE: 12-26-17: 1.36 12-27-17: 0.79 BUN: 12-26-17: 36 12-27-17: 26 H&P: THE PATIENT HAS WORSENING RENAL FUNCTIONS, LIKELY FROM SEVERE HYPOTENSION, DEHYDRATION. WE WILL START THE PATIENT ON IV FLUIDS AT 100ML AND WILL CLOSELY MONITOR URINE OUTPUT. RISK FACTORS: H&P: THE PATIENT HAS WORSENING RENAL FUNCTIONS, LIKELY FROM SEVERE HYPOTENSION, DEHYDRATION. WE WILL START THE PATIENT ON IV FLUIDS AT 100ML AND WILL CLOSELY MONITOR URINE OUTPUT. H&P: SEVERE SEPSIS, SEPTIC SHOCK TREATMENTS: H&P: THE PATIENT HAS WORSENING RENAL FUNCTIONS, LIKELY FROM SEVERE HYPOTENSION, DEHYDRATION. WE WILL START THE PATIENT ON IV FLUIDS AT 100ML AND WILL CLOSELY MONITOR URINE OUTPUT. (This form is maintained as a part of the permanent medical record) 2014 [employer]. All Rights Reserved PABLO [email or web address] Office: [phone] SUKUMAR
--- NOTE | 2017-12-27 12:47 | PQF ---
DATE: 12-27-17 ATTN: DR. BELLA FRANCIS Please exercise your independent, professional judgment in responding to the clarification form. Clinical indicators are provided on the bottom of this form for your review Please check appropriate box(s): [ x ] Severe Sepsis related to UTI related to Suprapubic Catheter [ ] Severe Sepsis due to [ ] Severe Sepsis due to UTI not due to Suprapubic Catheter [ ] Other diagnosis [ ] Unable to determine In addition, please specify: Present on Admission (POA): [ x ] Yes [ ] No [ ] Unable to determine For continuity of documentation, please document condition throughout progress notes and discharge summary. Thank You. CLINICAL INDICATORS - SIGNS / SYMPTOMS / LABS ER DIAGNOSIS: SEPSIS, UTI H&P: SEVERE SEPSIS, ACUTE PYELONEPHRITIS H&P: SHE WAS PUT ON SUPRAPUBIC CATH AND FOR THE PAST 3 MONTHS, HX OF RECURRENT UTI'S CONSULT NOTE DR. ALVAREZ 12-27-17: RECURRENT UTI, E COLI, SEPSIS RISK FACTORS: H&P: SHE WAS PUT ON SUPRAPUBIC CATH AND FOR THE PAST 3 MONTHS , HX OF RECURRENT UTI'S ER: FROM SKILLED UNIT, CHRONIC UTI'S TREATMENT: (ER) VANCOMYCIN, LEVAQUIN, IVF (This form is maintained as a part of the permanent medical record) 2014 [employer] All Rights Reserved [email or web address] Office: [phone] [facility]
--- NOTE | 2017-12-27 12:51 | PDOC.PN ---
- Subjective Encounter Start Date: 12/27/17 Encounter Start Time: 12:35 Subjective: f/u for severe sepsis secondary to UTI with e. coli and bacteremia. -: Receiving IV Cefepime and Vancomycin. Overall feels a better but weak. -: Appetite minimal. No N/V. No fever. - Objective Resuscitation Status: Resuscitation Status DNI:No Intubation MAR Reviewed: Yes Vital Signs & Weight: Vital Signs (12 hours) Temp Pulse Resp BP Pulse Ox 12/27/17 11:49 96.9 F L 66 19 104/63 96 12/27/17 08:39 97.0 F L 57 L 18 100 12/27/17 07:32 97.0 F L 57 L 18 100/42 L 100 12/27/17 04:00 98.3 F 68 18 108/55 L 99 Weight Weight 117 lb 8 oz I&O: 12/26/17 12/27/17 12/28/17 06:59 06:59 06:59 Intake Total 1150 Output Total 850 Balance 300 Result Diagrams: 12/27/17 04:13 12/27/17 04:13 Additional Labs: Microbiology 12/26/17 17:08 Urine yang catheter Urine Culture - Preliminary Escherichia coli 12/26/17 16:42 Venous blood - Left Arm Blood Culture - Preliminary Escherichia coli 12/26/17 16:31 Venous blood - Right Arm Blood Culture - Preliminary Gram Negative Georgi Laboratory Tests 12/26/17 12/26/17 12/26/17 16:42 16:42 16:42 WBC 16.5 H Band Neuts % (Manual) 29 H Potassium 3.4 L Creatinine 1.36 H Lactic Acid 2.9 H POC Venous Lactate Cortisol 12/26/17 12/26/17 12/27/17 16:54 20:19 04:13 WBC Band Neuts % (Manual) Potassium Creatinine Lactic Acid 3.8 H POC Venous Lactate 2.64 H Cortisol 35.80 12/27/17 04:13 WBC Band Neuts % (Manual) 21 H Potassium Creatinine Lactic Acid POC Venous Lactate Cortisol Radiology Reviewed by me: Yes (PCXR - chronic changes bilat) EKG Reviewed by me: Yes (Tele - SR) Phys Exam - Physical Examination Constitutional: NAD alert, responsive HEENT: PERRLA, moist MMs, sclera anicteric, oral pharynx no lesions Neck: no nodes, no JVD, supple Respiratory: no wheezing, no rales, no rhonchi, clear to auscultation bilateral Cardiovascular: RRR, no significant murmur, no rub, gallop suprapubic catheter in place Gastrointestinal: soft, non-tender, no distention, positive bowel sounds Musculoskeletal: no edema, pulses present Neurological: non-focal, normal sensation, moves all 4 limbs A x O x 2 Skin: no rash, normal turgor, cap refill <2 seconds Deviation from normal: Yang catheter bag with mariama urine Dx/Plan (1) Severe sepsis Code(s): A41.9 - SEPSIS, UNSPECIFIED ORGANISM; R65.20 - SEVERE SEPSIS WITHOUT SEPTIC SHOCK Status: Acute Comment: Secondary to e. coli from urinary source , continue Cefepime and await final sensitivities, continue IVF NS 100ml/h (2) ZOE (acute kidney injury) Code(s): N17.9 - ACUTE KIDNEY FAILURE, UNSPECIFIED Status: Acute Comment: Avoid nephrotoxic meds and limit contrast exposure (3) Hypokalemia Code(s): E87.6 - HYPOKALEMIA Status: Acute Comment: KCL 40meq po BID, repeat K+ level in am (4) UTI (urinary tract infection) due to urinary indwelling catheter Code(s): T83.511A - I/I REACT D/T INDWELLING URETHRAL CATHETER, INIT; N39.0 - URINARY TRACT INFECTION, SITE NOT SPECIFIED Status: Acute Qualifiers: Indwelling urinary catheter type: indwelling urethral catheter Comment: e. coli with bacteremia, consult Urology service to assess, may need to change catheter more frequently (5) Neurogenic bladder Code(s): N31.9 - NEUROMUSCULAR DYSFUNCTION OF BLADDER, UNSPECIFIED Status: Chronic Comment: s/p SPT placement, see above (6) Protein-calorie malnutrition, moderate Code(s): E44.0 - MODERATE PROTEIN-CALORIE MALNUTRITION Status: Chronic Comment: Regular diet, add Ensure Enlive BID - Plan plan discussed w/ family, continue antibiotics, PT/OT, older adult social work specialist, out of bed/ambulate, DVT proph w/SCDs Continue supportive mgmt -: Continue Cefepime and Vancomycin de-escalating in next 24h -: Await final Ucx/blood cx sensitivities -: KCL 40meq BID -: Add Ensure Enlive BID * AM labs: BMP, CBC
[2017-12-27] MEDS ORDERED: Non-Formulary Item 1 EACH (Fexofenadine Hcl [Allegra Allergy] 180 MG) PO PRN (12:54)
[2017-12-27] MEDS ORDERED: HYDROcodone/Acetaminophen 5/325 mg Tablet PO PRN ×2 (12:54→13:07)
[2017-12-27] MEDS ORDERED: CALCIUM CARBONATE 750 MG PO PRN (12:54)
[2017-12-27] MEDS ORDERED: Calcium Carbonate 500 MG ChewTAB PO PRN (13:08)
[2017-12-27] MEDS ORDERED: Loratadine 10 MG TAB PO PRN (13:10)
[2017-12-27] MEDS ORDERED: Lidocaine Patch Removal 1 EACH TOP SCH (13:15)
[2017-12-27] MEDS: Ondansetron ODT 4 MG TAB PO PRN (13:23)
[2017-12-27] MEDS ORDERED: Fluocinonide 0.05% Ointment 15 gm Tube TOP SCH (16:00)
[2017-12-27] MEDS: Nystatin Powder 15 GM BOT TOP SCH (17:58)
[2017-12-27] MEDS ORDERED: Vancomycin HCl 500 MG in Sodium Chloride 0.9% 100 ML IVPB SCH (18:00)
[2017-12-27] MEDS ORDERED: Betamethasone 0.1% Cream 45 GM TUBE TOP SCH (20:00)
[2017-12-27] MEDS ORDERED: Betamethasone Val 0.1% OINT 15 GM TUBE TOP SCH ×2 (20:00)
[2017-12-27] MEDS ORDERED: Nystatin Powder 15 GM BOT TOP SCH (21:00)
[2017-12-27] MEDS: Betamethasone 0.1% Cream 45 GM TUBE TOP SCH (21:15)
[2017-12-27] MEDS: TROSPIUM 20 MG TABLET PO SCH (21:20)
[2017-12-27] MEDS: Famotidine 40 MG/4 ML VIAL SLOW IVP SCH (22:23)
[2017-12-28] MEDS: Sodium Chloride 0.9% 1,000 ML IV SCH ×2 (00:18→10:51)
[2017-12-28] MEDS: Betamethasone 0.1% Cream 45 GM TUBE TOP SCH ×5 (00:22→21:15)
[2017-12-28 04:48] LABS: Anion Gap 11 mmol/L (10-20); BUN (Urea Nitrogen) 23 mg/dL (9.8-20.1); Calc. Creatinine Clearance 54 mL/min (70-130); Calcium 8.7 mg/dL (7.8-10.44); Carbon Dioxide 20 mmol/L (23-31); Chloride 111 mmol/L (98-107); Estimated GFR-MDRD 87; Glucose 121 mg/dL (83-110); Sodium 138 mmol/L (136-145)
[2017-12-28] MEDS: Hydrocortisone Sod Succ/PF 100 mg/2 ml Vial IVP SCH ×3 (05:26→21:44)
[2017-12-28 05:42] LABS: Band 12 % (5-11); Eosinophils 1 % (0-10); Hemoglobin 11.8 g/dL (12.0-16.0); Lymphocytes 11 % (21-51); MDiff Complete? YES; Mean Corpuscular HGB CONC 32.4 g/dL (32.0-36.0); Mean Corpuscular Hemoglobin 30.1 pg (27.0-31.0); Mean Corpuscular Volume 92.9 fl (81.0-99.0); Mean Platelet Volume 7.5 fL (7.4-10.4); Monocytes 4 % (0-10); Neutrophil 72 % (42-75); PLT Morphology Comment Appears Adequate; Platelet Count 151 thou/uL (130-400); RBC Distribution Width 12.3 % (11.5-14.5); RBC Morphology Normal; Red Blood Cell (RBC) Count 3.91 mill/uL (4.20-5.40); White Blood Cell (WBC) Count 8.6 thou/uL (4.8-10.8)
[2017-12-28] MEDS ORDERED: Non-Formulary Item 1 EACH (Multivitamin [Multivitamins] 1 CAP) PO SCH (09:00)
[2017-12-28] MEDS ORDERED: ESTROGENS CONJUGATED PO SCH (09:00)
[2017-12-28] MEDS ORDERED: Estrogens, Conjugated 0.3 MG TAB PO SCH (09:00)
[2017-12-28] MEDS: TROSPIUM 20 MG TABLET PO SCH ×2 (09:41→21:14)
[2017-12-28] MEDS: Docusate 100 MG CAP PO SCH ×2 (09:41→21:15)
[2017-12-28] MEDS: Estrogens, Conjugated 0.3 MG TAB PO SCH (09:41)
[2017-12-28] MEDS: Multivit, Therapeutic 1 TAB PO SCH (09:41)
[2017-12-28] MEDS: Nystatin Powder 15 GM BOT TOP SCH ×2 (09:43→21:16)
[2017-12-28] MEDS: Lidocaine 5% Patch TD SCH (09:59)
[2017-12-28] MEDS: Enoxaparin Sodium 40 MG/0.4 ML SYRINGE SC SCH (10:00)
[2017-12-28] MEDS: Cefepime 1 GM, Admixture Fee 1 EACH in Sodium Chloride 0.9% 10 ML SLOW IVP SCH (10:13)
[2017-12-28] MEDS: MEROPENEM 1 GM/50 ML 1 GM in Premix Bag 1 BAG IVPB SCH ×2 (10:50→17:52)
--- NOTE | 2017-12-28 11:31 | PDOC.PN ---
- Subjective Encounter Start Date: 12/28/17 Encounter Start Time: 11:29 Subjective: feels very weak,eating minmal. -: not able to talk much due to weakness - Objective Resuscitation Status: Resuscitation Status DNI:No Intubation MAR Reviewed: Yes Vital Signs & Weight: Vital Signs (12 hours) Temp Pulse Resp BP Pulse Ox 12/28/17 07:37 96.5 F L 50 L 16 149/56 H 96 12/28/17 04:00 97.2 F L 50 L 18 143/50 H 98 12/28/17 00:00 98.3 F 56 L 18 149/51 H 95 Weight Weight 120 lb 1.6 oz I&O: 12/27/17 12/28/17 12/29/17 06:59 06:59 06:59 Intake Total 1150 3210 Output Total 850 1420 Balance 300 1790 Result Diagrams: 12/28/17 04:18 12/28/17 04:18 Additional Labs: Microbiology 12/26/17 17:08 Urine yang catheter Urine Culture - Preliminary Escherichia coli Non-Hemolytic Streptococcus 12/26/17 17:08 Urine yang catheter Urine Culture - Preliminary Escherichia coli 12/26/17 16:42 Venous blood - Left Arm Blood Culture - Preliminary Escherichia coli 12/26/17 16:31 Venous blood - Right Arm Blood Culture - Preliminary Gram Negative [facility] Laboratory Tests 12/26/17 12/26/17 12/27/17 16:42 16:42 04:13 WBC 16.5 H Potassium 3.4 L 2.9 L* Creatinine 1.36 H 0.79 Cortisol 12/27/17 12/27/17 12/28/17 04:13 04:13 04:18 WBC 12.0 H Potassium 4.0 Creatinine 0.65 Cortisol 35.80 12/28/17 04:18 WBC 8.6 Potassium Creatinine Cortisol Phys Exam - Physical Examination Constitutional: NAD weak and pale HEENT: moist MMs, sclera anicteric, oral pharynx no lesions Neck: no JVD Respiratory: no wheezing, no rales, no rhonchi, clear to auscultation bilateral Cardiovascular: RRR, no significant murmur Gastrointestinal: soft, non-tender, no distention, positive bowel sounds indwelling yang in place Musculoskeletal: no edema, pulses present Neurological: non-focal, normal sensation, moves all 4 limbs Psychiatric: normal affect, A&O x 3 Skin: no rash Dx/Plan (1) Severe sepsis Code(s): A41.9 - SEPSIS, UNSPECIFIED ORGANISM; R65.20 - SEVERE SEPSIS WITHOUT SEPTIC SHOCK Status: Acute Comment: Secondary to e. coli from urinary source , continue Cefepime and await final sensitivities, continue IVF NS 100ml/h (2) Bacteremia, escherichia coli Code(s): R78.81 - BACTEREMIA Status: Acute (3) ZOE (acute kidney injury) Code(s): N17.9 - ACUTE KIDNEY FAILURE, UNSPECIFIED Status: Acute Comment: Avoid nephrotoxic meds and limit contrast exposure.improving (4) Hypokalemia Code(s): E87.6 - HYPOKALEMIA Status: Acute Comment: KCL 40meq po BID, repeat K+ level in am (5) UTI (urinary tract infection) due to urinary indwelling catheter Code(s): T83.511A - I/I REACT D/T INDWELLING URETHRAL CATHETER, INIT; N39.0 - URINARY TRACT INFECTION, SITE NOT SPECIFIED Status: Acute Qualifiers: Indwelling urinary catheter type: indwelling urethral catheter Comment: e. coli with bacteremia,follows with urology as an outpatient, may need to change catheter more frequently (6) Neurogenic bladder Code(s): N31.9 - NEUROMUSCULAR DYSFUNCTION OF BLADDER, UNSPECIFIED Status: Chronic Comment: s/p SPT placement, see above (7) Physical deconditioning Code(s): R53.81 - OTHER MALAISE Status: Chronic (8) Protein-calorie malnutrition, moderate Code(s): E44.0 - MODERATE PROTEIN-CALORIE MALNUTRITION Status: Chronic Comment: Regular diet, add Ensure Enlive BID - Plan plan discussed w/ family, yang catheter, continue antibiotics, PT/OT, out of bed/ambulate, DVT proph w/SCDs labs improved w renal Fx & potassium -: e.coli resistant to multiple antobiotics.change to meropenam -: cont IVF .encpouraged PO intake. -: increase frequency of supplements.cont OT/PT -: am labs * . Review of Systems - Review of Systems Constitutional: weakness, malaise. negative: fever, chills, sweats, other Respiratory: negative: Cough, Dry, Shortness of Breath, Hemoptysis, SOB with Excertion, Pleuritic Pain, Sputum, Wheezing Cardiovascular: negative: chest pain, palpitations, orthopnea, paroxysmal nocturnal dyspnea, edema, light headedness, other Gastrointestinal: Nausea. negative: Vomiting, Abdominal Pain, Diarrhea, Constipation, Melena, Hematochezia, Other Genitourinary: negative: Dysuria, Frequency, Incontinence, Hematuria, Retention , Other Musculoskeletal: negative: Neck Pain, Shoulder Pain, Arm Pain, Back Pain, Hand Pain, Leg Pain, Foot Pain, Other Skin: negative: Rash, Lesions, Aníbal, Bruising, Other Neurological: negative: Weakness, Numbness, Incoordination, Change in Speech, Confusion, Seizures, Other - Medications/Allergies Allergies/Adverse Reactions: Allergies Allergy/AdvReac Type Severity Reaction Status Date / Time Penicillins Allergy Intermediate Verified 11/22/17 14:17 fentanyl Allergy Verified 11/22/17 14:17 methadone HCl Allergy Verified 11/22/17 14:17 [From [facility]] Medications: Current Medications Hydrocodone Bitart/Acetaminophen ([place] 5/325) 1 tab PO Q6H PRN PRN Reason: Mild Pain (1-3) Hydrocodone Bitart/Acetaminophen ([place] 5/325) 2 tab PO Q6H PRN PRN Reason: Moderate Pain (4-6) Albuterol/Ipratropium (Duoneb) 3 ml NEB QIDPRN PRN PRN Reason: Wheezing Betamethasone Valerate (Valisone 0.1% Cream) 0 gm TOP 5XD [facility] Last Admin: 12/28/17 11:14 Dose: 0.1 applic Calcium Carbonate (Tums) 750 mg PO Q4H PRN PRN Reason: INDIGESTION Docusate Sodium (Colace) 100 mg PO BID [facility] Last Admin: 12/28/17 09:41 Dose: 100 mg Enoxaparin Sodium (Lovenox) 40 mg SC 0900 [facility] Last Admin: 12/28/17 10:00 Dose: 40 mg Estrogens Conjugated (Premarin) 0.3 mg PO DAILY [facility] Last Admin: 12/28/17 09:41 Dose: 0.3 mg Famotidine (Pepcid) 20 mg SLOW IVP 2100 [facility] Last Admin: 12/27/17 22:23 Dose: 20 mg Hydrocortisone Sodium Succinate (Solu-Cortef) 50 mg IVP Q8HR [facility] Last Admin: 12/28/17 05:26 Dose: 50 mg Sodium Chloride (Normal Saline 0.9%) 1,000 mls @ 100 mls/hr IV .Q10H [facility] Last Admin: 12/28/17 10:51 Dose: 1,000 mls Meropenem 1 gm/ Device 50 mls @ 100 mls/hr IVPB 0200,1000,1800 [facility] Last Admin: 12/28/17 10:50 Dose: 50 mls Lidocaine (Lidoderm 5% Patch) 1 patch TD DAILY [facility] Last Admin: 12/28/17 09:59 Dose: 1 patch Loratadine (Claritin) 10 mg PO DAILYPRN PRN PRN Reason: ALLERGY Miscellaneous Medication (Lidocaine Patch Removal) 1 each TOP ASDIR [facility] Multivitamins (Theragran) 1 tab PO DAILY [facility] Last Admin: 12/28/17 09:41 Dose: 1 tab Nystatin (Mycostatin Powder) 0 gm TOP BID [facility] Last Admin: 12/28/17 09:43 Dose: 15 gm Ondansetron HCl (Zofran Odt) 4 mg PO Q6H PRN PRN Reason: Nausea/Vomiting Last Admin: 12/27/17 13:23 Dose: 4 mg Sodium Chloride (Flush - Normal Saline) 10 ml IVF Q12HR [facility] Last Admin: 12/28/17 09:59 Dose: 10 ml Sodium Chloride (Flush - Normal Saline) 10 ml IVF PRN PRN PRN Reason: Saline Flush Trospium (Trospium) 20 mg PO BID [facility] Last Admin: 12/28/17 09:41 Dose: 20 mg
--- NOTE | 2017-12-28 13:02 | PRG ---
DATE OF SERVICE: 12/28/2017 SUBJECTIVE: This morning, awake, alert and responsive. She is better. OBJECTIVE: VITAL SIGNS: Blood pressure 149/56, sats are 98% on 2 liters, respiration 16, pulse 50, temperature 96. CHEST: Reveals decreased breath sounds, no wheezing. CARDIAC: Normal S1, S2, no gallops. ABDOMEN: Soft, no masses. LABORATORY DATA: White count 8000, H&H is 11 and 36, platelet count 151. Urine is growing E. coli r esistant to pretty much oral antibiotics except for meropenem. IMPRESSION: 1. Recurrent urinary tract infection, multidrug resistant, but sensitive to meropenem. 2. Advanced age. 3. Do not intubate. PLAN: I will switch over to meropenem. She probably can be transferred out of the MICU. Continue P T, supportive care, nutrition. We will follow.
[2017-12-28] MEDS ORDERED: Meropenem 1 GM in Sodium Chloride 0.9% 100 ML IVPB SCH (14:00)
[2017-12-28] MEDS ORDERED: ISOVUE-370 76%-LOCM 1 ML ONE (15:08)
[2017-12-28] MEDS ORDERED: Gabapentin 400 MG CAP PO SCH (17:15)
[2017-12-28 18:36] LABS: CKMB 0.5 ng/mL (0-6.6); Troponin I Less than 0.010 ng/mL (< 0.028)
[2017-12-28] MEDS: Ondansetron ODT 4 MG TAB PO PRN (20:17)
--- NOTE | 2017-12-28 21:00 | CT ---
CT ANGIOGRAM OF THE CHEST 12/28/17 HISTORY: Elevated D-dimer. Past medial history of pulmonary artery emboli. Back pain. TECHNIQUE: CT angiogram of the chest is performed in the axial plane. Three dimensional reformatted images are s ubmitted for interpretation. COMPARISON: 03/01/17. FINDINGS: No mediastinal mass, lymphadenopathy, or hematoma. Heart size is within normal limits. No significant pericardial fluid. No evidence of aortic dissection or periaortic fat stranding. The visualized upper solid organs are grossly unremarkable. Gallbladder appears to be surgically abse nt. Small bilateral pleural effusions. There are diffuse ground glass opacities throughout the lung paren chyma. Patchy interstitial opacities and septal thickening is noted throughout the lung parenchyma. T he overall degree and distribution is similar to the prior examination. Elevation of the right hemidi aphragm persists. Adjacent parenchymal changes are felt to be due to atelectasis. There is no suspici ous consolidation or mass. No pneumothorax. No lytic or blastic lesions in the osseous structures. Dorsal column stimulator is identified. Adequate contrast opacification of the pulmonary arterial system to the level of the segmental arteri es. No filling defect to imply thromboembolism. IMPRESSION: 1. No evidence of pulmonary artery embolism to the level of the segmental arteries. 2. Persistent interstitial opacities suggesting a component of edema superimposed upon chronic c hange. The possibility of infiltrate cannot be excluded. Small bilateral pleural effusions are identi fied. Right lower lobe atelectasis with elevation of right hemidiaphragm is redemonstrated. POS: [facility]
[2017-12-28] MEDS: Gabapentin 400 MG CAP PO SCH (21:15)
[2017-12-28] MEDS: Famotidine 40 MG/4 ML VIAL SLOW IVP SCH (21:15)
--- NOTE | 2017-12-28 21:59 | RAD ---
CHEST ONE VIEW: 12/28/17 HISTORY: Back pain. History of pulmonary artery emboli. COMPARISON: 12/26/17 CORRELATION: Chest CT 12/28/17. FINDINGS: Atherosclerosis of the aorta. Interstitial and alveolar opacities, suggesting edema/infiltrate. No pn eumothorax or osseous abnormalities. IMPRESSION: Lung parenchymal changes as above. POS: [facility]
[2017-12-29] MEDS: Betamethasone 0.1% Cream 45 GM TUBE TOP SCH ×6 (00:03→23:55)
[2017-12-29] MEDS: Sodium Chloride 0.9% 1,000 ML IV SCH ×2 (00:03→10:34)
[2017-12-29] MEDS: MEROPENEM 1 GM/50 ML 1 GM in Premix Bag 1 BAG IVPB SCH ×3 (02:10→17:58)
[2017-12-29 04:57] LABS: #Lymphocytes 0.5 thou/uL (1.20-3.40); #Monocytes 0.4 thou/uL (0.11-0.59); #Neutrophils 5.3 thou/uL (1.40-6.50); %Basophils 0.4 % (0.0-1.0); %Eosinophils 0.3 % (0.0-10.0); %Lymphocytes 8.6 % (21.0-51.0); %Monocytes 5.8 % (0.0-10.0); %Neutrophils 84.9 % (42.0-75.0); Hemoglobin 11.4 g/dL (12.0-16.0); Mean Corpuscular Hemoglobin 30.7 pg (27.0-31.0); Mean Platelet Volume 7.5 fL (7.4-10.4); Platelet Count 161 thou/uL (130-400); RBC Distribution Width 12.4 % (11.5-14.5); Red Blood Cell (RBC) Count 3.71 mill/uL (4.20-5.40); White Blood Cell (WBC) Count 6.2 thou/uL (4.8-10.8)
[2017-12-29] MEDS: Hydrocortisone Sod Succ/PF 100 mg/2 ml Vial IVP SCH (05:12)
[2017-12-29 05:16] LABS: Anion Gap 8 mmol/L (10-20); BUN (Urea Nitrogen) 21 mg/dL (9.8-20.1); Calc. Creatinine Clearance 58 mL/min (70-130); Calcium 8.6 mg/dL (7.8-10.44); Carbon Dioxide 22 mmol/L (23-31); Chloride 113 mmol/L (98-107); Estimated GFR-MDRD Greater than 90; Glucose 111 mg/dL (83-110); Potassium 3.4 mmol/L (3.5-5.1); Sodium 140 mmol/L (136-145)
[2017-12-29] MEDS ORDERED: Potassium Chloride 20 MEQ TAB PO SCH (08:30)
[2017-12-29] MEDS ORDERED: Hydrocortisone Sod Succ/PF 100 mg/2 ml Vial IVP SCH (09:00)
[2017-12-29] MEDS ORDERED: predniSONE 20 MG TAB PO SCH (09:00)
[2017-12-29] MEDS: Enoxaparin Sodium 40 MG/0.4 ML SYRINGE SC SCH (09:33)
[2017-12-29] MEDS: Lidocaine 5% Patch TD SCH (09:33)
[2017-12-29] MEDS: Nystatin Powder 15 GM BOT TOP SCH ×2 (09:34→21:06)
[2017-12-29] MEDS: Gabapentin 400 MG CAP PO SCH ×4 (09:34→21:07)
[2017-12-29] MEDS: TROSPIUM 20 MG TABLET PO SCH ×2 (09:35→21:07)
[2017-12-29] MEDS: predniSONE 20 MG TAB PO SCH (09:35)
[2017-12-29] MEDS: Multivit, Therapeutic 1 TAB PO SCH (09:35)
[2017-12-29] MEDS: Docusate 100 MG CAP PO SCH ×2 (09:36→21:06)
--- NOTE | 2017-12-29 09:50 | PRG ---
DATE OF SERVICE: 12/29/2017 The patient is an 82-year-old female who is ____. 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 PHYSICAL EXAMINATION: VITAL SIGNS: Her sats 96 on 2 liters, respiration 21, temperature 97, blood pressure 145/68. GENERA L: She is awake, alert, responsive, no respiratory distress. CHEST: Chest reveals decreased breath sounds, no wheezing. CARDIAC: Normal S1, S2, no gallops. ABDOMEN: Soft, no masses. White count 6000, H&H 9 and 34, platelet count 161. Electrolytes are normal. Urine is growing E. coli which as before is multidrug resistant. HISTORY: 1. Urosepsis. 2. Advanced age. 3. Chronic pain. The patient can be transferred out IMCU to a non-monitored bed. CT chest was ordered because the pat ient's D-dimer is elevated. Basically CT shows some small bilateral pleural effusion, chronic bilate ral pulmonary infiltrates. IMPRESSION: 1. Urosepsis. 2. Chronic pain. 3. Abnormal chest x-ray, chronic, suggestive of chronic fibrosis. PLAN: Continue meropenem and neb treatments, PT and supportive care, eventually placement. I will follow.
[2017-12-29] MEDS ORDERED: ISOVUE-370 76%-LOCM 1 ML ONE (13:44)
[2017-12-29] MEDS ORDERED: Iopamidol 370 76% 50 ML VIAL FS ONE (13:44)
--- NOTE | 2017-12-29 14:17 | PDOC.PN ---
- Subjective Encounter Start Date: 12/29/17 Encounter Start Time: 14:15 Subjective: feels much better today.still very weak -: had ac episode of back pain yesterday requring PE & cardiac workup -: no more pain today as chr pain meds restarted - Objective Resuscitation Status: Resuscitation Status DNI:No Intubation MAR Reviewed: Yes Vital Signs & Weight: Vital Signs (12 hours) Temp Pulse Pulse Pulse Resp BP BP 12/29/17 11:00 97.4 F L 90 19 12/29/17 09:25 75 80 112/49 L 109/55 L 12/29/17 07:29 97.6 F 58 L 21 H 12/29/17 03:43 97.0 F L 57 L 17 BP Pulse Ox Pulse Ox Pulse Ox 12/29/17 11:00 124/65 97 12/29/17 09:25 98 93 L 12/29/17 07:29 145/68 H 96 12/29/17 03:43 136/63 96 Weight Weight 120 lb 1.6 oz I&O: 12/28/17 12/29/17 12/30/17 06:59 06:59 06:59 Intake Total 3210 1500 Output Total 1420 1000 Balance 1790 500 Result Diagrams: 12/29/17 03:28 12/29/17 03:28 Additional Labs: Microbiology 12/26/17 16:42 Venous blood - Left Arm Blood Culture - Final Escherichia coli 12/26/17 16:31 Venous blood - Right Arm Blood Culture - Final Escherichia coli 12/26/17 17:08 Urine yang catheter Urine Culture - Preliminary Escherichia coli Non-Hemolytic Streptococcus Laboratory Tests 12/28/17 17:43 Troponin I Less than 0.010 Radiology Reviewed by me: Yes (CTA-no PE) Phys Exam - Physical Examination Constitutional: NAD weak looking HEENT: PERRLA, moist MMs, sclera anicteric, oral pharynx no lesions Neck: no JVD Respiratory: no wheezing, no rales, no rhonchi, clear to auscultation bilateral Cardiovascular: RRR, no significant murmur Gastrointestinal: soft, non-tender, no distention, positive bowel sounds Musculoskeletal: no edema, pulses present Neurological: non-focal, normal sensation, moves all 4 limbs Psychiatric: normal affect, A&O x 3 Skin: no rash Dx/Plan (1) Severe sepsis Code(s): A41.9 - SEPSIS, UNSPECIFIED ORGANISM; R65.20 - SEVERE SEPSIS WITHOUT SEPTIC SHOCK Status: Acute Comment: Secondary to e. coli from urinary source , continue meropenam based on final sensitivities, (2) Bacteremia, escherichia coli Code(s): R78.81 - BACTEREMIA Status: Acute (3) ZOE (acute kidney injury) Code(s): N17.9 - ACUTE KIDNEY FAILURE, UNSPECIFIED Status: Acute Comment: Avoid nephrotoxic meds and limit contrast exposure.improving (4) Hypokalemia Code(s): E87.6 - HYPOKALEMIA Status: Acute Comment: KCL 40meq po BID, repeat K+ level in am (5) UTI (urinary tract infection) due to urinary indwelling catheter Code(s): T83.511A - I/I REACT D/T INDWELLING URETHRAL CATHETER, INIT; N39.0 - URINARY TRACT INFECTION, SITE NOT SPECIFIED Status: Acute Qualifiers: Indwelling urinary catheter type: indwelling urethral catheter Comment: e. coli with bacteremia,follows with urology as an outpatient, may need to change catheter more frequently (6) Neurogenic bladder Code(s): N31.9 - NEUROMUSCULAR DYSFUNCTION OF BLADDER, UNSPECIFIED Status: Chronic Comment: s/p SPT placement, see above (7) Physical deconditioning Code(s): R53.81 - OTHER MALAISE Status: Chronic (8) Protein-calorie malnutrition, moderate Code(s): E44.0 - MODERATE PROTEIN-CALORIE MALNUTRITION Status: Chronic Comment: Regular diet, add Ensure Enlive BID (9) Dyslipidemia Code(s): E78.5 - HYPERLIPIDEMIA, UNSPECIFIED Status: Chronic (10) GERD (gastroesophageal reflux disease) Code(s): K21.9 - GASTRO-ESOPHAGEAL REFLUX DISEASE WITHOUT ESOPHAGITIS Status: Chronic (11) HTN (hypertension) Code(s): I10 - ESSENTIAL (PRIMARY) HYPERTENSION Status: Chronic (12) History of pulmonary embolism Code(s): Z86.711 - PERSONAL HISTORY OF PULMONARY EMBOLISM Status: Chronic (13) Lupus (systemic lupus erythematosus) Code(s): M32.9 - SYSTEMIC LUPUS ERYTHEMATOSUS, UNSPECIFIED Status: Chronic Qualifiers: Systemic lupus erythematosus organ involvement: lung involvement (14) Multiple sclerosis Code(s): G35 - MULTIPLE SCLEROSIS Status: Chronic - Plan continue antibiotics, PT/OT, respiratory therapy, incentive spirometry, DVT proph w/SCDs will bogdan need [facility] IV ABx for resistant E.coli bacteremia -: will consult ID -: BP much improved.if stable.can transfer to medical tomorrow. -: am labs. -: bogdan Dc to [place] in next 24-48 hours.will require intense rehab * .DC IVF.reduce IV steroids. Review of Systems - Review of Systems Constitutional: weakness, malaise ENT: negative: Ear Pain, Ear Discharge, Nose Pain, Nose Discharge, Nose Congestion, Mouth Pain, Mouth Swelling, Throat Pain, Throat Swelling, Other Respiratory: negative: Cough, Dry, Shortness of Breath, Hemoptysis, SOB with Excertion, Pleuritic Pain, Sputum, Wheezing Cardiovascular: negative: chest pain, palpitations, orthopnea, paroxysmal nocturnal dyspnea, edema, light headedness, other Gastrointestinal: Nausea Genitourinary: negative: Dysuria, Frequency, Incontinence, Hematuria, Retention , Other Musculoskeletal: negative: Neck Pain, Shoulder Pain, Arm Pain, Back Pain, Hand Pain, Leg Pain, Foot Pain, Other Skin: negative: Rash, Lesions, Aníbal, Bruising, Other Neurological: negative: Weakness, Numbness, Incoordination, Change in Speech, Confusion, Seizures, Other - Medications/Allergies Allergies/Adverse Reactions: Allergies Allergy/AdvReac Type Severity Reaction Status Date / Time Penicillins Allergy Intermediate Verified 11/22/17 14:17 fentanyl Allergy Verified 11/22/17 14:17 methadone HCl Allergy Verified 11/22/17 14:17 [From Methadose] Medications: Current Medications Hydrocodone Bitart/Acetaminophen ([place] 5/325) 1 tab PO Q6H PRN PRN Reason: Mild Pain (1-3) Hydrocodone Bitart/Acetaminophen ([place] 5/325) 2 tab PO Q6H PRN PRN Reason: Moderate Pain (4-6) Last Admin: 12/28/17 15:19 Dose: 2 tab Albuterol/Ipratropium (Duoneb) 3 ml NEB QIDPRN PRN PRN Reason: Wheezing Albuterol/Ipratropium (Duoneb) 3 ml NEB [id number] [id number] Betamethasone Valerate (Valisone 0.1% Cream) 0 gm TOP 5XD [facility] Last Admin: 12/29/17 09:34 Dose: 1 applic Calcium Carbonate (Tums) 750 mg PO Q4H PRN PRN Reason: INDIGESTION Docusate Sodium (Colace) 100 mg PO BID [facility] Last Admin: 12/29/17 09:36 Dose: Not Given Enoxaparin Sodium (Lovenox) 40 mg SC 0900 [facility] Last Admin: 12/29/17 09:33 Dose: 40 mg Estrogens Conjugated (Premarin) 0.3 mg PO DAILY [facility] Last Admin: 12/28/17 09:41 Dose: 0.3 mg Famotidine (Pepcid) 20 mg SLOW IVP 2100 [facility] Last Admin: 12/28/17 21:15 Dose: 20 mg Gabapentin (Neurontin) 800 mg PO QID [facility] Last Admin: 12/29/17 09:34 Dose: 800 mg Meropenem 1 gm/ Device 50 mls @ 100 mls/hr IVPB 0200,1000,1800 [facility] Last Admin: 12/29/17 09:33 Dose: 50 mls Lidocaine (Lidoderm 5% Patch) 1 patch TD DAILY [facility] Last Admin: 12/29/17 09:33 Dose: 1 patch Loratadine (Claritin) 10 mg PO DAILYPRN PRN PRN Reason: ALLERGY Miscellaneous Medication (Lidocaine Patch Removal) 1 each TOP ASDIR [facility] Morphine Sulfate (Ms Contin) 60 mg PO BID [facility] Last Admin: 12/29/17 10:24 Dose: 60 mg Multivitamins (Theragran) 1 tab PO DAILY [facility] Last Admin: 12/29/17 09:35 Dose: 1 tab Nystatin (Mycostatin Powder) 0 gm TOP BID [facility] Last Admin: 12/29/17 09:34 Dose: 1 applic Ondansetron HCl (Zofran Odt) 4 mg PO Q6H PRN PRN Reason: Nausea/Vomiting Last Admin: 12/28/17 20:17 Dose: 4 mg Prednisone (Prednisone) 10 mg PO QAM-WM [facility] Last Admin: 12/29/17 09:35 Dose: 10 mg Sodium Chloride (Flush - Normal Saline) 10 ml IVF Q12HR [facility] Last Admin: 12/29/17 09:36 Dose: Not Given Sodium Chloride (Flush - Normal Saline) 10 ml IVF PRN PRN PRN Reason: Saline Flush Trospium (Trospium) 20 mg PO BID [facility] Last Admin: 12/29/17 09:35 Dose: 20 mg
[2017-12-29] MEDS: Estrogens, Conjugated 0.3 MG TAB PO SCH (15:04)
--- NOTE | 2017-12-29 17:12 | CON ---
DATE OF CONSULTATION: 12/29/2017 REASON FOR CONSULTATION: Urosepsis. HISTORY OF PRESENT ILLNESS: This is an 82-year-old patient, who has a history of multiple sclerosis and recurrent urinary tract infections associated with neurogenic bladder and urinary retention. She also has had C. difficile colitis in the past. The microbiology of her urinary infections have incl uded Klebsiella, Enterococcus faecium, MR E. coli. She also has had vancomycin-resistant Enterococcu s. The patient has been treated with courses of IV antimicrobial therapy through PICC line as well a s oral Zyvox and eventually Dr. Pedroza inserted a suprapubic catheter in his clinic, I believe, [place] this year. She is currently staying at [facility] and had been doing relatively well until the d ay before admission when then the nurse noticed fever. The subsequent day, there was obvious obstruc tion of the suprapubic catheter. According to the patient, she went about a day and a half without a nybody realizing that the catheter was obstructed. Evidently, she developed complications, which led to her admission with hypotension, leukocytosis and fever. Initial BP 110/75, heart rate 88, respir ations 18, O2 saturation 98%. Lungs with clear lung field sounds. Heart exam was normal. Abdomen w as soft, nontender. Initial white cell count 16,000 with left shift. Creatinine 1.36. Lactic acid 2.9. Urinalysis with greater than 50 wbcs and 2 sets of blood cultures positive for E. coli, which h as an ESBL phenotype, and urine culture with E. coli and Enterococcus susceptibility profile is still pending at this time. The patient has been on meropenem and she is feeling better. Still has what she describes as bladder spasms. Since the the suprapubic catheter has been inserted, she is not mayra y happy with that. No headaches, no sore throat, odynophagia, dysphagia, swallowing without difficul ty. No respiratory symptoms, no chest pain, no diarrhea. In the [facility], she did have some loo se stool episode, but not recurrent since. No change in neurological status. PAST MEDICAL HISTORY: Multiple sclerosis, reportedly with a diagnosis of lupus. She does have posit sanam serologies, but apparently, she was given prednisone. History of prior thromboembolism with IVC filter placement. Recurrent UTIs associated with neurogenic bladder. ALLERGIES: FENTANYL, METHADONE, PENICILLIN. CURRENT MEDICATIONS: Include [place], DuoNeb, Valisone, Tums, Colace, Lovenox, Premarin, Pepcid, Neuro ntin, meropenem 1 gram q.8 hours, Azactam, prednisone 10 mg daily. SOCIAL HISTORY: Never a smoker, penitentiary resident. FAMILY HISTORY: Noncontributory. PHYSICAL EXAMINATION: VITAL SIGNS: With a T-max 98.9, currently 96.7; blood pressure 125/60; pulse 96; respiratory rate 18 -23; O2 sat 96%. SKIN EXAMINATION: Shows the suprapubic catheter with normal-appearing exit site. Patient has a adela pheral IV access. No lymphadenopathy. HEENT: Ocular movements conjugate. Oral cavity unremarkable. NECK: Supple. LUNGS: Symmetric breath sounds. CARDIOVASCULAR: S1 and S2, no murmurs, regular rate. ABDOMEN: Soft and not distended or tender. No ascites. No bladder distention. A little bit of ten derness in suprapubic area. NEUROLOGIC: No change in neurological status with weakness in lower extremities. Cognitive function is intact. LABORATORY DATA: Her white cell count is down from 16-6.2, hemoglobin 11.4, platelets 161, 84% neutr ophils. Sodium is 140, creatinine 0.62, potassium 3.4, carbon dioxide 22. Liver profile within norm al limits. Albumin 3.0, cortisol 35.8. Urinalysis greater than 50 wbcs and microbiology as discusse d above. She had a CT chest angio when she came in, because of concern with prompt thromboembolism, which demonstrated no evidence of pulmonary embolism and persistent interstitial opacities suggesting a component of edema. ASSESSMENT: 1. 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 2. Suprapubic catheter placement with recent obstruction, which led to the invasive infection that i s associated with her admission. This is secondary to an extended-spectrum ?-lactamases Escherichia coli. DISCUSSION: Patient will need a PICC line placement and treatment for the E. coli with meropenem or Invanz. The susceptibilities of the Enterococcus are still pending, but I would focus on the E. coli only at this point in time. In view of the positive antinuclear antibody and complement, the possib ility that the neurological manifestations are due to that autoimmune process rather than multiple sc lerosis is to be considered. We will arrange for treatment back in the penitentiary with 1 of the 2 antimicrobials mentioned above. Evidently, it will be essential to verify that her catheter patency remains intact to avoid this processes in the future. This would include daily checks by the nursing staff as well as maintaining adequate oral intake of fluids.
--- NOTE | 2017-12-29 18:55 | CT ---
ABDOMEN CT WITH CONTRAST PELVIC CT WITH CONTRAST 12/29/17 HISTORY: Recurrent urinary tract infection. Patient has multiple sclerosis. History suprapubic catheters. COMPARISON: 08/06/17. TECHNIQUE: An abdomen and pelvic CT performed with IV contrast. Coronal reformatted images are submitted for int erpretation. FINDINGS: Linear opacities and ground glass opacities in the lung parenchyma likely represent chronic change. T here are small bilateral effusions. Heart size is within normal limits. No significant pericardial fl uid. The descending thoracic aorta and abdominal aorta have a normal caliber. No periaortic fat stran ding. Note is made of an IVC filter. Gallbladder is surgically absent. Intra and extrahepatic portal vein is patent. Liver, spleen and adrenal glands have appropriate enhancement. There is atrophy of the pancreas. Symmetric enhancement of the kidneys. There are nonobstructing calcifications in the right intrarenal collecting system. The left ureter has a normal caliber. No hydroureter, periureteral fat stranding or ureterolithiasis. There is mild fullness of the right ureter. There is evidence of a solitary calc ification in the distal right ureter, just proximal to the right ureterovesical junction measuring ap proximately 4 mm. There is stranding of the abdominal mesentery, nonspecific. No evidence of mesenteric mass, lymphaden opathy or free air. There is perihepatic fluid. There is fluid in both pericolic gutters. A small ananda unt of fluid is noted in the right lower quadrant mesentery. Gastric mucosa, duodenum, and multiple normal caliber small bowel loops are noted. Ileocecal junction is normal. There is fluid attenuation involving the cecum and ascending colon. Scattered fecal mater ial in a nondistended, nondilated left hemicolon is noted. PELVIC CT: Suprapubic catheter is noted. There is free fluid in the pelvis. No mass, lymphadenopathy or free air . Stable scoliosis of the lumbar spine. IMPRESSION: 1. Small bilateral effusions with adjacent chronic lung parenchymal changes. 2. No evidence of high grade obstruction. There is nonspecific fluid in the abdomen and pelvis. 3. There is evidence of a right sided calculus in the right ureterovesicular junction which was not present on the previous examination. There is mild associated obstructive uropathy. Additional no nobstructing calculi are noted in the right intrarenal collecting system. POS: [facility]
[2017-12-29] MEDS: Famotidine 20 MG TAB PO SCH (21:07)
[2017-12-30] MEDS: MEROPENEM 1 GM/50 ML 1 GM in Premix Bag 1 BAG IVPB SCH ×3 (02:14→17:06)
--- NOTE | 2017-12-30 08:48 | PRG ---
DATE OF SERVICE: 12/30/2017 Ms. Ramos this morning is awake, alert, responsive. PHYSICAL EXAMINATION: VITAL SIGNS: Sats 96% on 2 liters, respirations 20, temperature 97, blood pressure 110/50. CHEST: Chest revealed decreased breath sounds, no wheezing. CARDIAC: Normal S1-S2. No gallops. ABDOMEN: No masses. IMPRESSION: 1. Recurrent urinary tract infection, Escherichia coli, multidrug resistant. 2. Encephalopathy. 3. Chronic obstructive pulmonary disease. PLAN: Pulmonary medrano she is stable enough to be transfer out of the IMCU. Antibiotics per Infectiou s Disease. Eventually placement.
[2017-12-30] MEDS: Docusate 100 MG CAP PO SCH ×2 (10:29→20:31)
[2017-12-30] MEDS: Gabapentin 400 MG CAP PO SCH ×4 (10:30→20:32)
[2017-12-30] MEDS: Estrogens, Conjugated 0.3 MG TAB PO SCH (10:31)
[2017-12-30] MEDS: Enoxaparin Sodium 40 MG/0.4 ML SYRINGE SC SCH (10:31)
[2017-12-30] MEDS: Multivit, Therapeutic 1 TAB PO SCH (10:32)
[2017-12-30] MEDS: predniSONE 20 MG TAB PO SCH (10:32)
[2017-12-30] MEDS: Betamethasone 0.1% Cream 45 GM TUBE TOP SCH ×4 (10:34→20:32)
[2017-12-30] MEDS: Lidocaine 5% Patch TD SCH (10:35)
[2017-12-30] MEDS: TROSPIUM 20 MG TABLET PO SCH ×2 (10:37→20:32)
[2017-12-30] MEDS: Nystatin Powder 15 GM BOT TOP SCH ×2 (10:39→20:33)
--- NOTE | 2017-12-30 11:12 | SPC ---
SONOGRAPHIC GUIDED LEFT UPPER EXTREMITY PICC PLACEMENT: History: Sepsis. FINDINGS: After explaining the procedure and answering all questions, the left upper extremity was prepped and draped in the usual sterile fashion. Sterile technique, buffered local anesthesia, sonographic guidan ce, and a 22 gauge needle were used to access the left basilic vein. A small amount of contrast was a lso used to confirm position. Standard technique was then used to place the tip of a 5 [place] dual-sesar men PICC so that the tip lies at the superior vena cava. Catheter was flushed and secured externally. Patient tolerated the procedure well and was returned in unchanged condition. IMPRESSION: Technically successful left upper extremity PICC placement. Catheter is now ready for use. POS: [facility]
--- NOTE | 2017-12-30 14:53 | PDOC.PN ---
- Subjective Encounter Start Date: 12/30/17 Encounter Start Time: 14:51 Subjective: feels much better today.no more back pain,apettite better .no N/V/D -: care discussed w daughter in detail -all Qs answered - Objective Resuscitation Status: Resuscitation Status DNI:No Intubation MAR Reviewed: Yes Vital Signs & Weight: Vital Signs (12 hours) Temp Pulse Resp BP Pulse Ox 12/30/17 12:29 97.6 F 65 18 99 12/30/17 12:08 65 16 98 12/30/17 12:02 97.6 F 95 18 115/68 99 12/30/17 11:32 98.1 F 86 18 112/67 93 L 12/30/17 08:00 97.3 F L 92 20 96 12/30/17 07:00 97.3 F L 92 20 115/50 L 96 12/30/17 06:36 99 12/30/17 06:28 64 16 99 12/30/17 03:47 97.0 F L 69 21 H 112/52 L 98 Weight Weight 120 lb 1.6 oz I&O: 12/29/17 12/30/17 12/31/17 06:59 06:59 06:59 Intake Total 1500 1740 Output Total 1000 1425 Balance 500 315 Result Diagrams: 12/29/17 03:28 12/29/17 03:28 Additional Labs: Microbiology 12/26/17 16:42 Venous blood - Left Arm Blood Culture - Final Escherichia coli 12/26/17 16:31 Venous blood - Right Arm Blood Culture - Final Escherichia coli 12/26/17 17:08 Urine yang catheter Urine Culture - Preliminary Escherichia coli Enterococcus species Phys Exam - Physical Examination Constitutional: NAD weak and tired looking but better than yesterday HEENT: PERRLA, moist MMs, sclera anicteric, oral pharynx no lesions Neck: no JVD Respiratory: no wheezing, no rales, no rhonchi, clear to auscultation bilateral Cardiovascular: RRR, no significant murmur Gastrointestinal: soft, non-tender, no distention, positive bowel sounds Musculoskeletal: no edema, pulses present Neurological: non-focal, normal sensation, moves all 4 limbs Psychiatric: normal affect, A&O x 3 Skin: no rash Dx/Plan (1) Severe sepsis Code(s): A41.9 - SEPSIS, UNSPECIFIED ORGANISM; R65.20 - SEVERE SEPSIS WITHOUT SEPTIC SHOCK Status: Acute Comment: Secondary to e. coli from urinary source , continue meropenam based on final sensitivities, (2) Bacteremia, escherichia coli Code(s): R78.81 - BACTEREMIA Status: Acute (3) ZOE (acute kidney injury) Code(s): N17.9 - ACUTE KIDNEY FAILURE, UNSPECIFIED Status: Acute Comment: Avoid nephrotoxic meds and limit contrast exposure.improving (4) Hypokalemia Code(s): E87.6 - HYPOKALEMIA Status: Acute Comment: KCL 40meq po BID, repeat K+ level in am (5) UTI (urinary tract infection) due to urinary indwelling catheter Code(s): T83.511A - I/I REACT D/T INDWELLING URETHRAL CATHETER, INIT; N39.0 - URINARY TRACT INFECTION, SITE NOT SPECIFIED Status: Acute Qualifiers: Indwelling urinary catheter type: indwelling urethral catheter Comment: e. coli with bacteremia,follows with urology as an outpatient, may need to change catheter more frequently (6) Neurogenic bladder Code(s): N31.9 - NEUROMUSCULAR DYSFUNCTION OF BLADDER, UNSPECIFIED Status: Chronic Comment: s/p SPT placement, see above (7) Physical deconditioning Code(s): R53.81 - OTHER MALAISE Status: Chronic (8) Protein-calorie malnutrition, moderate Code(s): E44.0 - MODERATE PROTEIN-CALORIE MALNUTRITION Status: Chronic Comment: Regular diet, add Ensure Enlive BID (9) HTN (hypertension) Code(s): I10 - ESSENTIAL (PRIMARY) HYPERTENSION Status: Chronic (10) History of pulmonary embolism Code(s): Z86.711 - PERSONAL HISTORY OF PULMONARY EMBOLISM Status: Chronic (11) Lupus (systemic lupus erythematosus) Code(s): M32.9 - SYSTEMIC LUPUS ERYTHEMATOSUS, UNSPECIFIED Status: Chronic Qualifiers: Systemic lupus erythematosus organ involvement: lung involvement (12) Multiple sclerosis Code(s): G35 - MULTIPLE SCLEROSIS Status: Chronic - Plan continue antibiotics, PT/OT, respiratory therapy, incentive spirometry, out of bed/ambulate, DVT proph w/SCDs cont meropenam for protracte period per ID vis PICC-placed yesterday -: DC back to [place] tomorrow for IV ABx.family updated -: hemodynamically stable. OK to transfer to medical today -: home meds as below. OP f/u w urology q3 week as before -: am labs.cont supportive care * . Review of Systems - Review of Systems Constitutional: weakness, malaise. negative: fever, chills, sweats, other Eyes: negative: Pain, Vision Change, Conjunctivae Inflammation, Eyelid Inflammation, Redness, Other ENT: negative: Ear Pain, Ear Discharge, Nose Pain, Nose Discharge, Nose Congestion, Mouth Pain, Mouth Swelling, Throat Pain, Throat Swelling, Other Respiratory: negative: Cough, Dry, Shortness of Breath, Hemoptysis, SOB with Excertion, Pleuritic Pain, Sputum, Wheezing Cardiovascular: negative: chest pain, palpitations, orthopnea, paroxysmal nocturnal dyspnea, edema, light headedness, other Gastrointestinal: negative: Nausea, Vomiting, Abdominal Pain, Diarrhea, Constipation, Melena, Hematochezia, Other Genitourinary: negative: Dysuria, Frequency, Incontinence, Hematuria, Retention , Other Musculoskeletal: negative: Neck Pain, Shoulder Pain, Arm Pain, Back Pain, Hand Pain, Leg Pain, Foot Pain, Other Skin: negative: Rash, Lesions, Aníbal, Bruising, Other Neurological: negative: Weakness, Numbness, Incoordination, Change in Speech, Confusion, Seizures, Other - Medications/Allergies Allergies/Adverse Reactions: Allergies Allergy/AdvReac Type Severity Reaction Status Date / Time Penicillins Allergy Intermediate Verified 11/22/17 14:17 fentanyl Allergy Verified 11/22/17 14:17 methadone HCl Allergy Verified 11/22/17 14:17 [From Methadose] Medications: Current Medications Hydrocodone Bitart/Acetaminophen ([employer] 5/325) 1 tab PO Q6H PRN PRN Reason: Mild Pain (1-3) Hydrocodone Bitart/Acetaminophen ([employer] 5/325) 2 tab PO Q6H PRN PRN Reason: Moderate Pain (4-6) Last Admin: 12/28/17 15:19 Dose: 2 tab Albuterol/Ipratropium (Duoneb) 3 ml NEB QIDPRN PRN PRN Reason: Wheezing Albuterol/Ipratropium (Duoneb) 3 ml NEB [id number] TERESA Last Admin: 12/30/17 12:08 Dose: 3 ml Betamethasone Valerate (Valisone 0.1% Cream) 0 gm TOP 5XD [facility] Last Admin: 12/30/17 13:58 Dose: Not Given Calcium Carbonate (Tums) 750 mg PO Q4H PRN PRN Reason: INDIGESTION Docusate Sodium (Colace) 100 mg PO BID [facility] Last Admin: 12/30/17 10:29 Dose: 100 mg Enoxaparin Sodium (Lovenox) 40 mg SC 0900 [facility] Last Admin: 12/30/17 10:31 Dose: 40 mg Estrogens Conjugated (Premarin) 0.3 mg PO DAILY [facility] Last Admin: 12/30/17 10:31 Dose: 0.3 mg Famotidine (Pepcid) 20 mg PO 2100 [facility] Last Admin: 12/29/17 21:07 Dose: 20 mg Gabapentin (Neurontin) 800 mg PO QID [facility] Last Admin: 12/30/17 13:57 Dose: 800 mg Meropenem 1 gm/ Device 50 mls @ 100 mls/hr IVPB 0200,1000,1800 [facility] Last Admin: 12/30/17 10:37 Dose: 50 mls Lidocaine (Lidoderm 5% Patch) 1 patch TD DAILY [facility] Last Admin: 12/30/17 10:35 Dose: 1 patch Loratadine (Claritin) 10 mg PO DAILYPRN PRN PRN Reason: ALLERGY Miscellaneous Medication (Lidocaine Patch Removal) 1 each TOP ASDIR [facility] Morphine Sulfate (Ms Contin) 60 mg PO BID [facility] Last Admin: 12/30/17 10:34 Dose: 60 mg Multivitamins (Theragran) 1 tab PO DAILY [facility] Last Admin: 12/30/17 10:32 Dose: 1 tab Nystatin (Mycostatin Powder) 0 gm TOP BID [facility] Last Admin: 12/30/17 10:39 Dose: 1 applic Ondansetron HCl (Zofran Odt) 4 mg PO Q6H PRN PRN Reason: Nausea/Vomiting Last Admin: 12/28/17 20:17 Dose: 4 mg Prednisone (Prednisone) 10 mg PO QAM-WM [facility] Last Admin: 12/30/17 10:32 Dose: 10 mg Sodium Chloride (Flush - Normal Saline) 10 ml IVF Q12HR [facility] Last Admin: 12/30/17 10:36 Dose: 10 ml Sodium Chloride (Flush - Normal Saline) 10 ml IVF PRN PRN PRN Reason: Saline Flush Trospium (Trospium) 20 mg PO BID [facility] Last Admin: 12/30/17 10:37 Dose: 20 mg
--- NOTE | 2017-12-30 15:45 | PRG ---
DATE OF SERVICE: 12/30/2017 SUBJECTIVE: Ms. Ramos is a bit more alert today. She denies any neck pain. No dyspnea. No cough. No abdominal pain. No bladder spasms. OBJECTIVE: VITAL SIGNS: She has been afebrile and BP is 112/60, pulse 65, respirations 18, O2 sat 99%. GENERAL: Appears chronically ill, oriented, pleasant as usual. LUNG: Sounds are symmetric with faint basilar crackles. CARDIOVASCULAR: S1, S2, regular rate. ABDOMEN: Soft and not distended. Exit site of a suprapubic catheter is the same. Still with weakne ss in lower extremities, which is chronic. LABORATORY DATA: White cell count 6.2, hemoglobin 11, platelets 161. Creatinine 0.62, potassium 3.4 . Microbiology with Enterococcus species with a broad susceptibility profile and an ESBL Escherichia coli. ASSESSMENT AND DISCUSSION: Multiple sclerosis or systemic lupus erythematosus with paraparesis, neur ogenic bladder with recent suprapubic catheter placement with obstruction which likely led to the inv asive urinary tract infection responsible for admission. The patient has an ESBL Escherichia coli, w ill be continued on either meropenem or Invanz when transferred back to the rehabilitation or long term unit at [facility], to be receiving the antimicrobial therapy for another 12 days approximate ly. It is important to verify that there is patency of the suprapubic catheter to prevent future epi sodes which should be done by the nursing staff as well as adequate oral intake of fluids by the lynn ent.
[2017-12-30] MEDS: HYDROcodone/Acetaminophen 5/325 mg Tablet PO PRN (17:01)
[2017-12-30] MEDS: Famotidine 20 MG TAB PO SCH (20:33)
[2017-12-31] MEDS: Betamethasone 0.1% Cream 45 GM TUBE TOP SCH ×4 (00:41→16:10)
[2017-12-31] MEDS: MEROPENEM 1 GM/50 ML 1 GM in Premix Bag 1 BAG IVPB SCH ×2 (01:25→10:50)
[2017-12-31 04:55] LABS: Anion Gap 10 mmol/L (10-20); BUN (Urea Nitrogen) 14 mg/dL (9.8-20.1); Calc. Creatinine Clearance 64 mL/min (70-130); Calcium 8.6 mg/dL (7.8-10.44); Carbon Dioxide 24 mmol/L (23-31); Chloride 109 mmol/L (98-107); Estimated GFR-MDRD Greater than 90; Glucose 85 mg/dL (83-110); Potassium 3.5 mmol/L (3.5-5.1); Sodium 139 mmol/L (136-145)
[2017-12-31] MEDS: TROSPIUM 20 MG TABLET PO SCH (08:39)
[2017-12-31] MEDS: Docusate 100 MG CAP PO SCH (08:39)
[2017-12-31] MEDS: Gabapentin 400 MG CAP PO SCH ×3 (08:39→16:56)
[2017-12-31] MEDS: Lidocaine 5% Patch TD SCH (08:39)
[2017-12-31] MEDS: predniSONE 20 MG TAB PO SCH (08:40)
[2017-12-31] MEDS: Estrogens, Conjugated 0.3 MG TAB PO SCH (08:41)
[2017-12-31] MEDS: Multivit, Therapeutic 1 TAB PO SCH (08:41)
[2017-12-31] MEDS: Enoxaparin Sodium 40 MG/0.4 ML SYRINGE SC SCH (08:41)
[2017-12-31] MEDS: Nystatin Powder 15 GM BOT TOP SCH (09:02)
[2017-12-31] MEDS ORDERED: Potassium Chloride 20 MEQ TAB PO SCH (13:45)
[2017-12-31] MEDS ORDERED: Furosemide 20 MG/2 ML VIAL SLOW IVP SCH (13:45)
[2017-12-31] MEDS ORDERED: Polyethylene Glycol 3350 17 GM Packet PO SCH (13:45)
--- NOTE | 2017-12-31 14:14 | PRG ---
DATE OF SERVICE: 12/31/2017 SERVICE: Pulmonary Medicine. INTERVAL HISTORY: The patient feels like she is breathing fairly comfortably. She denies any chest discomfort, nausea and vomiting. Otherwise, there has been not much of a significant change to her c ondition. She is looking forward to going back to the [place] [facility] on antibiotics. She is hoping to regain more strength and walking to my clinic next time I see her. Otherwise, things are going fairly well for her. PHYSICAL EXAMINATION: VITAL SIGNS: Afebrile with T-max of 99.5, pulse 101, blood pressure 124/63, respirations 16, and sat uration 95% on room air. GENERAL: The patient is awake, alert, no apparent distress. LUNGS: Decent air entry. There are crackles present dependently. HEART: Normal rate and regular. ABDOMEN: Soft, nontender, nondistended. Bowel sounds are positive. MUSCULOSKELETAL: No cyanosis or clubbing. There is 1+ pitting in the bilateral lower extremities. NEUROLOGIC: Grossly nonfocal. LABORATORY DATA: Chloride 109, potassium 3.5. Basic metabolic profile is otherwise unremarkable. E . coli is growing in blood cultures and urine culture. This is an organism that is sensitive to pedro penem. ASSESSMENT: 1. Severe sepsis. 2. Urinary tract infection, multidrug resistant. 3. Metabolic encephalopathy, resolved. 4. Chronic obstructive pulmonary disease without acute exacerbation. PLAN: I will give her a small dose of Lasix today. She has essentially returned to her baseline and is stable for transition out of the hospital. Pulmonary or Critical Care will continue to follow wh ile she remains in this location. Lab work with physical therapy and getup as much as tolerated. Po tassium will be replaced today. We will recheck a level in the morning.
--- NOTE | 2017-12-31 15:06 | PDOC.EVN ---
Event Note - Event Note Event Note: DC SUMMARY #[id number]
[2017-12-31] MEDS: HYDROcodone/Acetaminophen 5/325 mg Tablet PO PRN (16:09)
[2017-12-31 16:11] VITALS: BP 116/77; TEMP 97.9
[2017-12-31] MEDS ORDERED: Senokot S 8.6-50 MG TAB PO SCH (21:00)
--- NOTE | 2018-01-01 00:03 | DIS ---
DATE OF ADMISSION: 12/26/2017 DATE OF DISCHARGE: 12/31/2017 ADMITTING DIAGNOSES: 1. Sepsis. 2. Altered mental status. 3. History of lupus. 4. History of urinary tract infection. 5. History of multiple sclerosis. 6. History of neurogenic bladder. 7. History of pulmonary hypertension. 8. History of chronic physical deconditioning. 9. Dyslipidemia. DISCHARGE DIAGNOSES: Altered mental status secondary to urinary tract infection as well as history o f lupus, chronic urinary tract infections, history of Clostridium difficile, history of multiple scle rosis, neurogenic bladder, history of pulmonary hypertension, chronic debilitation. HOSPITAL COURSE: This is an 82-year-old female who is a resident of a nursing facility, admitted due to altered mental status. The patient has had multiple admissions in the past due to chronic UTIs a s well. The patient was admitted to the Internal Medicine team as well as followed closely by Urolog y and Pulmonology. The patient was started on antibiotics, had broad spectrum cultures done. The herbert marshall's urine culture on 12/26, resulted positive for ESBL. Infectious Disease subspecialty was cons ulted for evaluation for the patient. She was started on Merrem and was noted to have significant im provement after 2 or 3 days of antibiotics. The patient's condition at point in time of discharge wa s back to baseline. Patient denied any nausea, vomiting, diarrhea, constipation, chest pain, fevers, or shortness of breath. Stated that she felt back to her normal and was ready to [facility] to [facility]. Patient's modeler was at bedside as well. DISPOSITION: Discontinue to SNF. FOLLOWUP: Follow up with PCP within 1-2 weeks. ACTIVITY: As tolerated with assistance. DIET: Low fat, low calorie, high fiber diet. CONDITION: Stable. PROGNOSIS: Guarded. Case and plan discussed with the patient at length. She understands and agrees with this plan.
[2018-01-01] MEDS ORDERED: Furosemide 20 MG/2 ML VIAL SLOW IVP SCH (09:00)
== END 2017-12-31 17:15 | DRG 698 ==
LOC: ERS 15:46 → IMCU/EMU 17:50 → T4-B 12-30 12:11
PROVIDERS: ADMIT Family Medicine; ATTEND Family Medicine
DX: T83.511A Infection and inflammatory reaction due to indwelling urethral catheter, initial encounter (principal); A41.9 Sepsis, unspecified organism; R65.21 Severe sepsis with septic shock; G93.41 Metabolic encephalopathy; N17.9 Acute kidney failure, unspecified; E44.0 Moderate protein-calorie malnutrition; N10 Acute pyelonephritis; I27.20 Pulmonary hypertension, unspecified; M32.9 Systemic lupus erythematosus, unspecified; G35 Multiple sclerosis; N31.9 Neuromuscular dysfunction of bladder, unspecified; E78.5 Hyperlipidemia, unspecified; Z68.20 Body mass index [BMI] 20.0-20.9, adult; M19.90 Unspecified osteoarthritis, unspecified site; Z16.12 Extended spectrum beta lactamase (ESBL) resistance; Z79.899 Other long term (current) drug therapy; Z79.52 Long term (current) use of systemic steroids; Z79.2 Long term (current) use of antibiotics; Z88.0 Allergy status to penicillin; Z88.5 Allergy status to narcotic agent; Z88.8 Allergy status to other drugs, medicaments and biological substances; E11.9 Type 2 diabetes mellitus without complications; J44.9 Chronic obstructive pulmonary disease, unspecified; B96.20 Unspecified Escherichia coli [E. coli] as the cause of diseases classified elsewhere; K21.9 Gastro-esophageal reflux disease without esophagitis; Z86.711 Personal history of pulmonary embolism
CPT/HCPCS: 36415; 36569; 71045; 71275; 74177; 80048; 80053; 81003; 81015; 82533; 82553; 83605; 84484; 85007; 85025; 85027; 85379; 87040; 87077; 87086; 87149; 87186; 94640; 94760; 96365; A4216; C1751; G8978-GP-CN; G8979-GP-CL; G8987-GO-CM; G8988-GO-CM; G8989-GO-CM; J0692; J1650; J1940; J2185; J3370; J3480; J7050; J7506; J7620

== ENCOUNTER 2018-01-05 13:24 | Inpatient (IN) | payer MEDICARE, OTHER ==
--- NOTE | 2018-01-05 14:48 | RAD ---
RADIOGRAPH CHEST 1 VIEW: Date: 01/05/18 Time: 1426 HOURS HISTORY: 83-year-old female with hypotension, fever, and hypoxia. COMPARISON: 12/26/17. FINDINGS: Again, the lungs are hypoinflated. Diffuse interstitial densities bilaterally, with a central promine nce. Dorsal column stimulator lead tips overlie the mid thoracic spine. No pneumothorax. The only int erval change is the presence of a new left-sided PICC. IMPRESSION: 1. Bilateral interstitial densities. Uncertain whether chronic, acute, or a combination of both. 2. Interval placement of left-sided peripherally inserted central catheter. JAYLEN [] POS: [facility]
[2018-01-05 14:50] LABS: Hemoglobin 13.7 g/dL (12.0-16.0); Mean Corpuscular HGB CONC 33.5 g/dL (32.0-36.0); Mean Corpuscular Hemoglobin 30.8 pg (27.0-31.0); Mean Corpuscular Volume 91.9 fl (81.0-99.0); Mean Platelet Volume 6.6 fL (7.4-10.4); Platelet Count 306 thou/uL (130-400); RBC Distribution Width 12.8 % (11.5-14.5); Red Blood Cell (RBC) Count 4.46 mill/uL (4.20-5.40); White Blood Cell (WBC) Count 22.7 thou/uL (4.8-10.8)
[2018-01-05 15:10] LABS: Band 26 % (5-11); Eosinophils 1 % (0-10); Lymphocytes 4 % (21-51); MDiff Complete? YES; Monocytes 2 % (0-10); Neutrophil 64 % (42-75); PLT Morphology Comment Appears Adequate; RBC Morphology Normal; Reactive Lymphocytes 3 % (0-10); Toxic Granulation SLIGHT; Vacuoles SLIGHT
[2018-01-05 15:13] LABS: CKMB 0.5 ng/mL (0-6.6); Troponin I Less than 0.010 ng/mL (< 0.028)
[2018-01-05 15:14] LABS: ALT (SGPT) 20 U/L (8-55); AST (SGOT) 18 U/L (5-34); Albumin 2.9 g/dL (3.4-4.8); Alkaline Phosphatase 57 U/L (40-150); Anion Gap 11 mmol/L (10-20); BUN (Urea Nitrogen) 15 mg/dL (9.8-20.1); Bilirubin, Total 0.7 mg/dL (0.2-1.2); Calc. Creatinine Clearance 0 mL/min (70-130); Calcium 8.5 mg/dL (7.8-10.44); Carbon Dioxide 29 mmol/L (23-31); Chloride 98 mmol/L (98-107); Estimated GFR-MDRD 78; Globulin 3.2 g/dL (2.4-3.5); Glucose 94 mg/dL (83-110); Potassium 3.4 mmol/L (3.5-5.1); Protein, Total 6.1 g/dL (6.0-8.3); Sodium 135 mmol/L (136-145)
[2018-01-05] MEDS ORDERED: Sodium Chloride 0.9% 100 ML IVPB SCH (15:15)
[2018-01-05] MEDS ORDERED: Norepinephrine 8 MG in Dextrose 5% in Water 242 ML IVPB PRN (15:38)
[2018-01-05] MEDS ORDERED: Lidocaine 1% PF 5 ML VIAL ONE (15:58)
--- NOTE | 2018-01-05 16:24 | RAD ---
RADIOGRAPH CHEST 1 VIEW: Date: 01/05/18 Time: 1622 HOURS HISTORY: 83-year-old female with hypotension, fever, and hypoxia. COMPARISON: 01/05/18 at 1426 hours. FINDINGS: There has been on interval change except for the fact that the current study is a supine image, where as the previous was upright. IMPRESSION: 1. No interval change since 1426 hours. 2. Bilateral interstitial densities. 3. Left-sided peripherally inserted central catheter. JAYLEN [] POS: [facility]
[2018-01-05 18:07] LABS: Bilirubin Small (Negative); Blood, Urine Large (Negative); Clarity TURBID (Clear); Glucose, Urine (Dipstick) Negative (Negative); Leukocyte Small (Negative); Nitrite Negative (Negative); Protein, Urine (Dipstick) 100 mg/dL (Neg-Trace); Specific Gravity, Urine 1.022 (1.002-1.036); pH, Urine 5.5 (5.0-9.0)
[2018-01-05 18:08] LABS: Bacteria/HPF None Seen HPF (None Seen); WBC/HPF 21-50 HPF (0-3)
[2018-01-05] MEDS ORDERED: MEROPENEM 1 GM/50 ML 1 GM in Premix Bag 1 BAG IVPB SCH (18:15)
[2018-01-05 18:19] LABS: Hyaline Casts/LPF >50 HYALINE CAST LPF (0-3 Hyaline); Pathc Cast-AUWi Flag 37.44 (0-2.49); Yeast-AUWi Flag 544.6 (0-25.0)
[2018-01-05 18:27] LABS: Oval Fat Bodies/HPF None Seen HPF (None Seen); RBC/HPF 21-50 HPF (0-3); Renal Epithelial 0-3 HPF (0-3); Trichomonas/HPF None Seen HPF (None Seen); Yeast-All Forms 1+ HPF (None Seen)
[2018-01-05 18:28] LABS: Crystals/HPF 2+ AMORPH URATES HPF (Negative); Other Casts/LPF None Seen LPF (0-3 Hyaline)
[2018-01-05 18:45] LABS: Lactic Acid 1.4 mmol/L (0.5-2.2)
[2018-01-05 18:51] LABS: Troponin I 0.023 ng/mL (< 0.028)
--- NOTE | 2018-01-05 18:57 | RAD ---
FRONTAL RADIOGRAPH CHEST 01/05/18 at 6:07 p.m. COMPARISON: 01/05/18, 4:22 p.m. HISTORY: Evaluate chest following central line attempt. FINDINGS: Patient is in the supine position, which limits assessment for pneumothorax and pleural fluid. Stable left PICC. Stable elevation of left hemidiaphragm with nonspecific stable coarse linear interstitial prominence in both lung bases and bilateral perihilar regions. Dorsal column stimulators overlie the thoracic spine. IMPRESSION: Stable nonspecific coarse interstitial opacity in the perihilar regions and both lung bases. Stable l eft PICC. POS: [facility]
[2018-01-05 21:17] VITALS: BMI 19.9
[2018-01-05 21:30] LABS: Troponin I 0.014 ng/mL (< 0.028)
[2018-01-05] MEDS ORDERED: Acetaminophen 325 MG TAB PO PRN (21:45)
[2018-01-05] MEDS ORDERED: Norepinephrine 8 MG/0.9% NS 250 ML IVPB SCH (21:45)
[2018-01-05] MEDS ORDERED: Meropenem 1 GM in Sodium Chloride 0.9% 100 ML IVPB SCH (22:00)
--- NOTE | 2018-01-05 22:07 | PDOC.EVN ---
Event Note - Event Note Event Note: H&P dictation #[id number]
[2018-01-05] MEDS: Vancomycin HCl 1 GM in Premix Bag 1 BAG IVPB SCH (22:31)
[2018-01-05] MEDS: Sodium Chloride 0.9% 1,000 ML IV SCH (22:31)
--- NOTE | 2018-01-05 23:40 | HP ---
PRIMARY CARE PHYSICIAN: Manjeet Pandey M.D. INFECTIOUS DISEASE SPECIALIST: Dr. 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 CHIEF COMPLAINT: Fever and decreased blood pressure. HISTORY OF PRESENT ILLNESS: This is an 83-year-old female with a known history of recurrent urinary tract infections who was brought in from her [facility] facility for fever of 102.2 and a low blood pressure. The patient had recently been admitted and discharged from our facility for an ESBL UTI and was receiving outpatient meropenem for this. It appears that in the emergency department, the patient initially received a 500 mL IV fluid bolus which failed to improve her blood pressure, which was noted to be 99/62 followed by 89/49 and 84/49 with a lowest blood pressure noted in the emergency department of 64/33. The patient subsequently had a central venous catheter placed and was started on Levophed with intention of admitting to the intensive care unit. The patient was in the emergency department also empirically started on a dose of vancomycin in addition to her meropenem being continued. At the time of my evaluation, the patient is already on Levophed. Her blood pressures are significantly improved and she has been afebrile since being in the emergency department. The patient herself reports being very angry about her current situation, namely being in the hospital, but otherwise has no focal complaints other than a dry and scratchy throat. She is accompanied by her daughter and grandson at bedside today. REVIEW OF SYSTEMS: As per HPI. Constitutional: No significant weight loss or gain noted by the patient or her family at bedside. Fever as described above. HEENT: The patient typically has chronic neck pain; however, has not been endorsing any active neck pain at this point in time or more so than usual in the last few days. No vision changes, no dizziness, no headaches, either. Cardiovascular: No active chest pain, chest pressure, left-sided arm numbness or tingling. Respiratory: It appears that the patient was hypoxic per EMS report, without an O2 sat noted. The patient herself currently denying any shortness of breath or dyspnea with conversation. Does endorse feeling generally weak, but no focal complaints of dyspnea. Gastrointestinal: No nausea noted. Known abdominal pain. No active issues with diarrhea or constipation since discharge. Genitourinary: The patient denies any dysuria, any sensation of fullness. No noted changes to her urine color, although there is some concern that over the last day has had decreased volume output. Musculoskeletal: The patient has some chronic low back pain and pain associated with her multiple sclerosis, but denies any current myalgias or arthralgias that are out of the ordinary for her. The remainder of the review of systems otherwise negative. PAST MEDICAL HISTORY: As per HPI, includes the followin. Frequent urinary tract infections, status post suprapubic catheter placement. 2. Lupus. 3. Multiple sclerosis. 4. Neurogenic bladder. 5. C. difficile colitis in the past. 6. History of pulmonary embolism, status post IVC filter. 7. Pulmonary hypertension. 8. Chronic physical deconditioning. 9. Chronic pain secondary to the multiple sclerosis as above. 10. Intermittent migraines. 11. Status post hysterectomy. 12. Status post tonsillectomy. 13. Status post cholecystectomy. 14. Status post spinal stimulator placement. 15. Status post IVC filter placement as above. HOME MEDICATIONS: Preliminary list which is pending verification includes the following: Prednisone 10 mg p.o. daily, guaifenesin 600 mg p.o. q.12 hours, VESIcare or solifenacin succinate 10 mg p.o. daily, potassium chloride 20 mEq p.o. b.i.d., polyethylene glycol 3350 of 17 grams p.o. daily, omeprazole 40 mg p.o. daily, nystatin powder 1 application topical b.i.d., multivitamins 1 tab p.o. daily, morphine ER 60 mg p.o. b.i.d., meropenem 1 gram t.i.d., lidocaine 5 % patch 1 patch daily, ipratropium and albuterol sulfate 3 mL nebulizer q.i.d. p.r.n., hydrocodone and acetaminophen 5/325 one to two tabs p.o. q.6 hours p.r.n., gabapentin 800 mg p.o. q.i.d., furosemide 40 mg p.o. daily p.r.n. in addition to 40 mg p.o. b.i.d., furosemide 1 application topical 5 times a day, fexofenadine 180 mg p.o. daily p.r.n., famotidine 20 mg p.o. daily, conjugated estrogen 1 tab p.o. daily, docusate 100 mg p.o. b.i.d., dicyclomine 20 mg p.o. q.i.d. p.r.n., calcium carbonate 700 mg p.o. q.4 hours p.r.n., and betamethasone 0.1% topical 5 times a day. ALLERGIES: Include PENICILLINS, unknown reaction. FENTANYL and METHADONE, unknown reaction. FAMILY HISTORY: No significant family history noted of recurrent urine or infectious issues. SOCIAL HISTORY: The patient denies any tobacco, alcohol, or illicit drug use. She is currently a [facility]. The patient's daughter and grandson are with her at bedside. CODE STATUS: Discussed at this point in time, patient wishes to be a DO NOT RESUSCITATE, but otherwise wishes to have aggressive treatment. PHYSICAL EXAMINATION: VITAL SIGNS: Blood pressure 118/58, heart rate of 58, respirations 20, satting 100% on 2 liters nasal cannula. GENERAL: The patient is awake, conversant, in no acute distress, lying in the hospital bed. HEENT: Normocephalic, atraumatic. Equal ocular motions are intact, slightly dry mucous membranes. CARDIOVASCULAR: S1, S2. No murmurs, rubs or gallops. Pulses 2+ bilateral upper extremities, no pitting pedal edema. RESPIRATORY: Limited anterior examination secondary to patient preference, reasonable air movement. No dyspnea with conversation. No wheezes, rales or rhonchi. Marginal air movement. GASTROINTESTINAL: Positive bowel sounds. Soft, nontender to palpation. : Robles catheter is in place draining yellow urine. MUSCULOSKELETAL: Moving all 4 extremities independently. LABORATORY DATA AND IMAGING DATA: WBC 22.7, hemoglobin 13.7, hematocrit 40.9, platelets 306. Sodium 135, potassium 3.4, chloride 98, bicarbonate 29, BUN 15, creatinine 0.71, glucose 94. Lactate 2.4, repeat lactate 1.4. Calcium 8.5, total bilirubin 0.7, AST 18, ALT 20, alkaline phosphatase 57. Troponin initial 0.01 followed by 0.023 followed by 0.014. Total protein 6.1, albumin 2.9. UA is significant for 100 of protein, negative glucose, trace ketones, large blood , small bilirubin, small leukocyte esterase, 21-50 rbc's, 21-50 wbc's, too numerous to count squamous epithelial cells, 4-6 transitional cells and greater than 50 hyalin casts, 1+ urine yeast. ASSESSMENT AND PLAN: This is an 83-year-old female with a history of recent urinary tract infection with extended-spectrum beta-lactamase, who presents with fever, hypotension and meeting criteria for sepsis. 1. Sepsis concern for septic shock. Appreciate Critical Care consultation. The patient has been started on Levophed after apparently failing a 500 mL IV fluid bolus challenge in the ER. She may need more fluid resuscitation in the setting of septic shock; will continue with IVF. Suspected infectious source of septic shock is urine; CXR reviewed by myself does not demonstrate overt infection and otherwise the patient is pending urine and blood cultures. 2. Complicated urinary tract infection with suprapubic catheter in place, currently on being treated for extended-spectrum beta-lactamase on an outpatient basis. We will continue with meropenem, pending urine cultures. We will consult Infectious Disease as well. Empiric vancomycin as well for the patient's sepsis as noted above. Obtain a repeat culture renal ultrasound as well. 3. Multiple sclerosis with accompanying chronic pain syndrome. Discussed with the patient and her family at bedside. The patient currently does not appear to be in any acute distress or active pain. Would recommend caution and attention to hemodynamic stability prior to complete resumption of home regimen , particularly as the patient currenty appears comfortable. Also closely monitor for withdrawal as patient has been on a chronic narcotic regimen. 4. Diet as tolerated as long as the patient has sufficient mental status to safely swallow. 5. Deep venous thrombosis prophylaxis with heparin. 6. Admit the patient to the intensive care unit. The patient will be a DNR as per request as noted above. Greater than 45 minutes critical care time spent coordinating admission for the patient. Thank you for asking me to care for the patient. Questions or concerns, contact me at [facility]. SUKUMAR
[2018-01-06] MEDS ORDERED: Dicyclomine 20 MG TAB PO PRN (00:33)
[2018-01-06 04:28] LABS: #Eosinphils 0.1 thou/uL (0.0-0.7); #Lymphocytes 2.3 thou/uL (1.20-3.40); #Neutrophils 17.1 thou/uL (1.40-6.50); %Basophils 0.1 % (0.0-1.0); %Eosinophils 0.6 % (0.0-10.0); %Lymphocytes 11.2 % (21.0-51.0); %Monocytes 4.8 % (0.0-10.0); %Neutrophils 83.4 % (42.0-75.0); Hemoglobin 11.7 g/dL (12.0-16.0); Mean Corpuscular HGB CONC 32.8 g/dL (32.0-36.0); Mean Corpuscular Hemoglobin 30.1 pg (27.0-31.0); Mean Corpuscular Volume 91.8 fl (81.0-99.0); Mean Platelet Volume 6.6 fL (7.4-10.4); Platelet Count 320 thou/uL (130-400); RBC Distribution Width 12.7 % (11.5-14.5); Red Blood Cell (RBC) Count 3.89 mill/uL (4.20-5.40); White Blood Cell (WBC) Count 20.6 thou/uL (4.8-10.8)
[2018-01-06 04:30] LABS: Anion Gap 12 mmol/L (10-20); BUN (Urea Nitrogen) 13 mg/dL (9.8-20.1); Calc. Creatinine Clearance 60 mL/min (70-130); Calcium 8.4 mg/dL (7.8-10.44); Carbon Dioxide 29 mmol/L (23-31); Chloride 100 mmol/L (98-107); Estimated GFR-MDRD Greater than 90; Glucose 99 mg/dL (83-110); Sodium 138 mmol/L (136-145)
[2018-01-06] MEDS: MEROPENEM 1 GM/50 ML 1 GM in Premix Bag 1 BAG IVPB SCH ×3 (05:20→20:05)
[2018-01-06] MEDS ORDERED: Fluocinonide 0.05% Ointment 15 gm Tube TOP SCH (08:00)
[2018-01-06] MEDS ORDERED: Diabetic Tussin 200 MG/10 ML UDCUP PO PRN (08:56)
[2018-01-06] MEDS ORDERED: Mag-Al 1200 mg/1200 mg/30 ML UDCUP PO PRN (08:56)
[2018-01-06] MEDS ORDERED: Loperamide HCl 2 MG CAP PO PRN (08:56)
[2018-01-06] MEDS ORDERED: Eucerin (Mineral Oil/Petrolatum,White) 30 gm Jar TOP PRN (08:56)
[2018-01-06] MEDS ORDERED: Sodium Chloride 0.65% Nasal 44 ML BOT EA NARE PRN (08:56)
[2018-01-06] MEDS ORDERED: Artificial Tears 18 DROP/0.9 ML EA EYE PRN (08:56)
[2018-01-06] MEDS ORDERED: Bisacodyl 10 MG SUPP PR PRN (08:56)
[2018-01-06] MEDS ORDERED: hydrALAZINE 20 MG/ML VIAL SLOW IVP PRN (08:56)
[2018-01-06] MEDS ORDERED: Chloraseptic Spray 180 ml Bottle PO PRN (08:56)
[2018-01-06] MEDS ORDERED: Milk Of Magnesia 30 ML UDCUP PO PRN (08:56)
[2018-01-06] MEDS ORDERED: Loratadine 10 MG TAB PO PRN (09:00)
[2018-01-06] MEDS ORDERED: Famotidine/PF 20 mg/2ml Vial SLOW IVP SCH (09:00)
[2018-01-06] MEDS ORDERED: Prevnar 13-Val Conj/PF 0.5 ML SYRINGE IM ONE (09:00)
[2018-01-06] MEDS ORDERED: DICLOFENAC SODIUM TOP PRN (09:00)
[2018-01-06] MEDS: TROSPIUM 20 MG TABLET PO SCH ×2 (09:44→20:07)
[2018-01-06] MEDS: Lidocaine 5% Patch TD SCH (09:44)
[2018-01-06] MEDS: Estrogens, Conjugated 0.3 MG TAB PO SCH (09:45)
[2018-01-06] MEDS: Betamethasone 0.1% Cream 45 GM TUBE TOP SCH ×4 (09:46→20:08)
[2018-01-06] MEDS: Docusate 100 MG CAP PO SCH ×2 (09:47→20:08)
[2018-01-06] MEDS: Multivitamin W/ Minerals 1 TAB PO SCH (09:48)
[2018-01-06] MEDS: Heparin 5,000 UNITS/ML VIAL SC SCH ×3 (09:48→20:06)
[2018-01-06] MEDS: predniSONE 20 MG TAB PO SCH (09:48)
[2018-01-06] MEDS: guaiFENesin ER 600 MG TAB PO SCH ×2 (09:48→20:06)
[2018-01-06] MEDS: Nystatin Powder 15 GM BOT TOP SCH ×2 (09:49→20:08)
[2018-01-06] MEDS: Sodium Chloride 0.9% 1,000 ML IV SCH ×2 (09:52→12:44)
--- NOTE | 2018-01-06 11:56 | CON ---
DATE OF CONSULTATION: 01/06/2018 Domi Ramos is an 83-year-old female who is well known to our service. She presented yesterday from [facility] with symptoms of hypertension, fever up to 102. More than likely this is a recurrent urin aiden tract infection. She just recently discharged from the hospital. She is on meropenem. Presently her sats are 100% on 2 liters, blood pressure 120/80, pulse 87, respiratory rate 18. . She is awake, alert, responsive. Denies any pain or discomfort. PAST MEDICAL HISTORY: Extensive past medical history is well outlined. Pertinent for arthritis, mul tiple sclerosis with kidney stones, PE, DVT, dementia, reflux. PAST SURGICAL HISTORY: Pain stimulator, hysterectomy, multiple fractures, tonsillectomy. ALLERGIES: PENICILLIN, METHADONE. MEDICATIONS FROM THE LONG-TERM: Includes Voltaren, Lasix 40, Pepcid, meropenem 1 gram 3 times a d ay, morphine 60 twice a day. Low dose prednisone 10. PHYSICAL EXAMINATION: GENERAL: On examination, awake, alert, responsive, appears to be in no distress. VITAL SIGNS: Sats 100% on 2 liters. Blood pressure is improved 122/80, respiratory rate of 18. CHEST: Chest reveals no wheezing or crackles. CARDIAC: Normal S1, S2, no gallops. ABDOMEN: Soft. EXTREMITIES: No edema. NEUROLOGIC: She is awake and responsive. She has a suprapubic catheter in place. LABORATORY DATA: White count is 20,000, H&H 11 and 36, platelet count 320. Electrolytes are normal. Lactic acid is normal. Glucose 120. IMPRESSION: 1. Hypotension, probably urosepsis. 2. Indwelling suprapubic 3. History of multiple strokes. 4. Chronic pain. PLAN: From a pulmonary standpoint of view, she can probably be transferred out of the ICU once the p ressors are off. This is a consultation note, 70 minutes of which 50% spent in direct patient care.
--- NOTE | 2018-01-06 12:35 | PDOC.PN ---
- Subjective Encounter Start Date: 01/06/18 Encounter Start Time: 09:00 -: old records requested/rev Patient seen and examined for hypotension, sepsis. No new complaints. Noted overnight events - Objective Resuscitation Status: Resuscitation Status DNR:Do Not Resuscitate MAR Reviewed: Yes Vital Signs & Weight: Vital Signs (12 hours) Temp Pulse Ox 01/06/18 06:49 99 01/06/18 04:00 98.1 F Most Recent Monitor Data Heart Rate from ECG 70 NIBP 115/62 NIBP BP-Mean 97 Respiration from ECG 20 SpO2 100 I&O: 01/05/18 01/06/18 01/07/18 06:59 06:59 06:59 Intake Total 250 Output Total 177 Balance 73 Result Diagrams: 01/06/18 03:42 01/06/18 03:42 Additional Labs: Accuchecks 01/06/18 01/06/18 06:40 03:00 POC Glucose 105 120 H EKG Reviewed by me: Yes (nsr) Phys Exam - Physical Examination Constitutional: NAD HEENT: PERRLA, moist MMs, sclera anicteric Neck: no JVD, supple Respiratory: no wheezing, no rales, no rhonchi Cardiovascular: RRR, no significant murmur, no rub Gastrointestinal: soft, non-tender, no distention, positive bowel sounds yang+ Musculoskeletal: no edema, pulses present Neurological: moves all 4 limbs Lymphatic: no nodes Psychiatric: normal affect, A&O x 3 Skin: no rash, normal turgor Dx/Plan (1) Sepsis Code(s): A41.9 - SEPSIS, UNSPECIFIED ORGANISM Status: Acute (2) UTI (urinary tract infection) due to urinary indwelling Yang catheter Code(s): T83.511A - I/I REACT D/T INDWELLING URETHRAL CATHETER, INIT; N39.0 - URINARY TRACT INFECTION, SITE NOT SPECIFIED Status: Acute (3) Hypokalemia Code(s): E87.6 - HYPOKALEMIA Status: Acute (4) Hypotension Status: Resolved (5) Lactic acidosis Code(s): E87.2 - ACIDOSIS Status: Resolved (6) Anxiety and depression Code(s): F41.8 - OTHER SPECIFIED ANXIETY DISORDERS Status: Chronic (7) Chronic low back pain Code(s): M54.5 - LOW BACK PAIN; G89.29 - OTHER CHRONIC PAIN Status: Chronic Comment: (8) Dyslipidemia Code(s): E78.5 - HYPERLIPIDEMIA, UNSPECIFIED Status: Chronic (9) GERD (gastroesophageal reflux disease) Code(s): K21.9 - GASTRO-ESOPHAGEAL REFLUX DISEASE WITHOUT ESOPHAGITIS Status: Chronic (10) HTN (hypertension) Code(s): I10 - ESSENTIAL (PRIMARY) HYPERTENSION Status: Chronic (11) History of pulmonary embolism Code(s): Z86.711 - PERSONAL HISTORY OF PULMONARY EMBOLISM Status: Chronic (12) Lupus (systemic lupus erythematosus) Code(s): M32.9 - SYSTEMIC LUPUS ERYTHEMATOSUS, UNSPECIFIED Status: Chronic (13) Migraine Code(s): G43.909 - MIGRAINE, UNSP, NOT INTRACTABLE, WITHOUT STATUS MIGRAINOSUS Status: Chronic (14) Multiple sclerosis Code(s): G35 - MULTIPLE SCLEROSIS Status: Chronic (15) Neurogenic bladder Code(s): N31.9 - NEUROMUSCULAR DYSFUNCTION OF BLADDER, UNSPECIFIED Status: Chronic Comment: (16) Physical deconditioning Code(s): R53.81 - OTHER MALAISE Status: Chronic (17) Protein-calorie malnutrition, moderate Code(s): E44.0 - MODERATE PROTEIN-CALORIE MALNUTRITION Status: Chronic Comment: (18) Pulmonary hypertension Code(s): I27.20 - PULMONARY HYPERTENSION, UNSPECIFIED Status: Chronic - Plan cont current plan of care, plan discussed w/ family, continue antibiotics * now BP improved, currently does not require levophed * continue empric BSA, meropenam and vancomycin * follow culture * pulmonary and ID on case * will transfer to medical later on today if stable * medication reviewed as below * symptomatic treatment * discussed with family. * replace potassium * repeat labs tomorrow Review of Systems - Review of Systems ENT: negative: Ear Pain, Ear Discharge, Nose Pain, Nose Discharge, Nose Congestion, Mouth Pain, Mouth Swelling, Throat Pain, Throat Swelling, Other Respiratory: negative: Cough, Dry, Shortness of Breath, Hemoptysis, SOB with Excertion, Pleuritic Pain, Sputum, Wheezing Cardiovascular: negative: chest pain, palpitations, orthopnea, paroxysmal nocturnal dyspnea, edema, light headedness, other Gastrointestinal: negative: Nausea, Vomiting, Abdominal Pain, Diarrhea, Constipation, Melena, Hematochezia, Other Genitourinary: negative: Dysuria, Frequency, Incontinence, Hematuria, Retention , Other Musculoskeletal: negative: Neck Pain, Shoulder Pain, Arm Pain, Back Pain, Hand Pain, Leg Pain, Foot Pain, Other Skin: negative: Rash, Lesions, Aníbal, Bruising, Other - Medications/Allergies Allergies/Adverse Reactions: Allergies Allergy/AdvReac Type Severity Reaction Status Date / Time Penicillins Allergy Intermediate Verified 11/22/17 14:17 fentanyl Allergy Verified 11/22/17 14:17 methadone HCl Allergy Verified 11/22/17 14:17 [From Methadose] Medications: Current Medications Acetaminophen (Tylenol) 650 mg PO Q4H PRN PRN Reason: Headache/Fever or Pain Al Hydroxide/Mg Hydroxide (Maalox) 15 ml PO Q4H PRN PRN Reason: Heartburn or Indigestion Albuterol/Ipratropium (Duoneb) 3 ml NEB QID PRN PRN Reason: Wheezing Artificial Tears (Tears Naturale) 0 drop EA EYE PRN PRN PRN Reason: Dry Eyes Betamethasone Valerate (Valisone 0.1% Cream) 1 gm TOP 5XD [facility] Last Admin: 01/06/18 09:46 Dose: 1 gm Bisacodyl (Dulcolax) 10 mg TN DAILYPRN PRN PRN Reason: Constipation Dicyclomine HCl (Bentyl) 20 mg PO QID PRN PRN Reason: Diarrhea/Loose Stools Docusate Sodium (Colace) 100 mg PO BID [facility] Last Admin: 01/06/18 09:47 Dose: 100 mg Estrogens Conjugated (Premarin) 0.3 mg PO DAILY [facility] Last Admin: 01/06/18 09:45 Dose: 0.3 mg Famotidine (Pepcid) 20 mg PO 2100 [facility] Guaifenesin (Mucinex) 600 mg PO Q12HR [facility] Last Admin: 01/06/18 09:48 Dose: 600 mg Guaifenesin (Robitussin Sf) 200 mg PO Q4H PRN PRN Reason: Cough Heparin Sodium (Porcine) (Heparin) 5,000 units SC TID [facility] Last Admin: 01/06/18 09:48 Dose: 5,000 units Hydralazine HCl (Apresoline) 10 mg SLOW IVP Q4H PRN PRN Reason: Systolic BP > 180 Vancomycin HCl 1 gm/ Device 200 mls @ 200 mls/hr IVPB 2200 [facility] Last Admin: 01/05/18 22:31 Dose: 200 mls Norepinephrine Bitartrate (Levophed) 250 mls @ 0 mls/hr IVPB INF [facility]; Titrate PRN Reason: Protocol Sodium Chloride (Normal Saline 0.9%) 1,000 mls @ 75 mls/hr IV .[id number] [facility] Last Admin: 01/06/18 09:52 Dose: Not Given Meropenem 1 gm/ Device 50 mls @ 100 mls/hr IVPB 0400,1200,2000 [facility] Last Admin: 01/06/18 05:20 Dose: 50 mls Iron/Minerals/Multivitamins (Theragran M) 1 tab PO DAILY [facility] Last Admin: 01/06/18 09:48 Dose: 1 tab Lidocaine (Lidoderm 5% Patch) 1 patch TD DAILY [facility] Last Admin: 01/06/18 09:44 Dose: 1 patch Loperamide HCl (Imodium) 2 mg PO PRN PRN PRN Reason: Diarrhea/Loose Stools Loratadine (Claritin) 10 mg PO DAILY PRN PRN Reason: ALLERGIES Magnesium Hydroxide (Milk Of Magnesium) 30 ml PO DAILYPRN PRN PRN Reason: Constipation Mineral Oil/White Petrolatum (Eucerin Cream) 0 gm TOP BIDPRN PRN PRN Reason: Dry Skin Miscellaneous Medication (Pharmacy To Dose) 1 each IVPB ONE PRN PRN Reason: DOSING Stop: 02/04/18 21:31 Miscellaneous Medication (Lidocaine Patch Removal) 1 each TOP 2100 [facility] Nystatin (Mycostatin Powder) 0 gm TOP BID [facility] Last Admin: 01/06/18 09:49 Dose: 1 applic Ondansetron HCl (Zofran) 4 mg IVP Q6H PRN PRN Reason: Nausea/Vomiting Ondansetron HCl (Zofran Odt) 4 mg PO Q6H PRN PRN Reason: Nausea/Vomiting Phenol (Chloraseptic Decker 180 Ml Bot) 0 ml PO PRN PRN PRN Reason: Sore Throat Prednisone (Prednisone) 10 mg PO DAILY [facility] Last Admin: 01/06/18 09:48 Dose: 10 mg Sodium Chloride ([place] Nasal Decker 0.65%) 0 ml EA NARE QIDPRN PRN PRN Reason: Nasal Congestion Temazepam (Restoril) 15 mg PO HSPRN PRN PRN Reason: Insomnia Trospium (Trospium) 20 mg PO BID [facility] Last Admin: 01/06/18 09:44 Dose: 20 mg
--- NOTE | 2018-01-06 17:06 | ULT ---
RENAL ULTRASOUND: 01/06/18 Right kidney measures 11 cm in length and left kidney measures 8.6 cm in length. There is no hydronephrosis. Cortical echogenicity appears normally preserved. No mass or cystic lesio n. The bladder is contracted with suprapubic catheter in place. IMPRESSION: Unremarkable renal ultrasound. POS: [facility]
--- NOTE | 2018-01-06 17:43 | PRG ---
DATE OF SERVICE: 01/06/2018 HISTORY: Mrs. Ramos has been brought back from [facility] because of development of hypotension, gene ral malaise. She unfortunately had just been recently admitted and now is brought back with concern for sepsis. She had a temperature of 102.2, [facility] and she had a PICC line that was just recently inserted. Initial vital signs, temperature 103.8, pulse 120, O2 sat 80% room air. No report of diarrhea, no vomiting, no abdominal pain. No headaches. No back drew n other than the usual. The exam demonstrated a PICC line in left upper extremity with normal appear ing exit site. PAST MEDICAL HISTORY: Includes multiple sclerosis, reportedly also with a diagnosis of lupus, histor y of thromboembolism with IVC filter placement, recurrent UTIs associated with neurogenic bladder, a recent suprapubic catheter placement. ALLERGIES: FENTANYL, METHADONE, PENICILLIN. CURRENT MEDICATIONS: She is receiving Tylenol, Maalox, DuoNeb, Tears Naturale, Valisone, Dulcolax, B entyl, Colace, Premarin, Pepcid, Robitussin, Mucinex, heparin, Apresoline, Theragran, Lidoderm, Imodi um, Claritin, meropenem, Eucerin, Levophed, Mycostatin, Zofran. She is on 10 mg of prednisone, temaz epam, vancomycin. PHYSICAL EXAMINATION: VITAL SIGNS: T-max 98.7, blood pressure 115/62, pulse 68-73, O2 sat 99-100, output 177 from the [place] y thus far. SKIN: With the area of erythema in the gluteal region, presacral region with no obvious injury appea rs. GENERAL: Chronically ill, awake, follows commands, difficulty with recollection from regarding the e vents that precipitated the admission. PICC line exit site appears normal. HEENT: Ocular movements conjugate. Oral cavity moist. NECK: Supple. LUNGS: Symmetric air entry with no crackles or wheezing. HEART: Showed S1, S2 regular rate with a soft aortic murmur. ABDOMEN: Not tender or distended. Suprapubic catheter exit site appears okay. Less tenderness than before. NEUROLOGIC: Exam is unchanged from before with paraparesis. LABORATORY DATA: White cell count is 22, now down to 20.6; hemoglobin 11, platelets 320 with a predo minance of mature neutrophils. Chemistry with a sodium 138, creatinine 0.55, AST was 18, ALT 20, cayetano irubin total 0.7, alkaline phosphatase 57. Urinalysis with 21-50 wbc's. Urine culture thus far no g rowth at 12 hours. Blood cultures thus far no growth at 12 hours. Renal ultrasound interpretation i s pending. Previous abdomen and pelvis CT from 12/29/2017 showed small bilateral pleural effusions. No high grade obstruction with nonspecific fluid in the abdomen. There was a right-sided calculus i n the right UVJ, which was not present on previous exam room with a mild associated obstructive uropa thy. ASSESSMENT AND DISCUSSION: Multiple sclerosis with the usual complications, neurogenic bladder with recent suprapubic catheter placement and recent treatment for an invasive urinary tract infection ass ociated with the suprapubic catheter obstruction. The patient is readmitted with sepsis. The main c oncern here is his obstruction of the right UVJ and will follow up the ultrasound. She may need a st one protocol study and if there is worsening of the obstruction, she might need a stent placement wit h Urology consultation there in that site. The other possibilities would be PICC line colonization w ith bacteremia by a different pathogen for example Staphylococcus aureus/MRSA or enterococcus. A res piratory tract infection is less likely. An alternate pathogen that was not initially identified in urinary tract sample is another possibility. We will continue monitoring the cultures and we reviewe d the abdominal ultrasound interpretation, may have to order a CT stone protocol and may need the Uro logy consultation depending on findings above. Continue current regimen.
[2018-01-06] MEDS: Famotidine 20 MG TAB PO SCH (20:06)
[2018-01-06] MEDS: Lidocaine Patch Removal 1 EACH TOP SCH (20:07)
[2018-01-06] MEDS: Potassium Chloride 40 MEQ in Premix Bag 1 BAG IVPB SCH (20:08)
[2018-01-06] MEDS ORDERED: Famotidine 20 MG TAB PO SCH (21:00)
[2018-01-06 21:15] LABS: Vancomycin, Trough 6.7 ug/mL
[2018-01-06] MEDS: Morphine 4 MG/ML VIAL SLOW IVP PRN (21:33)
[2018-01-06] MEDS: Vancomycin HCl 1 GM in Premix Bag 1 BAG IVPB SCH (22:06)
[2018-01-06] MEDS: Temazepam 15 MG CAP PO PRN (22:10)
[2018-01-07] MEDS: Betamethasone 0.1% Cream 45 GM TUBE TOP SCH ×5 (00:29→20:10)
[2018-01-07] MEDS: Potassium Chloride 40 MEQ in Premix Bag 1 BAG IVPB SCH (00:30)
[2018-01-07] MEDS: Morphine 4 MG/ML VIAL SLOW IVP PRN ×6 (01:34→21:55)
[2018-01-07] MEDS: MEROPENEM 1 GM/50 ML 1 GM in Premix Bag 1 BAG IVPB SCH ×3 (04:17→19:42)
[2018-01-07 09:40] LABS: #Eosinphils 0.1 thou/uL (0.0-0.7); #Lymphocytes 1.5 thou/uL (1.20-3.40); #Monocytes 0.4 thou/uL (0.11-0.59); #Neutrophils 6.4 thou/uL (1.40-6.50); %Basophils 0.1 % (0.0-1.0); %Eosinophils 0.8 % (0.0-10.0); %Lymphocytes 17.3 % (21.0-51.0); %Monocytes 5.3 % (0.0-10.0); %Neutrophils 76.5 % (42.0-75.0); Hemoglobin 10.4 g/dL (12.0-16.0); Mean Corpuscular HGB CONC 32.6 g/dL (32.0-36.0); Mean Corpuscular Hemoglobin 30.1 pg (27.0-31.0); Mean Corpuscular Volume 92.1 fl (81.0-99.0); Mean Platelet Volume 6.4 fL (7.4-10.4); Platelet Count 289 thou/uL (130-400); RBC Distribution Width 12.6 % (11.5-14.5); Red Blood Cell (RBC) Count 3.45 mill/uL (4.20-5.40); White Blood Cell (WBC) Count 8.4 thou/uL (4.8-10.8)
[2018-01-07 09:58] LABS: Anion Gap 13 mmol/L (10-20); BUN (Urea Nitrogen) 9 mg/dL (9.8-20.1); Calc. Creatinine Clearance 71 mL/min (70-130); Calcium 8.4 mg/dL (7.8-10.44); Carbon Dioxide 23 mmol/L (23-31); Chloride 108 mmol/L (98-107); Estimated GFR-MDRD Greater than 90; Glucose 71 mg/dL (83-110); Potassium 3.5 mmol/L (3.5-5.1); Sodium 140 mmol/L (136-145)
--- NOTE | 2018-01-07 10:37 | PDOC.PN ---
- Subjective Encounter Start Date: 01/07/18 Encounter Start Time: 09:50 Patient seen and examined for sepsis, today has sore throat. No overnight events - Objective Resuscitation Status: Resuscitation Status DNR:Do Not Resuscitate MAR Reviewed: Yes Vital Signs & Weight: Vital Signs (12 hours) Temp Pulse Ox 01/07/18 07:46 100 01/07/18 04:00 98.0 F 01/07/18 00:21 100 01/07/18 00:00 98.1 F Most Recent Monitor Data Heart Rate from ECG 82 NIBP 127/52 NIBP BP-Mean 102 Respiration from ECG 19 SpO2 100 I&O: 01/06/18 01/07/18 01/08/18 06:59 06:59 06:59 Intake Total 250 3376 Output Total 177 1020 Balance 73 2356 Result Diagrams: 01/07/18 09:35 01/07/18 09:35 Additional Labs: Accuchecks 01/07/18 01/06/18 01/06/18 08:59 17:16 12:17 POC Glucose 70 107 102 Radiology Reviewed by me: Yes (renal US) EKG Reviewed by me: Yes (NSR) Phys Exam - Physical Examination Constitutional: NAD HEENT: PERRLA, moist MMs, sclera anicteric Neck: no JVD, supple, full ROM Respiratory: no wheezing, no rales, no rhonchi 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 Cardiovascular: RRR, no significant murmur, no rub Gastrointestinal: soft, non-tender, no distention, positive bowel sounds suprapubic cath Musculoskeletal: no edema, pulses present Lymphatic: no nodes Psychiatric: normal affect Skin: no rash, normal turgor Dx/Plan (1) Sepsis Code(s): A41.9 - SEPSIS, UNSPECIFIED ORGANISM Status: Acute Qualifiers: Sepsis type: sepsis due to unspecified organism Qualified Code(s): A41.9 - Sepsis, unspecified organism (2) UTI (urinary tract infection) due to urinary indwelling Robles catheter Code(s): T83.511A - I/I REACT D/T INDWELLING URETHRAL CATHETER, INIT; N39.0 - URINARY TRACT INFECTION, SITE NOT SPECIFIED Status: Acute Qualifiers: Indwelling urinary catheter type: cystostomy catheter (3) Hypokalemia Code(s): E87.6 - HYPOKALEMIA Status: Resolved (4) Hypotension Status: Resolved (5) Lactic acidosis Code(s): E87.2 - ACIDOSIS Status: Resolved (6) Anxiety and depression Code(s): F41.8 - OTHER SPECIFIED ANXIETY DISORDERS Status: Chronic (7) Chronic low back pain Code(s): M54.5 - LOW BACK PAIN; G89.29 - OTHER CHRONIC PAIN Status: Chronic Comment: (8) Dyslipidemia Code(s): E78.5 - HYPERLIPIDEMIA, UNSPECIFIED Status: Chronic (9) GERD (gastroesophageal reflux disease) Code(s): K21.9 - GASTRO-ESOPHAGEAL REFLUX DISEASE WITHOUT ESOPHAGITIS Status: Chronic (10) HTN (hypertension) Code(s): I10 - ESSENTIAL (PRIMARY) HYPERTENSION Status: Chronic (11) History of pulmonary embolism Code(s): Z86.711 - PERSONAL HISTORY OF PULMONARY EMBOLISM Status: Chronic (12) Lupus (systemic lupus erythematosus) Code(s): M32.9 - SYSTEMIC LUPUS ERYTHEMATOSUS, UNSPECIFIED Status: Chronic (13) Migraine Code(s): G43.909 - MIGRAINE, UNSP, NOT INTRACTABLE, WITHOUT STATUS MIGRAINOSUS Status: Chronic (14) Multiple sclerosis Code(s): G35 - MULTIPLE SCLEROSIS Status: Chronic (15) Neurogenic bladder Code(s): N31.9 - NEUROMUSCULAR DYSFUNCTION OF BLADDER, UNSPECIFIED Status: Chronic Comment: (16) Physical deconditioning Code(s): R53.81 - OTHER MALAISE Status: Chronic (17) Protein-calorie malnutrition, moderate Code(s): E44.0 - MODERATE PROTEIN-CALORIE MALNUTRITION Status: Chronic Comment: (18) Pulmonary hypertension Code(s): I27.20 - PULMONARY HYPERTENSION, UNSPECIFIED Status: Chronic - Plan cont current plan of care, continue antibiotics * continue IVF * transfer to medical * continue empiric vancomycin and meropenam * ID and pulmonary following and recommendation noted * medication reviewed as below * symptomatic treatment. Review of Systems - Review of Systems ENT: Throat Pain. negative: Ear Pain, Ear Discharge, Nose Pain, Nose Discharge , Nose Congestion, Mouth Pain, Mouth Swelling, Throat Swelling, Other Respiratory: negative: Cough, Dry, Shortness of Breath, Hemoptysis, SOB with Excertion, Pleuritic Pain, Sputum, Wheezing Cardiovascular: negative: chest pain, palpitations, orthopnea, paroxysmal nocturnal dyspnea, edema, light headedness, other Gastrointestinal: negative: Nausea, Vomiting, Abdominal Pain, Diarrhea, Constipation, Melena, Hematochezia, Other Genitourinary: negative: Dysuria, Frequency, Incontinence, Hematuria, Retention , Other Musculoskeletal: negative: Neck Pain, Shoulder Pain, Arm Pain, Back Pain, Hand Pain, Leg Pain, Foot Pain, Other Skin: negative: Rash, Lesions, Aníbal, Bruising, Other - Medications/Allergies Allergies/Adverse Reactions: Allergies Allergy/AdvReac Type Severity Reaction Status Date / Time Penicillins Allergy Intermediate Verified 11/22/17 14:17 fentanyl Allergy Verified 11/22/17 14:17 methadone HCl Allergy Verified 11/22/17 14:17 [From Methadose] Medications: Current Medications Acetaminophen (Tylenol) 650 mg PO Q4H PRN PRN Reason: Headache/Fever or Pain Al Hydroxide/Mg Hydroxide (Maalox) 15 ml PO Q4H PRN PRN Reason: Heartburn or Indigestion Albuterol/Ipratropium (Duoneb) 3 ml NEB QID PRN PRN Reason: Wheezing Artificial Tears (Tears Naturale) 0 drop EA EYE PRN PRN PRN Reason: Dry Eyes Betamethasone Valerate (Valisone 0.1% Cream) 1 gm TOP 5XD [facility] Last Admin: 01/07/18 00:29 Dose: Not Given Bisacodyl (Dulcolax) 10 mg [place] DAILYPRN PRN PRN Reason: Constipation Dicyclomine HCl (Bentyl) 20 mg PO QID PRN PRN Reason: Diarrhea/Loose Stools Docusate Sodium (Colace) 100 mg PO BID [facility] Last Admin: 01/06/18 20:08 Dose: Not Given Estrogens Conjugated (Premarin) 0.3 mg PO DAILY [facility] Last Admin: 01/06/18 09:45 Dose: 0.3 mg Famotidine (Pepcid) 20 mg PO BID [facility] Last Admin: 01/06/18 20:06 Dose: 20 mg Guaifenesin (Mucinex) 600 mg PO Q12HR [facility] Last Admin: 01/06/18 20:06 Dose: 600 mg Guaifenesin (Robitussin Sf) 200 mg PO Q4H PRN PRN Reason: Cough Heparin Sodium (Porcine) (Heparin) 5,000 units SC TID [facility] Last Admin: 01/06/18 20:06 Dose: 5,000 units Hydralazine HCl (Apresoline) 10 mg SLOW IVP Q4H PRN PRN Reason: Systolic BP > 180 Vancomycin HCl 1 gm/ Device 200 mls @ 200 mls/hr IVPB 2200 [facility] Last Admin: 01/06/18 22:06 Dose: 200 mls Norepinephrine Bitartrate (Levophed) 250 mls @ 0 mls/hr IVPB INF [facility]; Titrate PRN Reason: Protocol Sodium Chloride (Normal Saline 0.9%) 1,000 mls @ 75 mls/hr IV .[id number] [facility] Last Admin: 01/06/18 12:44 Dose: 1,000 mls Meropenem 1 gm/ Device 50 mls @ 100 mls/hr IVPB 0400,1200,2000 [facility] Last Admin: 01/07/18 04:17 Dose: 50 mls Iron/Minerals/Multivitamins (Theragran M) 1 tab PO DAILY [facility] Last Admin: 01/06/18 09:48 Dose: 1 tab Lidocaine (Lidoderm 5% Patch) 1 patch TD DAILY [facility] Last Admin: 01/06/18 09:44 Dose: 1 patch Loperamide HCl (Imodium) 2 mg PO PRN PRN PRN Reason: Diarrhea/Loose Stools Loratadine (Claritin) 10 mg PO DAILY PRN PRN Reason: ALLERGIES Magnesium Hydroxide (Milk Of Magnesium) 30 ml PO DAILYPRN PRN PRN Reason: Constipation Mineral Oil/White Petrolatum (Eucerin Cream) 0 gm TOP BIDPRN PRN PRN Reason: Dry Skin Miscellaneous Medication (Pharmacy To Dose) 1 each IVPB ONE PRN PRN Reason: DOSING Stop: 02/04/18 21:31 Miscellaneous Medication (Lidocaine Patch Removal) 1 each TOP 2100 [facility] Last Admin: 01/06/18 20:07 Dose: Not Given Morphine Sulfate (Morphine) 2 mg SLOW IVP Q4H PRN PRN Reason: Moderate Pain (4-6) Last Admin: 01/07/18 06:10 Dose: 2 mg Nystatin (Mycostatin Powder) 0 gm TOP BID [facility] Last Admin: 01/06/18 20:08 Dose: 1 applic Ondansetron HCl (Zofran) 4 mg IVP Q6H PRN PRN Reason: Nausea/Vomiting Ondansetron HCl (Zofran Odt) 4 mg PO Q6H PRN PRN Reason: Nausea/Vomiting Phenol (Chloraseptic [place] 180 Ml Bot) 0 ml PO PRN PRN PRN Reason: Sore Throat Prednisone (Prednisone) 10 mg PO DAILY [facility] Last Admin: 01/06/18 09:48 Dose: 10 mg Sodium Chloride ([place] Nasal [place] 0.65%) 0 ml EA NARE QIDPRN PRN PRN Reason: Nasal Congestion Temazepam (Restoril) 15 mg PO HSPRN PRN PRN Reason: Insomnia Last Admin: 01/06/18 22:10 Dose: 15 mg Trospium (Trospium) 20 mg PO BID [facility] Last Admin: 01/06/18 20:07 Dose: 20 mg
[2018-01-07] MEDS: Famotidine 20 MG TAB PO SCH ×2 (10:54→20:13)
[2018-01-07] MEDS: Docusate 100 MG CAP PO SCH ×2 (10:54→20:11)
[2018-01-07] MEDS: guaiFENesin ER 600 MG TAB PO SCH ×2 (10:54→20:13)
[2018-01-07] MEDS: Multivitamin W/ Minerals 1 TAB PO SCH (10:54)
[2018-01-07] MEDS: predniSONE 20 MG TAB PO SCH (10:54)
[2018-01-07] MEDS: Lidocaine 5% Patch TD SCH ×2 (10:55→11:18)
[2018-01-07] MEDS: Heparin 5,000 UNITS/ML VIAL SC SCH ×3 (10:55→20:14)
[2018-01-07] MEDS: Estrogens, Conjugated 0.3 MG TAB PO SCH (10:58)
[2018-01-07] MEDS: TROSPIUM 20 MG TABLET PO SCH ×2 (11:18→20:14)
[2018-01-07] MEDS: Nystatin Powder 15 GM BOT TOP SCH ×2 (11:18→20:14)
--- NOTE | 2018-01-07 13:30 | PRG ---
DATE OF SERVICE: 01/07/2018 SUBJECTIVE: This morning, she is awake, alert and responsive. OBJECTIVE: VITAL SIGNS: Blood pressure is 120/80, respiration 18. CHEST: Reveals decreased breath sounds without any wheezing. CARDIAC: Normal S1, S2, no gallops. ABDOMEN: Soft. No masses. IMPRESSION: 1. Recurrent urosepsis. 2. Advanced age, DNR. PLAN: Continue antibiotics as per Infectious Disease, meropenem and vancomycin. If blood pressure r esolved, she can be transferred out of the ICU.
[2018-01-07] MEDS: Sodium Chloride 0.9% 1,000 ML IV SCH (13:55)
[2018-01-07] MEDS: Temazepam 15 MG CAP PO PRN (20:15)
[2018-01-07] MEDS: Lidocaine Patch Removal 1 EACH TOP SCH (21:04)
[2018-01-07] MEDS: Vancomycin HCl 1 GM in Premix Bag 1 BAG IVPB SCH (21:57)
[2018-01-08] MEDS: Betamethasone 0.1% Cream 45 GM TUBE TOP SCH ×6 (00:20→23:58)
[2018-01-08] MEDS: Morphine 4 MG/ML VIAL SLOW IVP PRN (04:19)
[2018-01-08] MEDS: MEROPENEM 1 GM/50 ML 1 GM in Premix Bag 1 BAG IVPB SCH ×3 (04:21→19:47)
[2018-01-08] MEDS: Sodium Chloride 0.9% 1,000 ML IV SCH ×2 (04:21→16:13)
[2018-01-08 05:36] LABS: #Eosinphils 0.1 thou/uL (0.0-0.7); #Lymphocytes 1.6 thou/uL (1.20-3.40); #Monocytes 0.4 thou/uL (0.11-0.59); #Neutrophils 4.8 thou/uL (1.40-6.50); %Basophils 0.4 % (0.0-1.0); %Eosinophils 1.3 % (0.0-10.0); %Lymphocytes 23.3 % (21.0-51.0); %Monocytes 5.2 % (0.0-10.0); %Neutrophils 69.8 % (42.0-75.0); Hemoglobin 9.1 g/dL (12.0-16.0); Mean Corpuscular HGB CONC 32.2 g/dL (32.0-36.0); Mean Corpuscular Hemoglobin 29.6 pg (27.0-31.0); Mean Platelet Volume 6.6 fL (7.4-10.4); Platelet Count 301 thou/uL (130-400); RBC Distribution Width 12.7 % (11.5-14.5); Red Blood Cell (RBC) Count 3.08 mill/uL (4.20-5.40); White Blood Cell (WBC) Count 6.9 thou/uL (4.8-10.8)
[2018-01-08 05:52] LABS: Anion Gap 7 mmol/L (10-20); BUN (Urea Nitrogen) 7 mg/dL (9.8-20.1); Calc. Creatinine Clearance 77 mL/min (70-130); Calcium 7.8 mg/dL (7.8-10.44); Carbon Dioxide 23 mmol/L (23-31); Chloride 109 mmol/L (98-107); Estimated GFR-MDRD Greater than 90; Glucose 68 mg/dL (83-110); Potassium 3.1 mmol/L (3.5-5.1); Sodium 136 mmol/L (136-145)
[2018-01-08] MEDS: predniSONE 20 MG TAB PO SCH (07:46)
[2018-01-08] MEDS: TROSPIUM 20 MG TABLET PO SCH ×2 (07:46→19:47)
[2018-01-08] MEDS: Estrogens, Conjugated 0.3 MG TAB PO SCH (07:46)
[2018-01-08] MEDS: Lidocaine 5% Patch TD SCH (07:46)
[2018-01-08] MEDS: Famotidine 20 MG TAB PO SCH ×2 (07:47→19:47)
[2018-01-08] MEDS: Docusate 100 MG CAP PO SCH ×2 (07:47→19:47)
[2018-01-08] MEDS: guaiFENesin ER 600 MG TAB PO SCH ×2 (07:48→19:47)
[2018-01-08] MEDS: Multivitamin W/ Minerals 1 TAB PO SCH (07:48)
[2018-01-08] MEDS: Nystatin Powder 15 GM BOT TOP SCH ×2 (07:48→19:50)
[2018-01-08] MEDS: Heparin 5,000 UNITS/ML VIAL SC SCH ×3 (07:54→19:51)
--- NOTE | 2018-01-08 10:46 | PDOC.PN ---
- Subjective Encounter Start Date: 01/08/18 Encounter Start Time: 08:50 Patient seen and examined for UTI. No new complaints. No overnight events - Objective Resuscitation Status: Resuscitation Status DNR:Do Not Resuscitate MAR Reviewed: Yes Vital Signs & Weight: Vital Signs (12 hours) Temp Pulse Pulse Pulse Pulse Resp BP 01/08/18 08:47 77 88 79 153/72 H 01/08/18 08:00 97.5 F L 71 16 01/08/18 07:41 97.5 F L 71 16 01/08/18 04:00 97.5 F L 67 18 01/08/18 02:20 BP BP BP Pulse Ox Pulse Ox Pulse Ox Pulse Ox 01/08/18 08:47 134/66 146/83 H 98 96 98 01/08/18 08:00 97 01/08/18 07:41 132/83 95 01/08/18 04:00 124/69 96 01/08/18 02:20 95 Most Recent Monitor Data Heart Rate from ECG 104 NIBP 133/73 NIBP BP-Mean 97 Respiration from ECG 27 SpO2 100 I&O: 01/07/18 01/08/18 01/09/18 06:59 06:59 06:59 Intake Total 3376 2621 240 Output Total 1020 1095 Balance 2356 1526 240 Result Diagrams: 01/08/18 04:46 01/08/18 04:46 Additional Labs: Accuchecks 01/08/18 04:07 POC Glucose 78 Phys Exam - Physical Examination Constitutional: NAD HEENT: PERRLA, moist MMs, sclera anicteric Neck: no JVD, supple Respiratory: no wheezing, no rales, no rhonchi, clear to auscultation bilateral Cardiovascular: RRR, no significant murmur, no rub Gastrointestinal: soft, non-tender, no distention, positive bowel sounds Musculoskeletal: no edema, pulses present Lymphatic: no nodes Psychiatric: normal affect, A&O x 3 Skin: no rash, normal turgor Dx/Plan (1) UTI (urinary tract infection) due to urinary indwelling Robles catheter Code(s): T83.511A - I/I REACT D/T INDWELLING URETHRAL CATHETER, INIT; N39.0 - URINARY TRACT INFECTION, SITE NOT SPECIFIED Status: Acute Qualifiers: Indwelling urinary catheter type: cystostomy catheter (2) Sepsis Code(s): A41.9 - SEPSIS, UNSPECIFIED ORGANISM Status: Acute Qualifiers: Sepsis type: sepsis due to unspecified organism Qualified Code(s): A41.9 - Sepsis, unspecified organism (3) Hypokalemia Code(s): E87.6 - HYPOKALEMIA Status: Resolved (4) Hypotension Status: Resolved (5) Lactic acidosis Code(s): E87.2 - ACIDOSIS Status: Resolved (6) Anxiety and depression Code(s): F41.8 - OTHER SPECIFIED ANXIETY DISORDERS Status: Chronic (7) Chronic low back pain Code(s): M54.5 - LOW BACK PAIN; G89.29 - OTHER CHRONIC PAIN Status: Chronic Comment: (8) Dyslipidemia Code(s): E78.5 - HYPERLIPIDEMIA, UNSPECIFIED Status: Chronic (9) GERD (gastroesophageal reflux disease) Code(s): K21.9 - GASTRO-ESOPHAGEAL REFLUX DISEASE WITHOUT ESOPHAGITIS Status: Chronic (10) HTN (hypertension) Code(s): I10 - ESSENTIAL (PRIMARY) HYPERTENSION Status: Chronic (11) History of pulmonary embolism Code(s): Z86.711 - PERSONAL HISTORY OF PULMONARY EMBOLISM Status: Chronic (12) Lupus (systemic lupus erythematosus) Code(s): M32.9 - SYSTEMIC LUPUS ERYTHEMATOSUS, UNSPECIFIED Status: Chronic (13) Migraine Code(s): G43.909 - MIGRAINE, UNSP, NOT INTRACTABLE, WITHOUT STATUS MIGRAINOSUS Status: Chronic (14) Multiple sclerosis Code(s): G35 - MULTIPLE SCLEROSIS Status: Chronic (15) Neurogenic bladder Code(s): N31.9 - NEUROMUSCULAR DYSFUNCTION OF BLADDER, UNSPECIFIED Status: Chronic Comment: (16) Physical deconditioning Code(s): R53.81 - OTHER MALAISE Status: Chronic (17) Protein-calorie malnutrition, moderate Code(s): E44.0 - MODERATE PROTEIN-CALORIE MALNUTRITION Status: Chronic Comment: (18) Pulmonary hypertension Code(s): I27.20 - PULMONARY HYPERTENSION, UNSPECIFIED Status: Chronic - Plan cont current plan of care, continue antibiotics * continue empiric antibiotics for now, so far culture negative * medication reviewed as below * symptomatic treatment. Review of Systems - Review of Systems ENT: negative: Ear Pain, Ear Discharge, Nose Pain, Nose Discharge, Nose Congestion, Mouth Pain, Mouth Swelling, Throat Pain, Throat Swelling, Other Respiratory: negative: Cough, Dry, Shortness of Breath, Hemoptysis, SOB with Excertion, Pleuritic Pain, Sputum, Wheezing Cardiovascular: negative: chest pain, palpitations, orthopnea, paroxysmal nocturnal dyspnea, edema, light headedness, other Gastrointestinal: negative: Nausea, Vomiting, Abdominal Pain, Diarrhea, Constipation, Melena, Hematochezia, Other Genitourinary: negative: Dysuria, Frequency, Incontinence, Hematuria, Retention , Other Musculoskeletal: negative: Neck Pain, Shoulder Pain, Arm Pain, Back Pain, Hand Pain, Leg Pain, Foot Pain, Other Skin: negative: Rash, Lesions, Aníbal, Bruising, Other - Medications/Allergies Allergies/Adverse Reactions: Allergies Allergy/AdvReac Type Severity Reaction Status Date / Time Penicillins Allergy Intermediate Verified 11/22/17 14:17 fentanyl Allergy Verified 11/22/17 14:17 methadone HCl Allergy Verified 11/22/17 14:17 [From [facility]] Medications: Current Medications Acetaminophen (Tylenol) 650 mg PO Q4H PRN PRN Reason: Headache/Fever or Pain Al Hydroxide/Mg Hydroxide (Maalox) 15 ml PO Q4H PRN PRN Reason: Heartburn or Indigestion Albuterol/Ipratropium (Duoneb) 3 ml NEB QID PRN PRN Reason: Wheezing Artificial Tears (Tears Naturale) 0 drop EA EYE PRN PRN PRN Reason: Dry Eyes Betamethasone Valerate (Valisone 0.1% Cream) 1 gm TOP 5XD [facility] Last Admin: 01/08/18 07:48 Dose: 1 gm Bisacodyl (Dulcolax) 10 mg [place] DAILYPRN PRN PRN Reason: Constipation Dicyclomine HCl (Bentyl) 20 mg PO QID PRN PRN Reason: Diarrhea/Loose Stools Docusate Sodium (Colace) 100 mg PO BID [facility] Last Admin: 01/08/18 07:47 Dose: 100 mg Estrogens Conjugated (Premarin) 0.3 mg PO DAILY [facility] Last Admin: 01/08/18 07:46 Dose: 0.3 mg Famotidine (Pepcid) 20 mg PO BID [facility] Last Admin: 01/08/18 07:47 Dose: 20 mg Guaifenesin (Mucinex) 600 mg PO Q12HR [facility] Last Admin: 01/08/18 07:48 Dose: 600 mg Guaifenesin (Robitussin Sf) 200 mg PO Q4H PRN PRN Reason: Cough Heparin Sodium (Porcine) (Heparin) 5,000 units SC TID [facility] Last Admin: 01/08/18 07:54 Dose: 5,000 units Hydralazine HCl (Apresoline) 10 mg SLOW IVP Q4H PRN PRN Reason: Systolic BP > 180 Vancomycin HCl 1 gm/ Device 200 mls @ 200 mls/hr IVPB 2200 [facility] Last Admin: 01/07/18 21:57 Dose: 200 mls Norepinephrine Bitartrate (Levophed) 250 mls @ 0 mls/hr IVPB INF [facility]; Titrate PRN Reason: Protocol Sodium Chloride (Normal Saline 0.9%) 1,000 mls @ 75 mls/hr IV .[id number] [facility] Last Admin: 01/08/18 04:21 Dose: 1,000 mls Meropenem 1 gm/ Device 50 mls @ 100 mls/hr IVPB 0400,1200,2000 [facility] Last Admin: 01/08/18 04:21 Dose: 50 mls Iron/Minerals/Multivitamins (Theragran M) 1 tab PO DAILY [facility] Last Admin: 01/08/18 07:48 Dose: 1 tab Lidocaine (Lidoderm 5% Patch) 1 patch TD DAILY [facility] Last Admin: 01/08/18 07:46 Dose: 1 patch Loperamide HCl (Imodium) 2 mg PO PRN PRN PRN Reason: Diarrhea/Loose Stools Loratadine (Claritin) 10 mg PO DAILY PRN PRN Reason: ALLERGIES Magnesium Hydroxide (Milk Of Magnesium) 30 ml PO DAILYPRN PRN PRN Reason: Constipation Mineral Oil/White Petrolatum (Eucerin Cream) 0 gm TOP BIDPRN PRN PRN Reason: Dry Skin Miscellaneous Medication (Pharmacy To Dose) 1 each IVPB ONE PRN PRN Reason: DOSING Stop: 02/04/18 21:31 Miscellaneous Medication (Lidocaine Patch Removal) 1 each TOP 2100 [facility] Last Admin: 01/07/18 21:04 Dose: Not Given Morphine Sulfate (Morphine) 2 mg SLOW IVP Q4H PRN PRN Reason: Moderate Pain (4-6) Last Admin: 01/08/18 04:19 Dose: 2 mg Morphine Sulfate (Ms Contin) 60 mg PO Q12HR [facility] Last Admin: 01/08/18 07:47 Dose: 60 mg Nystatin (Mycostatin Powder) 0 gm TOP BID [facility] Last Admin: 01/08/18 07:48 Dose: 1 applic Ondansetron HCl (Zofran) 4 mg IVP Q6H PRN PRN Reason: Nausea/Vomiting Ondansetron HCl (Zofran Odt) 4 mg PO Q6H PRN PRN Reason: Nausea/Vomiting Phenol (Chloraseptic [place] 180 Ml Bot) 0 ml PO PRN PRN PRN Reason: Sore Throat Prednisone (Prednisone) 10 mg PO DAILY [facility] Last Admin: 01/08/18 07:46 Dose: 10 mg Sodium Chloride ([place] Nasal [place] 0.65%) 0 ml EA NARE QIDPRN PRN PRN Reason: Nasal Congestion Temazepam (Restoril) 15 mg PO HSPRN PRN PRN Reason: Insomnia Last Admin: 01/07/18 20:15 Dose: 15 mg Trospium (Trospium) 20 mg PO BID [facility] Last Admin: 01/08/18 07:46 Dose: 20 mg
[2018-01-08] MEDS: Ondansetron HCl/PF 4 MG/2 ML Vial IVP PRN (11:51)
--- NOTE | 2018-01-08 13:50 | PRG ---
DATE OF SERVICE: 01/08/2018 SUBJECTIVE: Domi Ramos is a DNR. Complains of multiple problems, abdominal pain, nausea. OBJECTIVE: VITAL SIGNS: Sats are 97, temperature 97.4, blood pressure 149/83. RESPIRATORY: She is denying any difficulty breathing. Chest reveals bilateral rhonchi. CARDIAC: Normal S1, S2, no gallops. ABDOMEN: Soft. LABORATORY DATA: Potassium is 3.1. White count is unremarkable. IMPRESSION: 1. Recurrent urosepsis and hypotension, resolved. 2. Chronic obstructive pulmonary disease, pulmonary hypertension. PLAN: Pulmonary standpoint of view, she could be discharged to home anytime.
--- NOTE | 2018-01-08 15:06 | PRG ---
DATE OF SERVICE: 01/08/2018 SUBJECTIVE: Feeling well. No pain, no diarrhea, no respiratory symptoms. OBJECTIVE: VITAL SIGNS: T-max 97.5, blood pressure 140/83, pulse 77, O2 sat 93% on 3 liters. GENERAL: Awake, alert, oriented. HEENT: Ocular movements conjugate. Have a little bit of nausea while eating lunch. Oral cavity [address]. NECK: Supple. LUNGS: Symmetric air entry. Few scattered inspiratory crackles at the bases, which clear after deep breathing. No wheezing. CARDIOVASCULAR: S1, S2, regular rate. No murmurs. ABDOMEN: Soft, not distended or tender, right-sided spinal cord stimulator is not tender. NEUROLOGI C: Status is unchanged. LABORATORY DATA: White cell count down to 6.9, hemoglobin 9.1, platelets 301 with normal differentia l. Blood cultures thus far negative 48 hours, no growth and urine cultures at 36 hours. Ultrasound with no evidence of obstruction. ASSESSMENT AND DISCUSSION: Multiple sclerosis with the usual complications, neurogenic bladder with recent suprapubic catheter placement and treatment for invasive urinary tract infection associated wi th suprapubic catheter obstruction. Also, with the right UVJ stone with early obstruction, which is not apparent now in the ultrasound. The sequence of events at this time may have been transient, mor e complete obstruction of the right side with eventual expulsion of this stone into the bladder. The n transient bacteremia with sepsis with the same pathogens as before. We will do an abdomen CT stone protocol study and remove the right femoral line.
--- NOTE | 2018-01-08 16:16 | CT ---
CT ABDOMEN AND PELVIS WITHOUT IV CONTRAST: INDICATIONS: Nephrolithiasis. Previous right ureteral calculus. TECHNIQUE: Multiple axial tomograms obtained through the abdomen and pelvis without IV enhancement. FINDINGS: Bibasilar atelectasis and small bilateral effusions seen in the lung bases. Associated infiltrate ca nnot be excluded. The liver, spleen, and pancreas are unremarkable. There are several calculi in the upper collecting structures of the right kidney. There is a calculu s in the right renal pelvis, which measures up to 1 cm. There is a calculus in the distal right uret er, near the UVJ, which measures approximately 5 mm. A suprapubic catheter in the bladder is seen wi th a balloon inflated within the bladder lumen. There is gas within the bladder, assumed as a result of this catheter. The left kidney and left collecting structures are unremarkable. The bowel loops are unremarkable. An IVC filter is seen. The aorta is of normal caliber. IMPRESSION: Several calculi in the upper collecting structures of the right kidney. There is a calculus in the r ight renal pelvis, near the ureteropelvic junction, measuring 8 to 10 mm. There is a calculus within the distal right ureter, measuring 5 to 6 mm, near the ureterovesical junction. POS: [facility]
[2018-01-08] MEDS: Ondansetron ODT 4 MG TAB PO PRN (20:01)
[2018-01-08] MEDS: Lidocaine Patch Removal 1 EACH TOP SCH (20:02)
[2018-01-08 21:35] LABS: Vancomycin, Trough 10.2 ug/mL
[2018-01-08] MEDS: Vancomycin HCl 1.25 GM in Sodium Chloride 0.9% 250 ML 250 ML IVPB SCH (22:43)
[2018-01-09] MEDS: MEROPENEM 1 GM/50 ML 1 GM in Premix Bag 1 BAG IVPB SCH ×3 (05:00→20:41)
[2018-01-09] MEDS: Sodium Chloride 0.9% 1,000 ML IV SCH ×2 (05:23→12:55)
[2018-01-09 05:29] LABS: #Eosinphils 0.1 thou/uL (0.0-0.7); #Lymphocytes 1.4 thou/uL (1.20-3.40); #Monocytes 0.3 thou/uL (0.11-0.59); #Neutrophils 4.1 thou/uL (1.40-6.50); %Basophils 0.2 % (0.0-1.0); %Eosinophils 2.3 % (0.0-10.0); %Monocytes 5.2 % (0.0-10.0); %Neutrophils 69.3 % (42.0-75.0); Hemoglobin 9.9 g/dL (12.0-16.0); Mean Corpuscular HGB CONC 32.3 g/dL (32.0-36.0); Mean Corpuscular Hemoglobin 29.7 pg (27.0-31.0); Mean Platelet Volume 6.4 fL (7.4-10.4); Platelet Count 335 thou/uL (130-400); RBC Distribution Width 12.6 % (11.5-14.5); Red Blood Cell (RBC) Count 3.32 mill/uL (4.20-5.40); White Blood Cell (WBC) Count 5.9 thou/uL (4.8-10.8)
[2018-01-09 05:41] LABS: Anion Gap 10 mmol/L (10-20); BUN (Urea Nitrogen) 5 mg/dL (9.8-20.1); Calc. Creatinine Clearance 77 mL/min (70-130); Carbon Dioxide 21 mmol/L (23-31); Chloride 110 mmol/L (98-107); Estimated GFR-MDRD Greater than 90; Glucose 62 mg/dL (83-110); Sodium 138 mmol/L (136-145)
--- NOTE | 2018-01-09 09:17 | PRG ---
DATE OF SERVICE: 01/09/2018 This morning she is awake, alert, responsive remains in bed. She is DNR. PHYSICAL EXAMINATION: VITAL SIGNS: Sats are 96% on 2 liters. Temperature 97, respiration 16, pulse 87, blood pressure is 150/82. CHEST: She has no wheezing or crackles. CARDIAC: Normal S1, S2, no gallops. ABDOMEN: Abdomen is soft. LABORATORY DATA: White count is normal. H&H is 9 and 30. Electrolytes are normal. Potassium 3. A CT of the abdomen was ordered, several calculi in the kidney. IMPRESSION: 1. Indwelling catheter, urosepsis, resolved. 2. Encephalopathy. 3. Severe deconditioning. PLAN: From a pulmonary standpoint of view, she is stable enough to be discharged home. Pulmonary kapadia s nothing to offer. Antibiotics as per Infectious Disease. We will follow at a distance. Please ca ll as needed.
[2018-01-09] MEDS: Ondansetron ODT 4 MG TAB PO PRN ×3 (10:24→21:25)
[2018-01-09] MEDS: Multivitamin W/ Minerals 1 TAB PO SCH (10:30)
[2018-01-09] MEDS: guaiFENesin ER 600 MG TAB PO SCH ×2 (10:30→20:41)
[2018-01-09] MEDS: Docusate 100 MG CAP PO SCH ×2 (10:30→20:38)
[2018-01-09] MEDS: Famotidine 20 MG TAB PO SCH ×2 (10:31→20:42)
[2018-01-09] MEDS: predniSONE 20 MG TAB PO SCH (10:31)
[2018-01-09] MEDS: Heparin 5,000 UNITS/ML VIAL SC SCH ×3 (10:33→20:38)
[2018-01-09] MEDS: Estrogens, Conjugated 0.3 MG TAB PO SCH (10:33)
[2018-01-09] MEDS: TROSPIUM 20 MG TABLET PO SCH ×2 (10:33→20:41)
[2018-01-09] MEDS: Nystatin Powder 15 GM BOT TOP SCH ×2 (10:36→20:53)
[2018-01-09] MEDS: Lidocaine 5% Patch TD SCH (10:36)
[2018-01-09] MEDS: Betamethasone 0.1% Cream 45 GM TUBE TOP SCH ×5 (10:37→23:44)
[2018-01-09 10:47] LABS: Magnesium 1.6 mg/dL (1.6-2.6); Phosphorus 2.2 mg/dL (2.3-4.7)
--- NOTE | 2018-01-09 10:56 | PDOC.PN ---
- Subjective Encounter Start Date: 01/09/18 Encounter Start Time: 08:45 Patient seen and examined for UTI. No new complaints. No overnight events - Objective Resuscitation Status: Resuscitation Status DNR:Do Not Resuscitate MAR Reviewed: Yes Vital Signs & Weight: Vital Signs (12 hours) Temp Pulse Resp BP Pulse Ox 01/09/18 08:00 97.7 F 87 16 152/82 H 97 01/09/18 04:03 94 L Most Recent Monitor Data Heart Rate from ECG 104 NIBP 133/73 NIBP BP-Mean 97 Respiration from ECG 27 SpO2 100 I&O: 01/08/18 01/09/18 01/10/18 06:59 06:59 06:59 Intake Total 2621 1860 Output Total 1095 600 Balance 1526 1260 Result Diagrams: 01/09/18 04:21 01/09/18 04:21 Additional Labs: Accuchecks 01/08/18 11:23 POC Glucose 85 Radiology Reviewed by me: Yes (CT abdomen) Phys Exam - Physical Examination Constitutional: NAD HEENT: PERRLA, moist MMs, sclera anicteric Neck: no JVD, supple Respiratory: no wheezing, no rales, no rhonchi Cardiovascular: RRR, no significant murmur, no rub Gastrointestinal: soft, non-tender, no distention, positive bowel sounds suprapubic catheter Musculoskeletal: no edema, pulses present Lymphatic: no nodes Psychiatric: normal affect Skin: no rash, normal turgor Dx/Plan (1) UTI (urinary tract infection) due to urinary indwelling Robles catheter Code(s): T83.511A - I/I REACT D/T INDWELLING URETHRAL CATHETER, INIT; N39.0 - URINARY TRACT INFECTION, SITE NOT SPECIFIED Status: Acute Qualifiers: Indwelling urinary catheter type: cystostomy catheter (2) Sepsis Code(s): A41.9 - SEPSIS, UNSPECIFIED ORGANISM Status: Acute Qualifiers: Sepsis type: sepsis due to unspecified organism Qualified Code(s): A41.9 - Sepsis, unspecified organism (3) Hypokalemia Code(s): E87.6 - HYPOKALEMIA Status: Resolved (4) Hypotension Status: Resolved (5) Lactic acidosis Code(s): E87.2 - ACIDOSIS Status: Resolved (6) Anxiety and depression Code(s): F41.8 - OTHER SPECIFIED ANXIETY DISORDERS Status: Chronic (7) Chronic low back pain Code(s): M54.5 - LOW BACK PAIN; G89.29 - OTHER CHRONIC PAIN Status: Chronic Comment: (8) Dyslipidemia Code(s): E78.5 - HYPERLIPIDEMIA, UNSPECIFIED Status: Chronic (9) GERD (gastroesophageal reflux disease) Code(s): K21.9 - GASTRO-ESOPHAGEAL REFLUX DISEASE WITHOUT ESOPHAGITIS Status: Chronic (10) HTN (hypertension) Code(s): I10 - ESSENTIAL (PRIMARY) HYPERTENSION Status: Chronic (11) History of pulmonary embolism Code(s): Z86.711 - PERSONAL HISTORY OF PULMONARY EMBOLISM Status: Chronic (12) Lupus (systemic lupus erythematosus) Code(s): M32.9 - SYSTEMIC LUPUS ERYTHEMATOSUS, UNSPECIFIED Status: Chronic (13) Migraine Code(s): G43.909 - MIGRAINE, UNSP, NOT INTRACTABLE, WITHOUT STATUS MIGRAINOSUS Status: Chronic (14) Multiple sclerosis Code(s): G35 - MULTIPLE SCLEROSIS Status: Chronic (15) Neurogenic bladder Code(s): N31.9 - NEUROMUSCULAR DYSFUNCTION OF BLADDER, UNSPECIFIED Status: Chronic Comment: (16) Physical deconditioning Code(s): R53.81 - OTHER MALAISE Status: Chronic (17) Protein-calorie malnutrition, moderate Code(s): E44.0 - MODERATE PROTEIN-CALORIE MALNUTRITION Status: Chronic Comment: (18) Pulmonary hypertension Code(s): I27.20 - PULMONARY HYPERTENSION, UNSPECIFIED Status: Chronic (19) Right nephrolithiasis Code(s): N20.0 - CALCULUS OF KIDNEY Status: Acute (20) Ureterolithiasis Code(s): N20.1 - CALCULUS OF URETER Status: Acute (21) Hypophosphatemia Code(s): E83.39 - OTHER DISORDERS OF PHOSPHORUS METABOLISM Status: Acute - Plan cont current plan of care, continue antibiotics * will replace potassium chloride 40 meq 2 dose * will give potassium phosphate 12 mmol one dose * will repeat labs tomorrow * urology will be consulted, she may need stent in ureter * continue current empiric antibiotics, so far culture negative * medication reviewed as below * symptomatic treatment. Review of Systems - Review of Systems Eyes: negative: Pain, Vision Change, Conjunctivae Inflammation, Eyelid Inflammation, Redness, Other ENT: negative: Ear Pain, Ear Discharge, Nose Pain, Nose Discharge, Nose Congestion, Mouth Pain, Mouth Swelling, Throat Pain, Throat Swelling, Other Respiratory: negative: Cough, Dry, Shortness of Breath, Hemoptysis, SOB with Excertion, Pleuritic Pain, Sputum, Wheezing Cardiovascular: negative: chest pain, palpitations, orthopnea, paroxysmal nocturnal dyspnea, edema, light headedness, other Gastrointestinal: negative: Nausea, Vomiting, Abdominal Pain, Diarrhea, Constipation, Melena, Hematochezia, Other Genitourinary: negative: Dysuria, Frequency, Incontinence, Hematuria, Retention , Other Musculoskeletal: negative: Neck Pain, Shoulder Pain, Arm Pain, Back Pain, Hand Pain, Leg Pain, Foot Pain, Other Skin: negative: Rash, Lesions, Aníbal, Bruising, Other - Medications/Allergies Allergies/Adverse Reactions: Allergies Allergy/AdvReac Type Severity Reaction Status Date / Time Penicillins Allergy Intermediate Verified 11/22/17 14:17 fentanyl Allergy Verified 11/22/17 14:17 methadone HCl Allergy Verified 11/22/17 14:17 [From [facility]] Medications: Current Medications Acetaminophen (Tylenol) 650 mg PO Q4H PRN PRN Reason: Headache/Fever or Pain Al Hydroxide/Mg Hydroxide (Maalox) 15 ml PO Q4H PRN PRN Reason: Heartburn or Indigestion Albuterol/Ipratropium (Duoneb) 3 ml NEB QID PRN PRN Reason: Wheezing Artificial Tears (Tears Naturale) 0 drop EA EYE PRN PRN PRN Reason: Dry Eyes Betamethasone Valerate (Valisone 0.1% Cream) 1 gm TOP 5XD COUNTS INCLUDE 234 BEDS AT THE [facility] Last Admin: 01/09/18 10:37 Dose: 1 gm Bisacodyl (Dulcolax) 10 mg MS DAILYPRN PRN PRN Reason: Constipation Dicyclomine HCl (Bentyl) 20 mg PO QID PRN PRN Reason: Diarrhea/Loose Stools Docusate Sodium (Colace) 100 mg PO BID COUNTS INCLUDE 234 BEDS AT THE [facility] Last Admin: 01/09/18 10:30 Dose: Not Given Estrogens Conjugated (Premarin) 0.3 mg PO DAILY COUNTS INCLUDE 234 BEDS AT THE [facility] Last Admin: 01/09/18 10:33 Dose: 0.3 mg Famotidine (Pepcid) 20 mg PO BID COUNTS INCLUDE 234 BEDS AT THE [facility] Last Admin: 01/09/18 10:31 Dose: 20 mg Guaifenesin (Mucinex) 600 mg PO Q12HR COUNTS INCLUDE 234 BEDS AT THE [facility] Last Admin: 01/09/18 10:30 Dose: 600 mg Guaifenesin (Robitussin Sf) 200 mg PO Q4H PRN PRN Reason: Cough Heparin Sodium (Porcine) (Heparin) 5,000 units SC TID COUNTS INCLUDE 234 BEDS AT THE [facility] Last Admin: 01/09/18 10:33 Dose: 5,000 units Hydralazine HCl (Apresoline) 10 mg SLOW IVP Q4H PRN PRN Reason: Systolic BP > 180 Norepinephrine Bitartrate (Levophed) 250 mls @ 0 mls/hr IVPB INF COUNTS INCLUDE 234 BEDS AT THE [facility]; Titrate PRN Reason: Protocol Sodium Chloride (Normal Saline 0.9%) 1,000 mls @ 75 mls/hr IV .[id number] COUNTS INCLUDE 234 BEDS AT THE [facility] Last Admin: 01/09/18 05:23 Dose: Not Given Meropenem 1 gm/ Device 50 mls @ 100 mls/hr IVPB 0400,1200,2000 COUNTS INCLUDE 234 BEDS AT THE [facility] Last Admin: 01/09/18 05:00 Dose: 50 mls Vancomycin HCl 1.25 gm/ Sodium (Chloride) 250 mls @ 166.667 mls/hr IVPB 2200 COUNTS INCLUDE 234 BEDS AT THE [facility] Last Admin: 01/08/18 22:43 Dose: 250 mls Iron/Minerals/Multivitamins (Theragran M) 1 tab PO DAILY COUNTS INCLUDE 234 BEDS AT THE [facility] Last Admin: 01/09/18 10:30 Dose: 1 tab Lidocaine (Lidoderm 5% Patch) 1 patch TD DAILY COUNTS INCLUDE 234 BEDS AT THE [facility] Last Admin: 01/09/18 10:36 Dose: 1 patch Loperamide HCl (Imodium) 2 mg PO PRN PRN PRN Reason: Diarrhea/Loose Stools Loratadine (Claritin) 10 mg PO DAILY PRN PRN Reason: ALLERGIES Magnesium Hydroxide (Milk Of Magnesium) 30 ml PO DAILYPRN PRN PRN Reason: Constipation Mineral Oil/White Petrolatum (Eucerin Cream) 0 gm TOP BIDPRN PRN PRN Reason: Dry Skin Miscellaneous Medication (Pharmacy To Dose) 1 each IVPB ONE PRN PRN Reason: DOSING Stop: 02/04/18 21:31 Miscellaneous Medication (Lidocaine Patch Removal) 1 each TOP 2100 COUNTS INCLUDE 234 BEDS AT THE [facility] Last Admin: 01/08/18 20:02 Dose: Not Given Morphine Sulfate (Morphine) 2 mg SLOW IVP Q4H PRN PRN Reason: Moderate Pain (4-6) Last Admin: 01/08/18 04:19 Dose: 2 mg Morphine Sulfate (Ms Contin) 60 mg PO Q12HR COUNTS INCLUDE 234 BEDS AT THE [facility] Last Admin: 01/09/18 10:30 Dose: 60 mg Nystatin (Mycostatin Powder) 0 gm TOP BID COUNTS INCLUDE 234 BEDS AT THE [facility] Last Admin: 01/09/18 10:36 Dose: 1 applic Ondansetron HCl (Zofran) 4 mg IVP Q6H PRN PRN Reason: Nausea/Vomiting Last Admin: 01/08/18 11:51 Dose: 4 mg Ondansetron HCl (Zofran Odt) 4 mg PO Q6H PRN PRN Reason: Nausea/Vomiting Last Admin: 01/09/18 10:24 Dose: 4 mg Phenol (Chloraseptic Spencer 180 Ml Bot) 0 ml PO PRN PRN PRN Reason: Sore Throat Potassium Chloride (K-Dur) 40 meq PO BID-[facility] Stop: 01/10/18 08:01 Prednisone (Prednisone) 10 mg PO DAILY COUNTS INCLUDE 234 BEDS AT THE [facility] Last Admin: 01/09/18 10:31 Dose: 10 mg Sodium Chloride (Cobb Nasal Spencer 0.65%) 0 ml EA NARE QIDPRN PRN PRN Reason: Nasal Congestion Temazepam (Restoril) 15 mg PO HSPRN PRN PRN Reason: Insomnia Last Admin: 01/07/18 20:15 Dose: 15 mg Trospium (Trospium) 20 mg PO BID COUNTS INCLUDE 234 BEDS AT THE [facility] Last Admin: 01/09/18 10:33 Dose: 20 mg
[2018-01-09] MEDS ORDERED: Potassium Phosphate 12 MMOL, Admixture Fee 1 EACH in Sodium Chloride 0.9% 100 ML IVPB SCH (11:00)
[2018-01-09] MEDS: Morphine 4 MG/ML VIAL SLOW IVP PRN ×2 (13:19→17:18)
[2018-01-09] MEDS: Potassium Chloride 20 MEQ TAB PO SCH (16:23)
--- NOTE | 2018-01-09 19:02 | PRG ---
DATE OF SERVICE: 01/09/2018 SUBJECTIVE: Ms. Ramos is having a lot of nausea today. She feels a bad taste in her mouth. It is m ore retching, but no vomiting, probably does not have anything to vomit. No dyspnea, no chest pain. She is having intermittent pain in the suprapubic area, has not had a bowel movement in a while. OBJECTIVE: VITAL SIGNS: The temperature max 97.9, blood pressure 150/80, pulse 90, respirations 16, O2 sat 95%- 97%. GENERAL: She appears chronically ill. She is awake, pleasant, oriented, no acute distress. HEENT: Ocular movements conjugate. LUNGS: Symmetric, clear breath sounds. CARDIOVASCULAR: S1, S2, regular rate. ABDOMEN: Soft, not tender the most part except from a little bit of tenderness around the suprapubic area. Bowel sounds are present. NEUROLOGIC: Unchanged. LABORATORY: White cell count 5.9, hemoglobin 9.9, platelets 335, 69% neutrophils and a sodium 138, c reatinine 0.43. Blood cultures no growth. The CT abdomen and pelvis demonstrated several calculi in the upper collecting structures of the right kidney and calculus in the right renal pelvis near the ureteropelvic junction measuring 8 to 10 mm, it is pretty big and a calculus within the distal ureter measuring 5-6 mm near the ureterovesical junction. 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 At this time, there is no evidence of obstruction. The urologist has been consulted to see if she would merit placement of a s tent. The original duration of therapy had been calculated until 01/11/2018. This would be a day af ter tomorrow. Evidently with this new readmission with sepsis syndrome, then we will have to extend the duration of therapy for another 2 weeks beyond the recent admission.
[2018-01-09] MEDS: Temazepam 15 MG CAP PO PRN (20:41)
[2018-01-09] MEDS: Lidocaine Patch Removal 1 EACH TOP SCH (20:43)
[2018-01-09] MEDS: Vancomycin HCl 1.25 GM in Sodium Chloride 0.9% 250 ML 250 ML IVPB SCH (22:42)
--- NOTE | 2018-01-10 01:51 | CON ---
DATE OF CONSULTATION: 01/09/2018 CONSULTING PHYSICIAN: Dr. Valenzuela. CONSULTED PHYSICIAN: Dr. Calabrese. REASON FOR CONSULTATION: Sepsis with ureteral stone. HISTORY OF PRESENT ILLNESS: Ms. Ramos is an 83-year-old white female who is previously known to me f or history of urinary retention, recurrent urinary tract infection secondary to multiple sclerosis wh o was recently admitted to the hospital with urosepsis. She came in with an elevated white count and significant hemodynamic instability with aggressive resuscitation and antibiotics she improved. Dur ing her workup, she did undergo a renal ultrasound which was noted on 01/06 to be unremarkable with n o evidence of hydronephrosis. Subsequently, she underwent a CT scan on 01/08/[address] Buchanan for concerns of a possible nephrolithiasis given that she has had issues in the past. On the CT, it was noted that she had a 1 cm right renal pelvis stone as well as a 6 mm right ureterovesical junction st one without significant hydronephrosis. In light of this, I was consulted for further assistance. A t this point, the patient is much more hemodynamically stable with resolution of her high white count . Most of the history is obtained through the nurses, medical records and her daughter as the patien t does not give a good history or verbalize very well. She is definitely mentating much better than previously per the nursing staff, but she still does not answer questions appropriately and states I do not know to many of the questions. Again, per prior records she does have a history of urinary re tention which was managed with an SP tube that was placed under my discretion in the past for urinary retention secondary to her MS and recurrent urinary tract infections. Since the beginning of this y ear, she has had much more frequent UTIs with almost one occurring every month and the most serious i nfection being the one that she is currently hospitalized for. They did not know why she was having so many urinary tract infections, but were becoming concerned given the severity and frequency of her infections. She does not have any prior history of urologic procedures other than the SP tube place ment. The patient apparently was supposed to be seeing Dr. Pedroza. Per their request, but they were never able to get in with him properly and states that they may have only seen him once they are now requesting to come back to me as they find that it would be easier for management. She previously wa s cared for by Dr. Singh in the past. ALLERGIES: 1. FENTANYL. 2. METHADONE. 3. PENICILLIN. CURRENT HOME MEDICATIONS: 1. Tylenol. 2. Maalox. 3. DuoNeb. 4. Natural Tears. 5. Valisone. 6. Dulcolax. 7. Bentyl. 8. Colace. 9. Premarin cream. 10. Pepcid. 11. Robitussin. 12. Mucinex. 13. Heparin. 14. Apresoline. 15. Theragran. 16. Lidoderm. 17. Imodium. 18. Claritin. 19. Eucerin cream. 20. Mycostatin. CURRENT ANTIBIOTIC REGIMEN: Includes meropenem and vancomycin. PAST MEDICAL HISTORY: 1. Multiple sclerosis. 2. Lupus. 3. Pulmonary embolism. 4. Recurrent urinary tract infections. 5. Neurogenic bladder. 6. Chronic constipation. 7. Polyneuropathy. 8. Migraines. 9. Arthritis. 10. Irritable bowel syndrome. 11. Interstitial lung disease. 12. Gastroesophageal reflux disease. PAST SURGICAL HISTORY: 1. IVC filter placement. 2. SP tube placement. 3. Hysterectomy. 4. Cholecystectomy. 5. Bilateral cataract repair. 6. ORIF of right tibial plateau fracture. FAMILY HISTORY: Significant for hypertension and CHF with mental illness. SOCIAL HISTORY: The patient is a nonsmoker, denies alcohol abuse or illicit drug use. She [place]. REVIEW OF SYSTEMS: A 12-point review of systems could not be adequately obtained from the patient as she is answering I do not know to most of the questions that I ask her. She does not endorse any pa in currently. PHYSICAL EXAMINATION: VITAL SIGNS: Temperature 97.9, pulse 90, respirations 16, blood pressure 154/80, saturation 95% on 2 liters nasal cannula. GENERAL: Appears frail, chronically ill, elderly, but is in no apparent distress. She appears alert , but is not answering questions appropriately. HEENT: Normocephalic, atraumatic. Nasal cannula in place on her naris. Moist mucous membranes. Sc lerae nonicteric. Pupils symmetric and round. Trachea midline. CARDIOVASCULAR: Regular rate and rhythm. Normal S1 and S2. Symmetric pulses. CHEST: No increased work of breathing. Decreased breath sounds. Symmetric expansion of lungs. ABDOMEN: Soft, nondistended. Tenderness to palpation in the suprapubic area. No tenderness on the right and left flank. No CVA tenderness. No organomegaly. Positive bowel sounds. GENITOURINARY: Suprapubic catheter in place with no cellulitis in the entry site. Urine is currentl y clear. Lower genitalia not examined. EXTREMITIES: A 1+ edema bilaterally. No clubbing or cyanosis. MUSCULOSKELETAL: No joint deformities or joint erythema noted currently. Range of motion was not te sted as patient is not following commands properly. NEUROLOGIC: Cranial nerves II-XII appear grossly intact. There are no obvious focal sensory or nicolas r deficits identified, although the patient has limited strength in her lower extremities. SKIN: Warm, dry, poor turgor. PSYCHIATRIC: Alert and oriented x2. Appropriate mood and affect, although the patient appears somew hat confused about everything that has occurred in the past several days. LABORATORY EVALUATION: The full set of labs are in the [employer] system, which I have reviewed. Of n ote, white count is currently 5.9 down from 22.7, creatinine is currently 0.43. Urine culture and bl ood cultures were all negative, although they were taken after antibiotic initiation. IMAGING: CT from 01/08 without contrast demonstrates several calculi in the upper collecting structu res of the right kidney, the largest measuring approximately 8-10 mm. There is a calculus in the rig ht distal ureter measuring 5-6 mm with minimal to no hydronephrosis, IVC filter is in place. ASSESSMENT AND PLAN: An 83-year-old white female with urosepsis, which has resolved on antibiotic th erapy alone. She likely has a minimally obstructive stone which may be a precluding to her recurrent urinary tract infections as well as recent severe sepsis. The larger stone up in the kidney as larg e enough that it may harbor bacteria and may be predisposing to her recurrent urinary tract infection s. I spoke with the daughter on the phone about her current medical situation and the frequency of h er infections. I do suspect that part of her infections may be indeed due to the nephrolithiasis. T he options at this point would be for ureteral stent placement, although she is improved currently. She is at high risk for going back into sepsis again with another infection given that she does have a ureteral stone, which only has about a 45%-50% chance of spontaneous passage. A ureteral stent wou ld prevent significant illness in the future. Once she is adequately treated, we could make plans fo r removal of the stones on the right side. Alternatively, the secondary option would be for hospice, which the daughter states that she is not quite ready for this, although the patient seems somewhat confused. She has expressed a low desire to proceed with further interventions, although she is not of sound mind to currently make decisions on her own. The patient did state that she would do whatev er that her daughter who is her power of personal injury attorney recommended. Since her daughter is recommending co ntinued intervention to remove the stones which would ultimately allow the patient to reduce urinary tract infections and hopefully improve her quality of life. I think this is reasonable and I also wo uld recommend that intervention would be in the patient's best interest. Obviously, she is at high r isk given her recent infection and her advanced age, but we have discussed cystoscopy and ureteral st ent placement on the right which carries a low complication rate overall. Risk of the surgery could be worsening infection, bleeding, damage to the ureter, inability to place the stent, need for furthe r procedures, and damage to urethra and bladder. The daughter understands these risks and wishes to proceed forward with cystoscopy and ureteral stent placement which we will do tomorrow. She should r emain on her antibiotic regimen as planned. Once the stent is in place, we will then discuss definit sanam ureteral stent placement after her sepsis has thoroughly resolved and she has been on antibiotics for a minimum of 2 weeks. This can also be arranged once she is discharged from the hospital.
[2018-01-10] MEDS: MEROPENEM 1 GM/50 ML 1 GM in Premix Bag 1 BAG IVPB SCH ×3 (03:21→20:20)
[2018-01-10 05:19] LABS: #Eosinphils 0.1 thou/uL (0.0-0.7); #Lymphocytes 1.4 thou/uL (1.20-3.40); #Monocytes 0.4 thou/uL (0.11-0.59); #Neutrophils 3.7 thou/uL (1.40-6.50); %Basophils 0.4 % (0.0-1.0); %Eosinophils 1.3 % (0.0-10.0); %Lymphocytes 25.3 % (21.0-51.0); %Monocytes 6.3 % (0.0-10.0); %Neutrophils 66.7 % (42.0-75.0); Hemoglobin 9.9 g/dL (12.0-16.0); Mean Corpuscular HGB CONC 32.8 g/dL (32.0-36.0); Mean Corpuscular Hemoglobin 30.2 pg (27.0-31.0); Mean Corpuscular Volume 92.1 fl (81.0-99.0); Mean Platelet Volume 6.3 fL (7.4-10.4); Platelet Count 334 thou/uL (130-400); RBC Distribution Width 12.6 % (11.5-14.5); Red Blood Cell (RBC) Count 3.27 mill/uL (4.20-5.40); White Blood Cell (WBC) Count 5.5 thou/uL (4.8-10.8)
[2018-01-10 05:24] LABS: Anion Gap 7 mmol/L (10-20); BUN (Urea Nitrogen) 6 mg/dL (9.8-20.1); Calc. Creatinine Clearance 74 mL/min (70-130); Calcium 8.6 mg/dL (7.8-10.44); Carbon Dioxide 26 mmol/L (23-31); Chloride 112 mmol/L (98-107); Estimated GFR-MDRD Greater than 90; Glucose 92 mg/dL (83-110); Potassium 3.9 mmol/L (3.5-5.1); Sodium 141 mmol/L (136-145)
[2018-01-10] MEDS: TROSPIUM 20 MG TABLET PO SCH ×2 (08:26→20:20)
[2018-01-10] MEDS: predniSONE 20 MG TAB PO SCH (08:26)
[2018-01-10] MEDS: Betamethasone 0.1% Cream 45 GM TUBE TOP SCH ×5 (08:32→23:11)
[2018-01-10] MEDS: Estrogens, Conjugated 0.3 MG TAB PO SCH (08:32)
[2018-01-10] MEDS: Potassium Chloride 20 MEQ TAB PO SCH (08:32)
[2018-01-10] MEDS: Docusate 100 MG CAP PO SCH ×2 (08:32→20:17)
[2018-01-10] MEDS: Nystatin Powder 15 GM BOT TOP SCH ×2 (08:33→20:21)
[2018-01-10] MEDS: Famotidine 20 MG TAB PO SCH ×2 (08:33→20:20)
[2018-01-10] MEDS: Multivitamin W/ Minerals 1 TAB PO SCH (08:33)
[2018-01-10] MEDS: Heparin 5,000 UNITS/ML VIAL SC SCH ×3 (08:33→20:20)
[2018-01-10] MEDS: guaiFENesin ER 600 MG TAB PO SCH ×2 (08:33→20:20)
--- NOTE | 2018-01-10 09:37 | PDOC.PN ---
- Subjective Encounter Start Date: 01/10/18 Encounter Start Time: 08:30 Patient seen and examined for sepsis. No new complaints. No overnight events - Objective Resuscitation Status: Resuscitation Status DNR:Do Not Resuscitate MAR Reviewed: Yes Vital Signs & Weight: Vital Signs (12 hours) Temp Pulse Resp BP Pulse Ox 01/10/18 07:41 98.1 F 79 16 157/87 H 98 01/10/18 03:56 97 Most Recent Monitor Data Heart Rate from ECG 104 NIBP 133/73 NIBP BP-Mean 97 Respiration from ECG 27 SpO2 100 I&O: 01/09/18 01/10/18 01/11/18 06:59 06:59 06:59 Intake Total 1860 1380 Output Total 600 650 Balance 1260 730 Result Diagrams: 01/10/18 04:05 01/10/18 04:05 Additional Labs: Accuchecks 01/10/18 01/09/18 01/09/18 04:51 20:33 16:12 POC Glucose 96 157 H 176 H 01/09/18 01/09/18 11:31 10:29 POC Glucose 76 68 L Phys Exam - Physical Examination Constitutional: NAD HEENT: PERRLA, moist MMs, sclera anicteric Neck: no JVD, supple Respiratory: no wheezing, no rales, no rhonchi 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 at 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 Cardiovascular: RRR, no significant murmur, no rub Gastrointestinal: soft, non-tender, no distention, positive bowel sounds suprapubic catheter+ Musculoskeletal: no edema, pulses present Lymphatic: no nodes Psychiatric: normal affect Skin: no rash, normal turgor Dx/Plan (1) UTI (urinary tract infection) due to urinary indwelling Robles catheter Code(s): T83.511A - I/I REACT D/T INDWELLING URETHRAL CATHETER, INIT; N39.0 - URINARY TRACT INFECTION, SITE NOT SPECIFIED Status: Acute Qualifiers: Indwelling urinary catheter type: cystostomy catheter (2) Sepsis Code(s): A41.9 - SEPSIS, UNSPECIFIED ORGANISM Status: Acute Qualifiers: Sepsis type: sepsis due to unspecified organism Qualified Code(s): A41.9 - Sepsis, unspecified organism (3) Hypokalemia Code(s): E87.6 - HYPOKALEMIA Status: Resolved (4) Hypotension Status: Resolved (5) Lactic acidosis Code(s): E87.2 - ACIDOSIS Status: Resolved (6) Anxiety and depression Code(s): F41.8 - OTHER SPECIFIED ANXIETY DISORDERS Status: Chronic (7) Chronic low back pain Code(s): M54.5 - LOW BACK PAIN; G89.29 - OTHER CHRONIC PAIN Status: Chronic Comment: (8) Dyslipidemia Code(s): E78.5 - HYPERLIPIDEMIA, UNSPECIFIED Status: Chronic (9) GERD (gastroesophageal reflux disease) Code(s): K21.9 - GASTRO-ESOPHAGEAL REFLUX DISEASE WITHOUT ESOPHAGITIS Status: Chronic (10) HTN (hypertension) Code(s): I10 - ESSENTIAL (PRIMARY) HYPERTENSION Status: Chronic (11) History of pulmonary embolism Code(s): Z86.711 - PERSONAL HISTORY OF PULMONARY EMBOLISM Status: Chronic (12) Lupus (systemic lupus erythematosus) Code(s): M32.9 - SYSTEMIC LUPUS ERYTHEMATOSUS, UNSPECIFIED Status: Chronic (13) Migraine Code(s): G43.909 - MIGRAINE, UNSP, NOT INTRACTABLE, WITHOUT STATUS MIGRAINOSUS Status: Chronic (14) Multiple sclerosis Code(s): G35 - MULTIPLE SCLEROSIS Status: Chronic (15) Neurogenic bladder Code(s): N31.9 - NEUROMUSCULAR DYSFUNCTION OF BLADDER, UNSPECIFIED Status: Chronic Comment: (16) Physical deconditioning Code(s): R53.81 - OTHER MALAISE Status: Chronic (17) Protein-calorie malnutrition, moderate Code(s): E44.0 - MODERATE PROTEIN-CALORIE MALNUTRITION Status: Chronic Comment: (18) Pulmonary hypertension Code(s): I27.20 - PULMONARY HYPERTENSION, UNSPECIFIED Status: Chronic (19) Right nephrolithiasis Code(s): N20.0 - CALCULUS OF KIDNEY Status: Acute (20) Ureterolithiasis Code(s): N20.1 - CALCULUS OF URETER Status: Acute - Plan cont current plan of care, continue antibiotics * today plan for cystoscopy with possible stent placement * continue meropenam and vancomycin * as per dr levy, pt will need 2 more week iv antibiotic after discharge * medication reviewed as below * symptomatic treatment. * continue IVF * 24 hour urinary collection for calcium in progress Review of Systems - Review of Systems Eyes: negative: Pain, Vision Change, Conjunctivae Inflammation, Eyelid Inflammation, Redness, Other ENT: negative: Ear Pain, Ear Discharge, Nose Pain, Nose Discharge, Nose Congestion, Mouth Pain, Mouth Swelling, Throat Pain, Throat Swelling, Other Respiratory: negative: Cough, Dry, Shortness of Breath, Hemoptysis, SOB with Excertion, Pleuritic Pain, Sputum, Wheezing Cardiovascular: negative: chest pain, palpitations, orthopnea, paroxysmal nocturnal dyspnea, edema, light headedness, other Gastrointestinal: negative: Nausea, Vomiting, Abdominal Pain, Diarrhea, Constipation, Melena, Hematochezia, Other Genitourinary: negative: Dysuria, Frequency, Incontinence, Hematuria, Retention , Other Musculoskeletal: negative: Neck Pain, Shoulder Pain, Arm Pain, Back Pain, Hand Pain, Leg Pain, Foot Pain, Other Skin: negative: Rash, Lesions, Aníbal, Bruising, Other - Medications/Allergies Allergies/Adverse Reactions: Allergies Allergy/AdvReac Type Severity Reaction Status Date / Time Penicillins Allergy Intermediate Verified 11/22/17 14:17 fentanyl Allergy Verified 11/22/17 14:17 methadone HCl Allergy Verified 11/22/17 14:17 [From [facility]] Medications: Current Medications Acetaminophen (Tylenol) 650 mg PO Q4H PRN PRN Reason: Headache/Fever or Pain Al Hydroxide/Mg Hydroxide (Maalox) 15 ml PO Q4H PRN PRN Reason: Heartburn or Indigestion Albuterol/Ipratropium (Duoneb) 3 ml NEB QID PRN PRN Reason: Wheezing Artificial Tears (Tears Naturale) 0 drop EA EYE PRN PRN PRN Reason: Dry Eyes Betamethasone Valerate (Valisone 0.1% Cream) 1 gm TOP 5XD [facility] Last Admin: 01/10/18 08:32 Dose: 1 gm Bisacodyl (Dulcolax) 10 mg [place] DAILYPRN PRN PRN Reason: Constipation Dicyclomine HCl (Bentyl) 20 mg PO QID PRN PRN Reason: Diarrhea/Loose Stools Docusate Sodium (Colace) 100 mg PO BID [facility] Last Admin: 01/10/18 08:32 Dose: Not Given Estrogens Conjugated (Premarin) 0.3 mg PO DAILY [facility] Last Admin: 01/10/18 08:32 Dose: Not Given Famotidine (Pepcid) 20 mg PO BID [facility] Last Admin: 01/10/18 08:33 Dose: Not Given Guaifenesin (Mucinex) 600 mg PO Q12HR [facility] Last Admin: 01/10/18 08:33 Dose: Not Given Guaifenesin (Robitussin Sf) 200 mg PO Q4H PRN PRN Reason: Cough Heparin Sodium (Porcine) (Heparin) 5,000 units SC TID [facility] Last Admin: 01/10/18 08:33 Dose: Not Given Hydralazine HCl (Apresoline) 10 mg SLOW IVP Q4H PRN PRN Reason: Systolic BP > 180 Norepinephrine Bitartrate (Levophed) 250 mls @ 0 mls/hr IVPB INF [facility]; Titrate PRN Reason: Protocol Sodium Chloride (Normal Saline 0.9%) 1,000 mls @ 75 mls/hr IV .[id number] [facility] Last Admin: 01/09/18 12:55 Dose: 1,000 mls Meropenem 1 gm/ Device 50 mls @ 100 mls/hr IVPB 0400,1200,2000 [facility] Last Admin: 01/10/18 03:21 Dose: 50 mls Vancomycin HCl 1.25 gm/ Sodium (Chloride) 250 mls @ 166.667 mls/hr IVPB 2200 [facility] Last Admin: 01/09/18 22:42 Dose: 250 mls Iron/Minerals/Multivitamins (Theragran M) 1 tab PO DAILY [facility] Last Admin: 01/10/18 08:33 Dose: Not Given Lidocaine (Lidoderm 5% Patch) 1 patch TD DAILY [facility] Last Admin: 01/09/18 10:36 Dose: 1 patch Loperamide HCl (Imodium) 2 mg PO PRN PRN PRN Reason: Diarrhea/Loose Stools Loratadine (Claritin) 10 mg PO DAILY PRN PRN Reason: ALLERGIES Magnesium Hydroxide (Milk Of Magnesium) 30 ml PO DAILYPRN PRN PRN Reason: Constipation Mineral Oil/White Petrolatum (Eucerin Cream) 0 gm TOP BIDPRN PRN PRN Reason: Dry Skin Miscellaneous Medication (Pharmacy To Dose) 1 each IVPB ONE PRN PRN Reason: DOSING Stop: 02/04/18 21:31 Miscellaneous Medication (Lidocaine Patch Removal) 1 each TOP 2100 [facility] Last Admin: 01/09/18 20:43 Dose: Not Given Morphine Sulfate (Morphine) 2 mg SLOW IVP Q4H PRN PRN Reason: Moderate Pain (4-6) Last Admin: 01/09/18 17:18 Dose: 2 mg Morphine Sulfate (Ms Contin) 60 mg PO Q12HR [facility] Last Admin: 01/10/18 08:25 Dose: 60 mg Nystatin (Mycostatin Powder) 0 gm TOP BID [facility] Last Admin: 01/10/18 08:33 Dose: 1 applic Ondansetron HCl (Zofran) 4 mg IVP Q6H PRN PRN Reason: Nausea/Vomiting Last Admin: 01/08/18 11:51 Dose: 4 mg Ondansetron HCl (Zofran Odt) 4 mg PO Q6H PRN PRN Reason: Nausea/Vomiting Last Admin: 01/09/18 21:25 Dose: 4 mg Phenol (Chloraseptic [place] 180 Ml Bot) 0 ml PO PRN PRN PRN Reason: Sore Throat Prednisone (Prednisone) 10 mg PO DAILY [facility] Last Admin: 01/10/18 08:26 Dose: 10 mg Sodium Chloride ([place] Nasal [place] 0.65%) 0 ml EA NARE QIDPRN PRN PRN Reason: Nasal Congestion Sodium Chloride (Flush - Normal Saline) 10 ml IVF Q12HR [facility] Last Admin: 01/10/18 08:33 Dose: Not Given Sodium Chloride (Flush - Normal Saline) 10 ml IVF PRN PRN PRN Reason: Saline Flush Temazepam (Restoril) 15 mg PO HSPRN PRN PRN Reason: Insomnia Last Admin: 01/09/18 20:41 Dose: 15 mg Trospium (Trospium) 20 mg PO BID [facility] Last Admin: 01/10/18 08:26 Dose: 20 mg
[2018-01-10] MEDS: Morphine 4 MG/ML VIAL SLOW IVP PRN (11:07)
[2018-01-10] MEDS: Sodium Chloride 0.9% 1,000 ML IV SCH ×2 (11:16→20:31)
[2018-01-10] MEDS: Lidocaine 5% Patch TD SCH (11:29)
[2018-01-10] MEDS: Ondansetron HCl/PF 4 MG/2 ML Vial IVP PRN (12:04)
[2018-01-10] MEDS ORDERED: Lidocaine 1% PF 5 ML VIAL ONE (14:00)
[2018-01-10] MEDS ORDERED: ePHEDrine/0.9% NaCl/PF SYRINGE 50 mg/10 ml ONE (14:00)
[2018-01-10] MEDS ORDERED: PROPOFOL 200 MG/20 ML VIAL ONE (14:00)
[2018-01-10] MEDS ORDERED: Ondansetron HCl/PF 4 MG/2 ML Vial IVP SCH (15:45)
[2018-01-10] MEDS ORDERED: Iothalamate Meglumine 60% 50 ML VIAL FS ONE (15:50)
[2018-01-10] MEDS ORDERED: Fentanyl 100 MCG/2 ML VIAL ONE (15:53)
[2018-01-10] MEDS ORDERED: Morphine Sulfate 2 MG/ML SYRINGE SLOW IVP PRN (16:56)
[2018-01-10] MEDS ORDERED: Ondansetron HCl/PF 4 MG/2 ML Vial IVP PRN (16:56)
--- NOTE | 2018-01-10 18:46 | RAD ---
RETROGRADE IVP: 01/10/18 COMPARISON: None. HISTORY: Ureteral stent. FINDINGS/IMPRESSION: Two limited intraoperative fluoroscopic views of the abdomen were taken. There is a spinal stimulatio n device which is along the right aspect of the abdomen. An inferior vena cava filter was also seen w hich is to the right of midline. The first image shows contrast in the right renal collecting system. There appears to be a filling defect at the right ureteropelvic junction. A stent is seen on the sec ond image and the filling defect is not visualized. POS: FARHAN
--- NOTE | 2018-01-10 19:52 | OP ---
DATE OF PROCEDURE: 01/10/2018 SERVICE: Urology. SURGEON: Escobar Calabrese M.D. PREOPERATIVE DIAGNOSIS: Urinary retention with urosepsis and right ureteral stone. POSTOPERATIVE DIAGNOSIS: Urinary retention with urosepsis and right ureteral stone. PROCEDURE PERFORMED: Cystoscopy with right retrograde pyelogram and right ureteral stent placement. INDICATIONS FOR PROCEDURE: Mrs. Ramos is an 83-year-old white female with multiple comorbidities inc luding lupus, multiple sclerosis and interstitial lung disease with multiple urinary tract infections recently and bladder pain. She was recently hospitalized for urosepsis and was severely ill. Durin g her treatment, she was worked up with a CT and found to have a right-sided ureteral stone along wit h a renal stone. I recommended that she get a stent placement despite her improvement to avoid recur rent sepsis or repeat pyelonephritis. I have discussed risks and benefits with the family and they h ave agreed to proceed forward. DESCRIPTION OF PROCEDURE: After identification of armband and verification of consent, the patient w as brought back to the operating room where she underwent total intravenous anesthesia. She was left in the dorsal lithotomy position and prepped and draped in usual sterile fashion. After appropriate timeout, a lubricated 22-Guyanese rigid cystoscope was introduced per urethra into the bladder. The S P tube was found with the tip buried into what appeared to be either a diverticulum or minor perforat ion in the bladder wall. There was significant amount of erythema surrounding this. The SP tube was retracted and moved to another location. A 5-Guyanese Pollack catheter with a sensor wire through it was used to find the right ureteral orifice and the edema. Once this was found, the Pollack catheter was advanced into the distal ureter and the sensor wire removed. A retrograde pyelogram was perform ed, which demonstrated a minimally dilated collecting system in ureter with filling defects at the di stal and proximal ureter indicative of a ureteral stone in these locations. These are the same stone that were noted on the CT scan. The sensor wire was then advanced through the Pollack catheter up t o level of renal pelvis. The Pollack catheter was then removed and a 6 x 22 double-J stent introduce d over the sensor wire up to the level of the renal pelvis. Wire was then removed leaving a good cur l in renal pelvis and good curl in the bladder with the cystoscope in place. The SP tube was deflate d and removed. A new 22-Guyanese SP tube was brought in with only a 10 mL balloon as the prior had 15 mL. This was repositioned into a new location, so that the tip would not end up back in the same hol e where the previous irritation was. The cystoscope was then removed and the SP tube hooked up to gr avity drainage. The patient was then taken out of lithotomy, awakened and taken to PACU for recovery in stable condition. COMPLICATIONS: None. ESTIMATED BLOOD LOSS: Minimal. RETAINED TUBES AND DRAINS: The 22-Guyanese SP tube with 10 mL of water in the balloon and a 6 x 22 petey ble-J stent on the right. SPECIMENS: None. DISPOSITION: The patient will be sent back to the Medicine Service as an inpatient. Once she is med ically cleared, she can be discharged and we will plan for ureteroscopy in approximately 2-[address] treatment of her sepsis.
[2018-01-10] MEDS: Lidocaine Patch Removal 1 EACH TOP SCH (20:18)
[2018-01-10] MEDS: Temazepam 15 MG CAP PO PRN (20:24)
[2018-01-10 22:25] LABS: Vancomycin, Trough 13.3 ug/mL
[2018-01-10] MEDS: Vancomycin HCl 1.25 GM in Sodium Chloride 0.9% 250 ML 250 ML IVPB SCH (23:09)
[2018-01-11] MEDS: MEROPENEM 1 GM/50 ML 1 GM in Premix Bag 1 BAG IVPB SCH ×2 (04:22→12:26)
[2018-01-11 05:33] LABS: #Eosinphils 0.2 thou/uL (0.0-0.7); #Lymphocytes 1.7 thou/uL (1.20-3.40); #Monocytes 0.6 thou/uL (0.11-0.59); %Basophils 0.5 % (0.0-1.0); %Eosinophils 2.7 % (0.0-10.0); %Lymphocytes 22.7 % (21.0-51.0); %Monocytes 7.7 % (0.0-10.0); %Neutrophils 66.4 % (42.0-75.0); Hemoglobin 10.2 g/dL (12.0-16.0); Mean Corpuscular HGB CONC 33.4 g/dL (32.0-36.0); Mean Corpuscular Volume 92.9 fl (81.0-99.0); Mean Platelet Volume 6.3 fL (7.4-10.4); Platelet Count 340 thou/uL (130-400); RBC Distribution Width 12.9 % (11.5-14.5); Red Blood Cell (RBC) Count 3.28 mill/uL (4.20-5.40); White Blood Cell (WBC) Count 7.6 thou/uL (4.8-10.8)
[2018-01-11 05:39] LABS: Anion Gap 7 mmol/L (10-20); BUN (Urea Nitrogen) 7 mg/dL (9.8-20.1); Calc. Creatinine Clearance 74 mL/min (70-130); Calcium 8.3 mg/dL (7.8-10.44); Carbon Dioxide 27 mmol/L (23-31); Chloride 109 mmol/L (98-107); Estimated GFR-MDRD Greater than 90; Glucose 77 mg/dL (83-110); Potassium 3.6 mmol/L (3.5-5.1); Sodium 139 mmol/L (136-145)
[2018-01-11] MEDS: Docusate 100 MG CAP PO SCH (09:26)
[2018-01-11] MEDS: Betamethasone 0.1% Cream 45 GM TUBE TOP SCH ×3 (09:26→15:07)
[2018-01-11] MEDS: Estrogens, Conjugated 0.3 MG TAB PO SCH (09:27)
[2018-01-11] MEDS: Lidocaine 5% Patch TD SCH (09:27)
[2018-01-11] MEDS: TROSPIUM 20 MG TABLET PO SCH (09:28)
[2018-01-11] MEDS: Famotidine 20 MG TAB PO SCH (09:29)
[2018-01-11] MEDS: guaiFENesin ER 600 MG TAB PO SCH (09:29)
[2018-01-11] MEDS: Sodium Chloride 0.9% 1,000 ML IV SCH (09:29)
[2018-01-11] MEDS: Nystatin Powder 15 GM BOT TOP SCH (09:31)
[2018-01-11] MEDS: predniSONE 20 MG TAB PO SCH (09:31)
[2018-01-11] MEDS: Heparin 5,000 UNITS/ML VIAL SC SCH ×2 (09:32→15:07)
[2018-01-11] MEDS: Multivitamin W/ Minerals 1 TAB PO SCH (09:32)
--- NOTE | 2018-01-11 10:02 | PDOC.PN ---
- Subjective Encounter Start Date: 01/11/18 Encounter Start Time: 07:20 Patient seen and examined. No new complaints. No overnight events - Objective Resuscitation Status: Resuscitation Status DNR:Do Not Resuscitate MAR Reviewed: Yes Vital Signs & Weight: Vital Signs (12 hours) Temp Pulse Resp BP Pulse Ox 01/11/18 08:19 97.6 F 86 18 92 L 01/11/18 07:26 97.6 F 86 18 142/83 H 92 L 01/11/18 04:00 97.9 F 92 18 123/71 92 L 01/11/18 00:15 97.8 F 95 20 115/67 95 Most Recent Monitor Data Heart Rate from ECG 104 NIBP 133/73 NIBP BP-Mean 97 Respiration from ECG 27 SpO2 100 I&O: 01/10/18 01/11/18 01/12/18 06:59 06:59 06:59 Intake Total 1380 1140 Output Total 650 900 Balance 730 240 Result Diagrams: 01/11/18 04:50 01/11/18 04:50 Additional Labs: Accuchecks 01/11/18 01/10/18 01/10/18 03:41 19:58 11:19 POC Glucose 88 122 H 94 Phys Exam - Physical Examination Constitutional: NAD HEENT: PERRLA, moist MMs, sclera anicteric Neck: no JVD, supple Respiratory: no wheezing, no rales, no rhonchi Cardiovascular: RRR, no significant murmur, no rub Gastrointestinal: soft, non-tender, no distention, positive bowel sounds suprapubic catheter+ Musculoskeletal: no edema, pulses present Psychiatric: normal affect, A&O x 3 Skin: no rash, normal turgor Dx/Plan (1) UTI (urinary tract infection) due to urinary indwelling Robles catheter Code(s): T83.511A - I/I REACT D/T INDWELLING URETHRAL CATHETER, INIT; N39.0 - URINARY TRACT INFECTION, SITE NOT SPECIFIED Status: Acute Qualifiers: Indwelling urinary catheter type: cystostomy catheter (2) Sepsis Code(s): A41.9 - SEPSIS, UNSPECIFIED ORGANISM Status: Acute Qualifiers: Sepsis type: sepsis due to unspecified organism Qualified Code(s): A41.9 - Sepsis, unspecified organism (3) Hypokalemia Code(s): E87.6 - HYPOKALEMIA Status: Resolved (4) Hypotension Status: Resolved (5) Lactic acidosis Code(s): E87.2 - ACIDOSIS Status: Resolved (6) Anxiety and depression Code(s): F41.8 - OTHER SPECIFIED ANXIETY DISORDERS Status: Chronic (7) Chronic low back pain Code(s): M54.5 - LOW BACK PAIN; G89.29 - OTHER CHRONIC PAIN Status: Chronic Comment: (8) Dyslipidemia Code(s): E78.5 - HYPERLIPIDEMIA, UNSPECIFIED Status: Chronic (9) GERD (gastroesophageal reflux disease) Code(s): K21.9 - GASTRO-ESOPHAGEAL REFLUX DISEASE WITHOUT ESOPHAGITIS Status: Chronic (10) HTN (hypertension) Code(s): I10 - ESSENTIAL (PRIMARY) HYPERTENSION Status: Chronic (11) History of pulmonary embolism Code(s): Z86.711 - PERSONAL HISTORY OF PULMONARY EMBOLISM Status: Chronic (12) Lupus (systemic lupus erythematosus) Code(s): M32.9 - SYSTEMIC LUPUS ERYTHEMATOSUS, UNSPECIFIED Status: Chronic (13) Migraine Code(s): G43.909 - MIGRAINE, UNSP, NOT INTRACTABLE, WITHOUT STATUS MIGRAINOSUS Status: Chronic (14) Multiple sclerosis Code(s): G35 - MULTIPLE SCLEROSIS Status: Chronic (15) Neurogenic bladder Code(s): N31.9 - NEUROMUSCULAR DYSFUNCTION OF BLADDER, UNSPECIFIED Status: Chronic Comment: (16) Physical deconditioning Code(s): R53.81 - OTHER MALAISE Status: Chronic (17) Protein-calorie malnutrition, moderate Code(s): E44.0 - MODERATE PROTEIN-CALORIE MALNUTRITION Status: Chronic Comment: (18) Pulmonary hypertension Code(s): I27.20 - PULMONARY HYPERTENSION, UNSPECIFIED Status: Chronic (19) Right nephrolithiasis Code(s): N20.0 - CALCULUS OF KIDNEY Status: Acute (20) Ureterolithiasis Code(s): N20.1 - CALCULUS OF URETER Status: Acute - Plan cont current plan of care, continue antibiotics * medication reviewed as below * symptomatic treatment * see my discharge yiny. Review of Systems - Review of Systems Eyes: negative: Pain, Vision Change, Conjunctivae Inflammation, Eyelid Inflammation, Redness, Other ENT: negative: Ear Pain, Ear Discharge, Nose Pain, Nose Discharge, Nose Congestion, Mouth Pain, Mouth Swelling, Throat Pain, Throat Swelling, Other Respiratory: negative: Cough, Dry, Shortness of Breath, Hemoptysis, SOB with Excertion, Pleuritic Pain, Sputum, Wheezing Cardiovascular: negative: chest pain, palpitations, orthopnea, paroxysmal nocturnal dyspnea, edema, light headedness, other Gastrointestinal: negative: Nausea, Vomiting, Abdominal Pain, Diarrhea, Constipation, Melena, Hematochezia, Other Genitourinary: negative: Dysuria, Frequency, Incontinence, Hematuria, Retention , Other Musculoskeletal: negative: Neck Pain, Shoulder Pain, Arm Pain, Back Pain, Hand Pain, Leg Pain, Foot Pain, Other - Medications/Allergies Allergies/Adverse Reactions: Allergies Allergy/AdvReac Type Severity Reaction Status Date / Time Penicillins Allergy Intermediate Verified 11/22/17 14:17 fentanyl Allergy Verified 11/22/17 14:17 methadone HCl Allergy Verified 11/22/17 14:17 [From [facility]] Medications: Current Medications Acetaminophen (Tylenol) 650 mg PO Q4H PRN PRN Reason: Headache/Fever or Pain Al Hydroxide/Mg Hydroxide (Maalox) 15 ml PO Q4H PRN PRN Reason: Heartburn or Indigestion Albuterol/Ipratropium (Duoneb) 3 ml NEB QID PRN PRN Reason: Wheezing Artificial Tears (Tears Naturale) 0 drop EA EYE PRN PRN PRN Reason: Dry Eyes Betamethasone Valerate (Valisone 0.1% Cream) 1 gm TOP 5XD [facility] Last Admin: 01/11/18 09:26 Dose: Not Given Bisacodyl (Dulcolax) 10 mg [place] DAILYPRN PRN PRN Reason: Constipation Dicyclomine HCl (Bentyl) 20 mg PO QID PRN PRN Reason: Diarrhea/Loose Stools Docusate Sodium (Colace) 100 mg PO BID [facility] Last Admin: 01/11/18 09:26 Dose: Not Given Estrogens Conjugated (Premarin) 0.3 mg PO DAILY [facility] Last Admin: 01/11/18 09:27 Dose: 0.3 mg Famotidine (Pepcid) 20 mg PO BID [facility] Last Admin: 01/11/18 09:29 Dose: 20 mg Guaifenesin (Mucinex) 600 mg PO Q12HR [facility] Last Admin: 01/11/18 09:29 Dose: 600 mg Guaifenesin (Robitussin Sf) 200 mg PO Q4H PRN PRN Reason: Cough Heparin Sodium (Porcine) (Heparin) 5,000 units SC TID [facility] Last Admin: 01/11/18 09:32 Dose: 5,000 units Hydralazine HCl (Apresoline) 10 mg SLOW IVP Q4H PRN PRN Reason: Systolic BP > 180 Sodium Chloride (Normal Saline 0.9%) 1,000 mls @ 75 mls/hr IV .[id number] [facility] Last Admin: 01/11/18 09:29 Dose: 1,000 mls Meropenem 1 gm/ Device 50 mls @ 100 mls/hr IVPB 0400,1200,2000 [facility] Last Admin: 01/11/18 04:22 Dose: 50 mls Vancomycin HCl 1.25 gm/ Sodium (Chloride) 250 mls @ 166.667 mls/hr IVPB 2200 [facility] Last Admin: 01/10/18 23:09 Dose: 250 mls Iron/Minerals/Multivitamins (Theragran M) 1 tab PO DAILY [facility] Last Admin: 01/11/18 09:32 Dose: 1 tab Lidocaine (Lidoderm 5% Patch) 1 patch TD DAILY [facility] Last Admin: 01/11/18 09:27 Dose: Not Given Loperamide HCl (Imodium) 2 mg PO PRN PRN PRN Reason: Diarrhea/Loose Stools Loratadine (Claritin) 10 mg PO DAILY PRN PRN Reason: ALLERGIES Magnesium Hydroxide (Milk Of Magnesium) 30 ml PO DAILYPRN PRN PRN Reason: Constipation Mineral Oil/White Petrolatum (Eucerin Cream) 0 gm TOP BIDPRN PRN PRN Reason: Dry Skin Miscellaneous Medication (Pharmacy To Dose) 1 each IVPB ONE PRN PRN Reason: DOSING Stop: 02/04/18 21:31 Miscellaneous Medication (Lidocaine Patch Removal) 1 each TOP 2100 [facility] Last Admin: 01/10/18 20:18 Dose: Not Given Morphine Sulfate (Morphine) 2 mg SLOW IVP Q4H PRN PRN Reason: Moderate Pain (4-6) Last Admin: 01/10/18 11:07 Dose: 2 mg Morphine Sulfate (Ms Contin) 60 mg PO Q12HR [facility] Last Admin: 01/11/18 09:29 Dose: 60 mg Nystatin (Mycostatin Powder) 0 gm TOP BID [facility] Last Admin: 01/11/18 09:31 Dose: 1 applic Ondansetron HCl (Zofran) 4 mg IVP Q6H PRN PRN Reason: Nausea/Vomiting Last Admin: 01/10/18 12:04 Dose: 4 mg Ondansetron HCl (Zofran Odt) 4 mg PO Q6H PRN PRN Reason: Nausea/Vomiting Last Admin: 01/09/18 21:25 Dose: 4 mg Phenol (Chloraseptic [place] 180 Ml Bot) 0 ml PO PRN PRN PRN Reason: Sore Throat Prednisone (Prednisone) 10 mg PO DAILY [facility] Last Admin: 01/11/18 09:31 Dose: 10 mg Sodium Chloride ([place] Nasal [place] 0.65%) 0 ml EA NARE QIDPRN PRN PRN Reason: Nasal Congestion Sodium Chloride (Flush - Normal Saline) 10 ml IVF Q12HR [facility] Last Admin: 01/11/18 09:29 Dose: Not Given Sodium Chloride (Flush - Normal Saline) 10 ml IVF PRN PRN PRN Reason: Saline Flush Temazepam (Restoril) 15 mg PO HSPRN PRN PRN Reason: Insomnia Last Admin: 01/10/18 20:24 Dose: 15 mg Trospium (Trospium) 20 mg PO BID [facility] Last Admin: 01/11/18 09:28 Dose: 20 mg
--- NOTE | 2018-01-11 10:04 | DIS ---
DATE OF ADMISSION: 01/05/2018 DATE OF DISCHARGE: 01/11/2018 PRIMARY CARE PHYSICIAN: Dr. Manjeet Pandey. DISCHARGE DISPOSITION: [facility] home. PRIMARY DISCHARGE DIAGNOSES: Hypophosphatemia, right nephrolithiasis, right-sided ureterolithiasis, status post stent placement, sepsis with hypotension, urinary tract infection related with suprapubic catheter, lactic acidosis resolved, hypokalemia corrected, and hypotension resolved. SECONDARY DISCHARGE DIAGNOSES: Pulmonary hypertension, moderate protein calorie malnutrition, chroni c physical deconditioning, neurogenic bladder with suprapubic catheter, multiple sclerosis, migraine headache, systemic lupus erythematosus, hypertension, history of pulmonary embolism, gastroesophageal reflux disease, dyslipidemia, chronic low back pain, chronic pain disorder, anxiety and depression PRIMARY PROCEDURE/OPERATION: Central line placement. Dr. Calabrese did cystoscopy and ureteral stent placement. RADIOLOGICAL INVESTIGATION: Renal ultrasound was unremarkable. Abdomen and pelvis CT scan showed ri ght-sided nephrolithiasis, right-sided ureteropelvic junction stone, retrograde pyelogram was perform ed. SIGNIFICANT LABORATORY DATA: WBC 7.6, hemoglobin 10.2, platelets 340. Sodium 139, potassium 3.6, BU N 7, creatinine 0.45, calcium 8.3. Urinalysis suggestive of UTI. Blood culture negative. Urine cul ture negative. DISCHARGE MEDICATIONS: Patient will continue meropenem 1 gram IV q.8 hourly for another 2 weeks. Co ntinue following medications; Bentyl 20 mg q.i.d. p.r.n., Colace 100 mg p.o. b.i.d. p.r.n., Premarin 0.3 mg p.o. daily, Pepcid 20 mg p.o. daily, Berta 180 mg p.o. daily p.r.n., fluocinonide topical ap plication as directed, Lasix 40 mg p.o. daily p.r.n. for edema, gabapentin 800 mg p.o. q.i.d., Mucine x 600 mg p.o. q.12 hourly, [place] 5 one or two tablets q.6 hourly p.r.n., DuoNeb q.i.d. p.r.n., Lidode rm patch daily, morphine extended release 60 mg p.o. b.i.d., multivitamin 1 capsule p.o. daily, Nysta tin topical application b.i.d., omeprazole 40 mg p.o. daily, MiraLax 17 grams p.o. daily, prednisone 10 mg p.o. daily, VESIcare 10 mg p.o. daily, vaginal moisturizer application as directed bedtime. CONTRAINDICATIONS: None. CODE STATUS: DNR. INPATIENT CONSULTANTS: Dr. Buchanan was consulted while in hospital who recommended to continue another 2 weeks of IV antibiotic therapy after discharge. Dr. Grissom was following while in hospital because patient was in ICU. Dr. Calabrese was consulted for nephro and ureterolithiasis, who did stent placeme nt. TEST RESULTS PENDING ON DISCHARGE: None. ALLERGIES: PENICILLIN, FENTANYL, METHADONE. DISCHARGE PLAN: Post hospital, patient will follow up with Dr[facility]jeet Pandey at [facility]. The [facility] will follow up with Dr. Guanakito Cody for further evaluation and treatment of nephro and ureter olithiasis. TEST RESULTS PENDING ON DISCHARGE: None. HOSPITAL COURSE: An 83-year-old female who was admitted by Dr. Singh. Please see her H&P for furthe r detail. The patient was admitted with urinary tract infection. She lives at [facility]. She wa s hypotensive and she was lethargic. She was admitted in CCU because she was hypotensive and she was requiring vasopressors. She had central line placed in the emergency room which was removed. Subse quently, patient's blood pressure was significantly improved with IV fluid and vasopressor support. Subsequently, this patient was transferred to medical floor. Dr. Buchanan was following while in hospit al, who did renal ultrasound which was unremarkable. Abdomen and pelvis CT scan with stone protocol consistent with a right-sided nephrolithiasis as well as ureterolithiasis. At that point, we consult ed Dr. Calabrese who did cystoscopy and stent was placed. The patient will require follow up with Dr. Calabrese for further evaluation and treatment. Dr. Buchanan recommended to continue another 2 weeks of I V antibiotic therapy. While in hospital, her blood culture and urine culture remained negative. Patient was doing very well with current medication while in hospital. The patient is medically stable for discharge today. The patient is seen and examined at bedside tosteffen lyle. PHYSICAL EXAMINATION: VITAL SIGNS: Currently, temperature 97.6, pulse 86, respiratory rate 18, saturation 92% on 2 liter o xygen, blood pressure 142/83, weight 112 pounds. GENERAL: The patient is currently alert, awake, chronically ill, no obvious acute distress. HEAD: Normocephalic, atraumatic. EYES: Pupils round, reactive to light. Extraocular muscle intact. ENT: Oropharynx within normal limits. Moist mucous membranes, no oral lesion, no pharyngeal erythem a, no exudate. NECK: Supple, no JVD, no thyromegaly, no carotid bruit. LUNGS: Clear to auscultation without any rhonchi or rales. CARDIAC: S1, S2 regular. No murmur, no gallop, no rub. ABDOMEN: Soft. Suprapubic catheter in place. EXTREMITIES: No edema. NEUROLOGIC: Neurologically patient does have paraplegia from multiple sclerosis. This patient is otherwise medically stable. While in hospital, we did 24-hour urine collection for c alcium. Patient will follow up with the primary care physician, Dr. Buchanan as well as Dr. Calabrese. T his patient has recurrent admission in our hospital for urinary tract infection and hypotension and s he is continued to be a high risk for recurrent admission given multiple comorbidities. Currently, all current acute problem resolved and nowthe patient is stable for discharge.
[2018-01-11] MEDS: Ondansetron ODT 4 MG TAB PO PRN (15:06)
[2018-01-11] MEDS: Morphine 4 MG/ML VIAL SLOW IVP PRN (15:59)
[2018-01-11 16:06] VITALS: BP 118/66; TEMP 97.4
--- NOTE | 2018-01-11 19:10 | PRG ---
DATE OF SERVICE: 01/11/2018 SUBJECTIVE: The patient had right ureteral stent placed by Dr. Calabrese. He found that the suprapubi c catheter replaced recently was causing formation of an ulcerated area in the bladder, which could b e related to the patient's pain. He replaced the suprapubic catheter. She is feeling better at this time, less pain, oriented, wants to go home. PHYSICAL EXAMINATION: LUNGS: Clear. CARDIOVASCULAR: S1, S2 with regular rate. NEUROLOGIC: No change in neurological condition. VITAL SIGNS: Normal. She is afebrile. HEENT: Ocular movements conjugate. LUNGS: Clear. HEART: S1, S2, regular rate. ABDOMEN: Soft. LABORATORY DATA: White cell count 7.6, hemoglobin 10.2, platelets 340. Sodium 139, creatinine 0.45. Microbiology unchanged. Repeat urine culture no growth. ASSESSMENT AND DISCUSSION: Multiple sclerosis in neurogenic bladder with suprapubic catheter placeme nt, nephrolithiasis related to familial position and status post stent placement. The patient to dutch wooten on meropenem until 01/25/2018 discharge planning. Hopefully, she is not going to have recurren ce now that she has a suprapubic catheter in good position and a stent in the right kidney.
== END 2018-01-11 18:22 | DRG 698 ==
LOC: ERS 13:24 → CCU 18:08 → T4-A 01-07 09:51
PROVIDERS: ADMIT Internal Medicine; ATTEND Internal Medicine
PROC: 02HV33Z Insertion of Infusion Device into Superior Vena Cava, Percutaneous Approach (ICD-10-PCS; 2018-01-05)
PROC: 0TJB8ZZ Inspection of Bladder, Via Natural or Artificial Opening Endoscopic (ICD-10-PCS; principal; 2018-01-10)
PROC: 0T768DZ Dilation of Right Ureter with Intraluminal Device, Via Natural or Artificial Opening Endoscopic (ICD-10-PCS; 2018-01-10)
DX: T83.511A Infection and inflammatory reaction due to indwelling urethral catheter, initial encounter (principal); A41.9 Sepsis, unspecified organism; R65.21 Severe sepsis with septic shock; G93.40 Encephalopathy, unspecified; E87.2 Acidosis; E44.0 Moderate protein-calorie malnutrition; N20.1 Calculus of ureter; Z68.1 Body mass index [BMI] 19.9 or less, adult; E87.6 Hypokalemia; I95.9 Hypotension, unspecified; M32.9 Systemic lupus erythematosus, unspecified; I10 Essential (primary) hypertension; K21.9 Gastro-esophageal reflux disease without esophagitis; Z66 Do not resuscitate; G35 Multiple sclerosis; N31.9 Neuromuscular dysfunction of bladder, unspecified; Z51.5 Encounter for palliative care; Z86.711 Personal history of pulmonary embolism; Z79.899 Other long term (current) drug therapy; Z79.891 Long term (current) use of opiate analgesic; Z88.0 Allergy status to penicillin; Z88.5 Allergy status to narcotic agent; T83.098A Other mechanical complication of other urinary catheter, initial encounter; J44.9 Chronic obstructive pulmonary disease, unspecified; I27.20 Pulmonary hypertension, unspecified; E83.39 Other disorders of phosphorus metabolism; N20.0 Calculus of kidney; E78.5 Hyperlipidemia, unspecified; G89.29 Other chronic pain; M54.9 Dorsalgia, unspecified; K58.9 Irritable bowel syndrome, unspecified; Z86.73 Personal history of transient ischemic attack (TIA), and cerebral infarction without residual deficits
CPT/HCPCS: 36415; 36416; 36556; 71045; 74176; 74420; 76770; 80048; 80053; 80202; 81003; 81015; 82340; 82553; 83605; 83735; 83970; 84100; 84484; 85025; 87040; 87086; 93005; 94760; 96361; 96365; 99292; A4216; C1758; C1769; G8978-GP-CN; G8979-GP-CK; J1644; J2001; J2185; J2270; J2405; J2704; J3010; J3370; J3480; J7050; J7070; J7506; Q0162; Q9961

== ENCOUNTER 2018-02-09 09:47 | Outpatient (CLI) | payer MEDICARE, OTHER ==
[2018-02-09 12:38] LABS: Hemoglobin 11.7 g/dL (12.0-16.0); Mean Corpuscular HGB CONC 32.4 g/dL (32.0-36.0); Mean Corpuscular Volume 92.7 fl (81.0-99.0); Platelet Count 235 thou/uL (130-400); RBC Distribution Width 13.5 % (11.5-14.5); Red Blood Cell (RBC) Count 3.89 mill/uL (4.20-5.40); White Blood Cell (WBC) Count 9.4 thou/uL (4.8-10.8)
[2018-02-09 12:40] LABS: Bilirubin Negative (Negative); Blood, Urine Moderate (Negative); Clarity CLOUDY (Clear); Glucose, Urine (Dipstick) Negative (Negative); Leukocyte Large (Negative); Nitrite Negative (Negative); Protein, Urine (Dipstick) Trace mg/dL (Neg-Trace); Specific Gravity, Urine 1.014 (1.002-1.036)
[2018-02-09 12:43] LABS: Hyaline Casts/LPF 7-10 HYALINE CAST LPF (0-3 Hyaline); WBC/HPF 21-50 HPF (0-3)
[2018-02-09 12:45] LABS: INR-International Normal Ratio 1.1; Yeast-AUWi Flag 1812.6 (0-25.0)
[2018-02-09 12:46] LABS: Anion Gap 13 mmol/L (10-20); BUN (Urea Nitrogen) 10 mg/dL (9.8-20.1); Calc. Creatinine Clearance 0 mL/min (70-130); Carbon Dioxide 27 mmol/L (23-31); Chloride 102 mmol/L (98-107); Estimated GFR-MDRD Greater than 90; Glucose 69 mg/dL (83-110); PTT 31.2 SEC (22.9-36.1); Pathc Cast-AUWi Flag 2.76 (0-2.49); Potassium 3.5 mmol/L (3.5-5.1); Sodium 138 mmol/L (136-145)
[2018-02-09 13:05] LABS: Bacteria/HPF 1+ HPF (None Seen); RBC/HPF 0-3 HPF (0-3)
[2018-02-09 13:06] LABS: Crystals/HPF None Seen HPF (Negative); Manual Microscopic Reviewed? No Path Casts Seen; Renal Epithelial None Seen HPF (0-3); Transitional Epithelial NONE SEEN HPF (0-3); Yeast-All Forms 2+ HPF (None Seen)
== END 2018-02-09 09:48 | disposition home or self-care (01) ==
LOC: LABBT 09:47
PROVIDERS: ATTEND Urology
DX: Z01.818 Encounter for other preprocedural examination (principal); N20.2 Calculus of kidney with calculus of ureter
CPT/HCPCS: 80048; 81001; 85027; 85610; 85730; 87086; 93005; 93010

== ENCOUNTER → 2018-02-16 | Day surgery (SDC) | payer MEDICARE, OTHER ==
[2018-02-09 10:03] VITALS: BMI 19.5
[~2018-02-16] MED LIST changes: +Fentanyl 100 MCG/2 ML VIAL ONE; +Fluconazole In NaCl,Iso-Osm 200 MG in Premix Bag 1 BAG IVPB SCH; +HYDROcodone/Acetaminophen 5/325 mg Tablet ONE; -ISOVUE-370 76%-LOCM 1 ML ONE; +Iothalamate Meglumine 60% 50 ML VIAL FS ONE; +Levofloxacin 500 mg/D5W 100 ml Premix Bag ONE; +Lidocaine 1% PF 5 ML VIAL ONE; +Ondansetron HCl/PF 4 MG/2 ML Vial ONE; +PROPOFOL 200 MG/20 ML VIAL ONE
--- NOTE | 2018-02-16 13:20 | OP ---
DATE OF PROCEDURE: 02/16/2018 SERVICE: Urology SURGEON: Escobar Calabrese M.D. PREOPERATIVE DIAGNOSES: 1. Right ureteral renal stone. 2. Neurogenic bladder. POSTOPERATIVE DIAGNOSES: 1. Right ureteral renal stone. 2. Neurogenic bladder. PROCEDURE PERFORMED: Right ureteroscopy, laser lithotripsy, basket extraction of stone, and replacem ent of a 6 x 24 double-J stent. SP tube change, simple. INDICATIONS FOR PROCEDURE: Mrs. Ramos is an 83-year-old white female with MS and a neurogenic bladde r with SP tube who initially presented to the hospital with sepsis and a ureteral stone. She underwe nt emergent stenting at that time and has since been treated with antibiotics. She is now coming [facility] for a definitive ureteroscopy. Preoperative urine culture demonstrated just yeast and she is being covered with Diflucan for this. Risks and benefits have been discussed and she and her family have agreed to proceed forward. DESCRIPTION OF PROCEDURE: After identification of armband and verification of consent, the patient w as brought back to the operating room, she was given general anesthesia with LMA. She was placed in dorsal lithotomy position and prepped and draped in usual sterile fashion. After appropriate timeout , a lubricated 22 Hungarian rigid cystoscope was introduced per urethra into the bladder. Attention was turned to the right ureteral orifice in which there was a stent emanating. The SP tube could also b e seen in good location in the bladder. This was left to gravity drainage throughout the case to vida t the bladder. The stent was grasped with flexible graspers and brought out to the level of the uret hral meatus. A 0.035 sensor wire was advanced through the ureteral stent at the level of the renal p fabian. The stent was then removed and discarded. The sensor wire to affixed to the drapes as a safe ty wire. A semi rigid ureteroscope was then brought through the meatus and alongside the sensor wire into the distal ureter where the distal 4 mm stone was encountered. A 1.9 [place] 0 tip nitinol bask et was used to grasp the stone and bring it out for stone extraction. The semi-rigid ureteroscope wa s then used to navigate the tortuous ureter all the way up to the level of the renal pelvis. Using t he assistance of an Amplatz Super Stiff wire which was left in place in the renal pelvis, the uretero scope was then withdrawn all the way back out and a 13/15 x 28 cm ureteral access sheath was advanced over the Super Stiff wire up to the level of the proximal ureter. The inner cannula and the Super S tiff wire were then removed and the outer sheath and sensor wire in place as a safety wire. A flexib le digital ureteroscope was then passed through the ureteral access sheath into the renal pelvis. An approximately 7-9 mm stone was seen in the renal pelvis, which was fragmented using a 200 micron las er fiber into 2 pieces. All the calyxes contained some amount of stone, some less and some more. Th e bigger stones were lasered into smaller pieces and then the same 1.9 [place] 0 tip nitinol basket wa s used to grasp all pieces that were over 1 mm in size for extraction. Upon final pyeloscopy there d id not appear to be any stone fragments left that were over a mm in size. Satisfied that all the sto ne fragments had been removed, a pullback ureteroscopy was employed and no other additional stones we re found within the ureter. The ureteroscope and the ureteral access sheath were then removed and th e cystoscope was backloaded over the sensor wire back into the bladder. A 6 x 24 double-J stent was advanced over the sensor wire to the level of the renal pelvis. The wire was then removed leaving a good curl in the renal pelvis and good curl in the bladder. The cystoscope was then removed. The SP tube was then removed and a new sterile 22-Hungarian SP tube was placed into the bladder with 10 mL of sterile water into the balloon and hooked up to gravity drainage. The patient was then awakened and taken to PACU for recovery in stable condition. COMPLICATIONS: None. ESTIMATED BLOOD LOSS: Minimal. RETAINED TUBES AND DRAINS: A 22-Hungarian SP tube. SPECIMENS: Stone for stone analysis. DISPOSITION: The patient will be discharged home and follow up with me in approximately 1-2 weeks fo r stent removal.
== END ==
LOC: SDC 08:04
PROVIDERS: ATTEND Urology
PROC: 0T768DZ Dilation of Right Ureter with Intraluminal Device, Via Natural or Artificial Opening Endoscopic (ICD-10-PCS; principal; 2018-02-16)
PROC: 0TC38ZZ Extirpation of Matter from Right Kidney Pelvis, Via Natural or Artificial Opening Endoscopic (ICD-10-PCS; 2018-02-16)
PROC: 0TC68ZZ Extirpation of Matter from Right Ureter, Via Natural or Artificial Opening Endoscopic (ICD-10-PCS; 2018-02-16)
DX: N20.2 Calculus of kidney with calculus of ureter (principal); N31.9 Neuromuscular dysfunction of bladder, unspecified; G35 Multiple sclerosis; G89.29 Other chronic pain; Z98.890 Other specified postprocedural states; Z88.0 Allergy status to penicillin; Z88.8 Allergy status to other drugs, medicaments and biological substances; Z88.1 Allergy status to other antibiotic agents
CPT/HCPCS: 52356; 74420; 82365; 88300; 96374; C1769; J1450; J1956; J2001; J2405; J2704; J3010; Q9961

== ENCOUNTER 2018-02-17 13:51 | Inpatient (IN) | payer MEDICARE, OTHER ==
[2018-02-17 14:41] LABS: Bilirubin Negative (Negative); Blood, Urine Large (Negative); Clarity CLEAR (Clear); Glucose, Urine (Dipstick) Negative (Negative); Leukocyte Moderate (Negative); Nitrite Negative (Negative); Protein, Urine (Dipstick) Negative (Neg-Trace); Specific Gravity, Urine 1.011 (1.002-1.036); Urobilinogen 0.2 mg/dL (0.2-1.0); pH, Urine 6.5 (5.0-9.0)
[2018-02-17 14:43] LABS: Bacteria/HPF None Seen HPF (None Seen); Hyaline Casts/LPF 4-6 HYALINE CAST LPF (0-3 Hyaline); Pathc Cast-AUWi Flag 1.01 (0-2.49); RBC/HPF GREATER THAN 50-TNTC HPF (0-3); Squamous Epithelial 0-3 HPF (0-3); WBC/HPF 21-50 HPF (0-3)
[2018-02-17 14:44] LABS: #Lymphocytes 0.5 thou/uL (1.20-3.40); #Monocytes 0.2 thou/uL (0.11-0.59); #Neutrophils 6.8 thou/uL (1.40-6.50); %Eosinophils 0.1 % (0.0-10.0); %Lymphocytes 7.1 % (21.0-51.0); %Neutrophils 90.8 % (42.0-75.0); Hemoglobin 13.1 g/dL (12.0-16.0); Mean Corpuscular HGB CONC 33.3 g/dL (32.0-36.0); Mean Platelet Volume 6.5 fL (7.4-10.4); Platelet Count 220 thou/uL (130-400); RBC Distribution Width 13.3 % (11.5-14.5); Red Blood Cell (RBC) Count 4.37 mill/uL (4.20-5.40); White Blood Cell (WBC) Count 7.4 thou/uL (4.8-10.8)
[2018-02-17] MEDS ORDERED: Acetaminophen 325 MG TAB ONE (14:47)
--- NOTE | 2018-02-17 14:53 | RAD ---
PORTABLE CHEST 1 VIEW: DATE: 02/17/18. TIME: 2:22 p.m. HISTORY: Cough. FINDINGS: Comparison is made with the exam of 01/04/18. Left upper extremity PICC line remains in place. The heart size is normal. Chronic changes in the l megan diez are again noted. Prominent interstitial markings in the lung diez are again noted. No lobar consolidation, pneumothorax, or large effusions. There is continued elevation of the right hem idiaphragm. Dorsal column stimulator in the thoracic spine again seen. POS: H
[2018-02-17 15:07] LABS: ALT (SGPT) 14 U/L (8-55); AST (SGOT) 22 U/L (5-34); Albumin 2.8 g/dL (3.4-4.8); Alkaline Phosphatase 70 U/L (40-150); Anion Gap 15 mmol/L (10-20); BUN (Urea Nitrogen) 10 mg/dL (9.8-20.1); Bilirubin, Total 0.5 mg/dL (0.2-1.2); Calc. Creatinine Clearance 0 mL/min (70-130); Calcium 8.6 mg/dL (7.8-10.44); Carbon Dioxide 18 mmol/L (23-31); Chloride 107 mmol/L (98-107); Estimated GFR-MDRD 85; Globulin 3.4 g/dL (2.4-3.5); Glucose 118 mg/dL (83-110); Potassium 3.1 mmol/L (3.5-5.1); Protein, Total 6.2 g/dL (6.0-8.3); Sodium 137 mmol/L (136-145)
[2018-02-17] MEDS ORDERED: cefTRIAXone\\ROCEPHIN 2 GM VIAL ONE (16:08)
[2018-02-17] MEDS ORDERED: Linezolid 600 MG in Premix Bag 1 BAG IVPB SCH (16:30)
[2018-02-17] MEDS ORDERED: Meropenem 1 GM in Sodium Chloride 0.9% 100 ML IVPB SCH (16:30)
[2018-02-17] MEDS ORDERED: Hydrocortisone Sod Succ/PF 100 mg/2 ml Vial ONE (18:37)
[2018-02-17] MEDS ORDERED: Betamethasone Val 0.1% OINT 15 GM TUBE TOP SCH (20:00)
[2018-02-17] MEDS ORDERED: Fluocinonide 0.05% Ointment 15 gm Tube TOP SCH (20:00)
[2018-02-17] MEDS: Sodium Chloride 0.9% 1,000 ML IV SCH (20:32)
[2018-02-17] MEDS: Famotidine 20 MG TAB PO SCH (20:47)
[2018-02-17] MEDS: Docusate 100 MG CAP PO SCH (20:47)
[2018-02-17] MEDS: Heparin 5,000 UNITS/ML VIAL SC SCH (20:47)
[2018-02-17] MEDS ORDERED: TROSPIUM 20 MG TABLET PO SCH (21:00)
[2018-02-17] MEDS: Nystatin Powder 15 GM BOT TOP SCH (22:13)
[2018-02-17] MEDS: Hydrocortisone Sod Succ/PF 100 mg/2 ml Vial IVP SCH (22:20)
[2018-02-18] MEDS: Betamethasone 0.1% Cream 15 GM TUBE TOP SCH ×6 (00:43→23:43)
[2018-02-18] MEDS: Sodium Chloride 0.9% 1,000 ML IV SCH ×2 (00:44→19:07)
[2018-02-18] MEDS: Meropenem 1 GM in Sodium Chloride 0.9% 100 ML IVPB SCH ×2 (02:37→11:01)
--- NOTE | 2018-02-18 04:45 | HP ---
CHIEF COMPLAINT: Fever, decreased mentation. HISTORY OF PRESENT ILLNESS: Patient is a very pleasant 83-year-old female who presents to the [facility] for altered mental status. The patient is a custodial resident. Patient's daughters at the [facility] stated that patient does have a history of multiple sclerosis. She is currently not on any enriqueta atment. Patient does have a history of neurogenic bladder and was put on a suprapubic catheter a few months back. Patient was recently discharged from the hospital on 01/11 for UTI sepsis. Patient at this time also had nephrolithiasis and had a stent placed on the right side. The patient was also s ent home with some IV antibiotics via PICC line. The patient yesterday had right ureteral stone jeniffer fareed and had a stent placed on the right side again. Her old stent was removed. Patient's daughter s tated that she was doing well; however, this morning she appeared to be more lethargic and also had a fever of 101, which concerned the custodial staff which brought her to the hospital for further e valuation. Patient currently is awake, appears drowsy, however, easily arousable. PAST MEDICAL HISTORY: 1. She has a history of multiple sclerosis. 2. Frequent UTIs. 3. History of nephrolithiasis. 4. History of PE, status post IVC filter. 5. Pulmonary hypertension. 6. She has a neurogenic bladder. 7. She has had a history of C. diff colitis. PAST SURGICAL HISTORY: She had a status post hysterectomy, tonsillectomy, cholecystectomy. She has got a spinal stimulator placed that is not currently working and she also has an IVC filter and she h as had stents placed in her ureters. HOME MEDICATIONS: She takes prednisone 10 mg daily. She takes VESIcare 10 mg daily. She takes pota ssium chloride 20 mEq twice a day. She takes MiraLax 17 grams daily, omeprazole 40 mg daily, nystati n powder twice a day, multivitamin 1 daily, morphine extended release 60 mg twice a day, Lidoderm pat ch to her shoulder once a day, DuoNeb q.i.d. p.r.n., hydrocodone and Tylenol 5 mg/325 1-2 tabs q.6 ho urs p.r.n., gabapentin 800 mg q.i.d., furosemide 40 mg daily, also fexofenadine 180 mg p.o. p.r.n., P epcid 20 mg daily, estrogen 1 tab daily, Colace 100 mg daily, Bentyl 20 mg q.i.d. p.r.n., calcium car bonate 700 mg p.o. q.4 hours p.r.n. ALLERGIES: She is allergic to PENICILLIN, unknown reaction. FENTANYL and METHADONE, unknown reactio n. FAMILY HISTORY: No significant family history noted for urinary infections or other infectious issue s. SOCIAL HISTORY: She denies any alcohol, tobacco, or drug use. She lives in a custodial. The pat hesham's code status currently is a DNR. REVIEW OF SYSTEMS: All negative except for the ones mentioned above in the HPI. PHYSICAL EXAMINATION: VITAL SIGNS: Temperature of 97.4, heart rate of 104, 18, 96% on room air. She is 118/66. GENERAL: She is awake, alert, oriented x3; however, appears to be drowsy. HEENT: Normocephalic, atraumatic. NECK: No lymphadenopathy. Mucous membranes are intact. CARDIOVASCULAR: S1, S2 present. No murmurs, rubs, or gallops. LUNGS: Clear to auscultation. No rhonchi or wheezes noted. ABDOMEN: Soft. Bowel sounds are present x2. She does have a suprapubic catheter that appears intac t. No redness noted. Also, she does have a spinal stimulator on her right lower quadrant. No redne ss or erythema or pain upon palpating around the area. EXTREMITIES: She has got no edema. Pedal pulses are present x2. SKIN: No skin breakdown noted. NEUROLOGIC: She is able to move bilateral upper extremities and bilateral lower extremities. LABORATORY RESULTS: As the following; WBCs of 7.4, hemoglobin of 13.1, hematocrit of 39.3, platelets of 220,000. She does not have any bands. She does have her chemistry indicates a sodium of 137, po tassium of 3.1, bicarbonate of 18, BUN of 10, creatinine of 0.66, sugar is 118. Her LFTs are normal and her urine appeared to have just a large blood and moderate leukocyte esterase with no epithelial cells and she had WBCs that were 21-50. ASSESSMENT AND PLAN: The patient is a very pleasant 83-year-old female with a history of frequent ur inary tract infections who presents to the hospital with fever and urinary tract infection. 1. Patient white count; however, she had a temperature of 101. Also, she is hypotensive in th e ER and her mentation is altered compared to her baseline. At this time, we will start patient on Z yvox and meropenem due to concerns for Enterococcus and multiple resistance given her frequent urinar y tract infections. Patient recently had a stent placed and I will also consult Infectious Disease a nd also Urology. The patient is chronically on 10 mg of prednisone. We will give her stress dose So sesar-Cortef 50 mg every 8 hours. She also has been resuscitated with 2 liters of normal saline. We wi ll start normal saline 100 mL an hour. We will restart most of her home medications; however, will h old blood pressure and diuretics for now. Her urine culture is still pending. 2. History of multiple sclerosis. She is currently not on any therapy per daughter. 3. History of deep venous thrombosis. She has an IVC filter. 4. Urinary tract infection, the patient has suprapubic catheter and we will also get Urology on boar d. We will treat again with broad spectrum antibiotics and will continue to monitor. 5. Chronic pain. The patient is on a lot of pain medication. We will hold her pain medications sin ce the patient appears to be very drowsy; however, hesitate to restart once patient is more angelito ke, given the concerns for withdrawal. 6. Deep venous thrombosis prophylaxis. We will put the patient on subcu heparin. The patient is a DNR, which was confirmed by her daughter.
[2018-02-18] MEDS: Hydrocortisone Sod Succ/PF 100 mg/2 ml Vial IVP SCH ×3 (06:11→23:41)
[2018-02-18] MEDS: Linezolid 600 MG in Premix Bag 1 BAG IVPB SCH ×2 (06:11→17:03)
[2018-02-18] MEDS ORDERED: Loratadine 10 MG TAB PO PRN (09:00)
[2018-02-18] MEDS ORDERED: Lidocaine Patch Removal 1 EACH TOP SCH (09:00)
[2018-02-18] MEDS: Docusate 100 MG CAP PO SCH ×2 (09:40→20:31)
[2018-02-18] MEDS: Heparin 5,000 UNITS/ML VIAL SC SCH ×3 (09:41→20:08)
[2018-02-18] MEDS: Nystatin Powder 15 GM BOT TOP SCH ×2 (09:41→20:09)
[2018-02-18] MEDS: Magnesium Oxide 400 MG TAB PO SCH (09:41)
[2018-02-18] MEDS: Polyethylene Glycol 3350 17 GM Packet PO SCH (09:41)
[2018-02-18] MEDS ORDERED: Guaifenesin DM 100-10/5 ML UDCUP PO PRN (11:24)
--- NOTE | 2018-02-18 13:16 | CON ---
DATE OF CONSULTATION: 02/18/2018 CONSULTING PHYSICIAN: Hospitalist group. REASON FOR CONSULTATION: IMCU management. HISTORY OF PRESENT ILLNESS: Ms. Ramos is a pleasant 83-year-old female, who was brought in the hospital last night with altered mental status secondary to urinary tract infection. Apparently, she had removal of a kidney stone back on . She was sent home with IV antibiotics and a PICC line. She feels a little better this morning. She is complaining of cough and dry mouth. PAST MEDICAL HISTORY: 1. Multiple sclerosis. 2. Urinary tract infections. 3. Nephrolithiasis. 4. Pulmonary embolism. 5. Pulmonary hypertension. 6. Neurogenic bladder. 7. Clostridium difficile colitis. PAST SURGICAL HISTORY: 1. Hysterectomy. 2. Tonsillectomy. 3. Cholecystectomy. 4. Spinal stimulator. 5. IVC filter. 6. Recent surgery for kidney stones. MEDICATIONS: Prior to admission, prednisone 10 mg daily, VESIcare 10 mg daily, potassium chloride 20 mEq twice daily, MiraLax 17 grams daily, Lidoderm patch daily, DuoNeb every 4 hours as needed, hydrocodone, gabapentin 80 mg 4 times daily, furosemide 40 mg daily, fexofenadine 180 mg daily, Pepcid 20 mg daily, aspirin 1 tablet daily, Bentyl 20 mg 4 times daily as needed, and calcium carbonate 700 mg daily. ALLERGIES: PENICILLIN, FENTANYL, and METHADONE. FAMILY MEDICAL HISTORY: Remarkable for urinary tract infections. SOCIAL HISTORY: Nonsmoker, does not consume alcohol, does not use illicit drugs. Currently, lives at [facility]. REVIEW OF SYSTEMS: Remarkable for severe neurologic weakness, neurogenic bladder, dry mouth. Otherwise, 12-point review of systems negative. PHYSICAL EXAMINATION: VITAL SIGNS: Temperature 97.6, pulse 57, respirations 17, O2 sat 100% on 2 liters, and blood pressure 129/59. GENERAL: She is awake and in no distress. HEENT: She has some excoriation of the end of her tongue. NECK: Without adenopathy or JVD. LUNGS: Clear without wheezing or rhonchi. CARDIAC: S1 and S2, regular. ABDOMEN: Soft, nontender, nondistended. Suprapubic catheter noted. EXTREMITIES: No clubbing, cyanosis, or edema. LABORATORY AND X-RAY FINDINGS: White blood cell count 7.4, hematocrit 39.3, platelet count 220. Sodium 137, potassium 3.1, chloride 107, CO2 of 18, BUN 10 , creatinine 0.6, glucose 119. Urinalysis showed too numerous to count white blood cells. Last urine culture from the 7th demonstrated yeast. ASSESSMENT: 1. Urosepsis. 2. Cough. 3. Multiple sclerosis. 4. Neurogenic bladder. PLAN: 1. Agree with Zyvox and meropenem. Dr. Buchanan is being consulted for antibiotic assistance. 2. We would rapidly wean her steroids back down to baseline. 3. Consider adding antifungal agent such as Diflucan. 4. Antitussive medication as needed. The above encompassed 70 minutes time of it greater than 50% of the time was spent with the patient and/or the patient's unit in the hospital [facility]
[2018-02-18] MEDS ORDERED: Melatonin 3 MG TAB PO PRN (14:52)
[2018-02-18] MEDS: Gabapentin 400 MG CAP PO SCH ×2 (17:02→20:08)
[2018-02-18] MEDS: MEROPENEM 1 GM/50 ML 1 GM in Premix Bag 1 BAG IVPB SCH (17:03)
[2018-02-18] MEDS ORDERED: Lidocaine Viscous Sol 2% 15 ml UD Cup SSP PRN (17:30)
--- NOTE | 2018-02-18 19:11 | PDOC.PN ---
- Subjective Encounter Start Date: 02/18/18 Encounter Start Time: 12:30 Subjective: pt up in bed feels well today - Objective Resuscitation Status: Resuscitation Status DNR:Do Not Resuscitate Vital Signs & Weight: Vital Signs (12 hours) Temp Pulse Resp BP Pulse Ox 02/18/18 17:21 84 18 02/18/18 15:27 98.0 F 69 18 137/54 L 100 02/18/18 11:37 97.5 F L 60 19 120/66 100 02/18/18 08:00 97.6 F 57 L 17 100 02/18/18 07:31 97.6 F 57 L 17 129/59 L 100 Weight Weight 121 lb I&O: 02/17/18 02/18/18 02/19/18 06:59 06:59 06:59 Intake Total 1650 Output Total 850 Balance 800 Result Diagrams: 02/17/18 14:34 02/17/18 14:34 Phys Exam - Physical Examination HEENT: PERRLA, moist MMs, sclera anicteric, TM's clear, oral pharynx no lesions , 2+ tonsils Neck: no nodes, no JVD, supple, full ROM Respiratory: no wheezing, no rales, no rhonchi, wheezing present, clear to auscultation bilateral Cardiovascular: RRR, no significant murmur, no rub, gallop, irregular Gastrointestinal: soft, non-tender, no distention, positive bowel sounds Musculoskeletal: no edema, pulses present, edema present Dx/Plan (1) Sepsis Code(s): A41.9 - SEPSIS, UNSPECIFIED ORGANISM Status: Acute (2) UTI (urinary tract infection) due to urinary indwelling Robles catheter Code(s): T83.511A - I/I REACT D/T INDWELLING URETHRAL CATHETER, INIT; N39.0 - URINARY TRACT INFECTION, SITE NOT SPECIFIED Status: Acute (3) Chronic low back pain Code(s): M54.5 - LOW BACK PAIN; G89.29 - OTHER CHRONIC PAIN Status: Chronic Comment: (4) Multiple sclerosis Code(s): G35 - MULTIPLE SCLEROSIS Status: Chronic - Plan * . pt on broad spectrum abx doing well will start pt on her pain meds to avoid withdrawal pt has been coughing ? pneumonia but cxr no indicated on pna pt s/p stent to her right ureter pt is not on any meds for her MS Review of Systems - Review of Systems ENT: negative: Ear Pain, Ear Discharge, Nose Pain, Nose Discharge, Nose Congestion, Mouth Pain, Mouth Swelling, Throat Pain, Throat Swelling, Other Respiratory: negative: Cough, Dry, Shortness of Breath, Hemoptysis, SOB with Excertion, Pleuritic Pain, Sputum, Wheezing Cardiovascular: negative: chest pain, palpitations, orthopnea, paroxysmal nocturnal dyspnea, edema, light headedness, other Gastrointestinal: negative: Nausea, Vomiting, Abdominal Pain, Diarrhea, Constipation, Melena, Hematochezia, Other - Medications/Allergies Allergies/Adverse Reactions: Allergies Allergy/AdvReac Type Severity Reaction Status Date / Time Penicillins Allergy Intermediate Verified 02/17/18 21:07 fentanyl Allergy Verified 02/17/18 21:07 methadone HCl Allergy Verified 02/17/18 21:07 [From [facility]] Medications: Current Medications Albuterol/Ipratropium (Duoneb) 3 ml NEB QID PRN PRN Reason: Wheezing Last Admin: 02/18/18 17:21 Dose: 3 ml Betamethasone Valerate (Valisone 0.1% Cream) 0 gm TOP 5XD [facility] Last Admin: 02/18/18 17:04 Dose: 1 applic Docusate Sodium (Colace) 100 mg PO BID [facility] Last Admin: 02/18/18 09:40 Dose: Not Given Famotidine (Pepcid) 20 mg PO 2100 [facility] Last Admin: 02/17/18 20:47 Dose: 20 mg Gabapentin (Neurontin) 800 mg PO QID [facility] Last Admin: 02/18/18 17:02 Dose: 800 mg Guaifenesin/Dextromethorphan (Robitussin Dm) 10 ml PO Q6H PRN PRN Reason: Cough Last Admin: 02/18/18 17:02 Dose: 10 ml Heparin Sodium (Porcine) (Heparin) 5,000 units SC TID [facility] Last Admin: 02/18/18 14:32 Dose: 5,000 units Hydrocortisone Sodium Succinate (Solu-Cortef) 50 mg IVP Q8HR [facility] Last Admin: 02/18/18 14:31 Dose: 50 mg Linezolid 600 mg/ Device 300 mls @ 150 mls/hr IVPB 0600,1800 [facility] Last Admin: 02/18/18 17:03 Dose: 300 mls Meropenem 1 gm/ Device 50 mls @ 100 mls/hr IVPB 0200,1000,1800 [facility] Last Admin: 02/18/18 17:03 Dose: 50 mls Iron/Minerals/Multivitamins (Theragran M) 1 tab PO DAILY [facility] Lidocaine (Lidoderm 5% Patch) 1 patch TD 2100 [facility] Lidocaine HCl (Xylocaine 2% Viscous) 15 ml SSP BID PRN PRN Reason: Mouth Irritation Last Admin: 02/18/18 18:24 Dose: 15 ml Loratadine (Claritin) 10 mg PO DAILY PRN PRN Reason: ALLERGIES Magnesium Oxide (Magnesium Oxide) 400 mg PO DAILY [facility] Last Admin: 02/18/18 09:41 Dose: 400 mg Melatonin (Melatonin) 6 mg PO HS PRN PRN Reason: Insomnia Miscellaneous Medication (Lidocaine Patch Removal) 1 each TOP 0900 [facility] Last Admin: 02/18/18 11:01 Dose: 1 each Morphine Sulfate (Ms Contin) 60 mg PO BID [facility] Nystatin (Mycostatin Powder) 0 gm TOP BID [facility] Last Admin: 02/18/18 09:41 Dose: 1 applic Polyethylene Glycol (Miralax) 17 gm PO DAILY [facility] Last Admin: 02/18/18 09:41 Dose: Not Given Senna/Docusate Sodium (Senokot S) 1 tab PO BID [facility]
[2018-02-18] MEDS: Famotidine 20 MG TAB PO SCH (20:08)
[2018-02-18] MEDS: Senokot S 8.6-50 MG TAB PO SCH (20:31)
[2018-02-18] MEDS ORDERED: Lidocaine 5% Patch TD SCH (21:00)
[2018-02-18] MEDS ORDERED: Morphine ER 30 MG TAB PO SCH (22:45)
[2018-02-19] MEDS: MEROPENEM 1 GM/50 ML 1 GM in Premix Bag 1 BAG IVPB SCH ×3 (02:20→18:14)
[2018-02-19] MEDS: Linezolid 600 MG in Premix Bag 1 BAG IVPB SCH ×2 (05:09→18:14)
[2018-02-19] MEDS: Hydrocortisone Sod Succ/PF 100 mg/2 ml Vial IVP SCH ×3 (05:09→22:00)
[2018-02-19] MEDS: Heparin 5,000 UNITS/ML VIAL SC SCH ×3 (08:52→20:35)
[2018-02-19] MEDS: Multivitamin W/ Minerals 1 TAB PO SCH (08:52)
[2018-02-19] MEDS: Gabapentin 400 MG CAP PO SCH ×4 (08:52→20:32)
[2018-02-19] MEDS: Magnesium Oxide 400 MG TAB PO SCH (08:53)
[2018-02-19] MEDS: Morphine ER 30 MG TAB PO SCH ×2 (08:53→20:33)
[2018-02-19] MEDS: Betamethasone 0.1% Cream 15 GM TUBE TOP SCH ×4 (08:56→20:34)
[2018-02-19] MEDS: Docusate 100 MG CAP PO SCH ×2 (08:56→20:34)
[2018-02-19] MEDS: Senokot S 8.6-50 MG TAB PO SCH ×2 (08:58→20:32)
[2018-02-19] MEDS: Polyethylene Glycol 3350 17 GM Packet PO SCH (08:58)
[2018-02-19] MEDS: Nystatin Powder 15 GM BOT TOP SCH ×2 (08:58→20:35)
[2018-02-19 09:59] LABS: #Lymphocytes 0.8 thou/uL (1.20-3.40); #Monocytes 0.2 thou/uL (0.11-0.59); #Neutrophils 3.7 thou/uL (1.40-6.50); %Basophils 0.3 % (0.0-1.0); %Eosinophils 0.1 % (0.0-10.0); %Monocytes 4.9 % (0.0-10.0); %Neutrophils 77.8 % (42.0-75.0); Hemoglobin 10.4 g/dL (12.0-16.0); Mean Corpuscular HGB CONC 34.3 g/dL (32.0-36.0); Mean Corpuscular Hemoglobin 30.9 pg (27.0-31.0); Mean Corpuscular Volume 90.3 fl (81.0-99.0); Mean Platelet Volume 6.8 fL (7.4-10.4); Platelet Count 165 thou/uL (130-400); Red Blood Cell (RBC) Count 3.36 mill/uL (4.20-5.40); White Blood Cell (WBC) Count 4.7 thou/uL (4.8-10.8)
[2018-02-19] MEDS: Lidocaine 5% Patch TD SCH (10:15)
[2018-02-19 11:53] LABS: Anion Gap 14 mmol/L (10-20); BUN (Urea Nitrogen) 12 mg/dL (9.8-20.1); Calc. Creatinine Clearance 56 mL/min (70-130); Calcium 8.7 mg/dL (7.8-10.44); Carbon Dioxide 18 mmol/L (23-31); Chloride 111 mmol/L (98-107); Estimated GFR-MDRD 90; Glucose 122 mg/dL (83-110); Potassium 3.6 mmol/L (3.5-5.1); Sodium 139 mmol/L (136-145)
--- NOTE | 2018-02-19 13:26 | PRG ---
DATE OF SERVICE: 02/19/2018 SUBJECTIVE: The patient is doing much better today. She had no acute complaints. PHYSICAL EXAMINATION: VITAL SIGNS: Temperature 98.0, pulse 67, respiration 20, O2 sat 100% on 2 liters, and blood pressure 130/56. HEENT: Unremarkable. NECK: No adenopathy or JVD. CHEST: Clear. CARDIAC: S1 and S2, regular. ABDOMEN: Soft. Suprapubic catheter noted. EXTREMITIES: No edema. LABORATORY DATA: White blood cell count 4.7, hematocrit 30, platelet count 165. Sodium 137, potassi um 3.1, chloride 107, CO2 of 18, BUN 10, creatinine 0.6, glucose 118, and albumin 2.8. ASSESSMENT: 1. Urosepsis. 2. Cough. 3. Multiple sclerosis. 4. Neurogenic bladder. PLAN: The patient is continuing antibiotics. This is linezolid and meropenem. She seems to be resp onding well. I believe the patient can be transferred out to the floor.
--- NOTE | 2018-02-19 20:24 | PDOC.PN ---
- Subjective Encounter Start Date: 02/19/18 Encounter Start Time: 11:00 Subjective: pt up in bed eating. Denies any complains - Objective Resuscitation Status: Resuscitation Status DNR:Do Not Resuscitate Vital Signs & Weight: Vital Signs (12 hours) Temp Pulse Resp BP Pulse Ox 02/19/18 13:25 97.5 F L 62 18 98 02/19/18 11:34 98.0 F 67 20 130/56 L 100 02/19/18 09:16 97 Weight Weight 120 lb 6.4 oz I&O: 02/18/18 02/19/18 02/20/18 06:59 06:59 06:59 Intake Total 1650 2029 360 Output Total 850 275 300 Balance 800 1754 60 Result Diagrams: 02/19/18 09:49 02/19/18 09:49 Phys Exam - Physical Examination HEENT: PERRLA, moist MMs, sclera anicteric, TM's clear, oral pharynx no lesions , 2+ tonsils Neck: no nodes, no JVD, supple, full ROM Respiratory: no wheezing, no rales, no rhonchi, wheezing present, clear to auscultation bilateral Cardiovascular: RRR, no significant murmur, no rub, gallop, irregular Gastrointestinal: soft, non-tender, no distention, positive bowel sounds Dx/Plan (1) Sepsis Code(s): A41.9 - SEPSIS, UNSPECIFIED ORGANISM Status: Acute (2) UTI (urinary tract infection) due to urinary indwelling Robles catheter Code(s): T83.511A - I/I REACT D/T INDWELLING URETHRAL CATHETER, INIT; N39.0 - URINARY TRACT INFECTION, SITE NOT SPECIFIED Status: Acute (3) Chronic low back pain Code(s): M54.5 - LOW BACK PAIN; G89.29 - OTHER CHRONIC PAIN Status: Chronic Comment: (4) Multiple sclerosis Code(s): G35 - MULTIPLE SCLEROSIS Status: Chronic - Plan * continue broad spectrum abx. * cx negative * pt is s/p right ureter stone extraction and stent removal and new stent replaced. * will await ID recommendation. * pt on chronic steroids and was put on stress dose steroids. will start to wean it off * pt's pain meds started. Review of Systems - Review of Systems ENT: negative: Ear Pain, Ear Discharge, Nose Pain, Nose Discharge, Nose Congestion, Mouth Pain, Mouth Swelling, Throat Pain, Throat Swelling, Other Respiratory: negative: Cough, Dry, Shortness of Breath, Hemoptysis, SOB with Excertion, Pleuritic Pain, Sputum, Wheezing Cardiovascular: negative: chest pain, palpitations, orthopnea, paroxysmal nocturnal dyspnea, edema, light headedness, other Gastrointestinal: negative: Nausea, Vomiting, Abdominal Pain, Diarrhea, Constipation, Melena, Hematochezia, Other - Medications/Allergies Allergies/Adverse Reactions: Allergies Allergy/AdvReac Type Severity Reaction Status Date / Time Penicillins Allergy Intermediate Verified 02/17/18 21:07 fentanyl Allergy Verified 02/17/18 21:07 methadone HCl Allergy Verified 02/17/18 21:07 [From [facility]] Medications: Current Medications Albuterol/Ipratropium (Duoneb) 3 ml NEB QID PRN PRN Reason: Wheezing Last Admin: 02/18/18 17:21 Dose: 3 ml Betamethasone Valerate (Valisone 0.1% Cream) 0 gm TOP 5XD [facility] Last Admin: 02/19/18 15:30 Dose: 1 applic Docusate Sodium (Colace) 100 mg PO BID [facility] Last Admin: 02/19/18 08:56 Dose: Not Given Famotidine (Pepcid) 20 mg PO 2100 [facility] Last Admin: 02/18/18 20:08 Dose: 20 mg Fluconazole (Diflucan) 100 mg PO DAILY [facility] Gabapentin (Neurontin) 800 mg PO QID [facility] Last Admin: 02/19/18 17:37 Dose: 800 mg Guaifenesin/Dextromethorphan (Robitussin Dm) 10 ml PO Q6H PRN PRN Reason: Cough Last Admin: 02/18/18 17:02 Dose: 10 ml Heparin Sodium (Porcine) (Heparin) 5,000 units SC TID [facility] Last Admin: 02/19/18 15:30 Dose: 5,000 units Hydrocortisone Sodium Succinate (Solu-Cortef) 50 mg IVP Q8HR [facility] Last Admin: 02/19/18 14:27 Dose: 50 mg Meropenem 1 gm/ Device 50 mls @ 100 mls/hr IVPB 0200,1000,1800 [facility] Last Admin: 02/19/18 18:14 Dose: 50 mls Iron/Minerals/Multivitamins (Theragran M) 1 tab PO DAILY [facility] Last Admin: 02/19/18 08:52 Dose: 1 tab Lidocaine (Lidoderm 5% Patch) 1 patch TD 0900 [facility] Last Admin: 02/19/18 10:15 Dose: 1 patch Lidocaine HCl (Xylocaine 2% Viscous) 15 ml SSP BID PRN PRN Reason: Mouth Irritation Last Admin: 02/18/18 18:24 Dose: 15 ml Loratadine (Claritin) 10 mg PO DAILY PRN PRN Reason: ALLERGIES Magnesium Oxide (Magnesium Oxide) 400 mg PO DAILY [facility] Last Admin: 02/19/18 08:53 Dose: 400 mg Melatonin (Melatonin) 6 mg PO HS PRN PRN Reason: Insomnia Miscellaneous Medication (Lidocaine Patch Removal) 1 each TOP 2100 [facility] Morphine Sulfate (Ms Contin) 60 mg PO BID [facility] Last Admin: 02/19/18 08:53 Dose: 60 mg Nystatin (Mycostatin Powder) 0 gm TOP BID [facility] Last Admin: 02/19/18 08:58 Dose: 1 applic Polyethylene Glycol (Miralax) 17 gm PO DAILY [facility] Last Admin: 02/19/18 08:58 Dose: Not Given Senna/Docusate Sodium (Senokot S) 1 tab PO BID [facility] Last Admin: 02/19/18 08:58 Dose: Not Given
[2018-02-19] MEDS: Famotidine 20 MG TAB PO SCH (20:33)
[2018-02-19] MEDS: Lidocaine Patch Removal 1 EACH TOP SCH (20:35)
--- NOTE | 2018-02-19 20:49 | CON ---
DATE OF CONSULTATION: 02/19/2018 REASON FOR CONSULTATION: Fever. HISTORY OF PRESENT ILLNESS: An 83-year-old known to us from multiple prior admissions with a history of multiple sclerosis, recurrent UTIs associated with neurogenic bladder and urinary retention as we ll as prior episode of Clostridium difficile colitis, who has had multiple admissions for complicatio ns related to neurogenic bladder with infections. The patient had a suprapubic catheter insertion in 09/2017 and then was admitted with obstruction of suprapubic catheter and invasive infection in 12/05 018, reevaluation then identified with evidence of nephrolithiasis. She had a stent placement and wa s continued on meropenem until 01/25/2018. The day before admission, she had a basket extraction of right ureteral stone after laser lithotripsy. A stent was placed on that side. The next day, she fe lt unwell, lethargic and a fever of 101 and was brought and admitted. Initially here in the hospital , temperature 97.4, pulse 104. White cell count 7.4, hemoglobin 13, platelets 220,000 and a creatini ne of 0.66. Liver profile normal. The urinalysis with large blood, moderate leukocyte esterase. Th e patient has been started on meropenem and Zyvox. She is feeling better. Denies any headaches, vis ual symptoms, sore throat, odynophagia, or dysphagia. No dyspnea or chest pain, no abdominal pain, n o extremity symptoms. She has a suprapubic catheter in place as previously noted. PAST MEDICAL HISTORY: Multiple sclerosis; frequent UTIs; neurogenic bladder; nephrolithiasis; pulmon aiden embolism with IVC filter; pulmonary hypertension; C. difficile colitis; recent basket extraction after laser lithotripsy, right side. PAST SURGICAL HISTORY: Also includes hysterectomy; tonsillectomy; cholecystectomy; and spinal stimul ator, which is not working currently. She also has an IVC filter on prior stenting of both the urete rs. CURRENT MEDICATIONS: Include DuoNeb, Valisone, Colace, Pepcid, Neurontin, heparin, Solu-Cortef, Ther agran, linezolid, meropenem, Nystatin. PHYSICAL EXAMINATION: VITAL SIGNS: Here in the hospital vital signs have been within normal limits. She is afebrile. GENERAL: Appears in no distress. SKIN: She has stage 2 decubitus ulcer in the presacral region. She has a peripheral IV access and s uprapubic catheter. No lymphadenopathy. HEENT: Ocular movements conjugate. Oral cavity moist. NECK: Supple. LUNGS: With symmetric clear breath sounds. HEART: S1, S2, regular rate. No S3, S4. ABDOMEN: Soft, not distended or tender. EXTREMITIES: She has paresthesia in lower extremities as previously noted. Pulses are 1+ in dorsali s pedis. NEUROLOGIC: Cognitive function appears to be intact. LABORATORY DATA: White cell count was 7.4, now 4.7; hemoglobin 10.4; platelets 165. Neutrophil perc entage down from 90% to 77%. Chemistry with unremarkable findings as noted previously. Urinalysis w ith 21-50 wbc's, greater than 50 rbc's, protein negative. Microbiology thus far 2 sets of blood cult ures and one set of urine culture negative. Previous urine culture from 02/09/2018 with yeast specie s. ASSESSMENT: Multiple sclerosis, neurogenic bladder and previous suprapubic catheter placement, admis maia with urosepsis in December of this year when nephrolithiasis was identified which required stent pl acement, now very recent removal of stone after lithotripsy using a basket technique and postoperativ e fever. DISCUSSION: Differential diagnosis includes urosepsis associated with the procedure which is the mor e likely scenario. The other possibility would be an unrelated viral infection, an alternate inflamm atory process in respiratory tract and abdomen is less likely. We will discontinue the linezolid. C ontinue meropenem. Add Diflucan in view of the negativity of cultures thus far. Continue to follow up. If cultures remain negative, then transition to oral antimicrobials will be Bactrim and Diflucan and follow up in the outpatient setting. If cultures turn positive, then we will have to address re hardy according to the results. She already has been stented, so no need for further urological inte rvention at this point in time.
[2018-02-20] MEDS: MEROPENEM 1 GM/50 ML 1 GM in Premix Bag 1 BAG IVPB SCH ×3 (01:37→19:32)
[2018-02-20] MEDS: Hydrocortisone Sod Succ/PF 100 mg/2 ml Vial IVP SCH (05:43)
[2018-02-20] MEDS: Fluconazole 100 MG TAB PO SCH (08:48)
[2018-02-20] MEDS: Gabapentin 400 MG CAP PO SCH ×4 (08:49→20:39)
[2018-02-20] MEDS: Multivitamin W/ Minerals 1 TAB PO SCH (08:52)
[2018-02-20] MEDS: Morphine ER 30 MG TAB PO SCH ×2 (08:53→20:40)
[2018-02-20] MEDS: Magnesium Oxide 400 MG TAB PO SCH (08:53)
[2018-02-20] MEDS: Lidocaine 5% Patch TD SCH (08:55)
[2018-02-20] MEDS: Senokot S 8.6-50 MG TAB PO SCH ×2 (08:57→20:39)
[2018-02-20] MEDS: Polyethylene Glycol 3350 17 GM Packet PO SCH (08:57)
[2018-02-20] MEDS: Docusate 100 MG CAP PO SCH ×2 (08:57→20:41)
[2018-02-20] MEDS: Heparin 5,000 UNITS/ML VIAL SC SCH ×3 (08:58→20:41)
--- NOTE | 2018-02-20 09:01 | PRG ---
DATE OF SERVICE: 02/20/2018 This morning she is awake, responsive. She is in the hospital for urosepsis. So far all cultures ar e negative. She is on Diflucan, meropenem. She was also on Zyvox which will be discontinued. She i s weak, but awake, responsive, no longer hypotensive. PHYSICAL EXAMINATION: VITAL SIGNS: Her blood pressure this morning is improved 128/80, sats 90% on 2 liters, respirations 18. CHEST: Chest reveals no wheezing or crackles. CARDIAC: Normal S1, S2, no gallops. ABDOMEN: Soft, no masses. Chest x-ray shows small lung volumes with no obvious infiltrates. There is slightly elevated right h emidiaphragm. LABORATORY DATA: White count only 4,000, hematocrit 10 and 30, platelet 165. Electrolytes are isidro l. IMPRESSION: 1. Urosepsis. 2. Severe deconditioning. 3. Neurogenic bladder. PLAN: Continue antibiotics as per Infectious Disease, supportive care and PT. Hopefully, she can be discharged back to the residential in the next few days with a PICC line in place.
[2018-02-20 11:42] VITALS: BMI 21.3
--- NOTE | 2018-02-20 12:34 | PQF ---
CLINICAL DOCUMENTATION IMPROVEMENT CLARIFICATION FORM: ICD-10 Updated PLEASE DO AN ADDENDUM TO THE PROGRESS NOTE WITH ANY DOCUMENTATION UPDATES OR ADDITIONS AND CARRY THROUGH TO DC SUMMARY. THANK YOU. DATE: 02/20 ATTN: DR. Terrell ZAFAR Please exercise your independent, professional judgment in responding to the clarification form. Clinical indicators are provided on the bottom of this form for your review. Please check appropriate box(s): x__ I (concur) with the Wound Care findings as stated below. [ ] Pressure Ulcer: (Stage I: Erythema; Stage II: Partial thickness; Stage III : Full thickness; Stage IV: Necrosis to muscle/bone) [ ] Location: POA: [ ] Yes [ ] No [ ] Unable to determine Stage (I to IV): (Left Right Bilateral N/A ) [ ] Other diagnosis [ ] Unable to determine In addition, please specify: Present on Admission (POA): [ ] Yes [ ] No [ ] Unable to determine For continuity of documentation, please document condition throughout progress notes and discharge summary. Thank You. CLINICAL INDICATORS - SIGNS / SYMPTOMS / LABS ER NURSING SKIN ASSESSMENT 02/17: STAGE II PRESSURE ULCER TO SACRUM WHEELCHAIR BOUND WOUND CARE DOCUMENTATION 02/20: STAGE II PRESSURE ULCER TO L BUTTOCK INFECTIOUS DX H&P 02/19: STAGE II DECUBITUS ULCER TO SACRAL AREA RISK FACTORS: MULTIPLE SCLEROSIS WHEELCHAIR BOUND TREATMENTS: WOUND CARE CONSULT & TREATMENT [facility] TURN Q2 HRS THANK YOU! [employer] (This form is maintained as a part of the permanent medical record) 2014 [employer]. All Rights Reserved Toshia Osborne RN, BSN [email or web address] Office: [phone] [facility]
[2018-02-20] MEDS: Betamethasone 0.1% Cream 15 GM TUBE TOP SCH ×4 (15:37→20:41)
[2018-02-20] MEDS: Nystatin Powder 15 GM BOT TOP SCH ×2 (15:38→21:00)
[2018-02-20] MEDS: Famotidine 20 MG TAB PO SCH (20:41)
[2018-02-20] MEDS: Lidocaine Patch Removal 1 EACH TOP SCH (20:43)
--- NOTE | 2018-02-20 21:56 | PDOC.PN ---
- Subjective Encounter Start Date: 02/20/18 Encounter Start Time: 17:00 Subjective: pt up in bed eating - Objective Resuscitation Status: Resuscitation Status DNR:Do Not Resuscitate Vital Signs & Weight: Vital Signs (12 hours) Temp Pulse Resp BP Pulse Ox 02/20/18 20:00 96.4 F L 62 16 100 02/20/18 16:00 96.4 F L 62 16 155/67 H 02/20/18 12:00 98.1 F 61 18 140/62 Weight Admit Weight 120 lb 6.4 oz Weight 120 lb 6.4 oz I&O: 02/19/18 02/20/18 02/21/18 06:59 06:59 06:59 Intake Total 2028 610 1050 Output Total 275 900 400 Balance 1754 -290 650 Result Diagrams: 02/19/18 09:49 02/19/18 09:49 Phys Exam - Physical Examination HEENT: PERRLA, moist MMs, sclera anicteric, TM's clear, oral pharynx no lesions , 2+ tonsils Neck: no nodes, no JVD, supple, full ROM Respiratory: no wheezing, no rales, no rhonchi, wheezing present, clear to auscultation bilateral Cardiovascular: RRR, no significant murmur, no rub, gallop, irregular Gastrointestinal: soft, non-tender, no distention, positive bowel sounds Musculoskeletal: no edema, pulses present, edema present Dx/Plan (1) Sepsis Code(s): A41.9 - SEPSIS, UNSPECIFIED ORGANISM Status: Acute (2) UTI (urinary tract infection) due to urinary indwelling Robles catheter Code(s): T83.511A - I/I REACT D/T INDWELLING URETHRAL CATHETER, INIT; N39.0 - URINARY TRACT INFECTION, SITE NOT SPECIFIED Status: Acute (3) Chronic low back pain Code(s): M54.5 - LOW BACK PAIN; G89.29 - OTHER CHRONIC PAIN Status: Chronic Comment: (4) Multiple sclerosis Code(s): G35 - MULTIPLE SCLEROSIS Status: Chronic - Plan * pt up in bed eating. * continue meropenem and diflucan * may discharge home per ID's recommendation and if ok with ID Review of Systems - Review of Systems ENT: negative: Ear Pain, Ear Discharge, Nose Pain, Nose Discharge, Nose Congestion, Mouth Pain, Mouth Swelling, Throat Pain, Throat Swelling, Other Respiratory: negative: Cough, Dry, Shortness of Breath, Hemoptysis, SOB with Excertion, Pleuritic Pain, Sputum, Wheezing Cardiovascular: negative: chest pain, palpitations, orthopnea, paroxysmal nocturnal dyspnea, edema, light headedness, other Gastrointestinal: negative: Nausea, Vomiting, Abdominal Pain, Diarrhea, Constipation, Melena, Hematochezia, Other - Medications/Allergies Allergies/Adverse Reactions: Allergies Allergy/AdvReac Type Severity Reaction Status Date / Time Penicillins Allergy Intermediate Verified 02/17/18 21:07 fentanyl Allergy Verified 02/17/18 21:07 methadone HCl Allergy Verified 02/17/18 21:07 [From [facility]] Medications: Current Medications Albuterol/Ipratropium (Duoneb) 3 ml NEB QID PRN PRN Reason: Wheezing Last Admin: 02/18/18 17:21 Dose: 3 ml Betamethasone Valerate (Valisone 0.1% Cream) 0 gm TOP 5XD [facility] Last Admin: 02/20/18 20:41 Dose: 1 applic Docusate Sodium (Colace) 100 mg PO BID [facility] Last Admin: 02/20/18 20:41 Dose: 100 mg Famotidine (Pepcid) 20 mg PO 2100 [facility] Last Admin: 02/20/18 20:41 Dose: 20 mg Fluconazole (Diflucan) 100 mg PO DAILY [facility] Last Admin: 02/20/18 08:48 Dose: 100 mg Gabapentin (Neurontin) 800 mg PO QID [facility] Last Admin: 02/20/18 20:39 Dose: 800 mg Guaifenesin/Dextromethorphan (Robitussin Dm) 10 ml PO Q6H PRN PRN Reason: Cough Last Admin: 02/18/18 17:02 Dose: 10 ml Heparin Sodium (Porcine) (Heparin) 5,000 units SC TID [facility] Last Admin: 02/20/18 20:41 Dose: 5,000 units Meropenem 1 gm/ Device 50 mls @ 100 mls/hr IVPB 0200,1000,1800 [facility] Last Admin: 02/20/18 19:32 Dose: 50 mls Iron/Minerals/Multivitamins (Theragran M) 1 tab PO DAILY [facility] Last Admin: 02/20/18 08:52 Dose: 1 tab Lactulose (Lactulose) 20 gm PO DAILYPRN PRN PRN Reason: Constipation Lidocaine (Lidoderm 5% Patch) 1 patch TD 0900 [facility] Last Admin: 02/20/18 08:55 Dose: 1 patch Lidocaine HCl (Xylocaine 2% Viscous) 15 ml SSP BID PRN PRN Reason: Mouth Irritation Last Admin: 02/18/18 18:24 Dose: 15 ml Loratadine (Claritin) 10 mg PO DAILY PRN PRN Reason: ALLERGIES Magnesium Oxide (Magnesium Oxide) 400 mg PO DAILY [facility] Last Admin: 02/20/18 08:53 Dose: 400 mg Melatonin (Melatonin) 6 mg PO HS PRN PRN Reason: Insomnia Miscellaneous Medication (Lidocaine Patch Removal) 1 each TOP 2100 [facility] Last Admin: 02/20/18 20:43 Dose: Not Given Morphine Sulfate (Ms Contin) 60 mg PO BID [facility] Last Admin: 02/20/18 20:40 Dose: 60 mg Nystatin (Mycostatin Powder) 0 gm TOP BID [facility] Last Admin: 02/20/18 15:38 Dose: 1 applic Polyethylene Glycol (Miralax) 17 gm PO DAILY [facility] Last Admin: 02/20/18 08:57 Dose: Not Given Prednisone (Prednisone) 10 mg PO [facility] Senna/Docusate Sodium (Senokot S) 1 tab PO BID [facility] Last Admin: 02/20/18 20:39 Dose: 1 tab
[2018-02-21] MEDS: Betamethasone 0.1% Cream 15 GM TUBE TOP SCH ×3 (00:30→12:55)
[2018-02-21] MEDS: MEROPENEM 1 GM/50 ML 1 GM in Premix Bag 1 BAG IVPB SCH ×2 (02:24→09:14)
[2018-02-21] MEDS ORDERED: predniSONE 20 MG TAB PO SCH (08:00)
[2018-02-21] MEDS: Gabapentin 400 MG CAP PO SCH ×2 (09:18→14:07)
[2018-02-21] MEDS: Morphine ER 30 MG TAB PO SCH (09:18)
[2018-02-21] MEDS: Multivitamin W/ Minerals 1 TAB PO SCH (09:18)
[2018-02-21] MEDS: Fluconazole 100 MG TAB PO SCH (09:18)
[2018-02-21] MEDS: Magnesium Oxide 400 MG TAB PO SCH (09:18)
[2018-02-21] MEDS: Senokot S 8.6-50 MG TAB PO SCH (09:18)
[2018-02-21] MEDS: Heparin 5,000 UNITS/ML VIAL SC SCH (09:19)
[2018-02-21] MEDS: Nystatin Powder 15 GM BOT TOP SCH (09:35)
[2018-02-21] MEDS: Lidocaine 5% Patch TD SCH (09:36)
--- NOTE | 2018-02-21 10:34 | PRG ---
DATE OF SERVICE: 02/21/2018 She is awake, alert and responsive, in no distress, no longer hypotensive. PHYSICAL EXAMINATION: VITAL SIGNS: Blood pressure 132/60, sats are 97 on 1 liter, respiration 16, temperature 98. CHEST: Chest reveals decreased breath sounds without any wheezing or crackles. CARDIAC: Normal S1, S2. No gallops. ABDOMEN: Soft, no masses. IMPRESSION: 1. Presumed urosepsis, all cultures negative. Multidrug resistance in the past. 2. Decubitus. 3. History of nephrolithiasis. 4. History of unknown neurological problem. 5. Multiple sclerosis, presumably. PLAN: I am going to discontinue meropenem. All cultures are negative. She is drug resistant to sev eral different antibiotics. All cultures so far are negative. I will probably switch her to Omnicef for about a week or so. Hopefully, she can be discharged home in the next 24-48 hours.
[2018-02-21] MEDS: Polyethylene Glycol 3350 17 GM Packet PO SCH (11:00)
[2018-02-21] MEDS: Docusate 100 MG CAP PO SCH (11:06)
[2018-02-21 12:00] VITALS: BP 98/55; TEMP 97.8
--- NOTE | 2018-02-21 16:33 | DIS ---
DATE OF ADMISSION: 02/17/2018 DATE OF DISCHARGE: 02/21/2018 DISCHARGE DIAGNOSES: Sepsis, urinary tract infection due to indwelling Robles catheter, chronic low b ack pain, and multiple sclerosis. HISTORY OF PRESENT ILLNESS/HOSPITAL COURSE: Ms. Richard Bellamy is an 83-year-old female who was b rought to the hospital from [facility] on account of mental status changes. She is a nursing [facility] resident and I talked to his at bedside and reported that she had an acute change in her men marco antonio status on the morning of admission. She was more lethargic and also had a fever of 101 degrees F ahrenheit, which concerned fdc staff and brought her to the hospital for further evaluation. They also reported that she has a history of MS, not on any treatment, as well as a history of neur ogenic bladder for which she was put on a suprapubic catheter a few months ago. She was also dischar ge recently from the hospital in the beginning of January for UTI/sepsis. At that time, she had nephrol ithiasis and stent placed on the right side. She was sent home with some IV antibiotics and a PICC l ine. The day before admission, she had right ureteral stone removed and had a stent placed on the ri ght side, old stent was removed. At the emergency room, she was awake, appeared drowsy, but easily a rousable. Her lab showed normal WBC, hemoglobin as well as platelets. Her serum chemistry showed hy perkalemia, bicarbonate of 18, BUN of 10, creatinine of 0.6. Assessment of sepsis secondary to urinary tract infection was made and she was started on broad spect rum antibiotics. She was also hypertensive in the ER. Antibiotics resumed with Zyvox and meropenem due to concern for Enterococcus and multiple resistant given her frequent urinary tract infections. She responded to therapy and was alert and well oriented on the day of discharge. She was followed b y Infectious Disease and also by Critical Care Service. Cultures remain negative. The patient was d ischarged without incident. DISCHARGE MEDICATIONS: Levofloxacin 500 mg daily, gabapentin 800 mg 4 times daily, [place] 1 tab every 6 hours as needed, prednisone 10 mg daily, morphine extended release 60 mg twice a day, furosemide 4 0 mg daily as needed for swelling, VESIcare 10 mg daily, multivitamin one capsule daily, omeprazole 4 0 mg daily, estrogens conjugated 1 tab daily, nystatin ointment applied topically twice a day, guaife nesin 600 mg every 12 hours, MiraLax 8.5 grams orally daily, lidocaine patch 5% one patch transdermal daily, fluocinonide 0.05% ointment applied topically 5 times daily to oral lesions, DuoNeb 3 mL nebu lizer therapy daily 4 times daily as needed, Bentyl 20 mg 4 times daily as needed for diarrhea/loose stools, Berta Allergy 180 mg oral daily as needed, docusate 100 mg twice a day, famotidine 20 mg or ally daily, magnesium oxide 400 mg orally daily, potassium chloride 20 mEq orally daily, melatonin 1- 2 tablets orally at bedtime as needed for insomnia, Flonase nasal spray 1 spray in each naris daily. PHYSICAL EXAMINATION: She was seen and examined on the day of discharge. VITAL SIGNS: Blood pressure 132/62, temperature 98.3 degree Fahrenheit, pulse rate 67, respiratory r ate 16, oxygen saturation 97%. GENERAL: Not in acute distress. She is lying comfortably in bed. HEENT: Normocephalic and atraumatic. Not pale, anicteric. NECK: Supple, full range of movement. CARDIOVASCULAR: S1 and S2 only. Regular rate and rhythm. No murmurs, rubs or gallops. RESPIRATORY: Vesicular breath sounds bilaterally. No wheezes, rales or rhonchi. ABDOMEN: Soft, nontender, nondistended. Her suprapubic catheter is present. Bowel sounds normoacti ve. MUSCULOSKELETAL: No edema. NEUROLOGIC: Alert and well oriented to time, place and person. No focal deficits. PSYCHIATRIC: Normal mood and affect. SKIN: Warm, dry, well-perfused. No rashes or lesions. LABORATORY DATA: Sodium 139, potassium 3.6, chloride 111, carbon dioxide 18, anion gap 14, BUN 12, c reatinine 0.63, glucose 112, calcium 8.7. WBC 7.3, hemoglobin 10.4, platelet count 165. IMAGING: Chest x-ray. CONSULTS: Critical Care, Infectious Disease. CONDITION AT DISCHARGE: Stable and improved. PROCEDURES: None. DIET: Heart healthy including low sodium. CARE GOALS: Follow up with primary care physician within 1 week of discharge. DISCHARGE ACTIVITY: Resume as tolerated. Discharge time 65 minutes including chart review and documentation.
[2018-02-21] MEDS ORDERED: Cefdinir 300 MG CAP PO SCH (21:00)
== END 2018-02-21 16:15 | DRG 698 ==
LOC: ERS 13:51 → IMCU/EMU 17:41 → ONC 02-19 12:58
PROVIDERS: ADMIT Internal Medicine; ATTEND Internal Medicine
DX: T83.510A Infection and inflammatory reaction due to cystostomy catheter, initial encounter (principal); A41.9 Sepsis, unspecified organism; G35 Multiple sclerosis; I27.20 Pulmonary hypertension, unspecified; N31.9 Neuromuscular dysfunction of bladder, unspecified; M54.5 Low back pain; G89.29 Other chronic pain; L89.322 Pressure ulcer of left buttock, stage 2; Z87.442 Personal history of urinary calculi; Z86.711 Personal history of pulmonary embolism; Z95.828 Presence of other vascular implants and grafts; Z86.718 Personal history of other venous thrombosis and embolism; Z79.891 Long term (current) use of opiate analgesic; Z79.52 Long term (current) use of systemic steroids; Z88.0 Allergy status to penicillin; Z88.8 Allergy status to other drugs, medicaments and biological substances; Y84.6 Urinary catheterization as the cause of abnormal reaction of the patient, or of later complication, without mention of misadventure at the time of the procedure
CPT/HCPCS: 36415; 36584; 71045; 74420; 80048; 81003; 81015; 82365; 83605; 85025; 87040; 87086; 88300; 93005; 94640; 94760; 96361; 96365; 96367; 96374; 96375; C1751; C1769; G8978-GP-CM; G8979-GP-CK; G8987-GO-CL; G8988-GO-CL; G8989-GO-CL; J0696; J1450; J1644; J1720; J1956; J2001; J2020; J2185; J2405; J2704; J3010; J7050; J7506; J7620; Q9961

== ENCOUNTER 2018-04-18 12:49 | Outpatient (CLI) | payer MEDICARE, OTHER ==
--- NOTE | 2018-04-18 15:20 | ULT ---
ULTRASOUND RETROPERITONEUM COMPLETE: (RENAL) DATE: 04-18-18 HISTORY: 83-year-old female with renal stones nephrolithiasis N20.0 FINDINGS: Right kidney measures 9.5 x 5 x 3.5 cm Left kidney measures 8 x 4 x 3.5 cm No hydronephrosis bilaterally. There is a Robles catheter within an empty urinary bladder. By history there is a ureteral stent, but that is difficult to visualize, especially given patient's contracted position. IMPRESSION: 1. The kidneys are slightly small in size. 2. No hydronephrosis. JAYLEN Ramesh POS: FARHAN
== END 2018-04-18 12:50 | disposition home or self-care (01) ==
LOC: ULT 12:49
PROVIDERS: ATTEND Urology
DX: N20.0 Calculus of kidney (principal)
CPT/HCPCS: 76770

== ENCOUNTER 2018-05-15 11:33 | Inpatient (IN) | payer MEDICARE, OTHER ==
[2018-05-15 12:07] LABS: #Eosinphils 0.1 thou/uL (0.0-0.7); #Lymphocytes 0.8 thou/uL (1.20-3.40); #Monocytes 0.6 thou/uL (0.11-0.59); #Neutrophils 15.3 thou/uL (1.40-6.50); %Basophils 0.1 % (0.0-1.0); %Eosinophils 0.4 % (0.0-10.0); %Lymphocytes 4.6 % (21.0-51.0); %Monocytes 3.4 % (0.0-10.0); %Neutrophils 91.5 % (42.0-75.0); Hemoglobin 13.7 g/dL (12.0-16.0); Mean Corpuscular HGB CONC 31.8 g/dL (32.0-36.0); Mean Corpuscular Hemoglobin 27.4 pg (27.0-31.0); Mean Corpuscular Volume 86.2 fL (78.0-98.0); Mean Platelet Volume 7.6 fL (7.4-10.4); Platelet Count 325 thou/uL (130-400); RBC Distribution Width 15.3 % (11.5-14.5); Red Blood Cell (RBC) Count 4.98 mill/uL (4.20-5.40); White Blood Cell (WBC) Count 16.7 thou/uL (4.8-10.8)
--- NOTE | 2018-05-15 12:13 | RAD ---
CHEST 1 VIEW: Date: 05/15/18 HISTORY: Fever. Dyspnea. Tachycardia. COMPARISON: 02/17/18 and 04/29/18. FINDINGS: Cardiac silhouette is magnified and partially obscured by patchy bibasilar infiltrates that are simil ar in appearance to the previous exam. Pulmonary vasculature remains engorged. Patient is rotated rig htward. No evidence of pneumothorax. IMPRESSION: Pulmonary vascular congestion and bibasilar infiltrates are stable compared to the prior study 2 week s ago. POS: FARHAN
[2018-05-15 12:24] LABS: ALT (SGPT) 28 U/L (8-55); AST (SGOT) 29 U/L (5-34); Albumin 3.6 g/dL (3.4-4.8); Alkaline Phosphatase 88 U/L (40-150); Anion Gap 18 mmol/L (10-20); BUN (Urea Nitrogen) 20 mg/dL (9.8-20.1); Bilirubin, Total 0.5 mg/dL (0.2-1.2); Calc. Creatinine Clearance 0 mL/min (70-130); Calcium 9.8 mg/dL (7.8-10.44); Carbon Dioxide 21 mmol/L (23-31); Chloride 100 mmol/L (98-107); Estimated GFR-MDRD 58; Globulin 4.1 g/dL (2.4-3.5); Glucose 213 mg/dL (83-110); Protein, Total 7.7 g/dL (6.0-8.3); Sodium 136 mmol/L (136-145)
[2018-05-15 12:27] LABS: CO2 Tension 31.7 mmHg (35.0-45.0); pH, Arterial 7.46 (7.35-7.45)
[2018-05-15 12:28] LABS: O2 Tension (PaO2) 51.9 mmHg (> 60.0)
[2018-05-15 12:29] LABS: Base Excess (BEa) -0.8 mEq/L (-2.0 to +3.0); Calcium, Ionized 1.19 mmol/L (1.12-1.30); Carboxyhemoglobin (COHb) 1.3 gm% (0.0-3.0); Hematocrit-ABG 18.3 % (36.0-47.0); Hemoglobin (Hb) 15.2 g/dL (12.0-16.0)
[2018-05-15 12:30] LABS: ALV-art Gradient 165.155 (0-20); Analyzer IN Cardio ER; Puncture Site RBRACH
[2018-05-15 13:41] LABS: Bilirubin Negative (Negative); Blood, Urine Moderate (Negative); Clarity TURBID (Clear); Glucose, Urine (Dipstick) Negative (Negative); Leukocyte Large (Negative); Nitrite Positive (Negative); Protein, Urine (Dipstick) 30 mg/dL (Neg-Trace); Specific Gravity, Urine 1.014 (1.002-1.036); Urobilinogen 0.2 mg/dL (0.2-1.0); pH, Urine 7.5 (5.0-9.0)
[2018-05-15 13:43] LABS: Bacteria/HPF 4+ HPF (None Seen); Hyaline Casts/LPF 4-6 HYALINE CAST LPF (0-3 Hyaline); Pathc Cast-AUWi Flag 0.68 (0-2.49)
[2018-05-15 13:49] LABS: Yeast-AUWi Flag 67.7 (0-25.0)
[2018-05-15 13:59] LABS: Crystals/HPF 2+ TRIPLE PHOS HPF (Negative); Yeast-All Forms None Seen HPF (None Seen)
[2018-05-15] MEDS ORDERED: Cefepime 2 GM VIAL ONE (14:24)
--- NOTE | 2018-05-15 15:08 | PDOC.FPRHP ---
- History of Present Illness Chief Complaint: dyspnea History of Present Illness: 83 yo F with PMH of SLE, MS, chronic UTIs, suprapubic catheter, and PE presents for about 1 week of cough, "sweaty head", and fatigue. Daughter reports she had a temperature of 100.3 yesterday that resolved with tylenol. Per ED notes, EMS reported she had a fever of 100.8 yesterday. Daughter reports her nurse recently noticed dark, smelly urine. Per daughter, pt has some increased confusion and occasionally answers questions inappropriately. She had a suprapubic catheter change 2-[address] Duran (has a suprapubic catheter because of her MS, daughter reports "bladder spasms"), with a smaller size balloon for patient's comfort. Pt reports new, left-sided flank pain. ROS positive for decreased appetite, fatigue, nausea, and headache. Patient is non- ambulatory because of rt leg weakness due to MS, uses a wheelchair. Pt was admitted in January for sepsis 2/ to UTI. Pt has been on 2L NC since January, when she had a lithotripsy. Pt required 4L NC O2 in the ED. In the ED she was given cefepime 2 g, vancomycin 1 g, gentamycin 250 mg - Allergies/Adverse Reactions Allergies Allergy/AdvReac Type Severity Reaction Status Date / Time Penicillins Allergy Intermediate Verified 05/16/18 05:51 fentanyl Allergy Verified 05/16/18 05:51 methadone HCl Allergy Verified 05/16/18 05:51 [facility] - Home Medications Medication Instructions Recorded Confirmed Type Gabapentin 800 mg PO QID 07/06/17 02/17/18 History HYDROcodone Bit/APAP 5/325 [[place]] 1 tab PO Q6HR PRN 07/06/17 02/17/18 History Morphine ER [MS Contin] 60 mg PO BID 07/06/17 02/17/18 History predniSONE [Prednisone] 10 mg PO DAILY 07/06/17 02/17/18 History Furosemide 40 mg PO DAILY PRN 09/04/17 02/17/18 History Multivitamin [Multivitamins] 1 cap PO DAILY 11/22/17 02/17/18 History Solifenacin Succinate [VESIcare] 10 mg PO DAILY 11/22/17 02/17/18 History Dicyclomine [Bentyl] 20 mg PO QID PRN 04/24/18 06/15/18 History Estrogens, Conjugated [Premarin] 1 tab PO DAILY 12/27/17 02/17/18 History Fexofenadine HCl [Berta Allergy] 180 mg PO DAILY PRN 12/27/17 02/17/18 History Fluocinonide [Fluocinonide 0.05% 1 applic TOP 5XD 12/27/17 02/17/18 History Ointment] Ipratropium/Albuterol Sulfate 3 ml NEB QID PRN 12/27/17 02/17/18 History [DuoNeb] Lidocaine 5% Patch [Lidoderm 5% 1 patch TD DAILY 12/27/17 02/17/18 History Patch] Nystatin [Nystatin Powder] 1 applic TOP BID 12/27/17 02/17/18 History Omeprazole 40 mg PO DAILY 12/27/17 02/17/18 History Polyethylene Glycol 3350 [Miralax] 8.5 gm PO DAILY 12/27/17 02/17/18 History guaiFENesin [Mucus Relief] 600 mg PO Q12HR 12/27/17 02/17/18 History Docusate [Colace] 100 mg PO BID cap 12/31/17 02/17/18 Rx Famotidine [Pepcid] 20 mg PO 2100 tab 12/31/17 02/17/18 Rx Magnesium Oxide [Magnesium] 400 mg PO DAILY 02/09/18 02/17/18 History Fluticasone Propionate [Flonase 1 spray EA NARE DAILY 02/17/18 02/17/18 History Nasal [place]] Melatonin 1 - 2 tab PO HS PRN 02/17/18 02/17/18 History Potassium Chloride [K-Dur] 20 meq PO DAILY 02/17/18 02/17/18 History Levofloxacin 500 mg PO DAILY #5 tablet 02/21/18 Rx - History PMHx: GERD, HLD, Lupus, MS, Chronic UTIs, recurrent kidney stones, PE and DVT ( 2008), chronic pain rt leg and hip, rt tibia fracture and fractured C3 (apr 2017 ), scoliosis, sepsis 2/2 UTI in january 2018, MRSA in elbow, bursitis of elbow, anxiety and depression PSHx: tonsillectomy, cholecystectomy, hysterectomy, "blood clot filter of rt groin," stimulation implant for chronic back pain, "tractures cemented in pelvis ," tibia surgery FHx:non contributory Social: No tobacco, alcohol, or drug history - Review of Systems General: reports: fever/chills, weight/appetite/sleep changes (decreased appetite), fatigue Eyes: denies: eye pain, vision changes ENT: denies: nasal congestion, other (no sore throat) Respiratory: reports: cough, shortness of breath. denies: congestion Cardiovascular: denies: chest pain, edema Gastrointestinal: reports: nausea, abdominal pain. denies: vomiting, diarrhea, constipation, GI bleeding Genitourinary: reports: incontinence, dysuria Skin: denies: rashes, lesions Musculoskeletal: reports: pain (abdominal pain near placement of supraumbilical cath, chronic), tenderness (CVA tenderness on left flank) Neurological: reports: weakness (RLE weakness from MS). denies: numbness - Vital signs BP: 129/78, P 113, R 20, T 97.7, PO2 95% on 4 L NC, Wt 50.8 - Physical Exam Constitutional: NAD, other (Awake, alert, orientated to person and place, oriented to month and year but not day) HEENT: normocephalic and atraumatic, PERRLA, EOMI, conjunctiva clear, grossly normal hearing, oropharynx clear -HEENT: Mucous membranes dry Neck: supple, other -Neck: +LAD Heart: normal S1/S2, pulses present (present in upper and lower extremities), no edema, other (Regular rhythm, tachycardic) Lungs: other (diffuse crackles, no rhales or wheezing) Abdomen: soft, bowel sounds present, no masses/distention, other (diffusely TTP , minimally tender) Musculoskeletal: other (Weakness 3/5 on rt thigh flexion) Skin: no rash/lesions -Skin: cap refill > 2 seconds, feet cold to the touch Psychiatric: normal mood and affect FMR H&P: Results - Labs Result Diagrams: 05/16/18 05:10 05/15/18 11:53 Lab results: WBC 16.7 thou/uL (4.8-10.8) H 05/15/18 11:53 Hgb 13.7 g/dL (12.0-16.0) 05/15/18 11:53 Hct 43.0 % (36.0-47.0) 05/15/18 11:53 MCV 86.2 fL (78.0-98.0) 05/15/18 11:53 Plt Count 325 thou/uL (130-400) 05/15/18 11:53 Neutrophils % 91.5 % (42.0-75.0) H 05/15/18 11:53 ABG pH 7.46 (7.35-7.45) H 05/15/18 12:20 ABG pCO2 31.7 mmHg (35.0-45.0) L 05/15/18 12:20 ABG pO2 51.9 mmHg (> 60.0) L* 05/15/18 12:20 Sodium 136 mmol/L (136-145) 05/15/18 11:53 Potassium 3.0 mmol/L (3.5-5.1) L 05/15/18 11:53 Chloride 100 mmol/L (98-107) 05/15/18 11:53 Carbon Dioxide 21 mmol/L (23-31) L 05/15/18 11:53 BUN 20 mg/dL (9.8-20.1) 05/15/18 11:53 Creatinine 0.92 mg/dL (0.6-1.1) 05/15/18 11:53 Glucose 213 mg/dL (83-110) H 05/15/18 11:53 Lactic Acid 3.9 mmol/L (0.5-2.2) H 05/15/18 11:53 Calcium 9.8 mg/dL (7.8-10.44) 05/15/18 11:53 Total Bilirubin 0.5 mg/dL (0.2-1.2) 05/15/18 11:53 AST 29 U/L (5-34) 05/15/18 11:53 ALT 28 U/L (8-55) 05/15/18 11:53 Alkaline Phosphatase 88 U/L (40-150) 05/15/18 11:53 Serum Total Protein 7.7 g/dL (6.0-8.3) 05/15/18 11:53 Albumin 3.6 g/dL (3.4-4.8) 05/15/18 11:53 Urine Ketones Negative mg/dL (Negative) 05/15/18 13:10 Urine Blood Moderate (Negative) H 05/15/18 13:10 Urine Nitrite Positive (Negative) H 05/15/18 13:10 Ur Leukocyte Esterase Large (Negative) H 05/15/18 13:10 Urine RBC 7-10 HPF (0-3) H 05/15/18 13:10 Urine WBC Greater Than 50-TNTC HPF (0-3) H 05/15/18 13:10 Ur Squamous Epith Cells 4-6 HPF (0-3) H 05/15/18 13:10 Urine Bacteria 4+ HPF (None Seen) H 05/15/18 13:10 - EKG Interpretation EKG: sinus tachycardia, left axis deviation FMR H&P: A/P - Problem List (1) Acute respiratory failure with hypoxia Current Visit: Yes Status: Acute Code(s): J96.01 - ACUTE RESPIRATORY FAILURE WITH HYPOXIA (2) Constipation Current Visit: Yes Status: Chronic Code(s): K59.00 - CONSTIPATION, UNSPECIFIED (3) Intertriginous candidiasis Current Visit: Yes Status: Chronic Code(s): B37.2 - CANDIDIASIS OF SKIN AND NAIL (4) Insomnia Current Visit: Yes Status: Chronic Code(s): G47.00 - INSOMNIA, UNSPECIFIED (5) Hypomagnesemia Current Visit: Yes Status: Chronic Code(s): E83.42 - HYPOMAGNESEMIA (6) Environmental and seasonal allergies Current Visit: Yes Status: Chronic Code(s): J30.89 - OTHER ALLERGIC RHINITIS (7) Hip pain, chronic Current Visit: Yes Status: Chronic Code(s): M25.559 - PAIN IN UNSPECIFIED HIP; G89.29 - OTHER CHRONIC PAIN (8) Neuropathy Current Visit: Yes Status: Chronic Code(s): G62.9 - POLYNEUROPATHY, UNSPECIFIED (9) Sepsis Current Visit: No Status: Acute Code(s): A41.9 - SEPSIS, UNSPECIFIED ORGANISM (10) UTI (urinary tract infection) due to urinary indwelling Robles catheter Current Visit: No Status: Acute Code(s): T83.511A - I/I REACT D/T INDWELLING URETHRAL CATHETER, INIT; N39.0 - URINARY TRACT INFECTION, SITE NOT SPECIFIED (11) GERD (gastroesophageal reflux disease) Current Visit: No Status: Chronic Code(s): K21.9 - GASTRO-ESOPHAGEAL REFLUX DISEASE WITHOUT ESOPHAGITIS (12) History of pulmonary embolism Current Visit: No Status: Chronic Code(s): Z86.711 - PERSONAL HISTORY OF PULMONARY EMBOLISM (13) Lupus (systemic lupus erythematosus) Current Visit: No Status: Chronic Code(s): M32.9 - SYSTEMIC LUPUS ERYTHEMATOSUS, UNSPECIFIED (14) Multiple sclerosis Current Visit: No Status: Chronic Code(s): G35 - MULTIPLE SCLEROSIS (15) Hypokalemia Current Visit: No Status: Chronic Code(s): E87.6 - HYPOKALEMIA (16) Lactic acidosis Current Visit: No Status: Acute Code(s): E87.2 - ACIDOSIS - Plan Disposition/LOS: 83 yo F with sepsis 2/2 to UTI vs pyelonephritis vs HCAP vs other. Sepsis 2/2 to UTI vs CAP vs suspected pylonephritis - Patient presented with sepsis, most likely 2/2 to either UTI or HCAP. Patient had crackles on exam and SOB. Has a history of recurrent UTIs with suprapubic catheter, and has Left CVA tenderness on exam. History of fever up to 100.8. On presentation she has elevated WBC (16.7), Respirations 20 bpm, LA of 3.9. - Received 1 L NS in ED, One liter LR @ 100 ml/hr to follow - Received Vanc 1g, gentamicin 250 mg, and cefepime 2g in ED. - CXR showed pulmonary vascular congestion and bibiasilar infiltrates stable compared to 2 wks prior - Continuing Vanc, gent, and cefepime - Procal pending - Blood and urine cx pending - UA shows Acute Hypoxic Respiratory Failure -On 2L NC, Satting 95% - ABG on admission: 7.46/31.7/51.8 - Duonebs q4hrs - Guafenesin for cough Hypokalemia -K of 3.0 on admission - Replace with 40 mg IV potassium Lactic Acidosis -LA 3.9 SLE -on daily prednisone at home, hold -transition to hydrocortisone 30 mg q6 hrs GERD -Continue home Pepcid 20mg, prilosec 40 mg Constipation -Continue home Miralax, Colace Madhavi, intertriginous -continue home Nystatin powder Insomnia -continue home Melatonin Hypomagnesemia - continue home Mag oxide 400 mg PO QD Environmental Allergies -continue home Flonase, Berta MS with Bladder spasms -Continue home Vesicare 10 mg Chronic hip Pain -Continue [place] 5-325 q6hrs -Continue home Lidoderm patch Neuropathy -home Gabapentin Diarrhea/Loose stools -PRN home Bentyl Other -Continue multivitamin Code status: DNR/DNI MPOA: Daughter, Vickie Henriquez. [facility] patient at [facility] H&P: Upper Level - Pertinent history 83 yo WF PMH MS with neurogenic bladder s/p suprapubic catheter placement with recurrent UTI and currently on chronic steroids for possible lupus. She presents from [facility] with a 2-3 day history of generalize weakness and malaise and fever up to 100.8F. Daughter was present at bedside for evaluation and state her mother is normally A&Ox4 at baseline but wheel chair/bed bound due to MS and scoliosis. States the patient is a little more confused today and that her mother becomes this way whenever she has an infection starting. states the patient is on 2L NC at baseline. States the patient was also recently started on bactrim for bursitis on the elbow by ortho ER course: patient was brought to ER and responded to 4L NC. However, by the time of my examination she was requiring 15 L through a nonrebreather mask and was upgraded to IMCU status. Labs including, UA, CXR, and EKG were taken. She received vanc, cefepime, and gent along with 2L NS. - Pertinent findings Vitals: BP 102/82, pulse wnl, RR 25, SpO2 92% on 15L non-rebreather. GEN- ill appearing CV- RRR, no murmur Pulm- coarse breath sound diffusely abdomen- suprapubic catheter in place. Left sided CVA tenderness Labs. procalcitonin 0.56, WBC 16.7 with 91.5% neutrophils and no bands. ABG 7.46 /31.7/51.9 urine 4+ bacteria, WBC TNTC, CXR- bilateral infiltrates unchanged from previous exam. - Plan Date/Time: 05/15/18 1505 I, Moe Severino MD, have evaluated this patient and agree with findings/plan as outlined by chief of internal medicine resident. Pertinent changes/additions are listed here. 1. Sepsis 2/2 UTI vs pyelonephritis vs CAP- continue vanc, cefepime, and gent due to hx of recurrent infections and hospitalizations. cultures pending. will continue LR at 100 mL/hr. will give stress dose of steroids with hydrocortisone 30 mg Q6hr due to chronic steroid use. discussed [employer] prognosis with daughter at length and she states the patient is a DNR-DNI. 2. Acute hypoxic respiratory failure 2/2 #1- place in IMCU for possible need for BiPAP. will monitor. repeat ABG if condition worsens. 3. MS- home meds 4. Suspected lupus- stress dose steroids. DIET- Regular, will make NPO if worsening mentation. PPx- SCD CODE- DNR DNI Dispo- Inpatient, IMCU >2 midnights. prognosis is guarded at this time. Attending Addendum - Attending Addendum Date/Time: 05/16/18 1123 I personally evaluated the patient and discussed the management with Dr. Leon/ Mere. I agree with the History, Examination, Assessment and Plan documented above with any addition or exceptions noted below. Please see my dictated note from 05/15/18 for full details.
[2018-05-15] MEDS ORDERED: Ondansetron HCl/PF 4 MG/2 ML Vial ONE (16:10)
[2018-05-15 16:14] LABS: Lactic Acid 1.6 mmol/L (0.5-2.2)
[2018-05-15] MEDS ORDERED: Melatonin 3 MG TAB PO PRN ×2 (17:05→19:00)
[2018-05-15] MEDS ORDERED: Loratadine 10 MG TAB PO PRN (17:05)
[2018-05-15] MEDS ORDERED: HYDROcodone/Acetaminophen 5/325 mg Tablet PO PRN (17:05)
[2018-05-15] MEDS ORDERED: Dicyclomine 20 MG TAB PO PRN (17:05)
--- NOTE | 2018-05-15 17:07 | HP ---
DATE OF ADMISSION: 05/15/2018 TIME OF ADMISSION: 1600 hours ASSESSMENT AND PLAN: For full history and physical details, please see Dr. Angelia Leon's electronic H&P . Portions of the history and physical have been repeated by myself and I am in agreement with the a ssessment and plan as documented. In summary, this patient is an 83-year-old female with a history of lupus, multiple sclerosis, histor y of pulmonary embolism who presents to the ER after intermittent confusion and fever noted by the henry robertson. Per the patient, she reports that she in general has not been feeling well over the last several days , but denies any specific complaints. She does report that she has some recurrent nausea at the time of my exam. She denies shortness of breath. She also admits to some chronic abdominal pain associa valerie with suprapubic Robles that she has had for years and reports that is no different in nature. She does endorse that she has had a productive cough of yellowish sputum over the last few weeks that kapadia s previously been worked up by her outpatient doctor. Per the daughter, the patient has not been her self recently and has had increased weakness, fatigue, and intermittent confusion over the last few d ays. She noticed today that she was running a low-grade temperature and decided to bring her to the emergency room for further evaluation. Upon arrival to the emergency room, routine labs were obtained which showed the patient to have eleva valerie white count as well as increased lactic acid. Throughout the course of her hospital for emergenc y room stay, she had some subsequent worsening of her respiratory status and progressed from 2L on na amanda cannula which she is on at baseline at home up to 4 liters and then was placed on nonrebreather t o maintain sats greater than 90%. The patient was given broad spectrum antibiotics and is being admi tted to the IMCU for further workup. PHYSICAL EXAMINATION: VITAL SIGNS: At the time of my exam, the patient was noted to be febrile. Blood pressure was 102/48 . She was not tachycardic. Oxygen saturation was 92% on nonrebreather. GENERAL: The patient was alert, oriented x4, in mild respiratory distress. She was appropriate in c onversation. HEENT: No major abnormalities. CARDIOVASCULAR: The patient was regular rate and rhythm without murmurs, rubs or gallops. PULMONARY: Revealed coarse breath sounds bilaterally as well as decreased inspiratory effort. ABDOMEN: Soft, mild tender to palpation in the suprapubic area, but otherwise nontender. Extremities were cool. Two-second cap refill. No clubbing, cyanosis or edema noted. LABORATORY DATA: 1. CBC: WBC 16.7 with 91.5% neutrophils, H&H 13.7 and 43, platelets of 325. 2. BMP: Sodium 136, potassium 3.0, chloride 100, bicarbonate 21, BUN 20, creatinine 0.92, glucose 2 13. 3. Lactic acid was 3.9 with subsequent recheck 1.6. 4. AST and ALT were within normal limits. 5. ABG obtained showed pH 7.46, pCO2 31.7, pO2 51.9, calculated saturation 88%. A:A gradient 165.1. 6. Urinalysis showed yellow and turbid urine, positive for protein, blood, nitrite, leukocyte estera se, RBCs, WBCs, mild squamous epithelial cells and 4+ bacteria, this UA was obtained from her suprapu bic catheter. 7. Chest x-ray showed pulmonary vascular congestion, bibasilar infiltrates that are stable compared to the study 2 weeks previous. IMPRESSION AND PLAN: This patient is an 83-year-old female with history of lupus, multiple sclerosis who is on chronic prednisone therapy, presenting with intermittent confusion and worsening respirato ry status with concerns for subsequent deterioration. 1. Presumed sepsis secondary to possible community-acquired pneumonia versus urinary tract infection . The patient has been started on broad spectrum antibiotics and be admitted to the IMCU for further monitoring and care. The patient has been adequately fluid resuscitated. We will continue IV fluid s as needed. Currently, she has no evidence of renal dysfunction or other end organ dysfunction, but will need to monitor closely in case her condition deteriorates. Cultures have been obtained. We w ill follow up with those results. Lactate has been checked and is down trending, which is reassuring sign. Procalcitonin will be checked and will be used in the proper clinical context. 2. Acute hypoxic respiratory failure. This is, I suspect, secondary to possible pneumonia. As abov e, broad spectrum antibiotics will be initiated. The patient will be placed in the IMCU for further respiratory monitoring. Of note, the patient and the daughter are both in agreement that the patient is a DO NOT RESUSCITATE and therefore if the patient's condition deteriorates to a point, we will ne ed to discuss with the family the need for more invasive treatment. At this time, it appears that th sharan will be deferring on that. Pulmonary Medicine will be consulted. Continue broad spectrum antibio tics as above. 3. Leukocytosis with left shift, likely secondary to the above. Continue broad spectrum antibiotics . Await culture. 4. Suspected pneumonia. We suspect this is likely cause of her hypoxia. Continue broad spectrum an tibiotics and noninvasive respiratory management. As mentioned above, the patient is a DO NOT RESUSC ITATE and this has been confirmed with the daughter. 5. Possible urinary tract infection. The patient could have worsening sepsis due to urinary tract i nfection disease. She has a history of this; however, cannot rule out chronic colonization to of the suprapubic catheter. For now, the patient will be placed on broad spectrum antibiotics and await cu ltures. Consider a Urology consult in the morning. Of note, patient does not complain of any new on set suprapubic pain. She does apparently have some increased purulence and foul-smelling odor of her urine which could represent urinary tract infection.
[2018-05-15] MEDS ORDERED: Furosemide 20 MG/2 ML VIAL SLOW IVP SCH (20:45)
[2018-05-15] MEDS: Lactated Ringer's 1,000 ML IV SCH (20:53)
[2018-05-15] MEDS: Potassium Chloride 20 MEQ in Premix Bag 1 BAG IVPB SCH ×2 (20:53→20:55)
[2018-05-15] MEDS ORDERED: Famotidine 20 MG TAB PO SCH (21:00)
[2018-05-15] MEDS ORDERED: Ondansetron HCl/PF 4 MG/2 ML Vial IVP PRN (22:09)
[2018-05-15] MEDS ORDERED: Ondansetron ODT 4 MG TAB SL PRN (22:09)
[2018-05-15] MEDS ORDERED: Promethazine HCl 25 MG/ML VIAL IM/IV PRN (22:10)
[2018-05-15] MEDS: Cefepime 2 GM in Sodium Chloride 0.9% 100 ML IVPB SCH (23:09)
[2018-05-16] MEDS ORDERED: Potassium Chloride 20 MEQ TAB PO SCH ×3 (00:30→09:00)
[2018-05-16] MEDS: Hydrocortisone 10 mg Tablet PO SCH ×3 (00:54→13:40)
[2018-05-16] MEDS: Docusate 100 MG CAP PO SCH ×2 (00:54→11:12)
[2018-05-16] MEDS: Gabapentin 400 MG CAP PO SCH ×2 (00:55→11:12)
[2018-05-16] MEDS: guaiFENesin ER 600 MG TAB PO SCH ×2 (00:55→11:12)
[2018-05-16] MEDS: Nystatin Powder 15 GM BOT TOP SCH ×2 (00:55→11:13)
[2018-05-16] MEDS: Lactated Ringer's 1,000 ML IV SCH (01:34)
[2018-05-16 02:39] VITALS: BMI 20.5
[2018-05-16] MEDS ORDERED: Lidocaine 5% Patch TD SCH ×2 (03:00→09:00)
[2018-05-16] MEDS ORDERED: hydrOXYzine 25 MG/ML VIAL IM PRN (03:08)
[2018-05-16] MEDS ORDERED: hydrOXYzine 25 MG TAB PO PRN (03:08)
[2018-05-16] MEDS: Vancomycin HCl 750 MG in Sodium Chloride 0.9% 250 ML 250 ML IVPB SCH ×2 (03:24→14:25)
[2018-05-16] MEDS ORDERED: Potassium Chloride 20 MEQ in Lactated Ringer's 1,000 ML IV SCH (03:45)
[2018-05-16 06:08] LABS: Band 3 % (5-11); Hemoglobin 11.5 g/dL (12.0-16.0); Lymphocytes 12 % (21-51); MDiff Complete? YES; Mean Corpuscular HGB CONC 32.6 g/dL (32.0-36.0); Mean Corpuscular Hemoglobin 28.1 pg (27.0-31.0); Mean Corpuscular Volume 86.1 fL (78.0-98.0); Mean Platelet Volume 8.3 fL (7.4-10.4); Monocytes 4 % (0-10); Neutrophil 81 % (42-75); PLT Morphology Comment Appears Adequate; Platelet Count 267 thou/uL (130-400); RBC Distribution Width 15.1 % (11.5-14.5); RBC Morphology Normal; Red Blood Cell (RBC) Count 4.11 mill/uL (4.20-5.40); White Blood Cell (WBC) Count 18.8 thou/uL (4.8-10.8)
[2018-05-16] MEDS ORDERED: Multivit, Therapeutic 1 TAB PO SCH (09:00)
[2018-05-16] MEDS ORDERED: TROSPIUM 20 MG TABLET PO SCH (09:00)
[2018-05-16] MEDS ORDERED: Magnesium Oxide 400 MG TAB PO SCH (09:00)
[2018-05-16] MEDS ORDERED: Polyethylene Glycol 3350 17 GM Packet PO SCH (09:00)
[2018-05-16] MEDS ORDERED: Fluticasone Propionate Nasal Spray 16 gm Bottle NASAL SCH (09:00)
[2018-05-16] MEDS ORDERED: Estrogens, Conjugated 0.3 MG TAB PO SCH (09:00)
[2018-05-16] MEDS ORDERED: Lorazepam 2 MG/ML VIAL ONE ×3 (09:01→14:38)
[2018-05-16] MEDS: Cefepime 2 GM in Sodium Chloride 0.9% 100 ML IVPB SCH ×2 (11:11→14:21)
[2018-05-16 11:39] LABS: Actual Bicarbonate (HCO3a) 21.9 mEq/L (22-28); Base Excess (BEa) -1.8 mEq/L (-2.0 to +3.0); CO2 Tension 33.7 mmHg (35.0-45.0); Calcium, Ionized 1.16 mmol/L (1.12-1.30); Carboxyhemoglobin (COHb) 1.6 gm% (0.0-3.0); Hemoglobin (Hb) 12.7 g/dL (12.0-16.0); Potassium - ABG Lab 2.85 mmol/L (3.70-5.30); Puncture Site LRA; pH, Arterial 7.43 (7.35-7.45)
[2018-05-16 11:40] LABS: ALV-art Gradient 429.625 (0-20)
[2018-05-16] MEDS: Potassium Chloride 20 MEQ in Premix Bag 1 BAG IVPB SCH ×2 (11:43→11:44)
--- NOTE | 2018-05-16 12:07 | PDOC.EVN ---
Event Note - Event Note Event Note: Patient seen with family at bedside. Patient with significant air hunger, satting 81% on VPAP with 55% Fio2. Palliative care has come by. Daughter with questions about hospice care. Explained nature of hospice care and all parties agree this would be appropriate. Will consult hospice care for inpatient management and start comfort care only.
[2018-05-16 13:27] VITALS: BP 172/82; TEMP 97.6
[2018-05-16] MEDS ORDERED: Lidocaine Patch Removal 1 EACH TOP SCH (15:00)
[2018-05-16] MEDS ORDERED: Morphine 10 MG/ML VIAL SLOW IVP PRN (15:20)
[2018-05-16] MEDS ORDERED: Lorazepam 2 MG/ML VIAL SLOW IVP PRN (15:22)
[2018-05-16] MEDS ORDERED: Scopolamine 1.5 mg/72 hour Patch TOP SCH (15:30)
--- NOTE | 2018-05-16 16:51 | PDOC.EVN ---
Event Note - Event Note Event Note: Went to check on patient. Hospice had recently been by to visit and deemed her appropriate for inpatient care with [facility]. Comfort orders placed. Bipap mask was removed at around 1400. Patient quickly deteriorated, becoming mottled, decreased responsiveness, and eventually bradycardic. Upon my evaluation at around 1600, patient RR was decreased, she appeared mottled from head to toe, she was not responsive to family members, but patient appeared comfortable. At 1621 pronounced patient's , confirming no pulse and no cardiac activity on auscultation. Family at bedside received report. Spoke with [facility] who reports nurse is on her way to see the family and patient.
--- NOTE | 2018-05-16 18:19 | CON ---
DATE OF CONSULTATION: 05/16/2018 Ms. Ramos is an unfortunate 83-year-old female who has been dealing with multiple sclerosis for many years. She presented with respiratory distress and has been gradually escalated to noninvasive ventilation. I had a long meeting with family about their expectations. They actually had a place where they are willing to withdraw for comfort care. PAST MEDICAL HISTORY: Otherwise remarkable for lupus, pulmonary embolism in the past. Additional past medical history is remarkable for: 1. Hysterectomy. 2. Tonsillectomy. 3. Cholecystectomy. 4. Placement of a spinal stimulator for pain. 5. History of an inferior vena cava filter. 6. History of ureteral stenting. 7. History of neurogenic bladder with frequent UTIs. 8. History of nephrolithiasis. 9. History of pulmonary hypertension. 10. History of Clostridium difficile colitis. 11. History of basket extraction of a stone in the past on the right. MEDICATIONS: Last summer, she was on DuoNeb, Valisone, Colace, Pepcid, Neurontin, heparin, Solu-Cortef, Theragran, Zyvox, meropenem, and Nystatin when she was seen by Dr. Buchanan. FAMILY: Non contributory. SOCIAL: Not obtained. REVIEW OF SYSTEMS: 10 point systems review completed, not obtainable. PHYSICAL EXAMINATION: GENERAL: On exam, she has a noninvasive ventilatory mask in place. NECK: Supple HEENT: pupils react. VITAL SIGNS: Respiratory rate is 30, heart rate is 129, blood pressure 172/82. LUNGS: Remarkable for rhonchi. HEART: Regular rhythm. ABDOMEN: Soft. EXTREMITIES: Without asymmetry. LABORATORY AND DIAGNOSTIC DATA: White count 18.8, hemoglobin 11.5, platelets 267. Sodium 136, potassium 3, chloride 100, bicarbonate 21, BUN 20, creatinine 0.92, pH 7.43, CO2 of 33, pO2 of 63. Chest radiographs unchanged compared to February. There may be some patchy atelectasis at the left base, but there are no infiltrates to explain her work of breathing. IMPRESSION: Multiple medical problems at the end of her life. I think noninvasive ventilation will increase her chances of survival. I have recommended comfort care and the family was discussing and apparently has agreed. Plan moving forward will be apparently inpatient hospice. I answered all their questions to their satisfaction. This is a 70-minute consult, with greater than 50% of time spent in the unit coordinating care. SUKUMAR
--- NOTE | 2018-05-17 13:25 | DS ---
DATE AND TIME OF : 05/16/2018 at 1621 p.m. HISTORY OF PRESENT ILLNESS: This was a very pleasant 83-year-old female who was admitted to hospice for sepsis and multiorgan failure as well as respiratory failure. The patient had failed all medical therapy so she was admitted to hospice and was at the time noted above. Family was informe d, no complications were reported.
== END 2018-05-16 16:21 | disposition expired | DRG 698 ==
LOC: ERS 11:33 → ERHOLD 14:47 → IMCU/EMU 20:50
PROVIDERS: ADMIT Student in an Organized Health Care Education/Training Program; ATTEND Student in an Organized Health Care Education/Training Program
PROC: 5A09357 Assistance with Respiratory Ventilation, Less than 24 Consecutive Hours, Continuous Positive Airway Pressure (ICD-10-PCS; principal; 2018-05-15)
DX: T83.511A Infection and inflammatory reaction due to indwelling urethral catheter, initial encounter (principal); A41.9 Sepsis, unspecified organism; J18.9 Pneumonia, unspecified organism; J96.01 Acute respiratory failure with hypoxia; R65.20 Severe sepsis without septic shock; E87.2 Acidosis; N39.0 Urinary tract infection, site not specified; Z66 Do not resuscitate; G35 Multiple sclerosis; Z51.5 Encounter for palliative care; E87.6 Hypokalemia; Z99.3 Dependence on wheelchair; Z74.01 Bed confinement status; R00.1 Bradycardia, unspecified; K21.9 Gastro-esophageal reflux disease without esophagitis; M32.9 Systemic lupus erythematosus, unspecified; Z86.711 Personal history of pulmonary embolism; Z86.718 Personal history of other venous thrombosis and embolism; K59.00 Constipation, unspecified; B37.2 Candidiasis of skin and nail; G47.00 Insomnia, unspecified; E83.42 Hypomagnesemia; Y84.6 Urinary catheterization as the cause of abnormal reaction of the patient, or of later complication, without mention of misadventure at the time of the procedure; Y92.009 Unspecified place in unspecified non-institutional (private) residence as the place of occurrence of the external cause; G62.9 Polyneuropathy, unspecified; M25.559 Pain in unspecified hip; N31.9 Neuromuscular dysfunction of bladder, unspecified
CPT/HCPCS: 36415; 71045; 80053; 80170; 81003; 81015; 82805; 83605; 83735; 84145; 85025; 87040; 87077; 87086; 87186; 93005; 94640; 94660; 96361; 96365; 96367; 96368; 96375; A4216; J0692; J1580; J1940; J2060; J2270; J2405; J3370; J3480; J7050; J7120; J7620